=== PATIENT | female | born 1970 | race Caucasian/White ===

== ENCOUNTER → 2018-01-18 08:05 | Outpatient (CLI) | payer OTHER, SELFPAY ==
[2018-01-18 12:15] LABS: Absolute Lymphocyte Count 1.16 X10^3/ul (0.83-4.51); Absolute Neutrophil Count 3.4 X10^3/uL (2.0-7.7); Basophil# 0.01 X10^3/uL; Basophil% 0.2 % (0-1); Eosinophil# 0.14 X10^3/uL; Eosinophils% 2.8 % (0-5); Hematocrit 41.3 % (37-47); Hemoglobin 13.5 g/dl (12.0-15.0); Lymphocyte # 1.16 X10^3/ul (4.0); Lymphocyte % 23.1 % (19-41); Mean Corp Hgb Conc 32.7 g/gl (32-36); Mean Corpuscular Hgb 28.1 pg (27.0-32.0); Mean Corpuscular Volume 85.9 fL (81-99); Mean Platelet Vol. 10.6 fl (6.2-12.0); Monocyte# 0.34 X10^3/uL; Monocyte% 6.8 % (0-10); Neutrophil # 3.37 X10^3/uL (2.7-7.7); Neutrophil % 66.9 % (47-70); Platelet Count 242 K/mm3 (150-450); Red Blood Count 4.81 M/mm3 (4.2-5.4)
[2018-01-18 12:22] LABS: POSITIVE COUNT NO; POSITIVE DIFFERENTIAL NO; POSITIVE MORPHOLOGY NO
[2018-01-18 12:28] LABS: Vitamin D,25 Hydroxy 40.1 ng/mL (29.95-100.01)
[2018-01-18 12:31] LABS: AST(SGOT) 19 U/L (15-37); Alanine Aminotransfer ALT/SGPT 34 U/L (13-56); Albumin, Serum 3.8 g/dL (3.2-5.0); Alkaline Phosphatase 93 U/L (45-117); Anion Gap 6 (5-15); BUN 13 mg/dL (7-18); BUN/Creat Ratio 11.3 RATIO (10-20); Calcium,Total 8.9 mg/dL (8.5-10.1); Chloride 108 mmol/L (98-107); Creatinine, Serum 1.15 mg/dL (0.55-1.02); EST Glomerular Filtration Rate 54 mL/min (>60); Est Glom Filt Rate - Afr Amer 65 mL/min (>60); Glucose 98 mg/dL (74-106); Protein, Total 7.8 g/dL (6.4-8.2); Sodium Level 142 mmol/L (136-145); T4 Free Direct 0.85 ng/dL (0.76-1.46); Thyroid Stim Hormone (TSH) 2.45 uIU/mL (0.358-3.74)
== END ==
PROVIDERS: Family Provider Family Medicine; PCP Family Medicine; Visit Provider Family Medicine
DX: E55.9 Vitamin D deficiency, unspecified (principal); R25.1 Tremor, unspecified; R53.83 Other fatigue; R06.00 Dyspnea, unspecified
CPT/HCPCS: 36415; 80053; 82306; 84439; 84443; 85025

== ENCOUNTER 2018-02-01 09:06 | Observation (INO) | payer OTHER, SELFPAY ==
[2018-02-01] VITALS (16 sets, daily range): BP systolic 104–133; BP diastolic 54–78; PULSE 59–84; RESP 16–18; TEMP 36.3–36.8; O2SAT 94–99; BMI 34.5; BMI 34.6
--- NOTE | 2018-02-01 09:15 | EKG12_ITS ---
Test Reason : CP Blood Pressure : / mmHG Vent. Rate : 077 BPM Atrial Rate : 077 BPM P-R Int : 156 ms QRS Dur : 094 ms QT Int : 386 ms P-R-T Axes : 057 074 057 degrees QTc Int : 436 ms Normal sinus rhythm Nonspecific T wave abnormality Abnormal ECG Confirmed by KAILASH SAENZ, RY ([id number]), book editor STEVEN ANDREWS ([id number]) on 02/04/2018 3:05:23 PM Referred By: TRUNG/KOFFI Confirmed By:RY LINDER MD
[2018-02-01] MEDS: Aspirin 81 MG TAB.CHEW 324 MG PO (09:20)
[2018-02-01] MEDS: 0.9% Normal Saline 1,000 ML 150 ML IV (09:21)
[2018-02-01 09:30] LABS: Absolute Lymphocyte Count 1.48 X10^3/ul (0.83-4.51); Absolute Neutrophil Count 4.1 X10^3/uL (2.0-7.7); Basophil# 0.01 X10^3/uL; Basophil% 0.2 % (0-1); Eosinophil# 0.15 X10^3/uL; Eosinophils% 2.4 % (0-5); Hematocrit 38.6 % (37-47); Hemoglobin 12.7 g/dl (12.0-15.0); Lymphocyte # 1.48 X10^3/ul (4.0); Lymphocyte % 24.1 % (19-41); Mean Corp Hgb Conc 32.9 g/gl (32-36); Mean Corpuscular Hgb 27.6 pg (27.0-32.0); Mean Corpuscular Volume 83.9 fL (81-99); Mean Platelet Vol. 9.8 fl (6.2-12.0); Monocyte# 0.35 X10^3/uL; Monocyte% 5.7 % (0-10); Neutrophil # 4.14 X10^3/uL (2.7-7.7); Neutrophil % 67.4 % (47-70); Platelet Count 208 K/mm3 (150-450); RBC Distribution Width CV 13.8 % (11.6-14.6); White Blood Count 6.1 K/mm3 (4.4-11.0)
--- NOTE | 2018-02-01 09:30 | RAD_ITS ---
STUDY: X-RAY CHEST REASON FOR EXAM: Female, 47 years old. Chest pain radiating to jaw. TECHNIQUE: Single AP upright portable chest view. COMPARISON: None available. FINDINGS: EKG wires and oxygen tubing project over the thorax. The lungs appear clear of active focal pulmonary consolidation, air bronchograms, large pleural effusion or abnormally dilated pony vascularity. Mild right greater than left elevated diaphragms are seen. There is no demonstrated pleural abnormality. No large gross pneumothorax suggested with single AP upright portable projection. Normal size heart. Normal mediastinum and katie. Trachea near midline due to mild rotation. Normal visualized pulmonary arteries. Normal visualized aortic arch and descending thoracic aorta. Normal visualized thoracic spine. Normal visualized ribs, clavicles and shoulders. There is no demonstrated abnormality of the visualized soft tissue structures of the upper abdomen. No subdiaphragmatic free air seen grossly. RAD/Chest 1 View (Portable) IMPRESSION: Nonacute x-ray examination of the chest. Electronically Signed: Landon Renee, at 10:47 EDT Tel , Service support ,
[2018-02-01 09:31] LABS: POSITIVE COUNT NO; POSITIVE DIFFERENTIAL NO; POSITIVE MORPHOLOGY NO
[2018-02-01 09:42] LABS: D-Dimer Quantitative (DVT/PE) < 0.27 FEU/ug/m (0.27-0.49)
[2018-02-01 09:46] LABS: Anion Gap 6 (5-15); BUN 15 mg/dL (7-18); BUN/Creat Ratio 12.9 RATIO (10-20); Chloride 109 mmol/L (98-107); Creatinine, Serum 1.16 mg/dL (0.55-1.02); EST Glomerular Filtration Rate 53 mL/min (>60); Est Glom Filt Rate - Afr Amer 64 mL/min (>60); Estimated Creatinine Clearance 73.54 ml/min; Glucose 97 mg/dL (74-106); Potassium 3.9 mmol/L (3.5-5.1); Sodium Level 140 mmol/L (136-145)
[2018-02-01] MEDS: Nitroglycerin Oint 1 INCH PACKET TRANSDERM. (09:50)
[2018-02-01] MEDS: Acetaminophen 325 MG Tablet 650 MG PO ×2 (09:50→12:40)
--- NOTE | 2018-02-01 09:52 | ED.VISSUMM ---
- ER Visit Summary Date of Service: 02/01/18 Chief Complaint: [Chest pain] History of Present Illness: The patient is a 47 F [presents the emergency department with complaint of chest pain that started 45 minutes prior to arrival. Patient states that she had continuous pressure and tightness/heaviness in her central chest region that radiates into her jaw. Patient denies any nausea or vomiting or diaphoresis. She does feel somewhat short of breath with that. Patient is never had discomfort like this before. Patient states that earlier in the week she had some discomfort between her shoulder blades but she just thought maybe it was her fibromyalgia acting up. Patient denies recent travel or surgery. Patient just recently found her biological family she is not aware of any cardiac history in the family. She denies heartburn symptoms.] Physical Examination: [HEENT-PERRLA, EOMI. Cranial nerves II through XII grossly intact. TMs clear. Mucous membranes moist. No adenopathy. Cardiovascular-regular rate and rhythm without murmur or ectopy Lungs-clear to auscultation, chest wall stable without crepitus or subcu emphysema Abdomen-normoactive bowel sounds, soft, nontender, no rebound or rigidity, no peritoneal signs. Extremities-intact ?4, normal range of motion, normal pulses, atraumatic] Test Results: [EKG obtained on arrival showed a sinus rhythm with a ventricular rate of 77 bpm with some nonspecific ST changes. Patient did have flipped T waves noted anterior laterally when compared with prior EKG from 2006 similar type pattern noted. CBC with differential was normal. Chemistries were normal. Troponin was less than 0.015. D-dimer was normal less than 0.27. Chest x-ray was normal.] Emergency Department Course and Treatment: [Patient received aspirin in the emergency department and was given 1 sublingual nitro every 5 minutes x3 and her pain resolved. Patient currently pain-free.] Treatment Plan: [Admit for further workup and evaluation] Disposition: [Admit] Impression: [Chest pain-rule out acute coronary syndrome] This note was generated with Octopusappation software. It may contain incorrect words, spelling, and punctuation that were not noted in review of the chart prior to signing ED Disposition - Plan for ED Patient: Chief Complaint: Chest Pain Referrals: Hardeep Vázquez MD [Primary Care Provider] -
--- NOTE | 2018-02-01 10:40 | EKG12_ITS ---
Test Reason : CHEST PAIN Blood Pressure : / mmHG Vent. Rate : 062 BPM Atrial Rate : 062 BPM P-R Int : 172 ms QRS Dur : 098 ms QT Int : 440 ms P-R-T Axes : 038 062 072 degrees QTc Int : 446 ms Normal sinus rhythm Nonspecific T wave abnormality Abnormal ECG Confirmed by KAREN SAENZ, WARD ([id number]), fan mail editor STEVEN ANDREWS ([id number]) on 02/07/2018 11:43:04 AM Referred By: PIPPA Confirmed By:WARD JONES MD
--- NOTE | 2018-02-01 14:40 | PCM.HP.STD ---
Problem List (1) Anemia Status: Resolved (2) Menorrhagia Status: Resolved (3) Chest pain Status: Acute (4) Fibromyalgia Status: Chronic History of Present Illness Date of Admission: 02/01/18 Chief Complaint: Chest pain. The patient is a 47 year old F who presents emergency room due to episode of chest pain today which occurred while she was at work. Patient states she was in a meeting when she developed sudden onset of chest pressure along with sharp pain in the center of her chest. Patient notes radiation to the right neck/jaw. Denies dizziness, lightheadedness. Denies palpitations. Denies diaphoresis. Patient states she has chronic pain due to fibromyalgia but this pain was much worse than her daily aches and pains. Patient states pain lasted approximately 20-30 minutes until arriving in the ER where she received sublingual nitro. Her pain is currently resolved. Her past medical history includes fibromyalgia. She denies other past medical history. Denies cardiac history. Denies previous cardiac workup including stress test. Past Medical History Past Medical History (Chronic Problems): Chronic Problems Fibromyalgia (Chronic) Allergies guaifenesin Allergy (Verified 02/01/18 09:13) Unknown sulfamethoxazole [From Bactrim] Allergy (Verified 02/01/18 09:13) Unknown trimethoprim [From Bactrim] Allergy (Verified 02/01/18 09:13) Unknown Home Medications: Ambulatory Orders Medication Instructions Recorded Duloxetine HCl 30 mg PO BID 02/01/18 Pregabalin [Lyrica] 75 mg PO TID 02/01/18 traZODone [Desyrel] 200 mg PO QHS 02/01/18 Surgical History: - - Cholecystectomy, hysterectomy Psychiatric History: No pertinent psych hx Lives: Spouse/ Significant Other Smoking Status: Never smoker Alcohol: None Drugs: None - *Family History Maternal History Items: - - Patient is adopted, has been told her mother of brain aneurysm. Paternal History Items: - - Patient is adopted, unknown paternal medical history. Review of Systems Constitutional: Denies: Chills, Fever, Weight Change HEENT: Denies: Head Aches, Sinus Congestion, Sinus Drainage Cardiovascular: Reports: Chest Pain, Chest Pressure. Denies: Edema, Light Headedness, Palpitations, Syncope Respiratory: Denies: Cough, Shortness of breath at rest, Sputum production Gastrointestinal: Denies: Abdominal Pain, Nausea, Vomiting Genitourinary: Denies: Dysuria Musculoskeletal: Denies: Joint Pain, Joint Tenderness Skin: Denies: Rash, Wounds Neurological: Denies: Numbness, Tingling, Focal weakness Psychiatric: Denies: Anxiety, Depression, Homicidal Ideations, Suicidal Ideations Hematologic/ Lymphatic: Denies: Easy Bruising, Easy Bleeding VTE Information - Inpt Only VTE Present on Admission: No VTE Mechan Device Prophylaxis: None VTE Pharm Prophylaxis ordered?: No Reason prophylaxis not ordered:: Treatment Not Indicated Patient Problems: Active and Suspected Problems Chest pain (Acute) - Physical Exam General: Alert, Oriented x3, Cooperative, No apparent distress HEENT: Atraumatic, PERRLA, EOMI, Normocephalic Neck: Supple, No JVD, Negative Carotid Bruits Lungs: Clear to auscultation, Normal air movement Cardiovascular: Regular rate, Regular Rhythm, Normal S1, Normal S2, No murmurs Abdomen: Bowel Sounds Present, Soft, Non Tender, Non-Distended, Obese Extremities: No clubbing, No cyanosis, No edema, Capillary Refill Less than 3 Seconds Skin: No rashes, No breakdown Musculoskeletal: No Tenderness to Palpation of Joints or Extremities Neurological: Cranial nerves II-XII grossly intact, Neuro grossly intact Psych/Mental Status: Normal Affect, Appropriate Vital Signs Temp Pulse Resp BP Pulse Ox 97.7 F L 64 18 107/54 L 94 02/01/18 10:50 02/01/18 10:54 02/01/18 10:50 02/01/18 10:52 02/01/18 10:50 Oxygen Flow Rate (L/min) 2 Oxygen Delivery Method Room Air Weight: 269 lb 10.005 oz Body Mass Index (BMI) 34.6 Intake and Output for Last 24 Hours 01/30/18 01/31/18 02/01/18 23:59 23:59 23:59 Intake Total 240 / 240 Balance 240 / 240 Laboratory Tests Past 24 Hrs 02/01/18 02/01/18 02/01/18 09:19 09:19 09:19 WBC 6.1 RBC 4.60 Hgb 12.7 Hct 38.6 MCV 83.9 MCH 27.6 MCHC 32.9 RDW 13.8 RDW Differential 42.0 Plt Count 208 MPV 9.8 Immature Gran % (Auto) 0.200 Neut % (Auto) 67.4 Lymph % (Auto) 24.1 [place] % (Auto) 5.7 Eos % (Auto) 2.4 Baso % (Auto) 0.2 Absolute Neuts (auto) 4.1 Absolute Lymphs (auto) 1.48 Total Counted Not Reportable D-Dimer Quant (PE/DVT) < 0.27 L Sodium 140 Potassium 3.9 Chloride 109 H Carbon Dioxide 25.0 Anion Gap 6 BUN 15 Creatinine 1.16 H Estim Creat Clear Calc 73.54 Est GFR (MDRD) Af Amer 64 Est GFR (MDRD) Non-Af 53 L BUN/Creatinine Ratio 12.9 Glucose 97 Calcium 9.0 Troponin I < 0.015 02/01/18 12:06 WBC RBC Hgb Hct MCV MCH MCHC RDW RDW Differential Plt Count MPV Immature Gran % (Auto) Neut % (Auto) Lymph % (Auto) [place] % (Auto) Eos % (Auto) Baso % (Auto) Absolute Neuts (auto) Absolute Lymphs (auto) Total Counted D-Dimer Quant (PE/DVT) Sodium Potassium Chloride Carbon Dioxide Anion Gap BUN Creatinine Estim Creat Clear Calc Est GFR (MDRD) Af Amer Est GFR (MDRD) Non-Af BUN/Creatinine Ratio Glucose Calcium Troponin I < 0.015 Assessment/Plan All Active Problems Chest pain (Acute) Anemia (Resolved) Menorrhagia (Resolved) 1. Chest pain-EKG with ST-T changes. Trop negative X2. Cycle enzymes. Stress test in a.m. 2. Fibromyalgia- resume home meds. 3. Obesity- Encourage diet and lifestyle modifications. DVT Prophylaxis- not indicated. Low risk. This patient was seen by PRIETO Oliveira under the supervision of Dr. Hicks.
[2018-02-01] MEDS: 0.9% NaCl Peripheral Flush Adult/Peds IV (16:44)
[2018-02-01] MEDS: Ketorolac 15 MG/ML Vial IV (16:44)
[2018-02-01] MEDS: Pregabalin 75 MG Capsule 150 MG PO (21:04)
[2018-02-01] MEDS: Morphine 2 MG/ML Syringe IV (21:04)
[2018-02-01] MEDS: DULoxetine Hcl 30 MG Capsule PO (21:04)
--- NOTE | 2018-02-01 21:23 | EKG12_ITS ---
Test Reason : CP Blood Pressure : / mmHG Vent. Rate : 064 BPM Atrial Rate : 064 BPM P-R Int : 166 ms QRS Dur : 094 ms QT Int : 454 ms P-R-T Axes : 056 072 071 degrees QTc Int : 468 ms Normal sinus rhythm Nonspecific T wave abnormality Confirmed by KAREN SAENZ, WARD ([id number]), editorial writer STEVEN ANDREWS ([id number]) on 02/07/2018 11:45:08 AM Referred By: Confirmed By:WARD JONES MD
[2018-02-01] MEDS: traZODone 50 MG Tablet 150 MG PO (22:04)
[2018-02-02 03:00] VITALS: PULSE 56
[2018-02-02 04:00] VITALS: BP 105/66; PULSE 60; RESP 18; TEMP 36.6; O2SAT 98
--- NOTE | 2018-02-02 04:00 | EKG12_ITS ---
Test Reason : AM EKG Blood Pressure : / mmHG Vent. Rate : 066 BPM Atrial Rate : 066 BPM P-R Int : 166 ms QRS Dur : 090 ms QT Int : 438 ms P-R-T Axes : 056 065 057 degrees QTc Int : 459 ms Normal sinus rhythm Nonspecific T wave abnormality Abnormal ECG Confirmed by KAREN SAENZ, WARD ([id number]), videotape editor STEVEN ANDREWS ([id number]) on 02/07/2018 11:41:42 AM Referred By: PIPPA Confirmed By:WARD JONES MD
[2018-02-02 04:24] LABS: Absolute Lymphocyte Count 1.95 X10^3/ul (0.83-4.51); Absolute Neutrophil Count 3.1 X10^3/uL (2.0-7.7); Basophil# 0.02 X10^3/uL; Basophil% 0.4 % (0-1); Eosinophil# 0.21 X10^3/uL; Eosinophils% 3.7 % (0-5); Hematocrit 37.2 % (37-47); Hemoglobin 12.4 g/dl (12.0-15.0); Lymphocyte # 1.95 X10^3/ul (4.0); Lymphocyte % 34.6 % (19-41); Mean Corp Hgb Conc 33.3 g/gl (32-36); Mean Corpuscular Hgb 28.4 pg (27.0-32.0); Mean Corpuscular Volume 85.3 fL (81-99); Mean Platelet Vol. 10.2 fl (6.2-12.0); Monocyte# 0.37 X10^3/uL; Monocyte% 6.6 % (0-10); Neutrophil # 3.08 X10^3/uL (2.7-7.7); Neutrophil % 54.5 % (47-70); Platelet Count 211 K/mm3 (150-450); RBC Distribution Width CV 13.7 % (11.6-14.6); Red Blood Count 4.36 M/mm3 (4.2-5.4); White Blood Count 5.6 K/mm3 (4.4-11.0)
[2018-02-02 04:25] LABS: POSITIVE COUNT NO; POSITIVE DIFFERENTIAL NO; POSITIVE MORPHOLOGY NO
[2018-02-02 04:35] LABS: International Normalized Ratio 1.1; Partial Thromboplast Time 29.2 Seconds (24.1-36.2); Prothrombin Time (Protime)PT. 13.7 SECONDS (11.7-14.9)
[2018-02-02 04:44] LABS: Anion Gap 7 (5-15); BUN 19 mg/dL (7-18); BUN/Creat Ratio 17.1 RATIO (10-20); Calcium,Total 8.5 mg/dL (8.5-10.1); Chloride 110 mmol/L (98-107); Creatinine, Serum 1.11 mg/dL (0.55-1.02); EST Glomerular Filtration Rate 56 mL/min (>60); Est Glom Filt Rate - Afr Amer 68 mL/min (>60); Estimated Creatinine Clearance 76.85 ml/min; Glucose 99 mg/dL (74-106); Potassium 4.3 mmol/L (3.5-5.1); Sodium Level 144 mmol/L (136-145)
--- NOTE | 2018-02-02 05:55 | NM_ITS ---
CLINICAL: 47-year-old female with reported history of chest discomfort area REST-MAXIMAL STRESS 99mTc SESTAMIBI MYOCARDIAL PERFUSION SPECT COMPARISON: None available FINDINGS: Following the intravenous administration of 14.8 mCi of 99m Tc sestamibi, the resting attenuation corrected myocardial perfusion acquisitions demonstrate uniform radiopharmaceutical concentration throughout all left ventricular segments. Prominent subdiaphragmatic radiopharmaceutical concentration is defined. After exercising on the treadmill for 6 minutes and 58 seconds, to a maximum heart rate of 160 beats per minute and following the intravenous administration of 44.9 mCi of 99m Tc sestamibi, the post stress attenuation corrected myocardial perfusion images reveal likewise relatively normal perfusion throughout all left ventricular myocardial segments. The post stress resting left ventricular ejection fraction is calculated to be 57.0 % by gated SPECT technique. Wall motion and end systolic thickening are considered normal. NM/Nuclear Stress Test - Treadmil IMPRESSION: 1. NORMAL REST-MAXIMAL STRESS 99m Tc SESTAMIBI MYOCARDIAL PERFUSION SPECT. A. No evidence of significant maximal exercise induced left ventricular ischemia on review of attenuation corrected data sets. B. Preservation of resting left ventricular systolic function. (Willie et al, J Nucl Med 37: 105P, 1995). Electronically Signed: Adelfo Bergman DO at 12:43 EDT Tel , Service support ,
[2018-02-02 07:00] VITALS: PULSE 55
[2018-02-02 09:49] VITALS: BP 114/79; PULSE 73; RESP 16; TEMP 36.4; O2SAT 98
[2018-02-02] MEDS: Pregabalin 75 MG Capsule PO (10:02)
[2018-02-02] MEDS: DULoxetine Hcl 30 MG Capsule PO (10:02)
[2018-02-02 11:47] VITALS: PULSE 70
--- NOTE | 2018-02-02 13:25 | DCINST_ITS ---
- Discharge Diagnoses Current Active Problems: Current Active and Chronic Problems Chest pain (Acute) Fibromyalgia (Chronic) You will use the following diet at home:: No restrictions Discharge Activity: Return to Normal Activity Call your doctor if you observe: Shortness of breath, Dizziness, Fainting spells, Chest pain Allergies/Adverse Reactions: Allergies guaifenesin Allergy (Verified 02/01/18 09:13) Unknown sulfamethoxazole [From Bactrim] Allergy (Verified 02/01/18 09:13) Unknown trimethoprim [From Bactrim] Allergy (Verified 02/01/18 09:13) Unknown Medications to take at Discharge Duloxetine HCl 30 mg PO BID 02/01/18 Pregabalin [Lyrica] 75 mg PO TID 02/01/18 traZODone [Desyrel] 200 mg PO QHS 02/01/18 Primary Care Physician: Hardeep Vázquez MD [Primary Care Provider] - Please follow up with your Primary Care Physician in: 1 Week Test Results: Test results from this visit will be discussed in further detail at your follow- up appointment, if applicable. Proposed Discharge Date: 02/02/18
--- NOTE | 2018-02-02 13:26 | PCM.DC.SUM ---
<Ratna Yen - Last Filed: 02/02/18 13:34> Discharge Date and Diagnosis Date of Admission: 02/01/18 Date of Discharge: 02/02/18 - Primary Discharge Diagnosis Active and Suspected Problems 1. Noncardiac chest pain - Secondary Discharge Diagnosis Chronic Problems Fibromyalgia (Chronic) Hospital Course and Treatment Imaging Results: Diagnostic Data Chest X-Ray 02/01/18 09:30 IMPRESSION: Nonacute x-ray examination of the chest. Electronically Signed: Landon Renee, at 10:47 EDT Tel , Service support , Stress Test Nuclear Medicine 02/02/18 05:55 IMPRESSION: 1. NORMAL REST-MAXIMAL STRESS 99m Tc SESTAMIBI MYOCARDIAL PERFUSION SPECT. A. No evidence of significant maximal exercise induced left ventricular ischemia on review of attenuation corrected data sets. B. Preservation of resting left ventricular systolic function. (Willie et al, J Nucl Med 37: 105P, 1995). Electronically Signed: Adelfo Bergman DO at 12:43 EDT Tel , Service support , Operations: None Procedures: Stress test Summary of Care Provided: The patient is a 47 year old F admitted 02/01/2018 due to chest pain. ACS ruled out. 1. Chest pain-EKG with nonspecific ST-T changes. Trop negative X3. Stress test completed which was negative for ischemia. 2. Fibromyalgia- resume home meds. 3. Obesity- Encourage diet and lifestyle modifications. General: Alert, Oriented x3, Cooperative, No apparent distress HEENT: Atraumatic, PERRLA, EOMI, Normocephalic Neck: Supple, No JVD, Negative Carotid Bruits Lungs: Clear to auscultation, Normal air movement Cardiovascular: Regular rate, Regular Rhythm, Normal S1, Normal S2, No murmurs Abdomen: Bowel Sounds Present, Soft, Non Tender, Non-Distended, Obese Extremities: No clubbing, No cyanosis, No edema, Capillary Refill Less than 3 Seconds Skin: No rashes, No breakdown Musculoskeletal: No Tenderness to Palpation of Joints or Extremities Neurological: Cranial nerves II-XII grossly intact, Neuro grossly intact Psych/Mental Status: Normal Affect, Appropriate Patient seen and examined prior to discharge. Physical assessment as noted above. Patient stable for discharge home with follow-up with primary care physician in 1 week. This patient was seen by PRIETO Oliveira under the supervision of Dr. Reynolds. - Physical Exam Vital Signs Temp Pulse Resp BP Pulse Ox 97.6 F L 70 16 114/79 98 02/02/18 09:49 02/02/18 11:47 02/02/18 09:49 02/02/18 09:49 02/02/18 09:49 Oxygen Flow Rate (L/min) 2 Oxygen Delivery Method Room Air Weight: 269 lb 10.005 oz Body Mass Index (BMI) 34.6 Intake and Output for Last 24 Hours 01/31/18 02/01/18 02/02/18 23:59 23:59 23:59 Intake Total 920 / 920 Balance 920 / 920 Laboratory Tests Past 24 Hrs 02/01/18 02/02/18 02/02/18 15:15 04:15 04:15 WBC 5.6 RBC 4.36 Hgb 12.4 Hct 37.2 MCV 85.3 MCH 28.4 MCHC 33.3 RDW 13.7 RDW Differential 42.0 Plt Count 211 MPV 10.2 Immature Gran % (Auto) 0.200 Neut % (Auto) 54.5 Lymph % (Auto) 34.6 [place] % (Auto) 6.6 Eos % (Auto) 3.7 Baso % (Auto) 0.4 Absolute Neuts (auto) 3.1 Absolute Lymphs (auto) 1.95 Total Counted Not Reportable PT 13.7 INR 1.1 APTT 29.2 Sodium Potassium Chloride Carbon Dioxide Anion Gap BUN Creatinine Estim Creat Clear Calc Est GFR (MDRD) Af Amer Est GFR (MDRD) Non-Af BUN/Creatinine Ratio Glucose Calcium Troponin I < 0.015 02/02/18 04:15 WBC RBC Hgb Hct MCV MCH MCHC RDW RDW Differential Plt Count MPV Immature Gran % (Auto) Neut % (Auto) Lymph % (Auto) [place] % (Auto) Eos % (Auto) Baso % (Auto) Absolute Neuts (auto) Absolute Lymphs (auto) Total Counted PT INR APTT Sodium 144 Potassium 4.3 Chloride 110 H Carbon Dioxide 27.0 Anion Gap 7 BUN 19 H Creatinine 1.11 H Estim Creat Clear Calc 76.85 Est GFR (MDRD) Af Amer 68 Est GFR (MDRD) Non-Af 56 L BUN/Creatinine Ratio 17.1 Glucose 99 Calcium 8.5 Troponin I Discharge Diet: No Restrictions Discharge Activity: Return to Normal Activity Call your doctor if you observe: Shortness of breath, Dizziness, Fainting spells, Chest pain Home Medications: Medications to take at Discharge Duloxetine HCl 30 mg PO BID 02/01/18 Pregabalin [Lyrica] 75 mg PO TID 02/01/18 traZODone [Desyrel] 200 mg PO QHS 02/01/18 Primary Care Physician: Hardeep Vázquez MD [Primary Care Provider] - Please follow up with your Primary Care Physician in: 1 Week Disposition: Home Minutes spent on discharge:: 35 Patient Condition:: Stable Medical Necessity - Tobacco Use Smoking Status: Never smoker Meaningful Use Info Meaningful Use Diagnoses (Choose all that apply): None applicable <Nilton Reynolds - Last Filed: 02/02/18 14:49> Discharge Date and Diagnosis - Secondary Discharge Diagnosis Chronic Problems Fibromyalgia (Chronic) Hospital Course and Treatment Imaging Results: 02/02/18 05:55 Nuclear Stress Test - Treadmil [NM] AM (NON MEDS) Summary of Care Provided: This patient was seen in conjunction with Ratna ALLISON. I have independently interviewed and examined the patient and reviewed pertinent history, examination findings, laboratory and plan of management. I have reviewed the note and agree with the documented findings with the few additional points. In brief, patient is admitted for atypical chest pain. Patient does not know about his family history as she is adopted. Acute coronary syndrome ruled out. Nuclear stress test was negative for stress-induced ischemia. Patient is being discharged home. Discharge meds reconciliation done. I have discussed my assessment with Ratna ALLISON and orders have been reviewed. [] - Physical Exam General: Alert, Oriented x3, Cooperative HEENT: Atraumatic, PERRLA, EOMI, Normocephalic Neck: Supple, No JVD, Negative Carotid Bruits Lungs: Clear to auscultation, Normal air movement Cardiovascular: Regular rate, Regular Rhythm, Normal S1, Normal S2, No murmurs Abdomen: Bowel Sounds Present, Soft, Non Tender, Non-Distended Extremities: No edema, Capillary Refill Less than 3 Seconds Skin: No rashes, No breakdown Musculoskeletal: No Tenderness to Palpation of Joints or Extremities Neurological: Cranial nerves II-XII grossly intact Psych/Mental Status: Normal Affect, Appropriate Vital Signs Temp Pulse Resp BP Pulse Ox 97.6 F L 70 16 114/79 98 02/02/18 09:49 02/02/18 11:47 02/02/18 09:49 02/02/18 09:49 02/02/18 09:49 Oxygen Flow Rate (L/min) 2 Oxygen Delivery Method Room Air Weight: 269 lb 10.005 oz Body Mass Index (BMI) 34.6 Intake and Output for Last 24 Hours 01/31/18 02/01/18 02/02/18 23:59 23:59 23:59 Intake Total 920 / 920 Balance 920 / 920 Laboratory Tests Past 24 Hrs 02/01/18 02/02/18 02/02/18 15:15 04:15 04:15 WBC 5.6 RBC 4.36 Hgb 12.4 Hct 37.2 MCV 85.3 MCH 28.4 MCHC 33.3 RDW 13.7 RDW Differential 42.0 Plt Count 211 MPV 10.2 Immature Gran % (Auto) 0.200 Neut % (Auto) 54.5 Lymph % (Auto) 34.6 [place] % (Auto) 6.6 Eos % (Auto) 3.7 Baso % (Auto) 0.4 Absolute Neuts (auto) 3.1 Absolute Lymphs (auto) 1.95 Total Counted Not Reportable PT 13.7 INR 1.1 APTT 29.2 Sodium Potassium Chloride Carbon Dioxide Anion Gap BUN Creatinine Estim Creat Clear Calc Est GFR (MDRD) Af Amer Est GFR (MDRD) Non-Af BUN/Creatinine Ratio Glucose Calcium Troponin I < 0.015 02/02/18 04:15 WBC RBC Hgb Hct MCV MCH MCHC RDW RDW Differential Plt Count MPV Immature Gran % (Auto) Neut % (Auto) Lymph % (Auto) [place] % (Auto) Eos % (Auto) Baso % (Auto) Absolute Neuts (auto) Absolute Lymphs (auto) Total Counted PT INR APTT Sodium 144 Potassium 4.3 Chloride 110 H Carbon Dioxide 27.0 Anion Gap 7 BUN 19 H Creatinine 1.11 H Estim Creat Clear Calc 76.85 Est GFR (MDRD) Af Amer 68 Est GFR (MDRD) Non-Af 56 L BUN/Creatinine Ratio 17.1 Glucose 99 Calcium 8.5 Troponin I Code Visit OBSV E&M: 91895 Observation care discharge
--- NOTE | 2018-02-04 15:04 | STRESSREP_ITS ---
Stress Test Report Exercise myocardial perfusion stress test. 47-year-old lady with a history of chest pain. Stress protocol: Resting EKG demonstrates normal sinus rhythm with a rate of 55 bpm normal intervals and noted resting blood pressure 112/62 mmHg. The patient exercised according to regular Frederick protocol for a total duration of 6 minutes and 58 s econds. The patient completed 58 seconds to stage III of the Frederick protocol the maximum heart rate attained was 160 bpm is 92% of maximum predicted heart rate maximum workload was 8.4 metabolic equivalents. The patient maintained sinus rhythm throughout the recording. At rest there were no ST or T wave changes noted suggest ischemia peak exercise there was upsloping ST depression noted in leads II 0.5 mm in 0.[address] depression noted in lead III and less than 0.[address] depression noted in V5. The patient experienced mild throat pain. The above though suggestive are not diagnostic of ischemia. The resting blood pressure 112/62 with a peak blood pressure 164/80 mmHg. Myocardial perfusion protocol. Technetium 99m sestamibi was injected at rest and at peak exercise. Stress and rest images were reconstructed and compared in the short axis vertical long and horizontal long axis. The nuclear stress images will be dictated separately. Conclusion: Exercise myocardial perfusion stress test with EKG changes not definitive for ischemia at a moderate workload. Nuclear images dictated separately.
== END 2018-02-02 13:25 | disposition home or self-care (01) ==
LOC: ED 09:25 → PCU 10:29
PROVIDERS: Admitting Provider Internal Medicine; Emergency Provider Emergency Medicine; Family Provider Family Medicine; PCP Family Medicine; Visit Provider Internal Medicine
DX: R07.89 Other chest pain (principal); R06.02 Shortness of breath; M79.7 Fibromyalgia; Z23 Encounter for immunization; Z79.899 Other long term (current) drug therapy; G89.29 Other chronic pain; E66.9 Obesity, unspecified; Z68.34 Body mass index [BMI] 34.0-34.9, adult; Z71.3 Dietary counseling and surveillance
CPT/HCPCS: 36415; 71045; 78452; 80048; 84484; 85025; 85379; 85610; 85730; 93005; 93017; 96361; 96374; 96375; 97802; 99218; 99283; A9500; J7030; 90686; A4216; G0378

== ENCOUNTER → 2018-12-24 16:57 | Outpatient (CLI) | payer OTHER, SELFPAY ==
[2018-02-01 10:56] VITALS: BMI 34.6
[2018-12-28 14:18] LABS: HPV APTIMA, High Risk Negative (Negative)
== END ==
PROVIDERS: Visit Provider Obstetrics & Gynecology
DX: Z12.4 Encounter for screening for malignant neoplasm of cervix (principal)
CPT/HCPCS: 87624; 88175; G0145

== ENCOUNTER → 2019-01-24 09:20 | Outpatient (CLI) | payer OTHER, SELFPAY ==
[2019-01-24 12:46] LABS: Absolute Lymphocyte Count 1.23 X10^3/uL (0.83-4.51); Absolute Neutrophil Count 4.8 X10^3/uL (2.0-7.7); Basophil# 0.03 X10^3/uL; Basophil% 0.5 % (0-1); Eosinophil# 0.19 X10^3/uL; Eosinophils% 2.9 % (0-5); Hematocrit 41.6 % (37-47); Hemoglobin 13.5 g/dL (12.0-15.0); Lymphocyte # 1.23 X10^3/ul (4.0); Lymphocyte % 18.7 % (19-41); Mean Corp Hgb Conc 32.5 g/dL (32-36); Mean Corpuscular Hgb 28.7 pg (27.0-32.0); Mean Corpuscular Volume 88.5 fL (81-99); Mean Platelet Vol. 10.9 fl (6.2-12.0); Monocyte# 0.36 X10^3/uL; Monocyte% 5.5 % (0-10); NRBC Flagged by Analyzer 0 % (0-5); Neutrophil # 4.75 X10^3/uL (2.7-7.7); Neutrophil % 71.9 % (47-70); Platelet Count 213 K/mm3 (150-450); RBC Distribution Width CV 13.4 % (11.6-14.6); RBC Distribution Width SD 43.6 fl (35.1-43.9); White Blood Count 6.6 K/mm3 (4.4-11.0)
[2019-01-24 12:58] LABS: Hemoglobin A1c 5.6 % (4.2-6.3)
[2019-01-24 13:07] LABS: BNP,B-Type NATRIURETIC PEPTIDE 22.3 pg/mL (0-100)
[2019-01-24 13:11] LABS: AST(SGOT) 23 U/L (15-37); Alanine Aminotransfer ALT/SGPT 33 U/L (13-56); Albumin, Serum 3.9 g/dL (3.2-5.0); Alkaline Phosphatase 94 U/L (45-117); Anion Gap 4 (5-15); BUN 13 mg/dL (7-18); BUN/Creat Ratio 12.5 RATIO (10-20); Calcium,Total 9.1 mg/dL (8.5-10.1); Chloride 108 mmol/L (98-107); Cholesterol 164 mg/dL (200); Creatinine, Serum 1.04 mg/dL (0.55-1.02); EST Glomerular Filtration Rate 60 mL/min (>60); Est Glom Filt Rate - Afr Amer 73 mL/min (>60); Globulin 3.8 g/dL (2.2-4.2); Glucose 92 mg/dL (74-106); High Density Lipoprotein 38 mg/dL; Lipase 101 U/L (73-393); Potassium 4.2 mmol/L (3.5-5.1); Protein, Total 7.7 g/dL (6.4-8.2); Sodium Level 142 mmol/L (136-145); Thyroid Stim Hormone (TSH) 1.57 uIU/mL (0.358-3.74); Triglycerides 264 mg/dL; Very Low Density Lipoprotein 53 mg/dL (5-40)
== END ==
PROVIDERS: Family Provider Family Medicine; PCP Family Medicine; Visit Provider Family Medicine
DX: Z13.220 Encounter for screening for lipoid disorders (principal); R07.9 Chest pain, unspecified; R06.00 Dyspnea, unspecified; R11.0 Nausea; R73.01 Impaired fasting glucose; E55.9 Vitamin D deficiency, unspecified
CPT/HCPCS: 36415; 80053; 80061; 82306; 83036; 83690; 83880; 84443; 84484; 85025

== ENCOUNTER → 2019-01-24 09:22 | Outpatient (CLI) | payer OTHER, SELFPAY ==
[2018-02-01 10:56] VITALS: BMI 34.6
--- NOTE | 2019-01-24 09:24 | RAD_ITS ---
STUDY: X-RAY CHEST REASON FOR EXAM: Female, 48 years old. Chest heaviness with shortness of breath and fatigue TECHNIQUE: PA and lateral views of the chest. COMPARISON: 02/01/2018 FINDINGS: The lungs are clear and expanded. There is no demonstrated pleural abnormality. Normal size heart. Normal mediastinum and katie. Normal visualized pulmonary arteries. Normal visualized aortic arch and descending thoracic aorta. Normal visualized thoracic spine. Normal visualized ribs, clavicles, and shoulders. There is no demonstrated abnormality of the visualized soft tissue structures of the upper abdomen. RAD/Chest PA and Lateral IMPRESSION: No acute cardiopulmonary process. Stable exam. Electronically Signed: Papito Sebastian MD ([place]) at 15:28 EDT , Service support ,
== END ==
PROVIDERS: Family Provider Family Medicine; PCP Family Medicine; Referring Provider Family Medicine; Visit Provider Family Medicine
DX: R07.9 Chest pain, unspecified (principal); R06.00 Dyspnea, unspecified; R11.0 Nausea
CPT/HCPCS: 71046

== ENCOUNTER → 2019-01-27 06:47 | Outpatient (CLI) | payer OTHER, SELFPAY ==
--- NOTE | 2019-01-27 06:51 | BI_ITS ---
MAMMOGRAPHY - BILATERAL SCREENING 3-D TOMOSYNTHESIS REASON FOR EXAM: Female, 48 years old. Screening PERTINENT HISTORY: No significant family history. BILATERAL DIGITAL MAMMOGRAM WITH TOMOSYNTHESIS: Mediolateraloblique and craniocaudal views demonstrate no evidence of dominant parenchymal masses. No cluster of microcalcifications or architectural distortion is seen. No evidence of skin thickening is identified. There has been no significant change since 11/05/2009 Breast Density: The breast tissue is extremely dense which may lower the sensitivity of mammography. CAD was used to assist in final assessment. IMPRESSION: NORMAL MAMMOGRAM BILATERALLY. FINAL ASSESSMENT: BIRAD 1 (NEGATIVE) YEARLY MAMMOGRAM RECOMMENDED Approximately 10% of breast cancers are not detected by mammography. A normal mammogram should not delay biopsy of a clinically suspicious abnormality. Electronically Signed: Manuel Gonzales, at 8:07 EDT Tel , Service support , BI/SCREEN MAMM (CAD) W/CHEN NORRIS
== END ==
PROVIDERS: Family Provider Family Medicine; PCP Family Medicine; Referring Provider Obstetrics & Gynecology; Visit Provider Obstetrics & Gynecology
DX: Z12.31 Encounter for screening mammogram for malignant neoplasm of breast (principal)
CPT/HCPCS: 77063; 77067

== ENCOUNTER 2019-02-06 20:58 | Emergency (ER) | payer OTHER, SELFPAY ==
[2019-02-06 20:58] VITALS: BP 137/70; PULSE 82; RESP 16; TEMP 36.7; O2SAT 100; BMI 36.6
[2019-02-06] MEDS: Aspirin 81 MG TAB.CHEW 324 MG PO (21:49)
--- NOTE | 2019-02-06 21:50 | RAD_ITS ---
STUDY: X-RAY CHEST REASON FOR EXAM: Female, 48 years old. Chest pain. TECHNIQUE: AP portable upright CXR COMPARISON: 01/24/2019 CXR FINDINGS: No apparent pneumothorax, pneumonia, pleural effusion, or edema. Cardiac silhouette, katie and mediastinal contours are within normal limits. No acute osseous abnormality. No evidence of free air under the diaphragm. RAD/Chest 1 View (Portable) IMPRESSION: Negative chest radiograph. Electronically Signed: Clinton Arnold, at 22:13 EDT Tel , Service support ,
[2019-02-06 21:54] VITALS: BP 132/79; PULSE 76
[2019-02-06] MEDS: Nitroglycerin SL (ED/IMG/CATH) 0.4 MG TABLET SUBLINGUAL ×3 (21:54→22:08)
[2019-02-06 21:56] LABS: Absolute Lymphocyte Count 1.97 X10^3/uL (0.83-4.51); Absolute Neutrophil Count 6.1 X10^3/uL (2.0-7.7); Basophil# 0.03 X10^3/uL; Basophil% 0.3 % (0-1); Eosinophils% 2.3 % (0-5); Hemoglobin 13.3 g/dL (12.0-15.0); Lymphocyte # 1.97 X10^3/ul (4.0); Lymphocyte % 22.6 % (19-41); Mean Corp Hgb Conc 34.1 g/dL (32-36); Mean Platelet Vol. 10.6 fl (6.2-12.0); Monocyte# 0.37 X10^3/uL; Monocyte% 4.2 % (0-10); NRBC Flagged by Analyzer 0 % (0-5); Neutrophil % 70.1 % (47-70); Platelet Count 234 K/mm3 (150-450); RBC Distribution Width CV 13.8 % (11.6-14.6); RBC Distribution Width SD 42.3 fl (35.1-43.9); Red Blood Count 4.59 M/mm3 (4.2-5.4); White Blood Count 8.7 K/mm3 (4.4-11.0)
[2019-02-06 22:01] VITALS: BP 118/70; PULSE 89
[2019-02-06 22:07] LABS: Anion Gap 9 (5-15); BUN 16 mg/dL (7-18); BUN/Creat Ratio 13.8 RATIO (10-20); Calcium,Total 9.1 mg/dL (8.5-10.1); Chloride 108 mmol/L (98-107); Creatinine, Serum 1.16 mg/dL (0.55-1.02); EST Glomerular Filtration Rate 53 mL/min (>60); Est Glom Filt Rate - Afr Amer 64 mL/min (>60); Estimated Creatinine Clearance 72.75 ml/min; Glucose 158 mg/dL (74-106); Potassium 3.7 mmol/L (3.5-5.1); Sodium Level 142 mmol/L (136-145)
[2019-02-06 22:08] VITALS: BP 132/68; PULSE 81
--- NOTE | 2019-02-06 22:51 | ED.VISSUMM ---
- ER Visit Summary Date of Service: 02/06/19 Chief Complaint: Chest pain History of Present Illness: The patient is a 48 F who presents with chest pain that has been intermittent over the past 2 weeks. Patient states that tonight it began approximately 1 to 2 hours prior to arrival. Patient states it is a pressure and heaviness. Patient states the pain is over the substernal area. Patient states it is worse with exertion. Patient admits to some nausea and shortness of breath. Patient denies any diaphoresis or vomiting. Patient does admit to some palpitations. Patient denies any cardiac or PE risk factors. Physical Examination: Vital signs are stable. Patient is afebrile. Patient is in no acute distress. Oral mucosa is pink and moist. Neck is supple. Trachea is midline. There is no JVD noted. Heart was regular rate and rhythm. Lungs are clear and equal bilaterally. Abdomen is soft. Bowel sounds are normal. There is no tenderness. Cranial nerves II through XII are intact. There are no focal motor or sensory deficits noted. Test Results: EKG showed normal sinus rhythm with a rate of 73. There are nonspecific ST-T wave changes. This was unchanged compared to previous EKG dated 02/02/2018. CBC was within normal limits. Basic metabolic profile shows slightly elevated creatinine of 1.16 and a glucose of 158. Troponin was normal. Portable chest x-ray was obtained. There is no acute cardiopulmonary process. Emergency Department Course and Treatment: Patient was given aspirin here. Patient felt better on reevaluation. Patient states her chest pain is resolved. Patient has a HEART score of 3. Patient was advised that this is low risk for acute cardiac event. Patient was instructed to follow-up with her primary care physician in 3 to 5 days. Patient and her understood and were agreeable with the plan. All questions were answered. Disposition: Discharge home Impression: Chest pain of uncertain etiology This note was generated with [employer] dictation software. It may contain incorrect words, spelling, and punctuation that were not noted in review of the chart prior to signing ED Disposition - Plan for ED Patient: Disposition: Home or Assisted Living Diagnosis: Chest pain Instructions: CHEST PAIN, Uncertain Cause Referrals: Hardeep Vázquez MD [Primary Care Provider] - 3-5 Days
[2019-02-06 23:04] VITALS: BP 102/66; PULSE 78; RESP 18; O2SAT 97
== END 2019-02-06 23:06 | disposition home or self-care (01) ==
PROVIDERS: Emergency Provider Emergency Medicine; Family Provider Family Medicine; PCP Family Medicine
DX: R07.9 Chest pain, unspecified (principal); M79.7 Fibromyalgia; E66.9 Obesity, unspecified; Z68.36 Body mass index [BMI] 36.0-36.9, adult
CPT/HCPCS: 71045; 80048; 84484; 85025; 93005; 99285; A4216

== ENCOUNTER → 2019-02-19 08:49 | Outpatient (CLI) | payer OTHER, SELFPAY ==
[2019-02-06 20:58] VITALS: BMI 36.6
--- NOTE | 2019-02-19 08:54 | ECHOCS_ITS ---
Reason For Study: Chest Pressure/SOB Procedure This was a 2D Doppler, Color Flow transthoracic echocardiogram. Contrast injection was performed. Exam performed in department. Left Ventricle Normal size and thickness. The estimated ejection fraction is 65 %. Normal diastology for age. No regional wall motion abnormalities noted. Right Ventricle Normal size and thickness. Normal systolic function. Atria Normal left atrium. Normal right atrium. Normal atrial septum. Mitral Valve The mitral valve is structurally normal. No prolapse or stenosis seen. Trivial mitral valve insufficiency. Tricuspid Valve Normal tricuspid valve. Mild (1+) tricuspid valve insufficiency. Right ventricular systolic pressure estimated to be 32 mmHg. Aortic Valve Trisinus/trileaflet aortic valve. Pulmonic Valve Normal pulmonic valve. Great Vessels Normal aortic root. Normal arch. Normal inferior vena cava. Inferior vena cava collapse with sniff. Pericardium/Pleural No pericardial effusion. Medication Diluted definity 3.5ml given slow IV push to enhance endocardial definition. MMode/2D Measurements & Calculations LVIDd: 5.4 cm IVSd: 1.3 cm Ao root diam: 3.0 cm LVIDs: 3.3 cm LVPWd: 1.3 cm RVDd: 4.3 cm FS: 38.0 % LAV(MOD-bp): 44.7 ml LVAd ap4: 35.6 cm2 SV(MOD-sp4): 82.5 ml LAV(MOD-bp) Indexed: 17.8 ml/m2 EDV(MOD-sp4): 131.4 ml LAV(MOD-sp2): 42.3 ml EDV(sp4-el): 134.6 ml LAV(MOD-sp4): 40.1 ml LVAs ap4: 19.0 cm2 ESV(MOD-sp4): 48.9 ml ESV(sp4-el): 48.4 ml EF(MOD-sp4): 62.8 % EF(sp4-el): 64.0 % SV(sp4-el): 86.2 ml LA A4 area: 17.1 cm2 LA dimension(2D): 3.7 cm RA A4 area: 13.9 cm2 Doppler Measurements & Calculations MV E max michelet: 72.5 cm/sec Lat Peak E' Michelet: 7.8 cm/sec Med Peak E' Michelet: 6.0 cm/sec MV A max michelet: 49.4 cm/sec E/E' lat: 9.3 E/E' med: 12.1 MV E/A: 1.5 Ao V2 max: 127.5 cm/sec LV V1 max: 88.3 cm/sec PA V2 max: 73.2 cm/sec Ao max P.5 mmHg LV V1 max P.1 mmHg Ao V2 mean: 97.9 cm/sec Ao mean P.1 mmHg Ao V2 VTI: 29.2 cm PI end-d michelet: 76.1 cm/sec TR max michelet: 257.3 cm/sec TR max P.5 mmHg Interpretation Summary The estimated ejection fraction is 65 %. Normal diastology for age. Trivial mitral valve insufficiency. Mild (1+) tricuspid valve insufficiency. Right ventricular systolic pressure estimated to be 32 mmHg. Compared to echo report dated 20/10/2006, no appreciable changes noted. The study was technically difficult. Contrast injection was performed. Ordering Physician: Hardeep Vázquez Referring Physician: Hardeep Vázquez Performed By: Dayan Ulloa, PERI, RVT
== END ==
PROVIDERS: Family Provider Family Medicine; PCP Family Medicine; Referring Provider Family Medicine; Visit Provider Family Medicine
DX: R07.89 Other chest pain (principal); R06.02 Shortness of breath; R11.0 Nausea
CPT/HCPCS: 93306; Q9957; A4216; C8929

== ENCOUNTER → 2019-11-26 17:40 | Outpatient (CLI) | payer OTHER, SELFPAY | PROVIDERS: PCP Family Medicine; Referring Provider Nurse Practitioner Family; Visit Provider Nurse Practitioner Family | DX: Z11.59 Encounter for screening for other viral diseases (principal) | CPT/HCPCS: 87635; 94799; U0003 ==

== ENCOUNTER → 2019-12-09 17:30 | Outpatient (CLI) | payer OTHER, SELFPAY | PROVIDERS: PCP Family Medicine; Referring Provider Nurse Practitioner Family; Visit Provider Nurse Practitioner Family | DX: Z11.59 Encounter for screening for other viral diseases (principal) | CPT/HCPCS: 87635; 94799; U0003 ==

== ENCOUNTER → 2020-03-04 12:06 | Outpatient (CLI) | payer OTHER, SELFPAY ==
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
== END ==
PROVIDERS: PCP Family Medicine; Visit Provider Nurse Practitioner Family
DX: M54.9 Dorsalgia, unspecified (principal)
CPT/HCPCS: 72110

== ENCOUNTER → 2020-04-06 16:07 | Outpatient (CLI) | payer OTHER, SELFPAY ==
--- NOTE | 2020-04-06 16:10 | BI_ITS ---
MAMMOGRAPHY - BILATERAL SCREENING REASON FOR EXAM: Female, 49 years old. Routine annual screening examination. PERTINENT HISTORY: Non-contributory. TECHNIQUE: Digital bilateral breast chen (3D mammographic acquisition) in the CC and MLO projections. 2-D mediolateral oblique (MLO) and craniocaudad (CC) views of both breasts were obtained. CAD: Full Field Digital Mammography with Computer Added Detection was performed. COMPARISON: Comparison is made with prior study dated 01/27/2019 and 10/07/1999. FINDINGS: Breast Composition: The breasts are heterogeneously dense, which may obscure small masses. There are no dominant masses or suspicious calcifications. No other significant abnormalities are identified. There has been no significant change since the prior study. BI/SCREEN MAMM (CAD) W/CHEN BILAT IMPRESSION: Stable bilateral screening mammogram. Yearly follow-up mammogram recommended. (A) ASSESSMENT CATEGORY: BIRADS Category 2: Benign. A letter regarding these results will be sent to the patient by the facility within 30 days. Approximately 10% of breast cancers are not detected by mammography. A normal mammogram should not delay biopsy of a clinically suspicious abnormality. [id number] Electronically Signed: Jeff Higuera, at 8:04 EST , Service support ,
== END ==
PROVIDERS: PCP Family Medicine; Referring Provider Obstetrics & Gynecology; Visit Provider Obstetrics & Gynecology
DX: Z12.31 Encounter for screening mammogram for malignant neoplasm of breast (principal)
CPT/HCPCS: 77063; 77067

== ENCOUNTER → 2020-04-08 06:30 | Outpatient (CLI) | payer OTHER, SELFPAY ==
--- NOTE | 2020-04-08 06:45 | MRI_ITS ---
STUDY: MRI LUMBAR SPINE WITHOUT CONTRAST REASON FOR EXAM: Female, 49 years old. Left leg radiculopathy X SEVERAL MONTHS TECHNIQUE: Standardized fat and water weighted pulse sequences were obtained in the sagittal and axial planes. COMPARISON: Lumbar spine radiographs 03/04/2020. FINDINGS: T11-T12: (Sagittal only). Normal endplates. Normal disc height, hydration and morphology. Normal central canal and bilateral intervertebral neural foramina. T12-L1: (Sagittal only). Normal endplates. Normal disc height, hydration and morphology. Normal central canal and bilateral intervertebral neural foramina. Normal lumbar lordosis. There is no substantial scoliosis. Normal conus medullaris that terminates at the mid L1 vertebral body level. L1-2: Normal endplates. Normal disc height, hydration and morphology. Normal bilateral facet joints. Normal central canal and bilateral lateral recesses. Normal bilateral intervertebral neural foramina. L2-3: Normal endplates. Mild disc space height narrowing. Mild loss of disc hydration. Normal central canal and bilateral lateral recesses. Normal facet joints. Normal bilateral intervertebral neural foramina. L3-4: Normal endplates. Normal disc height and morphology. Mild loss of disc hydration. Normal central canal and bilateral lateral recesses. Normal facet joints. Normal bilateral intervertebral neural foramina. L4-5: MODIC type II degenerative vertebral marrow fatty changes underneath right side of the vertebral endplates. Tiny Schmorl''s node with reactive fatty change underneath the Schmorl''s node in the left side of the L5 superior endplate. Mild disc space height narrowing. Normal central canal and bilateral lateral recesses. Normal facet joints. Normal bilateral intervertebral neural foramina. L5-S1: MODIC type II degenerative vertebral marrow fatty changes underneath the peripheral aspects of both vertebral endplates. Mild disc space height narrowing. Small posterior bulging disc. Normal central canal and bilateral lateral recesses. Normal facet joints. Normal bilateral intervertebral neural foramina. Normal visualized sacral ala. Normal visualized paraspinous soft tissue structures. MRI/Spine Lumbar (Routine) IMPRESSION: 1. No MRI evidence of lumbar extruded disc fragment, spinal stenosis or nerve root displacement. 2. Mild MODIC type II degenerative vertebral marrow fatty changes underneath the right side of the vertebral endplates, mild reactive fatty change underneath the tiny Schmorl''s node in the left side of the L5 superior endplate and mild disc space height narrowing. 3. Mild L5-S1 disc space height narrowing with small posterior bulging disc and mild MODIC type II degenerative vertebral marrow fatty changes underneath the peripheral aspects of both vertebral endplates. Electronically Signed: Alexandro Louise MD at 8:38 EST , Service support ,
== END ==
PROVIDERS: PCP Family Medicine; Referring Provider Nurse Practitioner Family; Visit Provider Nurse Practitioner Family
DX: M54.16 Radiculopathy, lumbar region (principal)
CPT/HCPCS: 72148

== ENCOUNTER → 2020-07-01 06:28 | Outpatient (CLI) | payer OTHER, SELFPAY ==
--- NOTE | 2020-07-01 06:41 | MRI_ITS ---
EXAM: MR CERVICAL SPINE WITHOUT AND WITH INTRAVENOUS CONTRAST CLINICAL INDICATION: PARESTHESIA OF LEFT LOWER LIMB, PARESTHESIA OF SKIN TECHNIQUE: Multiplanar and multisequence MR images of the cervical spine without and with intravenous contrast were performed. This report was created using Cerelink report Avvo technology. CONTRAST: IV Dotarem 25ml COMPARISON: None. FINDINGS: VERTEBRAE: Straightening of the C-spine curve. T1-T2: Normal endplates. Normal disc height, signal and morphology. No central canal and intervertebral neural foramina. T2-T3: (Sagittal only). Minimal anterior posterior marginal spurs. Mild disc space height narrowing. Normal endplates. Normal central canal and intervertebral neural foramina. T3-T4: (Sagittal only). Normal endplates. Normal disc height, signal and morphology. Normal central canal and intervertebral neural foramina. T4-T5: (Sagittal only). Normal endplates. Normal disc height, signal and morphology. Normal central canal and intervertebral neural foramina. No spondylolisthesis. SPINAL CORD: Unremarkable in signal and morphology. SOFT TISSUES: Unremarkable. No prevertebral soft tissue swelling. LYMPH NODES: Unremarkable. There is no cervical adenopathy. DISCS/SPINAL CANAL/NEURAL FORAMINA: C2-C3: Normal endplates. Normal disc height and morphology. Normal spinal canal and neuroforamina. C3-C4: Normal endplates. Normal disc height and morphology. Normal spinal canal and neuroforamina. C4-C5: Normal endplates. Normal disc height and morphology. Normal spinal canal and neuroforamina. C5-C6: Minimal anterior marginal spurs. Mild disc space height narrowing. Small posterior marginal spurs. Normal central canal and intervertebral neural foramina. C6-C7: Normal endplates. Normal disc height and morphology. Normal spinal canal and neuroforamina. C7-T1: Normal endplates. Normal disc height and morphology. Normal spinal canal and neuroforamina. MRI/Spine Cervical W/WO Contrast IMPRESSION: 1. No MRI evidence of cervical extruded disc fragment, spinal stenosis or nerve root displacement. 2. Normal cervical spinal cord and the included upper thoracic spinal cord. 3. No abnormal enhancing lesions intradurally and extradurally. Electronically Signed: Alexandor Louise MD at 11:51 EST , Service support ,
--- NOTE | 2020-07-01 06:41 | MRI_ITS ---
STUDY: MRI THORACIC SPINE WITH AND WITHOUT CONTRAST REASON FOR EXAM: Female, 49 years old. PARESTHESIA OF LEFT LOWER LIMB, PARESTHESIA OF SKIN TECHNIQUE: 25ml IV Dotarem was administered for the contrast portion of the examination. COMPARISON: None. FINDINGS: Normal kyphosis of the thoracic spine. There is no substantial scoliosis. T1-2, T2-3, T3-4, T4-5, T5-6, T6-7, T7-8, T8-9, T9-10, T10-11, T11-12: Right-sided T2-T3 disc space height narrowing with right-sided anterior posterior marginal spurs. Normal central canal and bilateral intervertebral neural foramina. Mild central concavity of the T6 inferior endplate is from remote injury. Minimal central compression fracture of the T8 superior and inferior endplates are presumably from remote injury. No acute fractures and no malalignment. No thoracic extruded disc fragment. Normal central canal and bilateral intervertebral neural foramina. Normal visualized thoracic cord. Normal conus medullaris but the tip is not included. It presumably terminates in the lower L1 vertebral body level in the sagittal industrial ecologist. The soft tissue structures are unremarkable. There is no enhancing abnormality. There is normal contrast enhancement of the ventral and dorsal epidural vessels at T10 down to lower T11 vertebral body level. There is no abnormal serpiginous vessels to suspect dural AV fistula. MRI/Spine Thoracic W/WO Contrast IMPRESSION: 1. Right-sided T2-T3 disc space height narrowing with right-sided anterior posterior marginal spurs. 2. Mild central concavity of the T6 inferior endplate is from remote injury. 3. Minimal old central compression fracture of the T8 superior and inferior endplates. 4. No MRI evidence of thoracic extruded disc fragment, spinal stenosis or nerve root displacement. 5. Normal thoracic spinal cord but the tip of the conus medullaris is not included. Based on the sagittal industrial ecologist, the tip of the conus medullaris most likely terminates at the lower L1 vertebral body level. Electronically Signed: Alexandro Louise MD at 11:47 EST , Service support ,
--- NOTE | 2020-07-01 06:41 | MRI_ITS ---
STUDY: MRI BRAIN WITH AND WITHOUT CONTRAST REASON FOR EXAM: Female, 49 years old. BINOCULAR VISION DISORDER TECHNIQUE: Standardized multiplanar fat and water weighted pulse sequences were obtained. 25ml IV Dotarem was administered for the contrast portion of the examination. COMPARISON: None. FINDINGS: No diffusion restriction throughout the brain parenchyma. No focal signal abnormalities of the brain parenchyma in all of the pulse sequences. Normal size of the ventricles and extra-axial spaces for the patient''s age. Normal white matter tracts of the supratentorial brain. Normal bilateral basal ganglia. Normal thalami. There is no extra-axial fluid accumulation. Normal flow voids within the major intracranial circulation suggesting patency by spin echo criteria. Normal venous enhancement. There is no enhancing intra-axial or extra-axial abnormality. Normal sella turcica, pituitary gland, infundibular stalk, optic chiasm and hypothalamus. Normal tectal plate and pineal gland. Normal midbrain, ese and medulla. Normal cerebellum. Normal basal cisterns. Normal bilateral temporal bones. Normal bilateral internal auditory canals. No demonstrated orbital abnormality, within the constraints of a routine brain study. Normal visualized paranasal sinuses. Normal calvarium and skull base. Normal visualized soft tissue structures. Normal visualized upper cervical spine. MRI/Brain W/WO Contrast IMPRESSION: Normal unenhanced and enhanced MRI of the brain. Electronically Signed: Alexandro Louise MD at 11:52 EST , Service support ,
== END ==
PROVIDERS: PCP Family Medicine; Referring Provider Psychiatry & Neurology Neurology; Visit Provider Psychiatry & Neurology Neurology
DX: H53.30 Unspecified disorder of binocular vision (principal); R20.2 Paresthesia of skin
CPT/HCPCS: 70553; 72156; 72157; A9575

== ENCOUNTER 2020-08-24 15:05 | Emergency (ER) | payer OTHER, SELFPAY ==
[2020-08-24 15:06] VITALS: BP 137/68; PULSE 63; RESP 22; TEMP 36.1; O2SAT 100; BMI 35.9
--- NOTE | 2020-08-24 15:22 | CT_ITS ---
STUDY: CT ABDOMEN AND PELVIS WITHOUT CONTRAST REASON FOR EXAM: Female, 50 years old. Right flank pain. RADIATION DOSAGE (If Supplied By Facility): CTDIvol = ( 22.67 ) mGy, DLP = ( 1257.23 ) mGycm TECHNIQUE: Transaxial images were obtained from the dome of the diaphragm to the symphysis pubis without oral contrast, and without intravenous contrast. Sagittal and coronal images were reconstructed. Individualized dose optimization techniques were used for this CT. COMPARISON: None. FINDINGS: The visualized lung bases are unremarkable. Minimal pericardial thickening along the right heart border. There is decreased attenuation of the liver consistent with steatosis. There are surgical clips in the gallbladder fossa consistent with a prior cholecystectomy. Normal spleen. Normal pancreas. Normal bilateral adrenal glands. Mild right hydronephrosis and right hydroureter due to a 3 mm calculus at the right ureterovesical junction. Normal left kidney. There is a small hiatal hernia. Normal small intestine. Normal colon. The appendix is visualized and appears normal. Normal abdominal aorta. Normal inferior vena cava. Normal retroperitoneum. The urinary bladder is empty. There is absence of the uterus consistent with a prior hysterectomy. Normal abdominal wall. There are mild degenerative changes of the visualized lumbar spine. CT/Abdomen/Pelvis without Cont IMPRESSION: Mild degree of right hydronephrosis and hydroureter due to a 3 mm calculus at the right ureterovesical junction. Electronically Signed: Jeff Higuera MD at 15:58 EDT , Service support ,
--- NOTE | 2020-08-24 15:23 | ED.VIS.FEGU ---
HPI HPI - Female History of Present Illness Chief Complaint: Flank Pain Informant: patient Pain Pain: Negative for Pelvic Pain Onset: Today Context: Sudden Onset Timing: Continuous Current Severity: Moderate Maximum Severity: Moderate Bleeding Issue: Negative for Vaginal bleeding Associated Symptoms Associated Symptoms: Positive for Dysuria Narrative Narrative: 50-year-old female complains of right flank pain that started about 1 hour ago. No prior history of kidney stone. Prior hysterectomy and prior cholecystectomy. Patient said associated nausea. Mild diarrhea. No fever. No chills. No dysuria or hematuria. She does have a history of fibromyalgia. Prior similar symptoms: No Recent Illness/Hospitalization: No PFSH PFSH Home Medications duloxetine 30 mg PO BID 02/01/18 [History Last Taken 01/31/18] pregabalin 150 mg PO BID 02/01/18 [History Last Taken Unknown] trazodone 200 mg PO QHS 02/01/18 [History Last Taken 01/31/18] hydrocodone-acetaminophen 1 tab PO Q4H PRN 4 Days #14 tab 08/24/20 [Rx Last Taken Unknown] Allergy/AdvReac Type Severity Reaction Status Date / Time guaifenesin Allergy Unknown Verified 08/24/20 15:06 sulfamethoxazole Allergy Unknown Verified 08/24/20 15:06 [From Bactrim] trimethoprim [From Bactrim] Allergy Unknown Verified 08/24/20 15:06 Social History Smoking Status: Never smoker ROS ROS ED ROS Narrative Patient denies any recent illness. She denies any recent urinary tract symptoms. She has noticed dysuria after the pain started today. Review of Systems ROS Unobtainable: Denies due to encephalopathy Constitutional Constitutional ED: Denies fever(s) Eyes Eyes: Denies change in vision ENT ENT ED: Denies ear pain or sore throat Cardiovascular Cardiovascular: Denies chest pain Respiratory/Chest Respiratory/Chest: Denies dyspnea Gastrointestinal Gastrointestinal: Reports diarrhea and nausea; Denies abdominal pain, constipation, melena or vomiting Genitourinary Genitourinary ED: Reports dysuria; Denies hematuria Musculoskeletal Musculoskeletal: Denies myalgias Integumentary Denies rash Neurologic Neurologic: Denies headache(s) Psychiatric Psychiatric: Denies depression Endocrine Endocrinology: Denies polyuria Hematologic/Lymphatic Hematologic/Lymphatic: Denies easy bruising Allergic/Immunologic Allergic/Immunologic ED: Denies urticaria EXAM Physical Exam Narrative Exam Narrative: Middle-aged female complaining of right flank pain. Vital signs are stable afebrile. present at bedside. Lungs are clear. Heart regular rhythm no murmur. Abdomen soft without peritoneal signs. Const Vital Signs: 08/24/20 15:06 08/24/20 15:25 Temperature 96.9 F L Temperature Source Temporal Pulse Rate 63 Respiratory Rate 22 H Respiratory Effort Normal Non-Labored Respiratory Pattern Normal Blood Pressure 137/68 H Blood Pressure Mean 91 Pulse Ox 100 Oxygen Delivery Method Room Air Positive well nourished and well developed General Appearance ED: well developed HEENT Reports moist mucous membranes Negative for trauma or tenderness Eyes PERRL and EOMs intact bilaterally Neck no lymphadenopathy and supple Chest Wall inspection of chest normal Resp normal respiratory effort and clear to auscultation bilaterally Cardio regular rate, regular rhythm, no murmurs and no JVD GI normal to inspection, nondistended, normoactive bowel sounds, soft to palpation, non-tender, non-distended and no masses Auscultation: normoactive bowel sounds no CVA tenderness Back/Spine no CVA tenderness Extremity normal to inspection and full ROM General Extremety ED: Negative for edema or tenderness General Extremity: Negative for edema Neuro oriented x3 and CN's II-XII intact bilaterally Sensorium / Orientation: alert, oriented to person, oriented to place and oriented to time Psych mental status grossly normal Skin no rashes or lesions noted MDM MDM MDM Narrative Medical decision making narrative: Middle-aged female 1 hour ago had sudden onset of right flank pain. Differential includes kidney stone versus UTI versus other etiologies. But no history of trauma. She has had both a hysterectomy and cholecystectomy. Patient will be treated with IV fluids, IV morphine, Toradol and Zofran. Labs, UA and CT flank study are being obtained. Lab Data Attestation: I reviewed the patient's lab results. Labs: Laboratory Results - last 24 hr 08/24/20 08/24/20 08/24/20 15:20 15:20 15:20 WBC 9.8 RBC 4.86 Hgb 13.8 Hct 40.7 MCV 83.7 MCH 28.4 MCHC 33.9 RDW Std Deviation 41.3 RDW Coeff of Gautam 13.5 Plt Count 304 MPV 10.1 Immature Gran % (Auto) 0.500 Neut % (Auto) 70.8 H Lymph % (Auto) 20.5 [place] % (Auto) 6.2 Eos % (Auto) 1.6 Baso % (Auto) 0.4 Absolute Neuts (auto) 6.9 Absolute Lymphs (auto) 2.01 Nucleated RBC % 0 Sodium 138 Potassium 3.6 Chloride 109 H Carbon Dioxide 23.0 Anion Gap 6 BUN 12 Creatinine 1.13 H Estim Creat Clear Calc 73.06 Est GFR (MDRD) Af Amer 66 Est GFR (MDRD) Non-Af 54 L BUN/Creatinine Ratio 10.6 Glucose 95 Calcium 9.4 Urine Color Yellow Urine Clarity Cloudy Urine pH 5.0 Ur Specific [place] 1.025 Urine Protein 30 H Urine Glucose (UA) Normal Urine Ketones 5 H Urine Occult Blood 250 H Urine Nitrite Negative Urine Bilirubin 1 H Urine Urobilinogen 1 H Ur Leukocyte Esterase 25 H Urine RBC > 100 SEEN Urine WBC 0 SEEN Ur Squamous Epith Cells 5-10 SEEN Urine Bacteria 2+ Urine Mucus 0 SEEN Radiography Diagnostic Testing: Radiology Impression Abdomen/Pelvis CT 08/24/20 15:22 IMPRESSION: Mild degree of right hydronephrosis and hydroureter due to a 3 mm calculus at the right ureterovesical junction. Electronically Signed: Jeff Higuera MD at 15:58 EDT , Service support , CBC normal white count 9 hemoglobin 13. UA shows 250 occult blood. Negative nitrates. No white cells. BMP unremarkable. CT flank shows a 3 mm right UVJ stone with hydro-. Read by the radiologist and reviewed by me. On repeat exam at 3:55 PM patient feels much better after the morphine, Toradol and Zofran. We are awaiting the rest of her test results. Currently she is comfortable resting in bed. Discharge Plan Triage Chief Complaint: Flank Pain ED Provider: Milton Brower Dx/Rx/DC Orders Clinical Impression: Right kidney stone Prescriptions: New hydrocodone-acetaminophen 5-325 mg tablet 1 tab PO Q4H PRN (Reason: pain) 4 Days Qty: 14 RF: 0 No Action trazodone 100 MG tablet 200 mg PO QHS RF: 0 duloxetine 30 MG capsule,delayed release(DR/EC) 30 mg PO BID RF: 0 pregabalin 75 MG capsule 150 mg PO BID RF: 0 Primary Care Provider: Hardeep Vázquez Referrals: Christiano Pinzon MD [STAFF PHYSICIAN] - 3-5 Days if not improving Hardeep Vázquez MD [Primary Care Provider] - As Needed Activity Restrictions/Additional Instructions: Plenty of fluids and rest. Strain your urine for the past stone. [place] for more severe pain otherwise Motrin. Follow-up with the urologist if you not improving. Return to the emergency department if you are feeling a lot worse. If you develop intractable vomiting, fever or intractable pain. Disposition Disposition: Home, self care
[2020-08-24] MEDS: morphine 8 MG/ML Syringe IV (15:33)
[2020-08-24] MEDS: 0.9% Normal Saline 1,000 ML 1000 ML IV (15:34)
[2020-08-24] MEDS: Ketorolac 30 MG/ML Syringe IV (15:34)
[2020-08-24] MEDS: Ondansetron 4 MG/2 ML Vial IV (15:34)
[2020-08-24 15:42] LABS: Mucous, Urine 0 SEEN /hpf (<or=2+); White Blood Cells 0 SEEN /hpf (0-5)
[2020-08-24 15:45] LABS: Color, Urine Yellow (Yellow); Glucose, Dipstick Normal (Normal); Ketone-Dipstick 5 mg/dl (Negative); Leukocyte Esterase-Dipstick 25 /ul (Negative); Nitrite-Dipstick Negative (Negative); Occult Blood-Urine 250 /ul (Negative); Protein-Dipstick 30 mg/dl (Negative); Specific Gravity, Urine 1.025 (1.002-1.030); Urine Clarity Cloudy (Clear); Urine Urobilinogen 1 mg/dl (Normal)
[2020-08-24 15:46] LABS: Absolute Lymphocyte Count 2.01 X10^3/uL (0.83-4.51); Absolute Neutrophil Count 6.9 X10^3/uL (2.0-7.7); Basophil# 0.04 X10^3/uL; Basophil% 0.4 % (0-1); Eosinophil# 0.16 X10^3/uL; Eosinophils% 1.6 % (0-5); Hematocrit 40.7 % (37-47); Hemoglobin 13.8 g/dL (12.0-15.0); Lymphocyte # 2.01 X10^3/ul (0.83-4.51); Lymphocyte % 20.5 % (19-41); Mean Corp Hgb Conc 33.9 g/dL (32-36); Mean Corpuscular Hgb 28.4 pg (27.0-32.0); Mean Corpuscular Volume 83.7 fL (81-99); Mean Platelet Vol. 10.1 fl (6.2-12.0); Monocyte# 0.61 X10^3/uL; Monocyte% 6.2 % (0-10); NRBC Flagged by Analyzer 0 % (0-5); Neutrophil # 6.94 X10^3/uL (2.7-7.7); Neutrophil % 70.8 % (47-70); Platelet Count 304 K/mm3 (150-450); RBC Distribution Width CV 13.5 % (11.6-14.6); RBC Distribution Width SD 41.3 fl (35.1-43.9); Red Blood Count 4.86 M/mm3 (4.2-5.4); White Blood Count 9.8 K/mm3 (4.4-11.0)
[2020-08-24 15:58] LABS: Urine Bilirubin Dipstick 1 mg/dL (Negative)
[2020-08-24 15:59] LABS: Bacteria 2+ /hpf (None Seen); Red Blood Cells-Urine > 100 SEEN /hpf (0-5); Squamous Epithelial Cells - UA 5-10 SEEN /hpf (5-10)
[2020-08-24 16:05] LABS: Anion Gap 6 (5-15); BUN 12 mg/dL (7-18); BUN/Creat Ratio 10.6 RATIO (10-20); Calcium,Total 9.4 mg/dL (8.5-10.1); Chloride 109 mmol/L (98-107); Creatinine, Serum 1.13 mg/dL (0.55-1.02); EST Glomerular Filtration Rate 54 mL/min (>60); Est Glom Filt Rate - Afr Amer 66 mL/min (>60); Estimated Creatinine Clearance 73.06 ml/min; Glucose 95 mg/dL (74-106); Potassium 3.6 mmol/L (3.5-5.1); Sodium Level 138 mmol/L (136-145)
== END 2020-08-24 16:33 | disposition home or self-care (01) ==
PROVIDERS: Emergency Provider Emergency Medicine; PCP Family Medicine
DX: N20.0 Calculus of kidney (principal); R19.7 Diarrhea, unspecified; Z90.49 Acquired absence of other specified parts of digestive tract
CPT/HCPCS: 74176; 80048; 81001; 85025; 96374; 96375; 99283; J7030; A4216; J2405

== ENCOUNTER 2021-05-12 16:19 | Outpatient (CLI) | payer OTHER, SELFPAY ==
--- NOTE | 2021-05-12 16:23 | RAD_ITS ---
STUDY: XR Knee Complete 4 Views or More 05/12/2021 5:30 PM REASON FOR EXAM: Female, 50 years old. PAIN Technologist Notes inflammatory arthritis right knee, woke up today with pain TECHNIQUE: XR Knee Complete 4 Views or More COMPARISON: None. FINDINGS: Normal visualized distal femur. Normal visualized proximal tibia and fibula. Normal proximal tibiofibular articulation. Normal medial femorotibial compartment. Normal lateral femorotibial compartment. Normal patellofemoral articulation. The soft tissue structures are unremarkable. RAD/Knee 4 or More Views IMPRESSION: There are no acute findings. Electronically Signed: Ebenezer Duff MD at 17:30 EST , Service support ,
[2021-05-12 18:07] LABS: Erythrocyte Sedimentation Rate 17 mm/hr (0-30)
[2021-05-12 18:18] LABS: Vitamin D,25 Hydroxy 40.3 ng/mL
[2021-05-12 18:22] LABS: Rheumatoid Factor < 10.0 IU/mL (<15)
[2021-05-15 08:05] LABS: ANTINUCLEAR ANTIBODIES DIRECT Negative (Negative)
[2021-05-16 11:08] LABS: CCP IgG Antibodies 5 units (0-19)
== END 2021-05-12 23:59 | disposition short-term general hospital (02) ==
PROVIDERS: PCP Family Medicine; Referring Provider Family Medicine; Visit Provider Family Medicine
DX: M17.11 Unilateral primary osteoarthritis, right knee (principal); E55.9 Vitamin D deficiency, unspecified
CPT/HCPCS: 36415; 73564; 82306; 84550; 85652; 86038; 86140; 86200; 86225; 86235; 86431

== ENCOUNTER 2021-08-09 07:41 | Emergency (ER) | payer OTHER, SELFPAY ==
[2021-08-09 07:43] VITALS: BP 137/73; PULSE 69; RESP 18; TEMP 36.7; O2SAT 98; BMI 36.6
--- NOTE | 2021-08-09 07:55 | CT_ITS ---
HISTORY: Injury/Pain. TECHNIQUE: Multiple axial images were obtained of the brain without intravenous contrast. A radiation dose optimization technique was used for this scan. # of images including paperwork:252. COMPARISON: MR 07/01/2020. FINDINGS: BRAIN PARENCHYMA:Mild foci and zones of low attenuation in the cerebral white matter most compatible with chronic small vessel ischemic gliosis. INTRACRANIAL HEMORRHAGE: No acute intracranial hemorrhage. CSF SPACES/MASS EFFECT: Cerebral ventricles, cortical sulci, and other extra-axial CSF spaces within normal limits in size for patient's age. No midline shift or other significant mass effect. ORBITS: Unremarkable. CALVARIUM: Intact. PARANASAL SINUSES/MASTOID AIR CELLS: Clear. CT/Brain/Head without Contrast IMPRESSION: No acute intracranial process identified. Individualized dose optimization techniques were used for this CT. at 0854 Reported and signed by: Aylin Carlson MD Electronically Signed: Aylin Carlson MD at 8:53 EDT ,
[2021-08-09] MEDS: Acetaminophen 500 MG Tablet PO (07:59)
--- NOTE | 2021-08-09 08:03 | ED.VIS.FALL ---
HPI HPI - Fall History of Present Illness Chief Complaint: Fall Informant: patient Narrative Narrative: Patient is a 51-year-old female with history of kidney stones and fibromyalgia presenting with head injury. Patient slipped in the shower this morning and fell backwards. She hit the back of her head on the sink counter. She did not lose consciousness. She injured her right middle finger in the fall is not exactly sure how. She is complaining of headache and right sided neck pain as well as right middle finger pain now. Is not on any blood thinners. States that she is having a hard time concentrating. No other complaints at this time. Did not take anything for symptoms prior to arrival. [facility] Medical History Acute frontal sinusitis, unspecified Fibromyalgia Lab test negative for COVID-19 virus Home Medications duloxetine 30 mg PO BID 02/01/18 [History Last Taken 01/31/18] pregabalin 150 mg PO BID 02/01/18 [History Last Taken Unknown] trazodone 200 mg PO QHS 02/01/18 [History Last Taken 01/31/18] hydrocodone-acetaminophen 1 tab PO Q4H PRN 4 Days #14 tab 08/24/20 [Rx Last Taken Unknown] cyclobenzaprine 10 mg PO TID PRN #14 tab 08/09/21 [Rx Last Taken Unknown] ibuprofen 600 mg PO Q6H PRN PRN #20 tab 08/09/21 [Rx Last Taken Unknown] Allergy/AdvReac Type Severity Reaction Status Date / Time guaifenesin Allergy Unknown Verified 08/09/21 07:43 sulfamethoxazole Allergy Unknown Verified 08/09/21 07:43 [From Bactrim] trimethoprim [From Bactrim] Allergy Unknown Verified 08/09/21 07:43 Social History Smoking Status: Never smoker ROS ROS ED Constitutional Constitutional ED: Denies chills or fever(s) Eyes Eyes: Denies blurry vision or change in vision ENT ENT ED: Denies ear pain or sore throat Cardiovascular Cardiovascular: Denies chest pain or palpitations Respiratory/Chest Respiratory/Chest: Denies cough or dyspnea Gastrointestinal Gastrointestinal: Denies abdominal pain, nausea or vomiting Musculoskeletal Musculoskeletal: Reports neck pain and other Details: right middle finger pain ; Denies myalgias Integumentary Denies rash Neurologic Neurologic: Reports headache(s); Denies paresthesias or weakness Psychiatric Psychiatric: Denies depression Hematologic/Lymphatic Hematologic/Lymphatic: Denies easy bleeding or easy bruising EXAM Physical Exam Const Vital Signs: 08/09/21 07:43 08/09/21 07:55 Temperature 98.0 F Temperature Source Temporal Pulse Rate 69 Respiratory Rate 18 Respiratory Effort Normal Non-Labored Blood Pressure 137/73 H Blood Pressure Mean 94 Pulse Ox 98 Oxygen Delivery Method Room Air Positive well nourished and well developed General Appearance ED: well developed and NAD HEENT Reports normocephalic and TM's clear HEENT Narrative: No cephalhematoma appreciated. No septal hematoma. No rhinorrhea on exam. No malocclusion. atraumatic Tympanic Membrane ED: Yes TM's clear Eyes PERRL and EOMs intact bilaterally Neck full ROM and supple Neck Narrative: No midline tenderness. No step-off sign. Patient does have right lateral muscular tenderness to palpation and spasm Chest Wall inspection of chest normal Resp normal respiratory effort and clear to auscultation bilaterally Cardio regular rhythm and no murmurs Rate: tachycardic GI non-tender and non-distended Palpation: soft Extremity full ROM Extremity Narrative: No obvious deformity. Patient does show some slight diffuse swelling and tenderness to the right middle finger. Preserved flexion and extension. Neuro oriented x3, CN's II-XII intact bilaterally, moves all extremities, no focal motor deficits and no sensory deficits noted Sensorium / Orientation: alert Psych mental status grossly normal Mood & Affect: tearful Skin Lesions: no lesions Rashes: no rashes MDM MDM MDM Narrative Medical decision making narrative: Patient is evaluated after mechanical fall this morning. She has a normal neurologic exam. She complaining of right third finger pain as well as posterior head pain. No obvious cephalhematoma, skull fracture or associated laceration on physical exam. She does not have any midline neck tenderness and I believe her neck pain is all muscular. Patient is given dose of Flexeril as well as Tylenol in the ER. CT the brain does not show any acute process. X-ray of the third right finger shows a small nondisplaced fracture at the base which is interpreted by myself as well as radiology. Patient is placed this finger splint. She is given Ortho for outpatient follow-up. She is counseled on concussion care. She is given a work note for today and tomorrow. Patient will be started on Flexeril as well as alternating NSAIDs/Tylenol for pain. Counseled on return precautions. Patient verbalizes agreement to take this plan. Patient discharged home in stable condition. Radiography Diagnostic Testing: Clinical Impression(s) from Imaging Studies Brain CT 08/09/21 07:55 IMPRESSION: No acute intracranial process identified. Individualized dose optimization techniques were used for this CT. at 0854 Reported and signed by: Aylin Carlson MD Electronically Signed: Aylin Carlson MD at 8:53 EDT , Finger X-Ray 08/09/21 08:06 IMPRESSION: Small nondisplaced fracture of the base of the third distal phalanx. Electronically Signed: Saeed Wright MD at 8:45 EDT , Discharge Plan Triage Chief Complaint: Fall ED Provider: Leandra Antonio Dx/Rx/DC Orders Clinical Impression: Closed head injury, Concussion, Muscle spasms of neck, Fracture of distal phalanx of right middle finger Instructions: ED Concussion, ED Fracture, Finger, Closed, ED Head Injury (Adult), ED Muscle Spasm Prescriptions: New cyclobenzaprine 10 mg tablet 10 mg PO TID PRN (Reason: muscle spasm) Qty: 14 RF: 0 ibuprofen 600 mg tablet 600 mg PO Q6H PRN PRN (Reason: Pain Score 1-10/10) Qty: 20 RF: 0 No Action trazodone 100 MG tablet 200 mg PO QHS RF: 0 duloxetine 30 MG capsule,delayed release(DR/EC) 30 mg PO BID RF: 0 pregabalin 75 MG capsule 150 mg PO BID RF: 0 hydrocodone-acetaminophen 5-325 mg tablet 1 tab PO Q4H PRN (Reason: pain) 4 Days Qty: 14 RF: 0 Primary Care Provider: Hardeep Vázquez Referrals: Hardeep Vázquez MD [Primary Care Provider] - Uche Vital MD [STAFF PHYSICIAN] - (1 week ) Activity Restrictions/Additional Instructions: Wear splint is much as possible until you can follow-up with orthopedics. Disposition Disposition: Home, Self Care
--- NOTE | 2021-08-09 08:06 | RAD_ITS ---
STUDY: X-RAY - RIGHT HAND, ATTENTION MIDDLE FINGER REASON FOR EXAM: Right middle finger pain, middle finger injury. TECHNIQUE: 3 view(s) of the finger were obtained. COMPARISON: None. FINDINGS: Normal metacarpal head. Normal metacarpophalangeal joint. Normal proximal phalanx. Normal middle phalanx. There is a small nondisplaced fracture of the base of the third distal phalanx with intra-articular extension. Normal proximal interphalangeal joint. Normal distal interphalangeal joint. RAD/Finger(s) Min 2 Views IMPRESSION: Small nondisplaced fracture of the base of the third distal phalanx. Electronically Signed: Saeed Wright MD at 8:45 EDT ,
[2021-08-09] MEDS: cycloBENZAPRine HCl 10 MG Tablet PO (08:48)
== END 2021-08-09 09:21 | disposition home or self-care (01) ==
PROVIDERS: Emergency Provider Emergency Medicine; PCP Family Medicine; Visit Provider Emergency Medicine
DX: S06.0X0A Concussion without loss of consciousness, initial encounter (principal); M62.838 Other muscle spasm; S62.632A Displaced fracture of distal phalanx of right middle finger, initial encounter for closed fracture; W19.XXXA Unspecified fall, initial encounter
CPT/HCPCS: 70450; 73140; 99284

== ENCOUNTER → 2021-10-03 | Outpatient (CLI) | payer OTHER, SELFPAY ==
--- NOTE | 2021-10-03 15:15 | RAD_ITS ---
STUDY: X-RAY - LUMBAR SPINE REASON FOR EXAM: Female, 51 years old. LBP TECHNIQUE: 5 view(s) of the lumbar spine were obtained. COMPARISON: Lumbar spine x-rays 03/04/2020. FINDINGS: Vertebral bodies are normal in height. No definite fracture demonstrated. No subluxation. Mild disc space narrowing at L5-S1, increased compared to prior x-rays. No paravertebral soft tissue mass identified. Surgical clips right upper abdomen previous cholecystectomy. RAD/L/S Spine Min 4 Views IMPRESSION: No evidence of fracture or subluxation. Degenerative changes mostly at L5-S1 increased compared to prior lumbar spine x-rays. Electronically Signed: Maricarmen Hill MD at 7:45 EDT ,
== END | disposition home or self-care (01) ==
LOC: MTRAD 15:14
PROVIDERS: PCP Family Medicine; Referring Provider Family Medicine; Visit Provider Family Medicine
DX: M54.50 Low back pain, unspecified (principal)
CPT/HCPCS: 72110

== ENCOUNTER 2022-02-21 16:18 | Emergency (ER) | payer OTHER, SELFPAY ==
[2022-02-21 16:19] VITALS: BP 144/89; PULSE 81; RESP 18; TEMP 36.2; O2SAT 99; BMI 38.4
--- NOTE | 2022-02-21 16:31 | ED.VIS.CHEST ---
HPI History of Present Illness Chief Complaint: Chest Pain Narrative Narrative: 31-year-old female with chest pain which started about 5 minutes prior to arrival. She states it radiates in the left side of her jaw. Patient has a history of chest pain but no CAD. She had a stress test done in 2018 and an echocardiogram that was done in 2019. These were both essentially normal. No history of DVT/PE and no risk factors. No fever, chills, cough. No trauma. Patient states he had COVID at the beginning of the month and since then has had some irregular heart rhythms. She states that her heart was racing the other day and she has a [employer] mobile rizwana on her phone. She states she had a fast rhythm that was evaluated by Dr. Guzman and she was told it was likely SVT. She does have a history of SVT. He did not feel she had a Holter monitor. He did not place her on any medications. Patient states that the episode she was experiencing was similar today. This is all resolved. She does report a history of anxiety but has not felt anxious. [facility] Medical History Acute frontal sinusitis, unspecified Fibromyalgia Lab test negative for COVID-19 virus Home Medications duloxetine 30 mg capsule,delayed release 30 mg PO BID depression/anxiety 02/01/18 [History Last Taken 01/31/18] pregabalin 75 mg capsule 150 mg PO BID fibromyalgia 02/01/18 [History Last Taken Unknown] trazodone 100 mg tablet 200 mg PO QHS sleep 02/01/18 [History Last Taken 01/31/18] hydrocodone-acetaminophen 5-325mg 5mg-325mg 1 tab PO Q4H PRN pain 4 days #14 tabs 08/24/20 [Rx Last Taken Unknown] cyclobenzaprine 10 mg tablet 10 mg PO TID PRN muscle spasm #14 tabs 08/09/21 [Rx Last Taken Unknown] ibuprofen 600 mg tablet 600 mg PO Q6H PRN PRN Pain Score 1-10/10 #20 tabs 08/09/21 [Rx Last Taken Unknown] ondansetron HCl 8 mg tablet 8 mg PO Q12H PRN nausea and vomiting #14 tabs 12/16/21 [Rx Last Taken Unknown] Allergy/AdvReac Type Severity Reaction Status Date / Time guaifenesin Allergy Unknown Verified 12/16/21 08:22 sulfamethoxazole Allergy Unknown Verified 12/16/21 08:22 [From Bactrim] trimethoprim [From Bactrim] Allergy Unknown Verified 12/16/21 08:22 Social History Smoking Status: Never smoker ROS ROS ED Constitutional Constitutional ED: Denies chills or fever(s) Eyes Eyes: Denies blurry vision or change in vision ENT ENT ED: Denies rhinorrhea or sore throat Cardiovascular Cardiovascular: Reports as per HPI Respiratory/Chest Respiratory/Chest: Denies cough or dyspnea Gastrointestinal Gastrointestinal: Denies abdominal pain or constipation Genitourinary Genitourinary ED: Denies dysuria or hematuria Musculoskeletal Musculoskeletal: Denies arthralgias or back pain Integumentary Denies abscess Neurologic Neurologic: Denies headache(s) or paresthesias Psychiatric Psychiatric: Denies anxiety or depression EXAM Physical Exam Const Vital Signs: 02/21/22 16:19 02/21/22 16:23 02/21/22 17:03 Temperature 97.1 F L Temperature Source Temporal Pulse Rate 81 Respiratory Rate 18 Respiratory Effort Short of Breath Blood Pressure 144/89 H Blood Pressure Mean 107 Pulse Ox 99 Oxygen Delivery Method Room Air Room Air 02/21/22 17:03 02/21/22 18:14 02/21/22 19:11 Temperature Temperature Source Pulse Rate 70 73 76 Respiratory Rate 16 16 16 Respiratory Effort Blood Pressure 123/62 H 122/85 H 133/78 H Blood Pressure Mean 82 97 96 Pulse Ox 97 96 94 Oxygen Delivery Method Room Air Room Air Room Air Positive well nourished General Appearance ED: NAD; Negative for pallor HEENT Reports moist mucous membranes Eyes PERRL and EOMs intact bilaterally Chest Wall inspection of chest normal Resp normal respiratory effort and clear to auscultation bilaterally Auscultation: Negative for rales, rhonchi or wheezes Cardio regular rate and regular rhythm GI normal to inspection, nondistended, normoactive bowel sounds Back/Spine no CVA tenderness Neuro oriented x3 and CN's II-XII intact bilaterally Sensorium / Orientation: awake Motor Exam: strength 5/5 throughout Psych mental status grossly normal Skin no rashes or lesions noted General Skin Exam: Negative for jaundice or pallor Heart Score History: Slightly/Non-Suspicious ECG: Normal Age: >45 - <65 years Risk Factors: 1 or 2 Risk Factors Troponin: </= Normal Limit Score: 2 MDM MDM MDM Narrative Medical decision making narrative: Patient presenting with palpitations and chest pressure which radiates to the left jaw but she describes it as left jaw as tingling not as much pain. She does describe chest pressure. I obtained an EKG which on my interpretation showed a sinus rhythm at a ventricular rate of [address]-T changes. Patient with no known cardiac history. No history of SVT but there is concern about SVT based on her [employer] mobile rizwana. Patient states her heart rate was up to 245 the other day but it would not read on her [employer] rizwana. Her PCP concern for SVT but did not start her on any medications or give her Holter monitor. She was told that she might have some irregular rhythm status post COVID 19. CBC shows white blood cell count within normal is at 9.9. Hemoglobin 15.0, hematocrit 40.1, platelets 302. Creatinine at baseline at 1.09. Electrolytes normal. High-sensitivity troponin is 3. Chest x-ray on my interpretation shows no acute cardiopulmonary process and the radiologist does agree. Delta troponin 3. Counseled patient that it is possible she could have episodes of SVT however we did not catch this on a rhythm strip or EKG. Her heart enzymes and changes at the 2-hour kenneth so likely she did not have any heart strain. I have low suspicion for PE given patient's normal vital signs. I feel she is safe for outpatient follow-up. Patient amenable to this. She is discharged stable condition. Impression: 1. Palpitations 2. Chest pain Lab Data Attestation: I reviewed the patient's lab results. Labs: Laboratory Results - last 24 hr 02/21/22 02/21/22 02/21/22 16:25 16:25 18:45 WBC 9.9 RBC 5.20 Hgb 15.0 Hct 44.1 MCV 84.8 MCH 28.8 MCHC 34.0 RDW Std Deviation 43.0 RDW Coeff of Gautam 14.2 Plt Count 302 MPV 9.7 Immature Gran % (Auto) 0.300 Neut % (Auto) 68.3 Lymph % (Auto) 23.6 [place] % (Auto) 5.1 Eos % (Auto) 2.4 Baso % (Auto) 0.3 Absolute Neuts (auto) 6.7 Absolute Lymphs (auto) 2.33 Nucleated RBC % 0 Sodium 137 Potassium 3.7 Chloride 104 Carbon Dioxide 24.0 Anion Gap 9 BUN 12 Creatinine 1.09 H Estim Creat Clear Calc 74.90 Est GFR (MDRD) Af Amer 68 Est GFR (MDRD) Non-Af 56 L BUN/Creatinine Ratio 11.0 Glucose 93 Calcium 9.6 Troponin I High Sens 3 3 Radiography Diagnostic Testing: Clinical Impression(s) from Imaging Studies Chest X-Ray 02/21/22 16:38 IMPRESSION: No radiographic evidence of acute cardiopulmonary disease. Electronically Signed: Tank Maddox DO at 16:56 EDT Reading Location ID and State: [address] [place] [address] Tel [phone], Service support , Discharge Plan Triage Chief Complaint: Chest Pain ED Provider: Jaden Magana Dx/Rx/DC Orders Instructions: ED Chest Pain, Noncardiac, ED Palpitations Prescriptions: No Action ondansetron HCl 8 mg tablet 8 mg PO Q12H PRN (Reason: nausea and vomiting) Qty: 14 0RF trazodone 100 MG tablet 200 mg PO QHS Label Comments: TAKE 1-2 TABS BY MOUTH AT BEDTIME NEEDED duloxetine 30 MG capsule,delayed release(DR/EC) 30 mg PO BID pregabalin 75 MG capsule 150 mg PO BID Label Comments: TAKE ONE CAPSULE BY MOUTH 3 TIMES A DAY hydrocodone-acetaminophen 5-325 mg tablet 1 tab PO Q4H PRN (Reason: pain) 4 Days Qty: 14 0RF cyclobenzaprine 10 mg tablet 10 mg PO TID PRN (Reason: muscle spasm) Qty: 14 0RF ibuprofen 600 mg tablet 600 mg PO Q6H PRN PRN (Reason: Pain Score 1-10/10) Qty: 20 0RF Primary Care Provider: Hardeep Vázquez Referrals: Hardeep Vázquez MD [Primary Care Provider] - Disposition Disposition: Home, Self Care
[2022-02-21 16:36] LABS: Absolute Lymphocyte Count 2.33 X10^3/uL (0.83-4.51); Absolute Neutrophil Count 6.7 X10^3/uL (2.0-7.7); Basophil# 0.03 X10^3/uL; Basophil% 0.3 % (0-1); Eosinophil# 0.24 X10^3/uL; Eosinophils% 2.4 % (0-5); Hematocrit 44.1 % (37-47); Lymphocyte # 2.33 X10^3/ul (0.83-4.51); Lymphocyte % 23.6 % (19-41); Mean Corpuscular Hgb 28.8 pg (27.0-32.0); Mean Corpuscular Volume 84.8 fL (81-99); Mean Platelet Vol. 9.7 fl (6.2-12.0); Monocyte% 5.1 % (0-10); NRBC Flagged by Analyzer 0 % (0-5); Neutrophil # 6.73 X10^3/uL (2.7-7.7); Neutrophil % 68.3 % (47-70); Platelet Count 302 K/mm3 (150-450); RBC Distribution Width CV 14.2 % (11.6-14.6); White Blood Count 9.9 K/mm3 (4.4-11.0)
--- NOTE | 2022-02-21 16:38 | RAD_ITS ---
INDICATION: Chest pain radiating to the jaw beginning 5 minutes prior to arrival. EXAMINATION/TECHNIQUE: X-RAY - XR Chest 1 View COMPARISON: February 06, 2019. FINDINGS: LINES/DEVICES: None. LUNGS: No consolidation, edema or effusion. No pneumothorax. MEDIASTINUM AND CARDIOVASCULAR STRUCTURES: Cardiac silhouette not enlarged. Central airways and mediastinal contour are unremarkable. BONES AND SOFT TISSUES: Unremarkable. RAD/Chest 1 View (Portable) IMPRESSION: No radiographic evidence of acute cardiopulmonary disease. Electronically Signed: Tank Maddox DO at 16:56 EDT ,
[2022-02-21 17:00] LABS: Anion Gap 9 (5-15); BUN 12 mg/dL (7-18); Calcium,Total 9.6 mg/dL (8.5-10.1); Chloride 104 mmol/L (98-107); Creatinine, Serum 1.09 mg/dL (0.55-1.02); EST Glomerular Filtration Rate 56 mL/min (>60); Est Glom Filt Rate - Afr Amer 68 mL/min (>60); Glucose 93 mg/dL (74-106); Potassium 3.7 mmol/L (3.5-5.1); Sodium Level 137 mmol/L (136-145); Troponin-I HS (w/2H Reflex) 3 pg/mL (3.0-54.0)
[2022-02-21 17:03] VITALS: BP 123/62; PULSE 70; RESP 16; O2SAT 97
[2022-02-21 18:14] VITALS: BP 122/85; PULSE 73; RESP 16; O2SAT 96
[2022-02-21 18:34] LABS: Reflex Troponin-HS? (from REC) Y
[2022-02-21 19:10] LABS: Troponin-I HS 3 pg/mL (3.0-54.0)
[2022-02-21 19:11] VITALS: BP 133/78; PULSE 76; RESP 16; O2SAT 94
== END 2022-02-21 20:05 | disposition home or self-care (01) ==
PROVIDERS: Emergency Provider Student in an Organized Health Care Education/Training Program; PCP Family Medicine; Visit Provider Student in an Organized Health Care Education/Training Program
DX: R00.2 Palpitations (principal); R07.9 Chest pain, unspecified; Z86.16 Personal history of COVID-19
CPT/HCPCS: 71045; 80048; 84484; 85025; 93005; 99283; A4216

== ENCOUNTER → 2022-04-28 | Outpatient (CLI) | payer OTHER, SELFPAY ==
--- NOTE | 2022-04-30 13:55 | STRESSREP ---
Stress Test Report Date: 04/30/2022 Procedure: Exercise tolerance test Indications: Abnormal EKG Consent: Per the patient Procedure: The patient exercised on a Frederick protocol for 3 minutes and 30 seconds achieving a peak heart rate of 142 bpm (84% predicted maximal heart rate) with a peak blood pressure 212/72 mmHg and a peak MET capacity of approximately 5.7 MET's. The baseline ECG demonstrated normal sinus rhythm, nonspecific ST-T changes. The peak exercise ECG demonstrated about [address] depressions in inferior and lateral leads. [There were no cardiac dysrhythmias pretest, during exercise, or recovery]. The functional capacity was considered decreased for age. The patient had no complaint of chest discomfort during exercise or recovery. The examination was discontinued secondary to back pain and shortness of breath. Impression: 1. Stress test is negative for exercise-induced chest pain. 2. Stress test test is positive for exercise-induced EKG changes of ischemia. 3. Functional capacity is decreased for age This note was generated with [email or web address] software. It may contain incorrect words, spelling, and punctuation that were not noted in checking the note before signing.
== END | disposition home or self-care (01) ==
PROVIDERS: PCP Internal Medicine; Visit Provider Internal Medicine
DX: R94.31 Abnormal electrocardiogram [ECG] [EKG] (principal)
CPT/HCPCS: 93017

== ENCOUNTER → 2022-05-25 | Outpatient (CLI) | payer OTHER, SELFPAY ==
--- NOTE | 2022-05-25 07:51 | ECHOD_ITS ---
Reason For Study: DYSPNEA Procedure This was a 2D Doppler, Color Flow transthoracic echocardiogram. The study was technically difficult. Contrast injection was performed. Exam performed in department. Left Ventricle Normal LV size. Mild concentric left ventricular hypertrophy. The left ventricular ejection fraction is 60 %. Unable to assess diastolic dysfunction. Right Ventricle Normal right ventricle. Atria The left and right atria are normal. Mitral Valve The mitral valve is structurally normal. No prolapse or stenosis seen. Tricuspid Valve Trivial tricuspid valve insufficiency. Normal pulmonary artery pressure. Aortic Valve Normal aortic valve. Pulmonic Valve The pulmonic valve is not well visualized. Great Vessels Normal sized aortic root. Pericardium/Pleural No pericardial effusion. Medication 22 gauge I.V. with prn adaptor inserted into left arm. Diluted definity 2ml given slow IV push to enhance endocardial definition. MMode/2D Measurements & Calculations LVIDd: 5.4 cm IVSd: 1.4 cm Ao root diam: 3.1 cm LVIDs: 3.6 cm LVPWd: 1.3 cm FS: 33.0 % LA dimension(2D): 3.7 cm Time Measurements MV dec time: 0.23 sec Doppler Measurements & Calculations MV E max michelet: 47.9 cm/sec Lat Peak E' Michelet: 6.2 cm/sec Med Peak E' Michelet: 9.6 cm/sec MV A max michelet: 47.9 cm/sec E/E' lat: 7.7 E/E' med: 5.0 MV E/A: 1.00 MV V2 max: 63.2 cm/sec Ao V2 max: 95.0 cm/sec MV max P.6 mmHg MV dec slope: 215.4 cm/sec2 Ao max P.6 mmHg MV V2 mean: 36.8 cm/sec MV mean P.69 mmHg MV V2 VTI: 15.0 cm LV V1 max: 67.4 cm/sec PA V2 max: 83.0 cm/sec TR max michelet: 224.4 cm/sec LV V1 max P.8 mmHg PA V2 mean: 72.6 cm/sec TR max P.1 mmHg ECHO/Echo Complete Interpretation Summary Mild concentric left ventricular hypertrophy. The left ventricular ejection fraction is 60 %. The study was technically difficult. Ordering Physician: Guadalupe Suazo Referring Physician: Guadalupe Suazo Performed By: Bozena Freeman RCS
[2022-05-25 08:22] LABS: Hemoglobin 14.3 g/dL (12.0-15.0); Mean Corp Hgb Conc 32.5 g/dL (32-36); Mean Corpuscular Hgb 28.3 pg (27.0-32.0); Mean Corpuscular Volume 87.1 fL (81-99); Platelet Count 301 K/mm3 (150-450); RBC Distribution Width CV 13.5 % (11.6-14.6); RBC Distribution Width SD 42.8 fl (35.1-43.9); Red Blood Count 5.05 M/mm3 (4.2-5.4); White Blood Count 8.3 K/mm3 (4.4-11.0)
[2022-05-25 08:34] LABS: Partial Thromboplast Time 28.1 Seconds (24.1-36.2); Prothrombin Time (Protime)PT. 12.4 SECONDS (11.7-14.9)
[2022-05-25 08:52] LABS: Anion Gap 7 (5-15); BUN 20 mg/dL (7-18); BUN/Creat Ratio 17.9 RATIO (10-20); Calcium,Total 8.8 mg/dL (8.5-10.1); Chloride 110 mmol/L (98-107); Cholesterol 146 mg/dL (200); Creatinine, Serum 1.12 mg/dL (0.55-1.02); EST Glomerular Filtration Rate 54 mL/min (>60); Est Glom Filt Rate - Afr Amer 66 mL/min (>60); Glucose 124 mg/dL (74-106); High Density Lipoprotein 36 mg/dL; Potassium 4.2 mmol/L (3.5-5.1); Sodium Level 142 mmol/L (136-145); Triglycerides 173 mg/dL; Very Low Density Lipoprotein 35 mg/dL (5-40)
== END | disposition home or self-care (01) ==
PROVIDERS: PCP Internal Medicine; Referring Provider Internal Medicine Cardiovascular Disease; Visit Provider Internal Medicine Cardiovascular Disease
DX: R06.02 Shortness of breath (principal); R07.9 Chest pain, unspecified; R06.00 Dyspnea, unspecified; I10 Essential (primary) hypertension; R94.39 Abnormal result of other cardiovascular function study
CPT/HCPCS: 36415; 80048; 80061; 85027; 85610; 85730; 93306; Q9957; A4216

== ENCOUNTER → 2022-05-26 | Outpatient (CLI) | payer OTHER, SELFPAY | END | disposition home or self-care (01) | LOC: SL 19:54 | PROVIDERS: PCP Internal Medicine; Referring Provider Internal Medicine; Visit Provider Internal Medicine | DX: G47.10 Hypersomnia, unspecified (principal) | CPT/HCPCS: 95810 ==

== ENCOUNTER → 2022-06-05 | Outpatient (CLI) | payer OTHER, SELFPAY ==
--- NOTE | 2022-06-05 17:55 | MRI_ITS ---
EXAM: MR HEAD WITHOUT AND WITH INTRAVENOUS CONTRAST CLINICAL INDICATION: family history of cerebral aneurysm TECHNIQUE: Multiplanar and multisequence MR images of the brain were obtained without and with intravenous contrast. This report was created using [employer] report Clip technology. CONTRAST: IV 26mL CLARISCAN COMPARISON: None. FINDINGS: BRAIN AND EXTRA-AXIAL SPACES: Unremarkable. No intra- or extra-axial hemorrhage. No evidence of acute infarct. No intracranial mass or mass effect. There is preservation of the taylor/white matter interface. Posterior fossa structures are unremarkable. Ventricles are appropriate for age. No hydrocephalus. Basal cisterns are patent. SELLA: Unremarkable. Normal sella turcica, pituitary gland, infundibular stalk, optic chiasm and hypothalamus. AUDITORY SYSTEM: Unremarkable. The internal auditory canals are patent. BONES/JOINTS: Unremarkable. No discrete lytic or blastic abnormalities. SINUSES: Unremarkable as visualized. Clear. MASTOID AIR CELLS: Unremarkable as visualized. Clear. ORBITS: Unremarkable as visualized. Both globes, extraocular muscles, optic nerves and retrobulbar fat appear unremarkable. VASCULATURE: Unremarkable as visualized. Normal flow voids in the major intracranial circulation. MRI/Brain W/WO Contrast IMPRESSION: Negative MRI brain without and with intravenous contrast. Electronically Signed: Eh Hsu MD at 20:39 EST ,
== END | disposition home or self-care (01) ==
LOC: MRI 16:57
PROVIDERS: PCP Internal Medicine; Visit Provider Internal Medicine
DX: Z00.00 Encounter for general adult medical examination without abnormal findings (principal); Z82.49 Family history of ischemic heart disease and other diseases of the circulatory system
CPT/HCPCS: 70553; A9575

== ENCOUNTER 2022-06-15 07:32 | Day surgery (SDC) | payer OTHER, SELFPAY ==
--- NOTE | 2022-06-12 08:43 | PCM.HP.BLA ---
History and Physical The patient has been having chest pain with moderate exertion since January of last year. According to her, she feels anterior chest tightness with climbing 2 flights of stairs. This is relieved with rest and 10 to 15 minutes. No radiation to the arm neck or jaw. Together with the chest tightness, she also feels short of breath. No diaphoresis. No nausea or vomiting. Patient recently had an exercise stress test. According to her, she had her symptoms of chest tightness while on the treadmill. He was noted to have positive stress test by EKG. No orthopnea. No PND. She completed echocardiogram on 05/25/2022 that showed mild concentric LVH and an ejection fraction of 60%. Intake Vital Signs: See EMR Intake Visit Reasons: [facility] Credit Correspondence Clerk Required: No Accompanied by: Self Is patient in pain?: Yes (heaviness) Allergies guaifenesin Adverse Reaction (Intermediate, Verified 05/17/22 14:26) RASH sulfamethoxazole [From Bactrim] Adverse Reaction (Intermediate, Verified 05/17/22 14:26) RASH trimethoprim [From Bactrim] Adverse Reaction (Intermediate, Verified 05/17/22 14:26) RASH Medications See EMR Ejection fraction %: 60 [facility] Medical History (Updated 05/17/22 @ 15:[address] Guadalupe Suazo MD) Abnormal EKG Abnormal stress test Acute frontal sinusitis, unspecified Acute pharyngitis Chest pain Congestion of nasal sinus Contact with or suspected exposure to other viral communicable disease Family history of cerebral aneurysm Fatigue Fibromyalgia Fibromyalgia Gastroenteritis Headache History of back pain Hx of chronic arthritis Hx of degenerative disc disease Hx of emotional problems Hypersomnolence Kidney stone on right side Lab test negative for COVID-19 virus Loss of smell Loss of taste Migraine Wears glasses Surgical History H/O: hysterectomy Hx of section Hx of cholecystectomy Hx of wisdom tooth extraction Family History Unknown Adopted Social History household members: spouse housing: house current occupational status: employed 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 [employer] sexually active: No Smoking Status: Never smoker alcohol intake: current alcohol intake frequency: holidays/special occasions only substance use type: does not use caffeine: Yes Type: coffee Number of servings: 1 what type of physical activity do you participate in: none seatbelt use: always do you feel safe at home: Yes ROS Const Const: Positive for fatigue (when BP and HR increase then feels fatigued); Negative for weakness, headache(s), frequent falls, difficulty sleeping or excessive sweating Eyes Eyes: Negative for loss of peripheral vision, transient loss of vision, blurry vision, double vision or tunnel vision ENT ENT: Negative for headache(s), dizziness, Nosebleed/epistaxis or balance problems Cardio Chest Pain: Yes Frequency: daily Character: other (heaviness) Onset: other (activity-stairs) Location: mid sternal Duration: minutes (15 minutes- until BP comes back down) Exacerbation: exercise and activity Relieving: rest Palpitations: Yes (ER in Feb 2022) feels like its: fast Edema: Bilateral (slightly) Muscle aches with walking: None Additional Details: Had COVID in January 2022- Hasn't been same since Resp Respiratory: Positive for SOB with activity; Negative for SOB at rest, SOB orthopnea\SOB lying down, Cough or paroxysmal nocturnal dyspnea GI GI: Positive for nausea; Negative vomiting, heartburn or black,tarry stools : Negative for hematuria Musc Musc: Positive for joint pain; Negative for muscle aches/ myalgia, muscle weakness or balance problems Skin Skin: Negative non-healing lesions, rash or unusual bruising Neuro Neuro: Positive for lightheadedness; Negative for dizziness, near syncope, syncope, frequent falls, headache(s), weakness, blurry vision, double vision or lack of coordination Reynaldo Hematologic/Lymphatic: Negative for easy bleeding or easy bruising Endo Endo: Positive for fatigue (when BP and HR increase then feels fatigued); Negative for excessive sweating or increased thirst/drinking Psych Psych: Negative for anxiety or depression Allergy Allergy/Immunology: Negative for hives and Negative for rash Cardiology Exam Const Appearance: comfortable and no acute distress Nutritional Appearance: well nourished and obese Neck Neck: no JVD Carotids: Negative bruit Chest Auscultation: Bilateral: Clear to Auscultation Cardio Rate: regular rate Rhythm: regular rhythm Heart sounds: S1 normal and S2 normal GI GI: obese Neuro General: patient alert, patient awake and patient oriented x3 Extremities Lower Extremity Edema: None: Bilateral Supplemental Info Supplemental Information Labs: No Data to Display Diagnostics: Electrocardiogram Stress Test Chest X-Ray Pulmonary: No Data to Display Assessment and Plan Assessment and Plan (1) Chest pain: Status: Chronic Plan: Likely angina pectoris. Positive exercise stress test. For definitive diagnosis, coronary angiography with possible revascularization was also offered. Risks benefits and alternatives discussed. She understands these and wishes to proceed. (2) Abnormal stress test: Status: Acute Plan: See #1 above. (3) Hypertension: Status: Chronic Plan: Amlodipine and carvedilol. (4) Obesity: Status: Chronic Plan: Lose weight.
[2022-06-14 09:41] VITALS: BMI 37.6
--- NOTE | 2022-06-15 09:25 | CL.D_ITS ---
Patient Name: EZRA PEDRO Study Date: 06/15/2022 Performing: Guadalupe Suazo MD Ht: 74 inches 187.96 cm : 1970 Wt: 292.99 lbs 132.9 kg Age: 51 Gender: female BSA: 2.56 PROCEDURE(S) PERFORMED [id number])[facility] CLINICAL PROFILE AND INDICATIONS Indications: Suspected CAD Heart Failure: None Stress/Imaging Standard Exercise Stress Test: Yes Result: Positive Intermediate Risk Angina Classification Anginal Classification w/in 2 Weeks: CCS II CONCLUSIONS Normal coronary arteries RECOMMENDATIONS Risk factor modification DESCRIPTION OF PROCEDURE The patient arrived to the procedure lab. The risks and benefits of the procedure as well as a full description of our services here and current unavailability of surgical backup were fully explained to the patient and/or their significant other prior to the catheterization. The Timeout was completed, verifying the correct patient and procedure. The patient's procedural site was prepped and draped in the usual fashion. Local anesthetic was given subcutaneously to right radial region with Lidocaine 2%. Using a modified Seldinger technique, arterial access was obtained via the right radial artery, a 6Fr sheath was inserted. Left Coronary Artery selective angiography was performed in multiple views using a 5 Fr. 4.0 Canal [place] catheter. Right Coronary Artery selective angiography was then performed in multiple views using a 5 Fr. 4.0 Canal [place] catheter.The arterial sheath was pulled and a TR Band was applied for hemostasis CORONARY ANGIOGRAPHY DOMINANCE: Right Dominant LEFT MAIN: Angiographically normal LEFT ANTERIOR DESCENDING ARTERY: Angiographically normal CIRCUMFLEX ARTERY: Angiographically normal RIGHT CORONARY ARTERY: Angiographically normal COMPLICATIONS No Complications PROCEDURE MEDICATIONS Fentanyl 50 mcg IV Versed 1 mg IV Versed 1 mg IV Oxygen: 2 L/min via nasal cannula Heparin given IA 06/15/2022 09:03:06 Verapamil 2.5mg, Ntg 100mcgs, 3000 units of Heparin given IA 06/15/2022 09:03:06 SUMMARY OF HEMODYNAMIC DATA Time AIR REST ECG 07:52:47 AO 103/86 (95) SA 09:07:02 AIR REST 09:21:56 Signed By Guadalupe Suazo MD On 06/15/2022 09:24:46 Guadalupe Suazo MD
== END 2022-06-15 10:40 | disposition home or self-care (01) ==
LOC: CLSP 07:35
PROVIDERS: PCP Internal Medicine; Referring Provider Internal Medicine Cardiovascular Disease; Visit Provider Internal Medicine Cardiovascular Disease
DX: I25.10 Atherosclerotic heart disease of native coronary artery without angina pectoris (principal); M79.7 Fibromyalgia; I10 Essential (primary) hypertension; E66.9 Obesity, unspecified; R94.39 Abnormal result of other cardiovascular function study; Z79.82 Long term (current) use of aspirin; Z79.899 Other long term (current) drug therapy; Z68.37 Body mass index [BMI] 37.0-37.9, adult
CPT/HCPCS: 93454; 99152; J7040; Q9967; C1894

== ENCOUNTER → 2022-08-31 | Outpatient (CLI) | payer OTHER, SELFPAY ==
--- NOTE | 2022-08-31 08:06 | BI_ITS ---
MAMMOGRAPHY - BILATERAL SCREENING REASON FOR EXAM: Female, 52 years old. Routine annual screening examination. PERTINENT HISTORY: Non-contributory. TECHNIQUE: Digital bilateral breast chen (3D mammographic acquisition) in the CC and MLO projections. 2-D mediolateral oblique (MLO) and craniocaudad (CC) views of both breasts were obtained. CAD: Full Field Digital Mammography with Computer Added Detection was performed. COMPARISON: Comparison is made with prior examination dated April 06, 2020 and January 27, 2019. FINDINGS: Breast Composition: The breasts are heterogeneously dense, which may obscure small masses. There are no dominant masses or suspicious calcifications. No other significant abnormalities are identified. There has been no significant change since the prior study. BI/SCRN MAMM (CAD)W/CHEN BILAT IMPRESSION: Stable bilateral screening mammogram. Yearly follow-up mammogram recommended. (A) ASSESSMENT CATEGORY: BIRADS Category 1: Negative. A letter regarding these results will be sent to the patient by the facility within 30 days. Approximately 10% of breast cancers are not detected by mammography. A normal mammogram should not delay biopsy of a clinically suspicious abnormality. [id number] Electronically Signed: Jeff Higuera MD at 9:51 EDT ,
== END | disposition home or self-care (01) ==
LOC: OPBI 08:04
PROVIDERS: PCP Internal Medicine; Referring Provider Internal Medicine; Visit Provider Internal Medicine
DX: Z12.31 Encounter for screening mammogram for malignant neoplasm of breast (principal)
CPT/HCPCS: 77063; 77067

== ENCOUNTER → 2022-09-23 | Outpatient (CLI) | payer OTHER, SELFPAY ==
--- NOTE | 2022-09-23 08:20 | MRI_ITS ---
INDICATION: low back pain EXAMINATION: MRI - MR Spine Lumbar W/O Contrast TECHNIQUE: Multiplanar and multisequence MR images of the lumbar spine. IV Contrast Dosage and Agent: None. COMPARISON: April 08, 2020. FINDINGS: VERTEBRAE: Vertebral body heights are preserved. Normal vertebral bodies and posterior elements. VERTEBRAL ALIGNMENT: No spondylolisthesis. There is preservation of the normal lumbar lordosis. CORD: Normal position and signal intensity of the conus medullaris. L1/L2: Mild disc desiccation. L2/L3: Moderate disc desiccation, mild disc bulging, mild bilateral facet arthropathy, mild bilateral neural foraminal encroachment. L3/L4: Moderate disc desiccation, mild disc bulging, mild bilateral facet arthropathy, mild bilateral neural foraminal encroachment. L4/L5: Moderate disc desiccation, mild disc bulging, moderate bilateral facet arthropathy, small right intraforaminal disc herniation stable. Moderate right and mild left neural foraminal encroachment. L5/S1: Moderate disc desiccation and loss of disc space height, mild disc bulging, mild bilateral facet arthropathy, moderate bilateral neural foraminal encroachment. Stable exam. SOFT TISSUES: Unremarkable. MRI/Spine Lumbar (Routine) IMPRESSION: Right intraforaminal disc herniation L4-5. Mild disc bulging L2-S1. Multilevel degenerative disc disease, facet arthropathy and neural foraminal encroachment as above. Electronically Signed: Emmanuel Jenkins MD, MATEO at 17:50 EDT ,
--- NOTE | 2022-09-23 09:17 | RAD_ITS ---
INDICATION: pain -- for f/u appt. with Dr richey after MRI EXAMINATION/TECHNIQUE: X-RAY - XR Spine Lumbar 2 or 3 Views COMPARISON: October 03, 2021 FINDINGS: VERTEBRAE: Preserved vertebral body height. No fracture. There is multilevel endplate spondylosis. No spondylolisthesis. Preservation of the normal lumbar lordosis. No significant facet arthropathy. DISCS: There is multilevel degenerative disc disease, most pronounced at L5-S1. INCLUDED ABDOMEN: Included bowel gas pattern is non-obstructive. There are surgical clips within the right upper quadrant consistent with prior cholecystectomy. RAD/Lumbar Spine 2 or 3 Views IMPRESSION: Multilevel degenerative changes, most pronounced at L5-S1. Electronically Signed: Jesica Prasad MD at 16:47 EDT ,
== END | disposition home or self-care (01) ==
PROVIDERS: PCP Internal Medicine; Referring Provider Orthopaedic Surgery; Visit Provider Orthopaedic Surgery
DX: M51.37 Other intervertebral disc degeneration, lumbosacral region (principal)
CPT/HCPCS: 72100; 72148

== ENCOUNTER 2022-10-06 15:29 | Emergency (ER) | payer OTHER, SELFPAY ==
[2022-10-06 15:30] VITALS: BP 151/83; PULSE 78; RESP 19; TEMP 36.1; O2SAT 99; BMI 39.8
--- NOTE | 2022-10-06 16:26 | VDLE_ITS ---
Reason For Study: Bilateral Leg Swelling RIGHT LEFT GSV is normal. GSV is normal. CFV is compressible, spontaneous, phasic, CFV is compressible, spontaneous, phasic, competent and demonstrates normal competent, and demonstrates normal augmentation. augmentation. FV is compressible, spontaneous, phasic, FV is compressible, spontaneous, phasic, competent and demonstrates normal competent and demonstrates normal augmentation. augmentation. POP V is compressible, spontaneous, phasic, POP V is compressible, spontaneous, phasic, competent and demonstrates normal competent and demonstrates normal augmentation. augmentation. T/P Trunk is compressible. T/P Trunk is compressible. PTV is compressible. PTV is compressible. RT PerV is compressible. LT PerV is compressible. Procedure This is a venous duplex using B-mode, color flow and spectral Doppler. Exam performed portable in ED. The exam was diagnostic. A preliminary report was called and/or faxed to Cecilia WICK. VL/Venous Duplex US - Gerardo Extrem Interpretation Summary No evidence for acute deep venous thrombosis bilateral lower extremities with p atent and compressible bilateral great saphenous veins. Ordering Physician: Cecilia Ca Referring Physician: Nica Henry Performed By: Brandon Arreola RVT
--- NOTE | 2022-10-06 17:17 | EDS_ITS ---
HPI <SHAMIKA Engel - Last Filed: 10/06/22 19:40> History of Present Illness Chief Complaint: Edema Narrative Narrative: Patient presenting today with concerns for DVTs in her bilateral lower extremities. She reports that she flew to [place] 1 week ago and came home yesterday. While she was there, she began to notice edema in her ankles bilaterally that did seem to be better in the morning and then worse throughout the day. However, as time has gone on her legs have become edematous, and it is worse on the right side. She began to notice pain behind her right calf and right knee this morning and became concerned for DVT. She denies any previous history of blood clots, she is not on any blood thinners. She denies any chest pain or shortness of breath. [facility] <SHAMIKA Engel - Last Filed: 10/06/22 19:40> [facility] Medical History Abnormal EKG Abnormal stress test Acute frontal sinusitis, unspecified Acute pharyngitis Chest pain Colon cancer screening Congestion of nasal sinus Contact with or suspected exposure to other viral communicable disease Family history of cerebral aneurysm Fatigue Fibromyalgia Fibromyalgia Gastroenteritis Headache History of back pain Hx of chronic arthritis Hx of degenerative disc disease Hx of emotional problems Hypersomnolence Kidney stone on right side Lab test negative for COVID-19 virus Loss of smell Loss of taste Migraine Preventative health care Wears glasses Home Medications aspirin 81 mg tablet,delayed release (Adult Aspirin Regimen) 81 mg PO DAILY #90 tabs 05/17/22 [Rx Last Taken 06/15/22] amlodipine 2.5 mg tablet 2.5 mg PO DAILY #30 tabs 06/08/22 [Rx Last Taken 06/15/22] carvedilol 3.125 mg tablet 3.125 mg PO BID #60 tabs 06/08/22 [Rx Last Taken 06/15/22] trazodone 100 mg tablet 200 mg PO QHS sleep 07/25/22 [History Last Taken Unknown] baclofen 5 mg tablet 5 mg PO TID 08/21/22 [History Last Taken Unknown] duloxetine 60 mg capsule,delayed release 60 mg PO QHS #90 caps 08/21/22 [Rx Last Taken Unknown] diclofenac sodium 50 mg tablet,delayed release 50 ea PO BID 09/29/22 [History Last Taken Unknown] tramadol 50 mg tablet 50 tablet PO TID 09/29/22 [History Last Taken Unknown] Allergy/AdvReac Type Severity Reaction Status Date / Time guaifenesin AdvReac Intermediate RASH Verified 10/06/22 15:30 sulfamethoxazole AdvReac Intermediate RASH Verified 10/06/22 15:30 [From Bactrim] trimethoprim [From Bactrim] AdvReac Intermediate RASH Verified 10/06/22 15:30 Family History Unknown Adopted Surgical History H/O: hysterectomy History of left heart catheterization (~06/15/22) Hx of section Hx of cholecystectomy Hx of wisdom tooth extraction Social History household members: spouse housing: house current occupational status: employed current occupation: [employer] sexually active: No Smoking Status: Never smoker alcohol intake: current alcohol intake frequency: holidays/special occasions only substance use type: does not use caffeine: Yes Type: coffee Number of servings: 1 what type of physical activity do you participate in: none seatbelt use: always do you feel safe at home: Yes ROS <SHAMIKA Engel - Last Filed: 10/06/22 19:40> ROS ED Constitutional Constitutional ED: Denies chills or fever(s) Cardiovascular Cardiovascular: Denies chest pain Respiratory/Chest Respiratory/Chest: Denies cough or dyspnea Gastrointestinal Gastrointestinal: Denies abdominal pain, nausea or vomiting Musculoskeletal Musculoskeletal: Reports myalgias; Denies arthralgias Integumentary Denies abscess, Abrasions or rash Neurologic Neurologic: Denies paresthesias or weakness EXAM <SHAMIKA Engel - Last Filed: 10/06/22 19:40> Physical Exam Const Vital Signs: 10/06/22 15:30 Temperature 97 F L Temperature Source Temporal Pulse Rate 78 Respiratory Rate 19 H Blood Pressure 151/83 H Blood Pressure Mean 105 Pulse Ox 99 Oxygen Delivery Method Room Air Positive well nourished, well developed and no apparent distress General Appearance ED: well developed HEENT Reports normocephalic and head/scalp atraumatic Mouth ED: Yes moist mucous membranes normal Eyes PERRL and EOMs intact bilaterally Neck full ROM and supple Chest Wall inspection of chest normal Resp normal respiratory effort and clear to auscultation bilaterally Cardio regular rate and regular rhythm GI soft to palpation, non-tender, non-distended and no masses Back/Spine normal ROM and normal to inspection Extremity normal to inspection and full ROM Extremity Narrative: Edema to the ankles and feet bilaterally. Pain to palpation to the right calf. Neuro oriented x3, CN's II-XII intact bilaterally, moves all extremities, no focal motor deficits and no sensory deficits noted Sensorium / Orientation: awake and alert Psych mental status grossly normal and thought process normal Skin no rashes or lesions noted and no wounds <Dr. Bautista Arce MD - Last Filed: 10/06/22 18:08> Physical Exam Const Vital Signs: 10/06/22 15:30 Temperature 97 F L Temperature Source Temporal Pulse Rate 78 Respiratory Rate 19 H Blood Pressure 151/83 H Blood Pressure Mean 105 Pulse Ox 99 Oxygen Delivery Method Room Air MDM <SHAMIKA Engel - Last Filed: 10/06/22 19:40> [facility] Narrative Medical decision making narrative: Patient presenting today due to bilateral lower extremity edema that she has had now for about a week and it is worsening. She reports that she checked her weight and she is 15 pounds heavier than she was recently. she is edematous to the feet and ankles. there is no pitting edema. She reports that it is better in the morning and worse throughout the day but seems to be getting worse. She is concerned that she could have a blood clot. No prior history of any blood clots. Venous duplex ultrasound to be obtained bilaterally to rule out DVT and is negative. BMP will be obtained to assess kidney function, electrolytes and overall is unremarkable. I think this is more dependent edema. I encourage patient to use compression socks, keep her feet elevated, limit salt intake, follow-up with PCP. She will be discharged home in stable condition and is comfortable with plan. Lab Data Attestation: I reviewed the patient's lab results. Labs: Laboratory Results - last 24 hr 10/06/22 18:13 Sodium 140 Potassium 3.8 Chloride 107 Carbon Dioxide 28.0 Anion Gap 5 BUN 15 Creatinine 1.03 H Estim Creat Clear Calc 78.37 Est GFR (MDRD) Af Amer 72 Est GFR (MDRD) Non-Af 60 BUN/Creatinine Ratio 14.6 Glucose 115 H Calcium 9.0 <Dr. Bautista Arce MD - Last Filed: 10/06/22 18:08> [facility] Lab Data Labs: Laboratory Results - last 24 hr 10/06/22 18:13 Sodium 140 Potassium 3.8 Chloride 107 Carbon Dioxide 28.0 Anion Gap 5 BUN 15 Creatinine 1.03 H Estim Creat Clear Calc 78.37 Est GFR (MDRD) Af Amer 72 Est GFR (MDRD) Non-Af 60 BUN/Creatinine Ratio 14.6 Glucose 115 H Calcium 9.0 Treatment and Re-Evaluation :: I have personally performed a face to face assessment of the patient and have reviewed the ROBERTO Note. I performed a substantive portion of the visit including all aspects of the following. My booker findings include: History: Patient presents with bilateral ankle and foot swelling. She did just have a trip to [place]. But she now thinks it actually started prior to that. She was started on tramadol diclofenac and baclofen recently. She is on amlodipine but has been on that for most 6 months. No history of CHF. No shortness of breath or chest pain. She does now state toward the end of her visit that she was weighed here and was 15 pounds heavier than she was at her pain management doctor's office recently. But they are 2 different scales. Exam: Patient awake alert nontoxic. Lungs are clear. Heart is regular. Saturations are normal at 99% on room air showing no hypoxia. She does have some slight edema really just to the ankles and feet. I do not get any pitting up the shins. I am not noticing any asymmetry. No distended veins. Medical Decision Making: Ultrasound was negative for DVT. We are checking electrolytes to make sure we do not see signs of diabetes or acute kidney injury or electrolyte abnormalities. Discharge Plan Triage Chief Complaint: Edema ED Midlevel Provider: Cecilia Ca ED Provider: Bautista Arce Dx/Rx/DC Orders Clinical Impression: Edema of both lower legs Instructions: ED Peripheral Edema, Bilateral Prescriptions: No Action trazodone 100 mg tablet 200 mg PO QHS Label Comments: TAKE 1-2 TABS BY MOUTH AT BEDTIME NEEDED aspirin [Adult Aspirin Regimen] 81 mg tablet,delayed release (DR/EC) 81 mg PO DAILY Qty: 90 0RF duloxetine 60 mg capsule,delayed release(DR/EC) 60 mg PO QHS Qty: 90 3RF baclofen 5 mg tablet 5 mg PO TID tramadol 50 mg tablet 50 tablet PO TID diclofenac sodium 50 mg tablet,delayed release (DR/EC) 50 ea PO BID Label Comments: TAKE 1 TABLET BY MOUTH TWICE A DAY FOR 28 DAYS carvedilol 3.125 mg tablet 3.125 mg PO BID Qty: 60 6RF Rx Instructions: must administer with a meal/food amlodipine 2.5 mg tablet 2.5 mg PO DAILY Qty: 30 6RF Primary Care Provider: Nica Henry Referrals: Nica Henry MD [Primary Care Provider] - 3-5 Days Activity Restrictions/Additional Instructions: Please follow-up with PCP and return for any worsening of symptoms. Disposition Disposition: Home, Self Care Discharge Date/Time: 10/06/22 19:03
[2022-10-06 18:38] LABS: Anion Gap 5 (5-15); BUN 15 mg/dL (7-18); BUN/Creat Ratio 14.6 RATIO (10-20); Chloride 107 mmol/L (98-107); Creatinine, Serum 1.03 mg/dL (0.55-1.02); EST Glomerular Filtration Rate 60 mL/min (>60); Est Glom Filt Rate - Afr Amer 72 mL/min (>60); Estimated Creatinine Clearance 78.37 ml/min; Glucose 115 mg/dL (74-106); Potassium 3.8 mmol/L (3.5-5.1); Sodium Level 140 mmol/L (136-145)
== END 2022-10-06 19:03 | disposition home or self-care (01) ==
PROVIDERS: Emergency Provider Emergency Medicine; PCP Internal Medicine; Visit Provider Emergency Medicine
DX: M79.89 Other specified soft tissue disorders (principal); Z79.82 Long term (current) use of aspirin; Z79.899 Other long term (current) drug therapy
CPT/HCPCS: 80048; 93970; 99283; A4216

== ENCOUNTER → 2022-11-16 | Outpatient (CLI) | payer OTHER, SELFPAY ==
[2022-11-16 18:40] LABS: Amphetamine Urine VISTA NEGATIVE (<1000 ng/mL); Barbiturate Urine VISTA NEGATIVE (< 200 ng/mL); Benzodiazepine Urine VISTA NEGATIVE (< 200 ng/mL); Cocaine Urine VISTA NEGATIVE (< 300 ng/mL); Ecstacy Urine VISTA POSITIVE (< 500 ng/mL); Methadone Urine VISTA NEGATIVE (< 300 ng/mL); PCP Urine VISTA NEGATIVE (< 25 ng/mL); THC Urine VISTA POSITIVE (< 50 ng/mL); Vista UDS pH Range 4
== END | disposition home or self-care (01) ==
PROVIDERS: PCP Internal Medicine; Referring Provider Anesthesiology Pain Medicine; Visit Provider Anesthesiology Pain Medicine
DX: F11.20 Opioid dependence, uncomplicated (principal)
CPT/HCPCS: 80307

== ENCOUNTER 2022-11-20 06:09 | Day surgery (SDC) | payer OTHER, SELFPAY ==
[2022-11-20 06:32] VITALS: BP 126/42; PULSE 80; RESP 16; TEMP 36.6; O2SAT 98; BMI 38.2
--- NOTE | 2022-11-20 06:35 | HP.PCM_ITS ---
[facility] - General General Date of Service: 11/20/22 HPI Narrative EZRA PEDRO, is a 52 F who presents for screening colonoscopy. Patient never had previous colonoscopy. Patient denies any family history of colon cancer--but she is adopted. Patient denies any chronic abdominal pain/nausea /vomiting/reflux. Patient has bowel movements daily denies any blood. [facility] Medical History (Updated 11/14/22 @ 14:50 by Violeta Gómez) Abnormal EKG Abnormal stress test Acute frontal sinusitis, unspecified Acute pharyngitis Cardiology follow-up encounter Chest pain Colon cancer screening Congestion of nasal sinus Contact with or suspected exposure to other viral communicable disease Family history of cerebral aneurysm Fatigue Fibromyalgia Fibromyalgia Gastroenteritis Headache History of back pain History of echocardiogram History of stress test Hx of chronic arthritis Hx of degenerative disc disease Hx of emotional problems Hypersomnolence Kidney stone on right side Lab test negative for COVID-19 virus Loss of smell Loss of taste Migraine Non-smoker Preventative health care Wears contact lenses Wears glasses Wears glasses Home Medications aspirin 81 mg tablet,delayed release (Adult Aspirin Regimen) 81 mg PO DAILY #90 tabs 05/17/22 [Rx Last Taken 11/13/22] baclofen 5 mg tablet 5 mg PO TID 08/21/22 [History Last Taken Unknown] duloxetine 60 mg capsule,delayed release 60 mg PO QHS #90 caps 08/21/22 [Rx Last Taken Unknown] diclofenac sodium 50 mg tablet,delayed release 50 ea PO BID 09/29/22 [History Last Taken Unknown] tramadol 50 mg tablet 50 tablet PO TID 09/29/22 [History Last Taken Unknown] amlodipine 2.5 mg tablet 2.5 mg PO DAILY #90 tabs 10/09/22 [Rx Last Taken 11/20/22] carvedilol 3.125 mg tablet 3.125 mg PO BID #180 tabs 10/09/22 [Rx Last Taken 11/20/22] trazodone 100 mg tablet 200 mg (2 x 100 mg) PO QHS sleep 3 months #180 tabs 10/23/22 [Rx Last Taken Unknown] Allergy/AdvReac Type Severity Reaction Status Date / Time guaifenesin AdvReac Intermediate RASH Verified 11/14/22 14:40 sulfamethoxazole AdvReac Intermediate RASH Verified 11/14/22 14:40 [From Bactrim] trimethoprim [From Bactrim] AdvReac Intermediate RASH Verified 11/14/22 14:40 Family History Unknown Adopted Surgical History (Updated 11/14/22 @ 14:50 by Violeta Gómez) H/O: hysterectomy History of cardiac catheterization History of left heart catheterization (~06/15/22) Hx of section Hx of cholecystectomy Hx of wisdom tooth extraction Social History household members: spouse housing: house current occupational status: employed 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 [employer] sexually active: No Smoking Status: Never smoker alcohol intake: current alcohol intake frequency: holidays/special occasions only substance use type: does not use caffeine: Yes Type: coffee Number of servings: 1 what type of physical activity do you participate in: none seatbelt use: always do you feel safe at home: Yes Past Medical/Surgical History Planned Operation Planned Operative Procedure/s: CSCOPE S.O.S: No Previous Hospitalizations/Surgeries HX Hospitalizations: No HX of Surgeries: C-SEC GB Any Problems With Anesthesia: No You/Your Family Experience Fever (Hyperthermia) With Anes: No Cholinesterase deficiency: No Cardiovascular Hx Chest Pain within Last 2 months: No Hx of Irregular Heartbeat and/or Afib: No Hx Heart Attack: No Hx Congestive Heart Failure: No Hx Rheumatic Fever: No Hx Hypertension: No Hx Internal Defibrillator: No Hx Pacemaker: No Hx Cardiac Catheterization: No Hx Cardiac Surgery/Stents/Etc.: No Hx Stress Test: No Hx Pain in Legs when Walking/Leg Cramps: No Respiratory Chronic Cough: No HX of Shortness of Breath: No Hoarseness: No Hx Chronic Obstructive Pulmonary Disease (COPD): No Hx Asthma: No Hx Emphysema: No Hx Sleep Apnea: No CPAP: No BIPAP: No Hx Respiratory Tract Infection/Cold (presently): No Do You Snore Loudly (louder than talking or can be heard): No Do You Often Feel Tired/ Fatigued/ Sleepy Dring Daytime?: No Has Anyone Observed You Stop Breathing During Sleep?: No Result (for STOP score): Negative Hx Smoking: No Smoking Status: Never smoker Gastrointestinal Hx Gastroesophageal Reflux: Yes Controlled With Meds: Yes Hx Gastrointestinal Disorders: No Hx Gastrointestinal Bleed: No Hx Ulcer: No Hx Hiatal Hernia: No Difficulty Chewing/Swallowing: No Special diet followed at home: No Hx Unplanned Weight Loss of 20#: No HX Unplanned Weight Gain of 20#: No Neurological Hx Seizures: No HX Syncope/Blackout Spells/Unconsciousness: No Hx Transient Ischemic Attacks (TIA): No Hx Multiple Sclerosis: No Hx Parkinson's Disease: No Hx Head/Neck Injury: No Hx Headaches: No Hx Back Injury/Pain: No Recent Onset of Speech Difficulty: No Restless Legs: No Does patient have nerve stimulator: No Blood Disorder Hx Leukemia: No Bleeding Tendencies: No Hx Deep Vein Thrombosis: No Hx High Cholesterol: No Blood Transmitted Disease: No Hx Hepatitis: No Hx Cirrhosis: No Hx Anemia: Yes (prior to hysterectomy( 2013)) Hx Blood Disorders: No Reproduction Is Patient Lactating: No Hx Hysterectomy: No Hx Tubal Ligation: No Are You Post Menopause: No Genitourinary Hx Renal Disease: No Hx Dialysis: No Musculoskeletal Hx Arthritis: No Hx Rheumatoid Arthritis: No Hx Gout: No Recent Onset of an Orthopedic Problem: No Endocrine Hx Diabetes: No Thyroid Disease: No Hx Steroid Therapy: No Psycho/Social Hx Substance Use: No Hx Alcohol Use: No Hx Anxiety: Yes Hx Depression: No Mental Illness: No Hx Dementia: No Miscellaneous Hx Cancer: No Recent Exposure to Contagious Disease: No Hx of C-Diff: No Any Loose Teeth: No Allergies guaifenesin Adverse Reaction (Intermediate, Verified 11/14/22 14:40) RASH sulfamethoxazole [From Bactrim] Adverse Reaction (Intermediate, Verified 11/14/22 14:40) RASH trimethoprim [From Bactrim] Adverse Reaction (Intermediate, Verified 11/14/22 14:40) RASH Maternal: Family History Unknown Adopted - (Patient is adopted, has been told her mother of brain aneurysm.) Paternal: Family History Unknown Adopted - (Patient is adopted, unknown paternal medical history.) Discharge Is Pt Admitted From a Detention, or a Long Term: No After D/C, Where Do you Plan to Go: Return Home Physical Exam Const alert, oriented x3 and no apparent distress HEENT normocephalic and head/scalp atraumatic Resp normal respiratory effort Cardio regular rate GI soft to palpation and non-tender; Negative for non-distended Palpation: Negative for guarding Extremity no clubbing, cyanosis or edema Neuro CN's II-XII intact bilaterally Psych mental status grossly normal Assessment & Plan Assessment/Plan (1) Colon cancer screening: Surgery Risks - Colonoscopy I discussed with the patient the risks of the procedure: Yes Risks Include but are not Limited To: Risks include but are not limited to: Bleeding, perforation requiring further surgery, inability to complete colonoscopy requiring barium enema.
[2022-11-20] MEDS: Lactated Ringers 1,000 ML 15 ML IV (06:36)
[2022-11-20 08:06] VITALS: BP 125/70; BP 126/42; PULSE 72; RESP 16; TEMP 36.2; O2SAT 94
--- NOTE | 2022-11-20 08:09 | OP.COLON_ITS ---
Patient Name: Radha Arreguin Procedure Date: 11/20/2022 7:10 AM Date of : 1970 Age: 52 Procedure: Colonoscopy Indications: Screening for colorectal malignant neoplasm Providers: Nathaly Doss MD Referring MD: Nathaly Doss MD Medicines: Monitored Anesthesia Care Patient Profile: This is a 52 year old female. Last Colonoscopy: none. The patient's first colonoscopy is today. Complications: No immediate complications. Procedure: Pre-Anesthesia Assessment: - Prior to the procedure, a History and Physical was performed, and patient medications and allergies were reviewed. The patient's tolerance of previous anesthesia was also reviewed. The risks and benefits of the procedure and the sedation options and risks were discussed with the patient. All questions were answered, and informed consent was obtained. Prior Anticoagulants: The patient has taken no previous anticoagulant or antiplatelet agents. ASA Grade Assessment: Per anesthesia. After reviewing the risks and benefits, the patient was deemed in satisfactory condition to undergo the procedure. After I obtained informed consent, the scope was passed under direct vision. Throughout the procedure, the patient's blood pressure, pulse, and oxygen saturations were monitored continuously. The Colonoscope was introduced through the anus and advanced to the cecum, identified by the appendiceal orifice, ileocecal valve and palpation. The colonoscopy was performed without difficulty. The patient tolerated the procedure well. The quality of the bowel preparation was good. Scope In: 7:35:36 AM Scope Withdrawal Time 0 hours 10 minutes 42 seconds Scope Out: 8:01:48 AM Total Procedure Duration Time 0 hours 26 minutes 12 seconds Findings: Hemorrhoids were found on perianal exam. Non-bleeding internal hemorrhoids were found. The hemorrhoids were Grade I (internal hemorrhoids that do not prolapse). The entire examined colon appeared normal. Impression: - Hemorrhoids found on perianal exam. - Non-bleeding internal hemorrhoids. - The entire examined colon is normal. - No specimens collected. Recommendation: - Discharge patient to home. - Resume previous diet. - Continue present medications. - Repeat colonoscopy in 5 years for screening purposes. Procedure Code(s): --- Professional --- G0121, PT, Colorectal cancer screening; colonoscopy on individual not meeting criteria for high risk Diagnosis Code(s): --- Professional --- Z12.11, Encounter for screening for malignant neoplasm of colon K64.0, First degree hemorrhoids CPT copyright 2017 [employer]. All rights reserved. The codes documented in this report are preliminary and upon automation and controls supervisor review may be revised to meet current compliance requirements. MD Nathaly Odell MD 11/20/2022 8:09:13 AM This report has been signed electronically. Number of Addenda: 0 Note Initiated On: 11/20/2022 7:10 AM
[2022-11-20 08:10] VITALS: BP 126/42; BP 130/60; PULSE 68; RESP 16; O2SAT 94
--- NOTE | 2022-11-20 08:10 | OP.CCLET_ITS ---
11/20/2022 Nica Henry MD [address] [place] [address] [place] [address] Re : Colonoscopy procedure for Radha Arreguin Dear Dr. Henry This procedure was performed on Sunday, November 20, 2022. My impressions and recommendations are as follows: Impressions : - Hemorrhoids found on perianal exam. - Non-bleeding internal hemorrhoids. - The entire examined colon is normal. - No specimens collected. Recommendations : - Discharge patient to home. - Resume previous diet. - Continue present medications. - Repeat colonoscopy in 5 years for screening purposes. My findings are described in the full procedure note, which is enclosed. If I can be of further assistance, please feel free to contact me at Doctor phone number(s): , Work: . Sincerely, MD Nathaly Odell MD 11/20/2022 8:09:13 AM This report has been signed electronically.
[2022-11-20 08:15] VITALS: BP 109/62; BP 126/42; PULSE 72; RESP 18; O2SAT 93
[2022-11-20 08:20] VITALS: BP 112/69; BP 126/42; PULSE 68; RESP 18; TEMP 36.5; O2SAT 93
[2022-11-20 08:35] VITALS: BP 126/42
== END 2022-11-20 08:46 | disposition home or self-care (01) ==
LOC: EN 06:10 → AC 06:11
PROVIDERS: PCP Internal Medicine; Referring Provider Internal Medicine; Visit Provider Surgery
PROC: 0DJD8ZZ Inspection of Lower Intestinal Tract, Via Natural or Artificial Opening Endoscopic (ICD-10-PCS; CPT 45378; principal; 2022-11-20 07:25)
DX: Z12.11 Encounter for screening for malignant neoplasm of colon (principal); K64.0 First degree hemorrhoids; M51.37 Other intervertebral disc degeneration, lumbosacral region; E66.9 Obesity, unspecified; I10 Essential (primary) hypertension; Z68.38 Body mass index [BMI] 38.0-38.9, adult; Z79.899 Other long term (current) drug therapy; Z79.82 Long term (current) use of aspirin
CPT/HCPCS: G0121; J7120; J2405

== ENCOUNTER → 2023-05-16 | Outpatient (CLI) | payer OTHER, SELFPAY ==
--- NOTE | 2023-05-16 09:52 | RAD_ITS ---
STUDY: X-RAY - PELVIS REASON FOR EXAM: Female, 52 years old. 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 COMPARISON: None. FINDINGS: There is a non-specific bowel gas pattern. Normal visualized soft tissue structures. Normal bilateral iliac wings, sacroiliac joints and visualized sacrum. Normal visualized bilateral superior and inferior pubic rami. Normal pubic symphysis. Normal ischial tuberosities. Normal visualized right femoral head. Normal right acetabulum. Normal right hip joint. Normal visualized left femoral head. Normal left acetabulum. Normal left hip joint. RAD/Pelvis 1 or 2 Views IMPRESSION: Normal x-ray examination of the pelvis. Electronically Signed: Luis Fernando Spangler MD at 19:11 EST ,
--- OUTSIDE RECORDS SUMMARY | 2023-05-16 10:11 | XMS RPT_ITS | CCD ---
Author Name Unknown Address [address] [place] [address] Organization [facility] Care Team Providers Care Ortho Tech Name Role Phone GLENIS, PHYSICIAN Primary Care Unavailable NAMAN CAMPBELL Attending NAMAN Sloan Attending NAMAN Sloan Referring Bryan ROSAS, PHYSICIAN Primary Care Unavailable Glenis, Physician Primary Care Provider Bryan nam Allergies Allergy Classification Reported Allergen(s) Allergy Type Date of Onset Reaction(s) Facility (2 sources) Sulfamethoxazole / Trimethoprim; Translations: [Unknown] Drug Allergy 7 [facility] Three Repository Medications Current Medications Medication Drug Class(es) Dates Sig (Normalized) Sig (Original) DULoxetine 30 mg delayed release oral capsule (1 source) Serotonin and Norepinephrine Reuptake Inhibitor Start: 11-25-2018 take 1 capsule by mouth twice daily DULoxetine (CYMBALTA) 30 MG capsule Take 30 mg by mouth 2 (two) times a day . 3 11/25/2018 Active pregabalin 150 mg oral capsule (1 source) Start: 10-23-2018 take 1 capsule by mouth twice daily LYRICA 150 mg capsule Take 150 mg by mouth 2 (two) times a day . 0 10/23/2018 Active traZODone hydrochloride 100 mg oral tablet (1 source) Serotonin Reuptake Inhibitor Start: 10-22-2018 traZODone (DESYREL) 100 MG tablet Take 100-200 mg by mouth nightly as needed . 11 10/22/2018 Active Results Test Name Value Interpretation Reference Range Facil ity Encounters Encounter Date Encounter Type Care Provider Facility Start: 01-06-2019 End: 01-06-2019 Patient encounter procedure PHYSICIAN GLENIS [facility] Start: 01-06-2019 End: 01-06-2019 Subsequent hospital visit by physician Naman Campbell Work Phone: Urgent Care [facility] [address] Imaging Services Diagnostics Procedures Date Procedure Procedure Detail Performing Clinician Start: 01-06-2019 Radiologic examinati on tibia & fibula 2 views Naman Campbell Work Phone: Plan of Treatment Date Care Activity Detail Author Start: 12-22-2018 Influenza vaccination given SE QUENTIAL INFLUENZA VACCINE (#1) [facility] Start: 1973 History and physical examination, annual for health maintenance Wellness Visit [facility] Start: 1970 Screening for malign ant neoplasm of cervix PAP SMEAR [facility] Start: 1970 Screening mammography Mammogram [facility] Start: 1970 Tetanus vaccination TETANUS EVERY 10 YR [facility] Payers Date Payer Category Payer Private Health Insurance [id number] 2017 Private Health Insurance AETNA A ETNA CHOICE POS/POSII/PREMIER CARE/PREMIER CARE PLUS xxxxxxxxxx 2017-Present xxxxxxxxxx [id number] 1970 Unknown [id number] 1970 Unknown [id number] Social History Date Type Detail Facility Start: 01-06-2019 Tobacco smoking status NHIS Never sm oker [facility] Start: 01-06-2019 Alcohol intake Current drinke r of alcohol (finding) [facility] Start: 01-06-2019 History SDOH Alcohol Frequency 4 [facility] Sex Assigned At Not on file [place] [facility] Progress note 11-16-2020 Note Date & Type Note Facility 11-16-2020 Note HNO ID: [id number] Author: Maynor Mitchell APRN.DOOR TO DOOR SALESPERSON Service: ? Author Type: Nurse Practitioner Type: Progress Notes Filed: 11/16/2020 8:36 AM Note Text: Subjective HPI Nontoxic-appearing female presents urgent care chief complaint lower back pain. Duration of symptoms ongoing lower back pain. Has had multiple MRIs for lower back pain no abnormal findings. Patient states there was possible a subtle compression fracture of unknown origin or age. States last night she was stretching in bed and felt a pop in her lower back. Patient states pain started after this pop . States did take Aleve approximately 12 hours ago for pain. Rates pain 8 out of 10. States pain does increase with certain movements. Denies any specific injury. Denies any saddle anesthesia or incontinence. Denies IV drug use, fevers, rashes, nausea, vomiting, abdominal pain, trauma, history of osteoporosis, history of IV drug use history of cancer change in bowel or bladder habits. Denies chance of past medical history prescription medication use allergies reviewed. .Patient presents with: Low Back Pain: right side x last night, felt a pop PAST MEDICAL HISTORY Diagnosis Date - Anxiety state, unspecified Anxiety state - Premenstrual tension syndromes PMS PAST SURGICAL HISTORY Procedure Laterality Date - DELIVERY ONLY 11/1999 , low cervical - LAPAROSCOPIC CHOLEYCYSTECTOMY Cholecystectomy, lap ALLERGIES Bactrim [Sulfamethoxazole-Trimethoprim] and Guiafen Ii Dm [[id number]-[id number]] MEDICATIONS pregabalin (LYRICA ORAL) Take by mouth. duloxetine HCl (CYMBALTA ORAL) Take by mouth. trazodone HCl (TRAZODONE ORAL) Take by mouth. azithromycin (ZITHROMAX) 250 mg tablet Take 2 tablets today, then one tablet daily for the next 4 days. albuterol HFA (VENTOLIN HFA) 90 mcg/actuation inhaler Inhale 2 Puffs as instructed every 4 hours as needed for Wheezing/Shortness of Breath. methylPREDNISolone (MEDROL, THERESA,) 4 mg Dose-Pack Take as directed cyclobenzaprine (FLEXERIL) 10 mg tablet Take 1 tablet by mouth three times daily as needed for Muscle Spasm. Chlorpheniramine-HYDROcodone (TUSSIONEX) 10-8 mg/5 mL suspension Take 5 mL by mouth every 12 hours as needed for Cough. FAMILY HISTORY Adopted: Yes Social History Tobacco Use - Smoking status: Never Smoker - Smokeless tobacco: Never Used Substance Use Topics - Alcohol use: Yes Comment: Occasionally - Drug use: No BP 130/84 Pulse 74 Temp 36.3 ?C (97.4 ?F) Resp 16 Wt 125.6 kg (277 lb) LMP 11/22/2012 SpO2 96% Review of Systems Constitutional: Negative for chills, fever and malaise/fatigue. HENT: Negative for congestion, ear discharge, ear pain, sinus pain and sore throat. Eyes: Negative for blurred vision, pain, discharge and redness. Respiratory: Negative for cough, sputum production, shortness of breath and wheezing. Cardiovascular: Negative for chest pain. Gastrointestinal: Negative for abdominal pain, diarrhea, nausea and vomiting. Musculoskeletal: Positive for back pain. Negative for falls and myalgias. Skin: Negative for itching and rash. Neurological: Negative for dizziness and headaches. Objective Physical Exam Constitutional: General: She is not in acute distress. Appearance: She is not diaphoretic. HENT: Head: Normocephalic. Eyes: Conjunctiva/sclera: Conjunctivae normal. Pupils: Pupils are equal, round, and reactive to light. Cardiovascular: Rate and Rhythm: Normal rate and regular rhythm. Heart sounds: Normal heart sounds. Pulmonary: Effort: Pulmonary effort is normal. No tachypnea, accessory muscle usage or respiratory distress. Breath sounds: Normal breath sounds. Abdominal: Palpations: Abdomen is soft. Tenderness: There is no abdominal tenderness. Musculoskeletal: Cervical back: Normal range of motion and neck supple. No rigidity or tenderness. Thoracic back: Normal. Lumbar back: Tenderness present. No swelling, edema, deformity, signs of trauma, lacerations, spasms or bony tenderness. Decreased range of motion. Negative right straight leg raise test and negative left straight leg raise test. Comments: No erythema rashes noted. Lymphadenopathy: Cervical: No cervical adenopathy. Skin: General: Skin is warm and dry. Neurological: Mental Status: She is alert and oriented to person, place, and time. ASSESSMENT/PLAN: 1. Acute midline low back pain without sciatica - ICD9: 724.2, ICD10: M54.5 - KETOROLAC 60 MG/2 ML INTRAMUSCULAR SOLUTION Vital signs within normal limits. No specific trauma. No spinal tenderness upon palpation. Patient is able to sit and stand. No difficulty with walking. No red flags noted on physical examination. With patient's previous MRI findings of subtle compression fracture I recommended patient contacting family physician today to discuss back pain with them. With previous imaging results unassessable (more content not included)... [facility] Summary Purpose Family History No Family History Records FoundNo Family History Records Found Advance Directives No Advanced Directives Records FoundDocuments on File Type Date Recorded Patient Cardiac Rn Expl anation Advance Directives and Living Will Additional Source Comments INFORMATION SOURCE (unrecogn ized section and content) DATE CREATED AUTHOR AUTHOR'S BRET ARNOLD 04/10/2021 [facility] FOR RECORDS PERTAINING TO PATIENTS WHO ARE OR HAVE BEEN ENROLLED IN A CHEMICAL DEPENDENCY/SUBSTANCEABUSE PROGRAM, SOME INFORMATION MAY BE OMITTED. This clinical summary was aggregated from multiple sources. Caution should be exercised in using it in the provision of clinical care. This summary normalizes information from multiple sources, and as a consequence, information in this document may materially change the coding, format and clinical context of patient data. In addition, data may be omitted in some cases. CLINICAL DECISIONS SHOULD BE BASED ON THE PRIMARY CLINICAL RECORDS. [employer] provides no warranty or guarantee of the accuracy or completeness of information in this document.
[2023-05-16 10:57] LABS: Erythrocyte Sedimentation Rate 8 mm/hr (0-30)
[2023-05-16 11:01] LABS: Absolute Lymphocyte Count 1.61 X10^3/uL (0.83-4.51); Absolute Neutrophil Count 4.3 X10^3/uL (2.0-7.7); Basophil# 0.05 X10^3/uL; Basophil% 0.7 % (0-1); Eosinophil# 0.34 X10^3/uL; Eosinophils% 5.1 % (0-5); Hematocrit 41.8 % (37-47); Hemoglobin 13.6 g/dL (12.0-15.0); Lymphocyte # 1.61 X10^3/ul (0.83-4.51); Mean Corp Hgb Conc 32.5 g/dL (32-36); Mean Corpuscular Hgb 27.9 pg (27.0-32.0); Mean Corpuscular Volume 85.8 fL (81-99); Mean Platelet Vol. 10.4 fl (6.2-12.0); Monocyte# 0.41 X10^3/uL; Monocyte% 6.1 % (0-10); NRBC Flagged by Analyzer 0 % (0-5); Neutrophil # 4.29 X10^3/uL (2.7-7.7); Neutrophil % 63.8 % (47-70); Platelet Count 268 K/mm3 (150-450); RBC Distribution Width CV 13.8 % (11.6-14.6); RBC Distribution Width SD 42.5 fl (35.1-43.9); Red Blood Count 4.87 M/mm3 (4.2-5.4); White Blood Count 6.7 K/mm3 (4.4-11.0)
[2023-05-16 11:49] LABS: AST(SGOT) 41 U/L (15-37); Alanine Aminotransfer ALT/SGPT 67 U/L (13-56); Albumin, Serum 3.7 g/dL (3.2-5.0); Alkaline Phosphatase 114 U/L (45-117); Anion Gap 4 (5-15); BUN 20 mg/dL (7-18); Calcium,Total 9.3 mg/dL (8.5-10.1); Chloride 112 mmol/L (98-107); EST Glomerular Filtration Rate 62 mL/min (>60); Est Glom Filt Rate - Afr Amer 75 mL/min (>60); Globulin 3.8 g/dL (2.2-4.2); Glucose 104 mg/dL (74-106); Potassium 4.2 mmol/L (3.5-5.1); Protein, Total 7.5 g/dL (6.4-8.2); Rheumatoid Factor < 10.0 IU/mL (<15); Sodium Level 140 mmol/L (136-145)
[2023-05-16 12:02] LABS: Hepatitis B Surface Antibody Non-Reactive; Hepatitis B Surface Antigen Non-Reactive (Nonreactive); Hepatitis C Antibody Non-Reactive (Nonreactive)
[2023-05-17 11:09] LABS: ANTINUCLEAR ANTIBODIES DIRECT Negative (Negative); SJOGREN'S Anti-SS-A test 0.2 AI (0.0-0.9); SJOGREN'S Anti-SS-B test < 0.2 AI (0.0-0.9)
[2023-05-17 12:09] LABS: CCP IgG Antibodies 14 units (0-19)
== END | disposition home or self-care (01) ==
PROVIDERS: PCP Internal Medicine; Referring Provider Internal Medicine Rheumatology; Visit Provider Internal Medicine Rheumatology
DX: M06.4 Inflammatory polyarthropathy (principal); M79.7 Fibromyalgia
CPT/HCPCS: 36415; 72170; 80053; 85025; 85652; 86038; 86140; 86200; 86235; 86431; 86706; 86803; 87340

== ENCOUNTER → 2023-05-18 | Outpatient (CLI) | payer OTHER, SELFPAY ==
--- NOTE | 2023-05-18 07:09 | US_ITS ---
STUDY: ABDOMINAL ULTRASOUND - RIGHT UPPER QUADRANT REASON FOR VISIT: Female, 52 years old elevated liver enzymes. Inflammatory polyarthropathy. Status post cholecystectomy 1999. TECHNIQUE: Ultrasound evaluation of the right upper quadrant was performed with real-time and static taylor-scale imaging. TECHNICAL QUALITY: Adequate. COMPARISON: CT abdomen and pelvis without contrast 08/24/2020. FINDINGS: Liver: The liver measures 20.6 cm. There is mild increase echogenicity of the liver. The bile ducts are within normal limits. There is hepatic color flow. The direction of portal flow is hepatopetal. There is no demonstrated mass lesion. No ascites. No right pleural effusion. Gallbladder: Postsurgical absence. Common Bile Duct (C.B.D.): The common bile duct measures 4.1 mm. Pancreas: Limited visualization due to obesity. Normal visualized portions of pancreas. Mild increased echogenicity of the pancreas. No pancreatic mass or cyst in the visualized portions of pancreas. The pancreatic duct is not dilated. Right Kidney: Normal size of the right kidney. The right kidney measures 12.9 x 5.4 x 5.1 cm. Normal renal cortex. The right cortex measures 1.8 cm. There is no demonstrated renal mass or cyst. There is no right hydronephrosis. US/Liver IMPRESSION: 1. Mild hepatomegaly and diffuse hepatic steatosis. 2. Postsurgical absence of the gallbladder. 3. No acute abnormality. Electronically Signed: Alexandro Louise MD at 9:04 EST ,
== END | disposition home or self-care (01) ==
LOC: US 07:08
PROVIDERS: PCP Internal Medicine; Referring Provider Internal Medicine Rheumatology; Visit Provider Internal Medicine Rheumatology
DX: M06.4 Inflammatory polyarthropathy (principal); M79.7 Fibromyalgia
CPT/HCPCS: 76705

== ENCOUNTER → 2023-05-31 | Outpatient (CLI) | payer OTHER, SELFPAY ==
--- OUTSIDE RECORDS SUMMARY | 2023-05-31 08:40 | XMS RPT_ITS | CCD ---
Author Name Unknown Address [address] [place] [address] Organization [facility] Care Team Providers Care Massotherapist Name Role Phone GLENIS, PHYSICIAN Primary Care Unavailable NAMAN CAMPBELL Attending NAMAN Sloan Attending NAMAN Sloan Referring Bryan ROSAS, PHYSICIAN Primary Care Unavailable Glenis, Physician Primary Care Provider Bryan nam Allergies Allergy Classification Reported Allergen(s) Allergy Type Date of Onset Reaction(s) Facility (2 sources) Sulfamethoxazole / Trimethoprim; Translations: [Unknown] Drug Allergy 7 [facility] Three Repository Medications Current Medications [...] End: 01-06-2019 Patient encounter procedure PHYSICIAN GLENIS [facility] Start: 01-06-2019 End: 01-06-2019 Subsequent hospital visit by physician Naman Campbell Work Phone: Urgent Care [facility] Imaging Services Diagnostics Procedures Date Procedure Procedure Detail Performing Clinician Start: 01-06-2019 Radiologic examinati on tibia & fibula 2 views Naman Campbell Work Phone: Plan of Treatment Date Care Activity Detail Author Start: 12-22-2018 Influenza vaccination given SE QUENTIAL INFLUENZA VACCINE (#1) [facility] Start: 1973 History and physical examination, annual for health maintenance Wellness Visit [facility] Start: 1970 Screening for malign ant neoplasm of cervix PAP SMEAR [facility] Start: 1970 Screening mammography Mammogram [facility] Start: 1970 Tetanus vaccination TETANUS EVERY 10 YR [facility] Payers Date Payer Category Payer Private Health Insurance [id number] 2017 Private Health Insurance AETNA A ETNA CHOICE POS/POSII/PREMIER CARE/PREMIER CARE PLUS xxxxxxxxxx 2017-Present xxxxxxxxxx [id number] 1970 Unknown [id number] 1970 Unknown [id number] Social History Date Type Detail Facility Start: 01-06-2019 Tobacco smoking status NHIS Never sm oker [facility] Start: 01-06-2019 Alcohol intake Current drinke r of alcohol (finding) [facility] Start: 01-06-2019 History SDOH Alcohol Frequency 4 [facility] Sex Assigned At Not on file [place] [facility] Progress note 11-16-2020 Note Date & Type Note Facility 11-16-2020 Note HNO ID: [id number] Author: Maynor Mitchell APRN.AUTOMATIC CAR WASH ATTENDANT Service: ? Author Type: Nurse Practitioner Type: [...] ALLERGIES Bactrim [Sulfamethoxazole-Trimethoprim] and Guiafen Ii Dm [[id number]] MEDICATIONS pregabalin (LYRICA ORAL) Take by mouth. [...] imaging results unassessable (more content not included)... 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 [employer] provides no warranty or guarantee of the accuracy or completeness of information in this document.
== END | disposition home or self-care (01) ==
LOC: PSN 08:28
PROVIDERS: PCP Internal Medicine; Referring Provider Obstetrics & Gynecology; Visit Provider Obstetrics & Gynecology
DX: E66.9 Obesity, unspecified (principal)
CPT/HCPCS: 93005

== ENCOUNTER → 2023-06-14 | Outpatient (CLI) | payer OTHER, SELFPAY ==
--- OUTSIDE RECORDS SUMMARY | 2023-06-14 07:15 | XMS RPT_ITS | CCD ---
Author Name Unknown Address [address] [place] [address] Organization [facility] Care Team Providers Care Infection Control Rn Name Role Phone GLENIS, PHYSICIAN Primary Care Unavailable NAMAN CAMPBELL Attending NAMAN Sloan Attending NAMAN Sloan Referring Bryan ROSAS, PHYSICIAN Primary Care Unavailable Glenis, Physician Primary Care Provider Bryan nam Allergies Allergy Classification Reported Allergen(s) Allergy Type Date of Onset Reaction(s) Facility (2 sources) Sulfamethoxazole / Trimethoprim; Translations: [Unknown] Drug Allergy 7 [facility] Three Repository Medications Current Medications Medication Drug [...] End: 01-06-2019 Patient encounter procedure PHYSICIAN GLENIS [facility] Start: 01-06-2019 End: 01-06-2019 Subsequent hospital visit by physician Naman Campbell Work Phone: Urgent Care [facility] Imaging Services Diagnostics Procedures Date Procedure Procedure Detail Performing Clinician Start: 01-06-2019 Radiologic examinati on tibia & fibula 2 views Naman Campbell Work Phone: Plan of Treatment Date Care Activity Detail Author Start: 12-22-2018 Influenza vaccination given SE QUENTIAL INFLUENZA VACCINE (#1) [facility] Start: 1973 History and physical examination, annual for health maintenance Wellness Visit [facility] Start: 1970 Screening for malign ant neoplasm of cervix PAP SMEAR [facility] Start: 1970 Screening mammography Mammogram [facility] Start: 1970 Tetanus vaccination TETANUS EVERY 10 YR [facility] Payers Date Payer Category Payer Private Health Insurance [id number] 2017 Private Health Insurance AETNA A ETNA CHOICE POS/POSII/PREMIER CARE/PREMIER CARE PLUS xxxxxxxxxx 2017-Present xxxxxxxxxx [id number] 1970 Unknown [id number] 1970 Unknown [id number] Social History Date Type Detail Facility Start: 01-06-2019 Tobacco smoking status NHIS Never sm oker [facility] Start: 01-06-2019 Alcohol intake Current drinke r of alcohol (finding) [facility] Start: 01-06-2019 History SDOH Alcohol Frequency 4 [facility] Sex Assigned At Not on file [place] [facility] Progress note 11-16-2020 Note Date & Type Note Facility 11-16-2020 Note HNO ID: [id number] Author: Maynor Mitchell APRN.TEXT TRANSCRIBER Service: ? Author Type: Nurse Practitioner Type: [...] ALLERGIES Bactrim [Sulfamethoxazole-Trimethoprim] and Guiafen Ii Dm [[id number]] MEDICATIONS pregabalin (LYRICA ORAL) Take by mouth. [...] imaging results unassessable (more content not included)... 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 [employer] provides no warranty or guarantee of the accuracy or completeness of information in this document.
--- NOTE | 2023-06-14 07:17 | MRI_ITS ---
STUDY: MRI RIGHT KNEE REASON FOR EXAM: Female, 52 years old. Sprain, pain. TECHNIQUE: Standardized fat and water weighted pulse sequences were obtained in all 3 orthogonal planes. COMPARISON: Right knee radiographs dated 05/12/2021. FINDINGS: There is a partial radial tear of the posterior horn of the medial meniscus (coronal T2 series 8 image 15; sagittal T2 series 7 image 15). There is moderate grade chondromalacia in the the medial femorotibial compartment. There is mild osteoarthritic spur formation of the medial knee compartment. There is mild subchondral marrow edema along the posterior nonweightbearing surface of the medial femoral condyle. Intact medial collateral ligamentous complex (MCL). Normal distal semimembranosus, gracilis and semitendinosus tendons. Normal lateral meniscus. Normal hyaline cartilage of the lateral femorotibial compartment. Normal lateral femoral condyle and tibial plateau. Normal proximal tibiofibular articulation. Normal lateral collateral ( fibular ) ligament. Normal popliteus tendon. Normal biceps femoris tendon. Normal anterior cruciate ligament (ACL). Normal posterior cruciate ligament (PCL). There is mild to moderate grade chondromalacia along the lateral patellar facet with underlying subchondral edema/cyst formation. Congruent patellofemoral articulation. Normal medial and lateral patellar retinaculum. Normal quadriceps tendon. Normal patellar tendon. Normal Hoffa''s fat pad. There is a tiny joint effusion. There is a small popliteal cyst. There is mild subcutaneous soft tissue edema along the anteromedial aspect of the knee. There is no acute fracture. MRI/Lower Ext Joint Only (Routine) IMPRESSION: Partial radial tear of the posterior horn of the medial meniscus. 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 Tiny joint effusion with a small popliteal cyst. Mild subcutaneous soft tissue edema along the anteromedial aspect of the knee. Electronically Signed: Kian Salas MD at 9:53 EST ,
== END | disposition home or self-care (01) ==
PROVIDERS: PCP Internal Medicine; Referring Provider Student in an Organized Health Care Education/Training Program; Visit Provider Student in an Organized Health Care Education/Training Program
DX: S83.8X1A Sprain of other specified parts of right knee, initial encounter (principal); M25.561 Pain in right knee
CPT/HCPCS: 73721

== ENCOUNTER → 2023-06-19 | Outpatient (CLI) | payer OTHER, SELFPAY ==
--- OUTSIDE RECORDS SUMMARY | 2023-06-19 07:39 | XMS RPT_ITS | CCD ---
Author Name Unknown Address [address] [place] [address] Organization [facility] Care Team Providers Care Security Operations Center Analyst Name Role Phone GLENIS, PHYSICIAN Primary Care Unavailable NAMAN CAMPBELL Attending NAMAN Sloan Attending NAMAN Sloan Referring Bryan ROSAS, PHYSICIAN Primary Care Unavailable Glenis, Physician Primary Care Provider Bryan nam Allergies Allergy Classification Reported Allergen(s) Allergy Type Date of Onset Reaction(s) Facility (2 sources) Sulfamethoxazole / Trimethoprim; Translations: [Unknown] Drug Allergy 7 [facility] Three Repository Medications Current Medications Medication [...] End: 01-06-2019 Patient encounter procedure PHYSICIAN GLENIS [facility] Start: 01-06-2019 End: 01-06-2019 Subsequent hospital visit by physician Naman Campbell Work Phone: Urgent Care [facility] Imaging Services Diagnostics Procedures Date Procedure Procedure Detail Performing Clinician Start: 01-06-2019 Radiologic examinati on tibia & fibula 2 views Naman Campbell Work Phone: Plan of Treatment Date Care Activity Detail Author Start: 12-22-2018 Influenza vaccination given SE QUENTIAL INFLUENZA VACCINE (#1) [facility] Start: 1973 History and physical examination, annual for health maintenance Wellness Visit [facility] Start: 1970 Screening for malign ant neoplasm of cervix PAP SMEAR [facility] Start: 1970 Screening mammography Mammogram [facility] Start: 1970 Tetanus vaccination TETANUS EVERY 10 YR [facility] Payers Date Payer Category Payer Private Health Insurance [id number] 2017 Private Health Insurance AETNA A ETNA CHOICE POS/POSII/PREMIER CARE/PREMIER CARE PLUS xxxxxxxxxx 2017-Present xxxxxxxxxx [id number] 1970 Unknown [id number] 1970 Unknown [id number] Social History Date Type Detail Facility Start: 01-06-2019 Tobacco smoking status NHIS Never sm oker [facility] Start: 01-06-2019 Alcohol intake Current drinke r of alcohol (finding) [facility] Start: 01-06-2019 History SDOH Alcohol Frequency 4 [facility] Sex Assigned At Not on file [place] [facility] Progress note 11-16-2020 Note Date & Type Note Facility 11-16-2020 Note HNO ID: [id number] Author: Maynor Mitchell APRN.GOLF CART MAKER Service: ? Author Type: Nurse Practitioner Type: [...] ALLERGIES Bactrim [Sulfamethoxazole-Trimethoprim] and Guiafen Ii Dm [[id number]] MEDICATIONS pregabalin (LYRICA ORAL) Take by mouth. [...] imaging results unassessable (more content not included)... 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 [employer]. provides no warranty or guarantee of the accuracy or completeness of information in this document.
[2023-06-19 11:01] LABS: Cholesterol 175 mg/dL (200); High Density Lipoprotein 30 mg/dL; Thyroid Stim Hormone (TSH) 2.61 uIU/mL (0.358-3.74); Triglycerides 329 mg/dL; Very Low Density Lipoprotein 66 mg/dL (5-40)
[2023-06-19 13:39] LABS: Hemoglobin A1c 6.3 % (3.8-5.6)
[2023-06-21 12:09] LABS: Vitamin D 1,25-Dihydroxy 45.5 pg/mL (24.8-81.5)
== END | disposition home or self-care (01) ==
LOC: LAB 07:37
PROVIDERS: PCP Internal Medicine; Referring Provider Obstetrics & Gynecology; Visit Provider Obstetrics & Gynecology
DX: E66.9 Obesity, unspecified (principal)
CPT/HCPCS: 36415; 80061; 82652; 83036; 84443

== ENCOUNTER → 2023-09-03 | Outpatient (CLI) | payer OTHER, SELFPAY ==
--- NOTE | 2023-09-03 14:55 | BI_ITS ---
MAMMOGRAPHY - BILATERAL SCREENING REASON FOR EXAM: Female, 53 years old. Routine annual screening examination. PERTINENT HISTORY: Non-contributory. TECHNIQUE: Digital bilateral breast chen (3D mammographic acquisition) in the CC and MLO projections. 2-D mediolateral oblique (MLO) and craniocaudad (CC) views of both breasts were obtained. CAD: Full Field Digital Mammography with Computer Added Detection was performed. COMPARISON: Comparison is made with prior study dated August 31, 2022 and April 06, 2020. FINDINGS: Breast Composition: The breasts are heterogeneously dense, which may obscure small masses. There are no dominant masses or suspicious calcifications. No other significant abnormalities are identified. There has been no significant change since the prior study. BI/SCRN MAMM (CAD)W/CHEN BILAT IMPRESSION: Stable bilateral screening mammogram. Yearly follow-up mammogram recommended. (A) ASSESSMENT CATEGORY: BIRADS Category 1: Negative. A letter regarding these results will be sent to the patient by the facility within 30 days. Approximately 10% of breast cancers are not detected by mammography. A normal mammogram should not delay biopsy of a clinically suspicious abnormality. [id number] Electronically Signed: Jeff Higuera MD at 11:07 EDT ,
[2023-09-03 17:51] LABS: Absolute Lymphocyte Count 2.55 X10^3/uL (0.83-4.51); Absolute Neutrophil Count 5.3 X10^3/uL (2.0-7.7); Basophil# 0.06 X10^3/uL; Basophil% 0.7 % (0-1); Eosinophils% 5.6 % (0-5); Hematocrit 43.2 % (37-47); Hemoglobin 14.2 g/dL (12.0-15.0); Lymphocyte # 2.55 X10^3/ul (0.83-4.51); Lymphocyte % 28.3 % (19-41); Mean Corp Hgb Conc 32.9 g/dL (32-36); Mean Corpuscular Hgb 28.4 pg (27.0-32.0); Mean Corpuscular Volume 86.4 fL (81-99); Mean Platelet Vol. 10.6 fl (6.2-12.0); Monocyte# 0.55 X10^3/uL; Monocyte% 6.1 % (0-10); NRBC Flagged by Analyzer 0 % (0-5); Neutrophil # 5.31 X10^3/uL (2.7-7.7); Platelet Count 279 K/mm3 (150-450); RBC Distribution Width CV 13.4 % (11.6-14.6); RBC Distribution Width SD 42.1 fl (35.1-43.9)
[2023-09-03 18:30] LABS: AST(SGOT) 44 U/L (15-37); Alanine Aminotransfer ALT/SGPT 77 U/L (13-56); Albumin, Serum 3.9 g/dL (3.2-5.0); Alkaline Phosphatase 111 U/L (45-117); Anion Gap 5 (5-15); BUN 18 mg/dL (7-18); BUN/Creat Ratio 15.1 RATIO (10-20); Calcium,Total 9.8 mg/dL (8.5-10.1); Chloride 103 mmol/L (98-107); Creatinine, Serum 1.19 mg/dL (0.55-1.02); EST Glomerular Filtration Rate 50 mL/min (>60); Est Glom Filt Rate - Afr Amer 61 mL/min (>60); Glucose 101 mg/dL (74-106); Potassium 3.8 mmol/L (3.5-5.1); Protein, Total 7.9 g/dL (6.4-8.2); Sodium Level 137 mmol/L (136-145)
== END | disposition home or self-care (01) ==
PROVIDERS: PCP Internal Medicine; Referring Provider Internal Medicine; Visit Provider Internal Medicine
DX: Z01.818 Encounter for other preprocedural examination (principal); Z12.31 Encounter for screening mammogram for malignant neoplasm of breast
CPT/HCPCS: 36415; 77063; 77067; 80053; 85025

== ENCOUNTER 2023-11-29 08:56 | Observation (INO) | payer OTHER, SELFPAY ==
[2023-11-29] VITALS (8 sets, daily range): BP systolic 122–141; BP diastolic 56–95; PULSE 64–82; RESP 11–18; TEMP 36.5–36.8; O2SAT 97–100; BMI 36.7; BMI 36.8
--- NOTE | 2023-11-29 09:11 | EKG12_ITS ---
Test Reason : Blood Pressure : / mmHG Vent. Rate : 071 BPM Atrial Rate : 071 BPM P-R Int : 168 ms QRS Dur : 088 ms QT Int : 404 ms P-R-T Axes : 050 065 102 degrees QTc Int : 439 ms Normal sinus rhythm Nonspecific ST and T wave abnormality Abnormal ECG Confirmed by HILDA SAENZ, SONIYA ([id number]), technical writer and editor RUSS MATTHEW ([id number]) on 12/03/2023 8:42:53 AM Referred By: Confirmed By:JOHN STEVENS MD
--- NOTE | 2023-11-29 09:11 | CT_ITS ---
EXAM: CT HEAD WITHOUT INTRAVENOUS CONTRAST CLINICAL INDICATION: Dizziness. TECHNIQUE: Multiple axial images were obtained of the head without intravenous contrast. This CT exam was performed using one or more of the following dose reduction techniques: automated exposure control, adjustment of the mA and/or kV according to patient size, and/or use of iterative reconstruction technique. RADIATION DOSE: CTDIvol = 44.99 mGy, DLP = 812.98 mGy-cm COMPARISON: CT head without contrast 08/09/2021. FINDINGS: BRAIN AND EXTRA-AXIAL SPACES: Unremarkable. No intra- or extra-axial hemorrhage. No evidence of acute infarct. No intracranial mass or mass effect. There is preservation of the taylor/white matter interface. Posterior fossa structures are unremarkable. Ventricles are appropriate for age. No hydrocephalus. Basal cisterns are patent. BONES/JOINTS: Unremarkable. No discrete lytic or blastic abnormalities. SINUSES: Unremarkable as visualized. Clear. MASTOID AIR CELLS: Unremarkable. Clear. ORBITS: Visualized globes, extraocular muscles, optic nerves and retrobulbar fat appear unremarkable. CT/Brain/Head without Contrast IMPRESSION: Negative head/brain CT without intravenous contrast and unchanged when compared to 08/09/2021. Electronically Signed: Alexandro Louise MD at 9:39 EDT ,
--- NOTE | 2023-11-29 09:12 | EX.ED.DYSGE1 ---
HPI History of Present Illness Chief Complaint: Dizziness Detail of Chief Complaint: Dizziness Informant: patient Narrative Narrative: Patient presents to the emergency department with complaint of dizziness that started 5 days ago. Patient recalls the first time noticing it 1 in the shower and feels like it was sudden onset. Dizziness worse with head position and she does describe some swishing in her head and vertiginous-like symptoms. She has had nausea but no vomiting. She went to urgent care today and had a COVID test and was referred to the emergency department after her test was negative. No falls or head injuries. Denies headache. She describes some generalized weakness. Patient denies history of vertigo. No new medications. [facility] Medical History Elevated liver enzymes Borderline type 2 diabetes mellitus Preoperative evaluation to rule out surgical contraindication Prediabetes Fatty liver disease, nonalcoholic Other obesity BMI 37.0-37.9, adult Flu vaccine need Lumbar radiculopathy Arthritis Climacteric Insomnia Gastritis History of echocardiogram History of stress test Wears glasses Wears contact lenses Non-smoker Cardiology follow-up encounter DDD (degenerative disc disease), lumbosacral Preventative health care Colon cancer screening Palpitations SOB (shortness of breath) on exertion Obesity Hypertension Abnormal stress test Family history of cerebral aneurysm Abnormal EKG Hypersomnolence Hx of degenerative disc disease Wears glasses Hx of emotional problems History of back pain Hx of chronic arthritis Gastroenteritis Migraine Contact with or suspected exposure to other viral communicable disease Acute pharyngitis Fibromyalgia Lab test negative for COVID-19 virus Acute frontal sinusitis, unspecified Fatigue Headache Congestion of nasal sinus Loss of smell Loss of taste Kidney stone on right side Fibromyalgia Chest pain Home Medications ?Medication ?Instructions ?Recorded ?Last Taken ?Type baclofen 5 mg tablet 5 mg PO TID 08/21/22 11/28/23 History tramadol 50 mg tablet 50 tablet PO TID 09/29/22 11/28/23 History carvedilol 6.25 mg tablet 6.25 mg PO BID #180 tabs 01/09/23 11/28/23 Rx trazodone 100 mg tablet 200 mg (2 x 100 mg) PO QHS sleep 3 04/10/23 11/28/23 Rx months #180 tabs multivitamin (Daily Multi-Vitamin 1 tab PO DAILY 07/10/23 Unknown History tablet) duloxetine 60 mg capsule,delayed 60 mg PO QHS #90 caps 08/13/23 11/28/23 Rx release Allergy/AdvReac Type Severity Reaction Status Date / Time guaifenesin AdvReac Intermediate RASH Verified 11/29/23 08:57 sulfamethoxazole (From AdvReac Intermediate RASH Verified 11/29/23 08:57 Bactrim) trimethoprim (From Bactrim) AdvReac Intermediate RASH Verified 11/29/23 08:57 Family History Unknown Adopted Surgical History History of left heart catheterization (~06/15/22) Hx of wisdom tooth extraction H/O: hysterectomy Hx of cholecystectomy Hx of section Social History adopted: Yes household members: spouse housing: house number of children: 1 current occupational status: employed 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 [employer] sexually active: No Smoking Status: Never smoker alcohol intake: current alcohol intake frequency: holidays/special occasions only substance use type: does not use caffeine: Yes Type: coffee Number of servings: 1 what type of physical activity do you participate in: none seatbelt use: always do you feel safe at home: Yes additional social history: Spouse - Romeo (cost reduction engineer for the critical access hospital) ROS ROS ED Review of Systems ROS Unobtainable: other Constitutional Constitutional ED: Reports lethargy; Denies chills, fever(s), sweats or weight loss Eyes Eyes: Denies blurry vision, change in vision or diplopia ENT ENT ED: Denies rhinorrhea or sore throat Cardiovascular Cardiovascular: Denies chest pain, orthopnea or racing heartbeat Respiratory/Chest Respiratory/Chest: Denies cough, dyspnea, dyspnea on exertion, orthopnea or sputum Gastrointestinal Gastrointestinal: Denies abdominal pain, diarrhea, nausea or vomiting Genitourinary Genitourinary ED: Denies dysuria, hematuria or urinary frequency Musculoskeletal Musculoskeletal: Denies arthralgias, back pain, myalgias or neck pain Integumentary Denies abscess, Abrasions or rash Neurologic Neurologic: Reports weakness and other Details: Dizziness ; Denies headache(s) Psychiatric Psychiatric: Denies anxiety, depression or suicidal thoughts Endocrine Endocrinology: Denies polydipsia, polyphagia or polyuria Hematologic/Lymphatic Hematologic/Lymphatic: Denies easy bleeding, easy bruising or lymphadenopathy Allergic/Immunologic Allergic/Immunologic ED: Denies mouth swelling, tongue swelling or urticaria EXAM Physical Exam Const Vital Signs: 11/29/23 08:56 11/29/23 10:14 11/29/23 10:55 Temperature 98 F 97.7 F L Temperature Source Temporal Pulse Rate 76 79 Pulse Rate [Lying] 73 Pulse Rate [Sitting (for 1 minute prior to obtaining)] 78 Pulse Rate [Standing (for 1 minute prior to obtaining)] 82 Respiratory Rate 18 12 Blood Pressure 141/68 H 133/75 H Blood Pressure [Lying] 137/65 H Blood Pressure [Sitting (for 1 minute prior to obtaining)] 130/80 H Blood Pressure [Standing (for 1 minute prior to obtaining)] 133/75 H Blood Pressure Mean 92 94 Blood Pressure Mean [Lying] 89 Blood Pressure Mean [Sitting (for 1 minute prior to obtaining)] 96 Blood Pressure Mean [Standing (for 1 minute prior to obtaining)] 94 Pulse Ox 100 99 Oxygen Delivery Method Room Air Positive well nourished and well developed General Appearance ED: well developed and NAD HEENT Reports TM's clear and moist mucous membranes normocephalic and atraumatic; Negative for trauma or tenderness Tympanic Membrane ED: Yes TM's clear Eyes PERRL and EOMs intact bilaterally General Eye ED: Negative for pale conjunctiva or scleral icterus Neck no lymphadenopathy, supple and no JVD General: Negative for tenderness Chest Wall inspection of chest normal and palpation of chest normal Chest: Negative for tenderness Resp normal respiratory effort and clear to auscultation bilaterally Effort and Inspection: Negative for respiratory distress or pain with movement Auscultation: Negative for rhonchi, wheezes or diminished lung sounds Cardio regular rate, regular rhythm, S1 normal heart sound, S2 normal heart sound and no murmurs Peripheral Pulses: pulses 2+ throughout GI normal to inspection, nondistended, normoactive bowel sounds, soft to palpation, non-tender, non-distended and no masses Back/Spine no CVA tenderness and no thoracic nor lumbar tenderness Extremity normal to inspection General Extremety ED: Negative for edema General Extremity: Negative for edema Neuro oriented x3, CN's II-XII intact bilaterally, no sensory deficits noted and gait normal Neuro Narrative: Finger-nose and heel reyes testing within normal limits, negative Romberg, negative for drift, fundi benign. Hallpike maneuver performed was negative for nystagmus. She does feel symptomatic especially with head turn to the right when she laid flat but I did not appreciate any type of nystagmus. Sensorium / Orientation: awake, alert, oriented to person, oriented to place and oriented to time Motor Exam: strength 5/5 throughout and strength abnormal Psych mental status grossly normal Skin no rashes or lesions noted and no wounds MDM MDM MDM Narrative Medical decision making narrative: Patient presents with dizziness that she describes as vertigo is been going on for about 5 days. She complains of nausea with this. She complains of generalized weakness. On exam negative nystagmus with Hallpike maneuver. No focal deficits noted. NIH stroke scale was 0. EKG obtained arrival showed a sinus rhythm with ventricular rate of [address] changes however when compared with prior EKG no changes noted. Patient CBC with differential for a week and a 7.6 with hemoglobin 14.8 platelet count of 269. Chemistries unremarkable. Troponin less than 3. Urinalysis normal. CT scan of the brain without contrast no acute disease process noted. While in department I did give her Zofran and Antivert and she had no improvement in her symptoms. She still complains of feeling off balance when walking to the bathroom. This point discussed case with hospitalist to evaluate patient for admission to rule out central cause of her dizziness such as stroke. Patient also tells me that she is adopted but thinks that her biological mother of a brain aneurysm. She denies any headaches. She herself is never been diagnosed with brain aneurysm Lab Data Attestation: I reviewed the patient's lab results. Labs: Laboratory Results - last 24 hr 11/29/23 11/29/23 09:17 09:55 WBC 7.6 RBC 5.31 Hgb 14.8 Hct 44.5 MCV 83.8 MCH 27.9 MCHC 33.3 RDW Std Deviation 38.7 RDW Coeff of Gautam 12.9 Plt Count 269 MPV 10.0 Immature Gran % (Auto) 0.300 Neut % (Auto) 72.0 H Lymph % (Auto) 19.6 [place] % (Auto) 4.6 Eos % (Auto) 3.0 Baso % (Auto) 0.5 Absolute Neuts (auto) 5.4 Absolute Lymphs (auto) 1.48 Nucleated RBC % 0 Sodium 140 Potassium 3.9 Chloride 110 H Carbon Dioxide 26.0 Anion Gap 4 L BUN 14 Creatinine 1.16 H Estim Creat Clear Calc 87.28 Est GFR (MDRD) Af Amer 63 Est GFR (MDRD) Non-Af 52 L BUN/Creatinine Ratio 12.1 Glucose 135 H Calcium 9.6 Troponin I High Sens < 3 L Urine Color Yellow Urine Clarity Clear Urine pH 8.0 Ur Specific [place] 1.015 Urine Protein 15 H Urine Glucose (UA) Normal Urine Ketones Negative Urine Occult Blood Negative Urine Nitrite Negative Urine Bilirubin Negative Urine Urobilinogen 1 H Ur Leukocyte Esterase 25 H Urine RBC 0 SEEN Urine WBC 0 SEEN Ur Squamous Epith Cells 0-5 SEEN Urine Bacteria 2+ Urine Mucus 0 SEEN Radiography Diagnostic Testing: Clinical Impression(s) from Imaging Studies Brain CT 11/29/23 09:11 IMPRESSION: Negative head/brain CT without intravenous contrast and unchanged when compared to 08/09/2021. Electronically Signed: Alexandro Louise MD at 9:39 EDT , Discharge Plan Triage Chief Complaint: Dizziness ED Provider: Nancy Torres Dx/Rx/DC Orders Clinical Impression: Dizziness, History of hypertension Prescriptions: No Action baclofen 5 mg tablet 5 mg PO TID tramadol 50 mg tablet 50 tablet PO TID carvedilol 6.25 mg tablet 6.25 mg PO BID Qty: 180 3RF Rx Instructions: must administer with a meal/food multivitamin [Daily Multi-Vitamin] Tablet 1 tab PO DAILY trazodone 100 mg tablet 200 mg PO QHS 90 Days Qty: 180 3RF duloxetine 60 mg capsule,delayed release(DR/EC) 60 mg PO QHS Qty: 90 3RF Primary Care Provider: Nica Henry Referrals: Nica Henry MD [Primary Care Provider] - Print Language: Ecuadorean Disposition Disposition: Acute Care [facility]
[2023-11-29] MEDS: Meclizine HCl 25 MG Tablet PO (09:17)
[2023-11-29] MEDS: Ondansetron 4 MG/2 ML Vial IV (09:18)
[2023-11-29] MEDS: 0.9% Normal Saline (1000mL) 1,000 ML 150 ML IV (09:19)
[2023-11-29 09:25] LABS: Absolute Lymphocyte Count 1.48 X10^3/uL (0.83-4.51); Absolute Neutrophil Count 5.4 X10^3/uL (2.0-7.7); Basophil# 0.04 X10^3/uL; Basophil% 0.5 % (0-1); Eosinophil# 0.23 X10^3/uL; Hematocrit 44.5 % (37-47); Hemoglobin 14.8 g/dL (12.0-15.0); Lymphocyte # 1.48 X10^3/ul (0.83-4.51); Lymphocyte % 19.6 % (19-41); Mean Corp Hgb Conc 33.3 g/dL (32-36); Mean Corpuscular Hgb 27.9 pg (27.0-32.0); Mean Corpuscular Volume 83.8 fL (81-99); Monocyte# 0.35 X10^3/uL; Monocyte% 4.6 % (0-10); NRBC Flagged by Analyzer 0 % (0-5); Neutrophil # 5.43 X10^3/uL (2.7-7.7); Platelet Count 269 K/mm3 (150-450); RBC Distribution Width CV 12.9 % (11.6-14.6); RBC Distribution Width SD 38.7 fl (35.1-43.9); Red Blood Count 5.31 M/mm3 (4.2-5.4); White Blood Count 7.6 K/mm3 (4.4-11.0)
[2023-11-29 09:42] LABS: Anion Gap 4 (5-15); BUN 14 mg/dL (7-18); BUN/Creat Ratio 12.1 RATIO (10-20); Calcium,Total 9.6 mg/dL (8.5-10.1); Chloride 110 mmol/L (98-107); Creatinine, Serum 1.16 mg/dL (0.55-1.02); EST Glomerular Filtration Rate 52 mL/min (>60); Est Glom Filt Rate - Afr Amer 63 mL/min (>60); Estimated Creatinine Clearance 87.28 ml/min; Glucose 135 mg/dL (74-106); Potassium 3.9 mmol/L (3.5-5.1); Sodium Level 140 mmol/L (136-145); Troponin-I HS < 3 pg/mL (3.0-54.0)
[2023-11-29 10:02] LABS: Mucous, Urine 0 SEEN /hpf (<or=2+); Red Blood Cells-Urine 0 SEEN /hpf (0-5); White Blood Cells 0 SEEN /hpf (0-5)
[2023-11-29 10:12] LABS: Color, Urine Yellow (Yellow); Glucose, Dipstick Normal (Normal); Ketone-Dipstick Negative (Negative); Leukocyte Esterase-Dipstick 25 /ul (Negative); Nitrite-Dipstick Negative (Negative); Occult Blood-Urine Negative /ul (Negative); Protein-Dipstick 15 mg/dl (Negative); Specific Gravity, Urine 1.015 (1.002-1.030); Urine Bilirubin Dipstick Negative (Negative); Urine Clarity Clear (Clear); Urine Urobilinogen 1 mg/dl (Normal)
[2023-11-29 10:28] LABS: Bacteria 2+ /hpf (None Seen); Squamous Epithelial Cells - UA 0-5 SEEN /hpf (5-10)
[2023-11-29] MEDS: LORazepam 2 MG/ML Syringe 1 MG IV (10:33)
--- NOTE | 2023-11-29 10:42 | NURSING ---
DR MERRITT IN ER
--- NOTE | 2023-11-29 10:56 | PCM.HP.STD ---
HPI - General General Date of Admission: 11/29/23 Date of Service: 11/29/23 Chief Complaint: Dizziness that is started 4 days ago on Sunday. HPI Narrative EZRA PEDRO, is a 53 F dizziness that started on Sunday 4 days ago. Patient felt it first time while she was in the shower and had near fall situation but did not fall. It is sudden onset prolonged worse with changing the position of head or bending, feels like her whole head and eyes are swishing and swirling inside. When she laid down her symptoms gets better but not completely resolved. She has nausea but no vomiting or abdominal pain or diarrhea. Denies fever or URI symptoms. No cough or pneumonia like symptoms. No chest pain or shortness of breath. Denies vertigo. In ED, CT head was done which did not show any Renal. EKG also normal sinus rhythm. [facility] Medical History Elevated liver enzymes Borderline type 2 diabetes mellitus Preoperative evaluation to rule out surgical contraindication Prediabetes Fatty liver disease, nonalcoholic Other obesity BMI 37.0-37.9, adult Flu vaccine need Lumbar radiculopathy Arthritis Climacteric Insomnia Gastritis History of echocardiogram History of stress test Wears glasses Wears contact lenses Non-smoker Cardiology follow-up encounter DDD (degenerative disc disease), lumbosacral Preventative health care Colon cancer screening Palpitations SOB (shortness of breath) on exertion Obesity Hypertension Abnormal stress test Family history of cerebral aneurysm Abnormal EKG Hypersomnolence Hx of degenerative disc disease Wears glasses Hx of emotional problems History of back pain Hx of chronic arthritis Gastroenteritis Migraine Contact with or suspected exposure to other viral communicable disease Acute pharyngitis Fibromyalgia Lab test negative for COVID-19 virus Acute frontal sinusitis, unspecified Fatigue Headache Congestion of nasal sinus Loss of smell Loss of taste Kidney stone on right side Fibromyalgia Chest pain Home Medications ?Medication ?Instructions ?Recorded ?Last Taken ?Type baclofen 5 mg tablet 5 mg PO TID 08/21/22 11/28/23 History tramadol 50 mg tablet 50 tablet PO TID 09/29/22 11/28/23 History carvedilol 6.25 mg tablet 6.25 mg PO BID #180 tabs 01/09/23 11/28/23 Rx trazodone 100 mg tablet 200 mg (2 x 100 mg) PO QHS sleep 3 04/10/23 11/28/23 Rx months #180 tabs multivitamin (Daily Multi-Vitamin 1 tab PO DAILY 07/10/23 Unknown History tablet) duloxetine 60 mg capsule,delayed 60 mg PO QHS #90 caps 08/13/23 11/28/23 Rx release Allergy/AdvReac Type Severity Reaction Status Date / Time guaifenesin AdvReac Intermediate RASH Verified 11/29/23 08:57 sulfamethoxazole (From AdvReac Intermediate RASH Verified 11/29/23 08:57 Bactrim) trimethoprim (From Bactrim) AdvReac Intermediate RASH Verified 11/29/23 08:57 Family History Unknown Adopted Surgical History History of left heart catheterization (~06/15/22) Hx of wisdom tooth extraction H/O: hysterectomy Hx of cholecystectomy Hx of section Social History adopted: Yes household members: spouse housing: house number of children: 1 current occupational status: employed 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 No fever. HEENT: Dizziness as described in HPI. Reports systems reviewed and no addt'l complaints, except as documented Respiratory/Chest: No acute shortness of breath or respiratory distress or wheezing. CVS: No history of coronary artery disease. Coronary angiogram was normal. Gastrointestinal: Denies coffee ground emesis, hematemesis or vomiting Genitourinary: Denies burning urination or new urinary tract symptoms Musculoskeletal: She feels unsteady gait and loss of equilibrium. Denies acute joint pain or limited range of motion. No acute injury Neurologic: Denies seizure-like symptoms. She felt her legs were weak. skin: No ulcer. No rash Endocrinology: Reports systems reviewed and no addt'l complaints, except as documented Hematologic/Lymphatic: Reports systems reviewed and no addt'l complaints, except as documented Rest 14 ROS are negative except as mentioned in HPI Vital Signs Vital Signs Vital Signs: 11/29/23 08:56 11/29/23 10:14 11/29/23 10:55 Temperature 98 F 97.7 F L Temperature Source Temporal Pulse Rate 76 79 Pulse Rate [Lying] 73 Pulse Rate [Sitting (for 1 minute prior to obtaining)] 78 Pulse Rate [Standing (for 1 minute prior to obtaining)] 82 Respiratory Rate 18 12 Blood Pressure 141/68 H 133/75 H Blood Pressure [Lying] 137/65 H Blood Pressure [Sitting (for 1 minute prior to obtaining)] 130/80 H Blood Pressure [Standing (for 1 minute prior to obtaining)] 133/75 H Blood Pressure Mean 92 94 Blood Pressure Mean [Lying] 89 Blood Pressure Mean [Sitting (for 1 minute prior to obtaining)] 96 Blood Pressure Mean [Standing (for 1 minute prior to obtaining)] 94 Pulse Ox 100 99 Oxygen Delivery Method Room Air Weight Weight: 286 lb 6.087 oz Body Mass Index (BMI) 36.7 Physical Exam Narrative General: Alert, Oriented x3, Cooperative HEENT: Atraumatic, PERRLA, EOMI, Normocephalic Oral: Oral mucosa dry. No Gingival or Mucosal Lesions/ Ulcerations Neck: Supple, No JVD, Negative Carotid Bruits Chest wall/Lungs: Air entry diminished in bilateral lung bases. No crepitation/rhonchi Cardiovascular: Regular rate, Regular Rhythm, Normal S1, Normal S2, No M/G/R Abdomen: Bowel Sounds Present, Soft, Non Tender, Non-Distended : No dysuria. No renal angle tenderness. No suprapubic tenderness. Extremities: No edema, Capillary Refill Less than 3 Seconds Skin: No rashes, No breakdown Musculoskeletal: No Tenderness to Palpation of Joints or Extremities. Muscle strength 4+/5 at knees and hip joints. On 5-second, legs Drift did not hit the bed. Neurological: Cranial nerves II-XII grossly intact, DTR 2+/4. No acute focal neurological deficit. Psych/Mental Status: Flat affect, anxiety. Results Lab / Micro Data 11/29/23 09:17 11/29/23 09:17 Labs: Laboratory Results - last 24 hr 11/29/23 09:17: WBC 7.6, RBC 5.31, Hgb 14.8, Hct 44.5, MCV 83.8, MCH 27.9, MCHC 33.3, RDW Std Deviation 38.7, RDW Coeff of Gautam 12.9, Plt Count 269, MPV 10.0, Immature Gran % (Auto) 0.300, Neut % (Auto) 72.0 H, Lymph % (Auto) 19.6, [place] % (Auto) 4.6, Eos % (Auto) 3.0, Baso % (Auto) 0.5, Absolute Neuts (auto) 5.4, Absolute Lymphs (auto) 1.48, Nucleated RBC % 0, Sodium 140, Potassium 3.9, Chloride 110 H, Carbon Dioxide 26.0, Anion Gap 4 L, BUN 14, Creatinine 1.16 H, Estim Creat Clear Calc 87.28, Est GFR (MDRD) Af Amer 63, Est GFR (MDRD) Non-Af 52 L, BUN/Creatinine Ratio 12.1, Glucose 135 H, Calcium 9.6, Troponin I High Sens < 3 L 11/29/23 09:55: Urine Color Yellow, Urine Clarity Clear, Urine pH 8.0, Ur Specific [place] 1.015, Urine Protein 15 H, Urine Glucose (UA) Normal, Urine Ketones Negative, Urine Occult Blood Negative, Urine Nitrite Negative, Urine Bilirubin Negative, Urine Urobilinogen 1 H, Ur Leukocyte Esterase 25 H, Urine RBC 0 SEEN, Urine WBC 0 SEEN, Ur Squamous Epith Cells 0-5 SEEN, Urine Bacteria 2+, Urine Mucus 0 SEEN Imaging Radiology Impression Brain CT 11/29/23 09:11 IMPRESSION: Negative head/brain CT without intravenous contrast and unchanged when compared to 08/09/2021. Electronically Signed: Alexandro Louise MD at 9:39 EDT , Assessment & Plan Assessment/Plan (1) Dizziness: PLAN: Plan This 53-year-old female came to ED ED for 4 to 5 days of persistent dizziness without much relief. 1. Dizziness without tinnitus or vertigo or hearing loss: Patient is admitted in PCU as an observation. MRI brain is ordered to rule out posterior stroke. Clinically does not seem stroke but more like peripheral cause of dizziness either BPPV/vestibular neuronitis. Vertigo was not reproducible with [place]-Hallpike maneuver in ED done by ER physician. PT and OT ordered. If MRI brain comes positive for stroke will need further workup for stroke. Supportive treatment for nausea and vertigo. 2. Hypertension: Patient on carvedilol continued. 3. Lumbar radiculopathy and mild arthritis: Patient on duloxetine and tramadol and baclofen at home. Hold baclofen as it might make dizziness worse. Continue tramadol and duloxetine. 3. Anxiety/insomnia: Patient on trazodone at home. 4. Obesity grade 2: BMI 36.8 kg/m?. Weight loss counseling done. DVT prophylaxis: Moderate risk: Lovenox 40 m subcu daily. Discontinue if platelet count drops less than 50,000 or hemoglobin less than 8 g% Living will/advanced directive/end of life care: Patient does not have living will or advanced directive. Her , present in the ED is next of kin. After discussion of benefits/risks procedures involved with full code, DNR CC arrest and DNR CC, the patient opted for full code. Patient does want artificial life support including intubation, tube feed, ventilator and/chest compression, central venous catheter, vasopressor and DC shock if needed Total time spent in [id number] encounter in discussion of advanced directive 17 minutes. Charges/Coding Visit Charges Inpatient E&M: 48782 Init Hosp L3 Procedures Hospitalists Procedures: 78014 Advncd Care Plan 30 Min
--- NOTE | 2023-11-29 11:02 | NURSING ---
JIM MERRITT DIZZINESS, DISEQUILIBRIUM, HX OF HYPERTENSION
[2023-11-29 11:16] LABS: Magnesium 2.3 mg/dL (1.6-2.6)
[2023-11-29] MEDS: Lactated Ringers 1,000 ML 100 ML IV ×2 (11:18→21:36)
--- NOTE | 2023-11-29 11:52 | MRI_ITS ---
STUDY: MRI BRAIN WITHOUT CONTRAST REASON FOR EXAM: Female, 53 years old. Stroke TECHNIQUE: Standardized multiplanar fat and water weighted pulse sequences were obtained. COMPARISON: CT November 29, 2023. MRI June 05, 2022 FINDINGS: Normal size of the ventricles and extra-axial spaces for the patient''s age. Normal white matter tracts of the supratentorial brain. There is no evidence for recent intracranial ischemia or other cause of cytotoxic edema on diffusion weighted imaging (DWI). Normal T2* images of the brain without demonstrated susceptibility artifact. There is no demonstrated hemosiderin stain. Normal bilateral basal ganglia. Normal thalami. There is no extra-axial fluid accumulation. Normal flow voids within the major intracranial circulation suggesting patency by spin echo criteria. Normal sella turcica, pituitary gland, infundibular stalk, optic chiasm and hypothalamus. Normal tectal plate and pineal gland. Normal midbrain, ese and medulla. Normal cerebellum. Normal basal cisterns. Normal bilateral temporal bones. Normal bilateral internal auditory canals. No demonstrated orbital abnormality, within the constraints of a routine brain study. Normal visualized paranasal sinuses. Normal calvarium and skull base. Normal visualized soft tissue structures. Normal visualized upper cervical spine. MRI/Brain without Contrast IMPRESSION: Normal unenhanced MRI of the brain. Electronically Signed: Víctor Forbes MD at 23:36 EDT ,
[2023-11-29] MEDS: Enoxaparin 40 MG/0.4 ML Syringe SC (12:40)
[2023-11-29] MEDS: traMADol 50 MG Tablet PO ×2 (14:13→21:01)
[2023-11-29] MEDS: Acetaminophen 325 MG Tablet 650 MG PO (18:23)
[2023-11-29] MEDS: traZODone 100 MG Tablet PO ×2 (21:00→23:01)
[2023-11-29] MEDS: DULoxetine Hcl 60 MG Capsule PO (21:00)
[2023-11-29] MEDS: Carvedilol 6.25 MG Tablet PO (21:00)
[2023-11-30 03:10] VITALS: BMI 37.0
[2023-11-30 03:13] VITALS: BP 109/54; PULSE 70; RESP 16; TEMP 36.3; O2SAT 97
[2023-11-30 06:06] VITALS: BP 108/62
[2023-11-30] MEDS: traMADol 50 MG Tablet PO (06:07)
[2023-11-30] MEDS: Acetaminophen 325 MG Tablet 650 MG PO (06:08)
[2023-11-30 06:59] LABS: Thyroid Stim Hormone (TSH) 3.38 uIU/mL (0.358-3.74)
[2023-11-30 08:02] VITALS: O2SAT 96
--- NOTE | 2023-11-30 08:25 | DCINST_ITS ---
Discharge Instructions Follow Up Care Test Results: Test results from this visit will be discussed in further detail at your follow- up appointment, if applicable. Discharge Plan Admission Admit Date/Time: 11/29/23 10:48 Primary Reason for Your Visit: Dizziness. Posterior stroke ruled out. Attending Provider: Nilton Reynolds Primary Care Provider: Nica Henry Instructions Additional Instructions / Restrictions: Outpatient PT and OT for dizziness possible vestibular neuronitis/BPPV Discharge Orders/Prescriptions Prescriptions: New meclizine 25 mg Tablet 25 mg PO 4X/DAY PRN PRN (Reason: dizziness/vertigo) 30 Days Qty: 30 0RF Continued baclofen 5 mg tablet 5 mg PO TID tramadol 50 mg tablet 50 tablet PO TID carvedilol 6.25 mg tablet 6.25 mg PO BID Qty: 180 3RF Rx Instructions: must administer with a meal/food multivitamin [Daily Multi-Vitamin] Tablet 1 tab PO DAILY trazodone 100 mg tablet 200 mg PO QHS 90 Days Qty: 180 3RF duloxetine 60 mg capsule,delayed release(DR/EC) 60 mg PO QHS Qty: 90 3RF Referrals / Follow Up: Nica Henry MD [Primary Care Provider] - Within 2 Weeks Vahid Pettit MD [Med Staff - Active Staff] - Within 1 Month (If dizziness does not resolve.) Disposition Disposition (needs filled in before D/C Order can be placed): Home, Self Care
[2023-11-30] MEDS: Carvedilol 6.25 MG Tablet PO (09:09)
[2023-11-30 09:10] VITALS: BP 121/77; PULSE 71; RESP 16; TEMP 35.9; O2SAT 98
[2023-11-30] MEDS: Enoxaparin 40 MG/0.4 ML Syringe SC (09:10)
[2023-11-30] MEDS: Baclofen 10 MG Tablet 5 MG PO (09:10)
[2023-11-30] MEDS: 0.9% Saline Lock 10 ML Syringe IV (09:11)
--- NOTE | 2023-11-30 12:01 | DS.PCM_ITS ---
Providers Date of Admission: 11/29/23 Date of Discharge: 11/30/23 Primary Care Physician: Dr. Nica Henry MD Reason For Visit: DIZZINESS Diagnosis Discharge Diagnosis (1) Dizziness: Status: Acute Code(s): R42 - Dizziness and giddiness Plan This 53-year-old female came to ED ED for 4 to 5 days of persistent dizziness without much relief. 1. Dizziness without tinnitus or vertigo or hearing loss: Patient is admitted in PCU as an observation. MRI brain is ordered to rule out posterior stroke. Clinically does not seem stroke but more like peripheral cause of dizziness either BPPV/vestibular neuronitis. Vertigo was not reproducible with [place]- Hallpike maneuver in ED done by ER physician. PT and OT ordered. If MRI brain comes positive for stroke will need further workup for stroke. Supportive treatment for nausea and vertigo. 11/29: Patient had MRI which reported normal. No acute peripheral strokelike symptoms. Stroke ruled out. Patient is still has dizziness probably mildly vestibular neuronitis or BPPV. Prescription for symptomatic management for dizziness, meclizine sent to patient's pharmacy. If dizziness persist will need follow-up with ENT in 1 month time. Outpatient PT and OT. 2. Hypertension: Patient on carvedilol continued. 11/29: Pain is controlled 3. Lumbar radiculopathy and mild arthritis: Patient on duloxetine and tramadol and baclofen at home. Hold baclofen as it might make dizziness worse. Continue tramadol and duloxetine. 11/29: Patient stated she has severe L4-5 L5-S1 disc degeneration which is not recommended surgery yet. She follows pain management Dr. Morris. Pain medications including baclofen resumed. 3. Anxiety/insomnia: Patient on trazodone at home. 4. Obesity grade 2: BMI 36.8 kg/m?. Weight loss counseling done. DVT prophylaxis: Moderate risk: Lovenox 40 m subcu daily. Discontinue if platelet count drops less than 50,000 or hemoglobin less than 8 g% Living will/advanced directive/end of life care: Patient does not have living will or advanced directive. Her , present in the ED is next of kin. After discussion of benefits/risks procedures involved with full code, DNR CC arrest and DNR CC, the patient opted for full code. Patient does want artificial life support including intubation, tube feed, ventilator and/chest compression, central venous catheter, vasopressor and DC shock if needed Discharge medication reconciliation done. Discharge follow-up instructions completed. Discharge process discussed with the patient and all questions were answered to patient's satisfaction. Follow with PCP in 1 to 2 weeks Total time spent, exact 35 minutes on discharge meds reconciliation, examination, coordination of care with nurses and ancillary staff, review of imaging and blood test and discussion with the patient on follow-up instructions. Medications at Discharge Home Medications baclofen 5 mg tablet 5 mg PO TID 08/21/22 tramadol 50 mg tablet 50 tablet PO TID 09/29/22 carvedilol 6.25 mg tablet 6.25 mg PO BID #180 tabs 01/09/23 trazodone 100 mg tablet 200 mg (2 x 100 mg) PO QHS sleep 3 months #180 tabs 04/10/23 multivitamin (Daily Multi-Vitamin tablet) 1 tab PO DAILY 07/10/23 duloxetine 60 mg capsule,delayed release 60 mg PO QHS #90 caps 08/13/23 meclizine 25 mg tablet 25 mg PO 4X/DAY PRN PRN dizziness/vertigo 30 days #30 tabs 11/30/23 Physical Exam Narrative Seen and examined. Dizziness improved but not totally resolved. No other acute symptoms. Physical exam General: Alert, Oriented x3, Cooperative HEENT: Atraumatic, PERRLA, EOMI, Normocephalic. No nystagmus or diplopia. Oral: Oral mucosa moist.. No Gingival or Mucosal Lesions/ Ulcerations Neck: Supple, No JVD, Negative Carotid Bruits Chest wall/Lungs: Air entry diminished in bilateral lung bases. No crepitation/rhonchi Cardiovascular: Regular rate, Regular Rhythm, Normal S1, Normal S2, No M/G/R Abdomen: Bowel Sounds Present, Soft, Non Tender, Non-Distended : No dysuria. No renal angle tenderness. No suprapubic tenderness. Extremities: No edema, Capillary Refill Less than 3 Seconds Skin: No rashes, No breakdown Musculoskeletal: No Tenderness to Palpation of Joints or Extremities. Muscle strength 4+/5 at knees and hip joints. On 5-second, legs Drift did not hit the bed. Neurological: Cranial nerves II-XII grossly intact, DTR 2+/4. No acute focal neurological deficit. Psych/Mental Status: Flat affect, anxiety. Weight / BMI Weight Weight: 288 lb 12.889 oz Body Mass Index (BMI) 37.0 ABG / Lab / Microbiology Data 11/29/23 09:17 11/29/23 09:17 Laboratory: Laboratory Results - last 24 hr 11/30/23 05:29: TSH 3.38 Radiography Diagnostic Testing: Radiology Impression Brain CT 11/29/23 09:11 IMPRESSION: Negative head/brain CT without intravenous contrast and unchanged when compared to 08/09/2021. Electronically Signed: Alexandro Louise MD at 9:39 EDT , Brain MRI 11/29/23 11:52 IMPRESSION: Normal unenhanced MRI of the brain. Electronically Signed: Víctor Forbes MD at 23:36 EDT , Meaningful Use Info Meaningful Use Meaningful Use Diagnoses (Choose all that apply): None applicable Ischemic Stroke Statin Dosing Therapy Reference: STATIN DOSE THERAPY REFERENCE: * Patients > 75 years receive moderate or high dose statin therapy. * Patients 75 years or YOUNGER should receive HIGH intensity statin dose unless contraindicated. You will be required to document reason for non-treatment if statin daily dose does not meet guidelines. HIGH DOSE STATIN THERAPY DAILY Atorvastatin > than or = to 40 mg Rosuvastatin > than or = to 20 mg Amlodipine + Atorvastatin > than or = to 2.5/40 mg Ezetimibe + Simvastatin 10/80 mg Simvastatin 80mg Discharge Plan Admission Admit Date/Time: 11/29/23 10:48 Primary Reason for Your Visit: Dizziness. Posterior stroke ruled out. Attending Provider: Nilton Reynolds Primary Care Provider: Nica Henry Instructions Additional Instructions / Restrictions: Outpatient PT and OT for dizziness possible vestibular neuronitis/BPPV Discharge Orders/Prescriptions Prescriptions: New meclizine 25 mg Tablet 25 mg PO 4X/DAY PRN PRN (Reason: dizziness/vertigo) 30 Days Qty: 30 0RF Continued baclofen 5 mg tablet 5 mg PO TID tramadol 50 mg tablet 50 tablet PO TID carvedilol 6.25 mg tablet 6.25 mg PO BID Qty: 180 3RF Rx Instructions: must administer with a meal/food multivitamin [Daily Multi-Vitamin] Tablet 1 tab PO DAILY trazodone 100 mg tablet 200 mg PO QHS 90 Days Qty: 180 3RF duloxetine 60 mg capsule,delayed release(DR/EC) 60 mg PO QHS Qty: 90 3RF Referrals / Follow Up: Vahid Pettit MD [Med Staff - Active Staff] - Within 1 Month (If dizziness does not resolve.) Nica Henry MD [Primary Care Provider] - Within 2 Weeks Disposition Disposition (needs filled in before D/C Order can be placed): Home, Self Care Charges/Coding Visit Charges Inpatient E&M: 31202 Disch Hosp >30min
--- NOTE | 2023-11-30 12:19 | CASEMGMT ---
Patient has order for discharge. RN CM in to discuss needs at discharge. Patient denies needs or help at discharge. Patient had no further questions or concerns.
[2023-11-30 14:17] VITALS: BP 133/79; PULSE 71; RESP 18; TEMP 37.1; O2SAT 98
== END 2023-11-30 12:00 | disposition home or self-care (01) ==
LOC: ED 11:02 → PCU 11:08
PROVIDERS: Admitting Provider Internal Medicine; Emergency Provider Emergency Medicine; PCP Internal Medicine; Visit Provider Internal Medicine
DX: R42 Dizziness and giddiness (principal); M79.7 Fibromyalgia; Z68.36 Body mass index [BMI] 36.0-36.9, adult; I10 Essential (primary) hypertension; R11.0 Nausea; E66.9 Obesity, unspecified; R73.03 Prediabetes; F41.9 Anxiety disorder, unspecified; G47.00 Insomnia, unspecified; Z79.899 Other long term (current) drug therapy; M47.26 Other spondylosis with radiculopathy, lumbar region
CPT/HCPCS: 36415; 70450; 70551; 80048; 81001; 83735; 84443; 84484; 85025; 93005; 94668; 96361; 96372; 96374; 96375; 99221; 99285; J7030; J7120; A4216; G0378; J2405

== ENCOUNTER 2024-01-11 07:30 | Outpatient (RCR) | payer OTHER, SELFPAY ==
--- NOTE | 2023-12-10 15:00 | HP.PTEVAL_ITS ---
Patient's Visit Information Visit Information Visit Information: EZRA PEDRO is a 53 year old F referred to Physical Therapy by Dr. Nilton Reynolds MD with a diagnosis of dizzyness. Date of Evaluation: 12/10/23 Physical Therapist: Saurabh Hernandez, DPT, OCS, CSCS Visit Plan Frequency: 1x/Week Duration: 4-6 Weeks Plan: weekly x 4-6 positional checks adn adaptation progression IE did R juan r and instruct in VOR 60 sec 6x/day Subjective Subjective: 2 weeks ago wass having some wobbly wooshy feeling for 4-5 days, worse with turning head. Went to urgent care (Dr. Carl ladd) and some testing not changing and sent to ER. Admitted for MRI and r/o brain problems. EKG was OK. Said BPPV or vestibulitis. [place] the same when she left. That was all two weeks ago adn now feels significatly better. Gets traces if moves head quick. Not running into yoon anymore. Never did get any spinning. No falls. Life back to normal now. Did not drive for a week. Home life normal, might be careful with head movement. Sleep is good and never had problem lying down. 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 Looking at computer not a big problem. Objective Objective: Walks into PT I without gait deviations. Trasnfers I, steps with rail due to knees I. cervical aROM full and painfree. UE AROM full and painfree. Sensation EU WNL to gross light touch. strength UE 4/5 Positional: - L HD, - roll test, wooshy for 10 sec with R HD, treated with R juan r adn then no more wooshiness. Oculomotor: no nystagmus noted with gaze or head shake. - head thrust,-- ocular tilt - skew eye deviaiton. pursuit is normal. symptomatic saccades symptomatic 5/10 30 sec H VOR for 10 seconds. Balance/Special Test Scores Functional Gait Assessment Score: 26 % Disability: 13.3400 Dizziness Score: 32 Goals Goal 1:: FGA 30 Goal Time Frame: 4-6 Weeks Goal 2:: - positional tests for symptoms Goal Time Frame: 4-6 Weeks Goal 3:: Pt feel 100% back to normal Goal Time Frame: 4-6 Weeks Goal 4:: DHI score 10 or less. Goal Time Frame: 4-6 Weeks Rehabilitation Potential Physical Therapy Diagnosis: likely vestibulopathy possible positional. effecting function and balance Rehabilitation Potential: Good Anticipated Interventions Patient/Client Instruction: Educate patient on: Condition and Plan of Care For the Purpose of:: To increase tolerance to activity/condition/position Therapeutic Exercise to Include: Balance training Comment: posotional and adpatation, balance as needed For the Purpose of:: To increase tolerance to activity/condition/position and To improve gait and locomotor functions Text: Thank you for the opportunity to evaluate your patient. For Medicare and Medicare HMO plans, please review the plan of care and approve it. It will need to be FAXED BACK to us at [phone] for Medicare purposes. For Medicare only, by signing this I certify the plan of care. Please let me know if there are questions or concerns regarding this plan of care. Physician Signature: _Date:
--- NOTE | 2024-01-11 07:49 | HP.PTDCSUM ---
Discharge Summary D/C summary: It has been my pleasure to treat EZRA PEDRO referred by Dr. Nilton Reynolds MD, with the diagnosis of dizzyness for a total of 4 visit(s). Discharge Date: 01/11/24 Please see the following information for a summary of their discharge status. Subjective Subjective: Had a few spurts over last weekend and did juan r herself and that seemed to help. did that Sunday and has not had dizzyness since. Gets it moving head to side just for a half second but transient. Maybe 1-2x/day. Rolling to side not a problem this week. Balance is good. Overall Improvement % Improvement: 95 Objective Objective/Function: - B hallpike lida - roll test walking normal with good balance Some quick transient goofy head feeling with head turns but only for a second. Goals Goal 1:: FGA Goal Progress: Goal Met Goal 2:: - positional tests for symptoms Goal Progress: Goal Met Goal 3:: Pt feel 100% back to normal Goal Progress: 95 Goal 4:: DHI score 10 or less. Goal Progress: Goal Met Plan Plan: d/c to HEP of head turns 10x 4x/day and pt to doctor toi in 2 weeks, will call prior if situation does not continue to improve. D/C Information Discharge Comments: Will f/u with doctor in 2 weeks. d/c sentence: If there are questions or concerns regarding this patient's physical therapy, please feel free to call me at [phone]. Thank you for the referral of this patient. Sincerely, Saurabh Hernandez, DPT, OCS, CSCS Balance/Gait/Functional tests Balance/Special Test Scores Functional Gait Assessment Score: 29 % Disability: 3.3400 Dizziness Score: 4 Improvement % Improvement: 95
== END 2024-01-11 12:30 | disposition home or self-care (01) ==
LOC: PT 07:30
PROVIDERS: PCP Internal Medicine; Referring Provider Internal Medicine; Visit Provider Internal Medicine
DX: R42 Dizziness and giddiness (principal)
CPT/HCPCS: 97110; 97161; 97530

== ENCOUNTER → 2024-03-24 | Outpatient (CLI) | payer OTHER, SELFPAY ==
--- NOTE | 2024-03-24 06:51 | MRI_ITS ---
STUDY: MRI BRAIN WITH AND WITHOUT CONTRAST (ATTENTION INTERNAL AUDITORY CANALS - I.A.C.''s) REASON FOR EXAM: Female, 53 years old. ASYMMETRICAL HEARING LOSS -- IAC, VERTIGO [id number] TECHNIQUE: Standardized multiplanar fat and water weighted pulse sequences were obtained. ml of 25 cc clariscan contrast material was administered intravenously for the contrast portion of the examination. COMPARISON: MRI of the brain dated November 29, 2023. FINDINGS: Internal auditory canal findings: Normal bilateral temporal bones. Normal bilateral internal auditory canals. There is no demonstrated intracanalicular or cisternal vestibular schwannoma (acoustic neuroma). There is no enhancement of the bilateral VIIth or VIIIth cranial nerves. Normal bilateral cochlea, vestibules and semicircular canals. No mastoid air cell opacification is present. No cerebellar pontine angle mass or cyst is seen. There is no demonstrated lesions of the cavernous sinus. No nodularity or abnormal enhancement is seen in the 7th or 8th cranial nerves within IACs. No demonstrated Mondini''s malformation. BRAIN FINDINGS: Normal size of the ventricles and extra-axial spaces for the patient''s age. Normal white matter tracts of the supratentorial brain. There are no demyelinating plagues of the supratentorial brain, brainstem or cerebellum. There are no findings suspicious for multiple sclerosis (MS). There is no evidence for recent intracranial ischemia or other cause of cytotoxic edema on diffusion weighted imaging (DWI). Normal bilateral frontal poles, and orbital frontal and gyrus recti of the frontal lobes. Normal bilateral temporal tips of the temporal lobes. There are no white matter shear injuries (diffuse axonal injuries). There are no parenchymal hemorrhages or hematomas. There are no findings to suggest prior closed head parenchymal injury of the brain. No hydrocephalus or midline shift is present. There are no visualized ring-enhancing lesions of the brain parenchyma or abnormal thickening or enhancement of the meninges or dura. Normal bilateral basal ganglia. Normal thalami. Normal flow voids within the major intracranial circulation suggesting patency by spin echo criteria. Normal venous enhancement. There is no enhancing intra-axial or extra-axial abnormality. There is no extra-axial fluid accumulation. Normal sella turcica, pituitary gland, infundibular stalk, optic chiasm and hypothalamus. Normal tectal plate and pineal gland. Normal midbrain, ese and medulla. Normal cerebellum. Normal basal cisterns. No demonstrated orbital abnormality, within the constraints of a routine brain study. Normal visualized paranasal sinuses. Normal calvarium and skull base. Normal visualized soft tissue structures. Normal visualized upper cervical spine. MRI/Brain W/WO Contrast IMPRESSION: 1. Normal unenhanced and enhanced MRI of the bilateral internal auditory canals (I.A.C''s). 2. Normal enhanced MRI of the brain. Electronically Signed: Kiran Gallegos MD at 11:29 EST Reading Location ID and State: [facility] / [place] , Service support ,
== END | disposition home or self-care (01) ==
LOC: MRI 06:37
PROVIDERS: PCP Internal Medicine; Referring Provider Otolaryngology; Visit Provider Otolaryngology
DX: H90.42 Sensorineural hearing loss, unilateral, left ear, with unrestricted hearing on the contralateral side (principal)
CPT/HCPCS: 70553; A9575

== ENCOUNTER → 2024-09-03 | Outpatient (CLI) | payer OTHER, SELFPAY ==
[2024-09-03 10:02] LABS: Absolute Lymphocyte Count 1.43 X10^3/uL (0.83-4.51); Absolute Neutrophil Count 5.2 X10^3/uL (2.0-7.7); Basophil# 0.04 X10^3/uL; Basophil% 0.5 % (0-1); Eosinophils% 2.7 % (0-5); Hematocrit 43.8 % (37-47); Hemoglobin 14.5 g/dL (12.0-15.0); Lymphocyte # 1.43 X10^3/ul (0.83-4.51); Lymphocyte % 19.5 % (19-41); Mean Corp Hgb Conc 33.1 g/dL (32-36); Mean Corpuscular Hgb 28.3 pg (27.0-32.0); Mean Corpuscular Volume 85.5 fL (81-99); Mean Platelet Vol. 10.4 fl (6.2-12.0); Monocyte# 0.41 X10^3/uL; Monocyte% 5.6 % (0-10); NRBC Flagged by Analyzer 0 % (0-5); Neutrophil # 5.24 X10^3/uL (2.7-7.7); Neutrophil % 71.4 % (47-70); Platelet Count 274 K/mm3 (150-450); RBC Distribution Width CV 13.3 % (11.6-14.6); RBC Distribution Width SD 41.7 fl (35.1-43.9); Red Blood Count 5.12 M/mm3 (4.2-5.4); White Blood Count 7.3 K/mm3 (4.4-11.0)
[2024-09-03 10:26] LABS: Amphetamine Urine NEGATIVE (<1000 ng/mL); Barbiturate Urine NEGATIVE (< 200 ng/mL); Benzodiazepine Urine NEGATIVE (< 200 ng/mL); Buprenorphine Urine NEGATIVE (< 200 ng/mL); Cocaine Urine NEGATIVE (< 300 ng/mL); Fentanyl, Urine NEGATIVE; Methadone Urine NEGATIVE (< 300 ng/mL); Opiates Urine NEGATIVE (< 300 ng/mL); Oxycodone, Urine NEGATIVE (< 100 ng/mL); PCP Urine NEGATIVE (< 25 ng/mL); THC Urine NEGATIVE (< 50 ng/mL)
[2024-09-03 10:38] LABS: ALB/GLOB Ratio 1.3 RATIO (0.9-2.4); AST(SGOT) 28 U/L (<=31); Alanine Aminotransfer ALT/SGPT 35 U/L (<=34); Albumin, Serum 4.2 g/dL (3.5-5.0); Alkaline Phosphatase 95 U/L (35-104); Anion Gap 9 (5-15); BUN 12 mg/dL (4-19); BUN/Creat Ratio 9.9 RATIO (10-20); Calcium,Total 9.7 mg/dL (7.6-11.0); Carbon Dioxide 26.7 mmol/L (21.0-32.0); Chloride 106 mmol/L (98-108); Cholesterol 158 mg/dL (<=200); Creatinine, Serum 1.21 mg/dL (0.70-1.20); EST Glomerular Filtration Rate 53 (>60); Globulin 3.4 g/dL (2.2-4.2); Glucose 107 mg/dL (70-99); High Density Lipoprotein 36 mg/dL; Low Density Lipoprotein Calc. 91 mg/dL; Potassium 4.4 mmol/L (3.3-5.1); Protein, Total 7.6 g/dL (5.9-8.4); Sodium Level 141 mmol/L (133-145); Total Bilirubin 0.54 mg/dL (0.00-1.30); Triglycerides 156 mg/dL; Very Low Density Lipoprotein 31 mg/dL (5-40); cholesterol:hdl ratio screen 4.38
== END | disposition home or self-care (01) ==
PROVIDERS: Anesthesiology Pain Medicine; PCP Internal Medicine; Referring Provider Internal Medicine; Visit Provider Internal Medicine
DX: F11.20 Opioid dependence, uncomplicated (principal); R73.03 Prediabetes; E78.5 Hyperlipidemia, unspecified
CPT/HCPCS: 36415; 80053; 80061; 80307; 85025

== ENCOUNTER → 2025-04-13 | Outpatient (CLI) | payer OTHER, SELFPAY ==
--- OUTSIDE RECORDS SUMMARY | 2025-04-13 07:28 | XMS RPT_ITS | CCD ---
Author Organization [facility] [place] [facility] Care Team Providers Care Risk Assessment Consultant Name Role Phone NO, PHYSICIAN Primary Care Unavailable GILBERT DIAZ Attending GILBERT Sloan Attending GILBERT Sloan Referring Bryan ROSAS, PHYSICIAN Primary Care Unavailable Glenis, Physician Primary Care Provider Dr. Hardeep Kaplan Primary Care Provider Dr. Hardeep Vázquez Referring Provider SHAMIKA Crump Attending Provider Dr. Hardeep Vázquez Primary Care Provider Dr. Hardeep Vázquez Referring Provider SHAMIKA Crump Attending Provider Dr. Hardeep Vázquez Primary Care Provider Dr. Hardeep Vázquez Referring Provider Dr. Nica Henry Attending Provider Dr. Nica Henry Primary Care Provider Dr. Nica Henry Other Provider Dr. García Sotelo Attending Provider Dr. Nica Henry Referring Provider Dr. Guadalupe Suazo Attending Provider Dr. Guadalupe Suazo Other Provider Laila REHABILITATION NURSE, REHABILITATION NURSE-C Manuel Felix Attending Provider Dr. Nica Henry Primary Care Provider Dr. Guadalupe Suazo Other Provider Laila REHABILITATION NURSE, REHABILITATION NURSENatasha Felix Attending Provider Dr. Nica Henry Referring Provider [phone] Dr. Guadalupe Suazo Attending Provider [phone] Dr. Nica Henry Attending Provider [phone] Dr. Daniele Lindquist Attending Provider Kasey Pfeiffer Attending Provider Unavailable Dr. Nica Henry Primary Care Provider [phone] Dr. Landon Phoenix Attending Provider Dr. Bautista Arce Referring Provider Dr. Radha Zapata Attending Provider [phone] Dr. Nathaly Doss Attending Provider Dr. Nathaly Doss Other Provider Dr. Guadalupe Suazo Referring Provider [phone] Dr. Nica Henry Primary Care Provider [phone] Dr. Nica Henry Attending Provider [phone] Dr. Nica Henry Referring Provider [phone] Dr. Farhad Barraza Attending Provider [phone] Dr. Marisa Stuart Referring Provider [phone] Dr. Marisa Stuart Attending Provider [phone] Carl SAENZ, Dr. Yousif Primary Care Provider Carl SAENZ, Dr. Yousif Attending Provider [phone] Carl SAENZ, Dr. Yousif Referring Provider [phone] Dr. Marisa Stuart MD Attending Provider Dr. Cruz Singh MD Other Provider [phone] Carl SAENZ, Dr. Yousif Primary Care Provider Carl SAENZ, Dr. Yousif Attending Provider [phone] Carl SAENZ, Dr. Yousif Referring Provider Oleghe, Efewongbe Primary Care Unavailable Oleghe, Efewongbe Attending Unavailable Oleghe, Efewongbe Referring Unavailable Marisa Stuart Attending Unavailable Oleghe, Efewongbe Primary Care Unavailable Oleghe, Efewongbe Referring Unavailable Oleghe, Efewongbe Primary Care Unavailable Oleghe, Efewongbe Attending Unavailable Oleghe, Efewongbe Referring Unavailable Oleghe, Efewongbe Primary Care Unavailable Oleghe, Efewongbe Attending Unavailable Oleghe, Efewongbe Referring Unavailable Oleghe, Efewongbe Attending Unavailable Oleghe, Efewongbe Primary Care Unavailable Oleghe, Efewongbe Referring Unavailable Oleghe, Efewongbe Referring Unavailable Oleghe, Efewongbe Primary Care Unavailable Guadalupe Suazo Attending Unavailable Oleghe, Efewongbe Primary Care Unavailable Oleghe, Efewongbe Referring Unavailable Oleghe, Efewongbe Attending Unavailable Nilton Reynolds Attending Unavailable Rodolfo Nilton Referring Unavailable Oleghe, Efewongbe Primary Care Unavailable Oleghe, Efewongbe Primary Care Unavailable Oleghe, Efewongbe Attending Unavailable Cruz Singh Consulting Unavailable Oleghe, Efewongbe Referring Unavailable Oleghe, Efewongbe Primary Care Unavailable Vahid Pettit Attending Unavailabl e Vahid Pettit Referring Unavailabl e Allergies Allergy Classification Reported Allergen(s) Allergy Type Date of Onset Reaction(s) Facility (2 sources) Sulfamethoxazole / Trimethoprim; Translations: [Unknown] Drug Allergy [address] [facility] Repository (19 sources) guaiFENesin Drug Allergy 2 Unknown, [facility] (19 sources) Sulfamethoxazole Drug Allergy 2 Unknown, [facility] (19 sources) Trimethoprim Drug Allergy 2 Unknown, [facility] (1 source) guaiFENesin Drug Allergy 5 [facility] Repository (1 source) Sulfamethoxazole Drug Allergy 5 [facility] Repository (1 source) Trimethoprim Drug Allergy 5 [facility] Repository Medications Current Medications Medication Drug Class(es) Dates Sig (Normalized) Sig (Original) baclofen 10 mg oral tablet (20 sources) gamma-Aminobutyri c Acid-ergic Agonist Start: 01-02-2025 take 1 tablet by mouth twice daily Baclofen 10 mg tablet Active 10 mg PO TWICE A DAY January 02, 2025 3:05pm muscle spasm Start: 06-23-2024 End: 01-02-2025 take 1 tablet by mouth three times daily as needed for muscle spasms Baclofen 10 mg tablet Discontinued 10 mg PO THREE TIMES A DAY as needed for muscle spasm 90 October 29, 2024 8:10am January 02, 2025 3:07pm Start: 08-21-2022 End: 06-23-2024 take 1 tablet by mouth three times daily Baclofen 5 mg tablet Discontinued 5 mg PO THREE TIMES A DAY August 21, 2022 2:56pm June 23, 2024 11:24am pain Start: 07-25-2022 End: 08-21-2022 take 1 tablet by mouth twice daily Baclofen 5 mg tablet Discontinued 5 mg PO TWICE A DAY July 25, 2022 12:00am August 21, 2022 2:56pm carvedilol 3.125 mg oral tablet (20 sources) alpha-Adrenergic Thien, beta-Adrenergic Thien Start: 01-02-2025 take 1 tablet by mouth twice daily Carvedilol 3.125 mg tablet Active 3.125 mg PO TWICE A DAY 180 90 January 02, 2025 3:17pm Start: 01-09-2023 End: 01-02-2025 take 1 tablet by mouth twice daily Carvedilol 6.25 mg tablet Discontinued 6.25 mg PO TWICE A DAY 180 January 23, 2024 8:12am January 02, 2025 3:19pm Start: 05-17-2022 End: 01-09-2023 take 1 tablet by mouth twice daily at mealtime Carvedilol 3.125 mg tablet Discontinued 3.125 mg PO TWICE A DAY 180 October 09, 2022 4:14pm January 09, 2023 12:02pm must administer with a meal/food CBD oil (1 source) Start: 09-14-2022 CBD oil Active PO September 14, 2022 12:00am Multivitamin (Daily Multi-Vitamin) tablet (3 sources) Start: 07-10-2023 Multivitamin ( Daily Multi-Vitamin) tablet Active 1 {tbl} PO DAILY July 10, 2023 12:00am vitamin Start: 07-10-2023 Multivitamin ( Daily Multi-Vitamin) tablet Active 1 {tbl} PO DAILY July 10, 2023 12:00am temazepam 7.5 mg oral capsule (19 sources) Benzodiazepine Start: 05-29-2022 take 7.5 mg by mouth at bedtime Temazepam Active 7.5 MG PO AT BEDTIME 30 30 May 29, 2022 3:52pm Start: 04-26-2022 End: 05-29-2022 take 1 capsule by mouth at bedtime Temazepam 15 mg capsule Discontinued 15 mg PO AT BEDTIME April 26, 2022 1:00am May 29, 2022 4:53pm Tirzepatide (Weight Loss) (1 source) Start: 01-02-2025 Tirzepatide (Weight Loss) 7.5 mg/0.5 mL solution Active 7.5 mg SC EVERY WEEK 2 28 2 January 02, 2025 3:19pm traMADol hydrochloride 50 mg oral tablet (14 sources) Opioid Agonist Start: 01-02-2025 take 1 tablet by mouth twice daily Tramadol 50 mg tablet Active 50 mg PO TWICE A DAY January 02, 2025 3:07pm pain Start: 10-03-2024 End: 01-02-2025 Tramadol 50 mg tablet Discon tinued 2500 mg PO TWICE A DAY October 03, 2024 3:05pm January 02, 2025 3:07pm pain Start: 09-29-2022 End: 10-03-2024 Tramadol 50 mg tablet Discon tinued 50 NMA PO THREE TIMES A DAY September 29, 2022 12:00am October 03, 2024 3:05pm pain Completed/Discontinued Medications Medication Drug Class(es) Dates Sig (Normalized) Sig (Original) acetaminophen 325 mg / HYDROcodone bitartrate 5 mg oral tablet (19 sources) Opioid Agonist Start: 08-24-2020 End: 04-26-2022 Hydrocodone-Acetami nophen 5-325 mg tablet Discontinued 1 {tbl} PO Q4H as needed for pain 14 4 0 August 24, 2020 April 26, 2022 5:01pm Calculus of right kidney Calculus of kidney Start: 08-24-2020 End: 04-26-2022 take 1 tablet by mouth every four hours Hydrocodone-Acetaminophen Discontinued 1 TABLET PO Q4H 14 August 24, 2020 April 26, 2022 4:01pm amLODIPine 2.5 mg oral tablet (20 sources) Dihydropyridine Calcium Channel Thien Start: 05-17-2022 End: 01-09-2023 take 1 tablet by mouth once daily Amlodipine 2.5 mg tablet Discontinued 2.5 mg PO DAILY 90 October 09, 2022 4:14pm January 09, 2023 12:05pm amoxicillin 875 mg / clavulanate 125 mg oral tablet (18 sources) Penicillin-class Antibacterial Start: 09-13-2021 End: 09-23-2021 Amoxicillin-Pot Clavulanate 875-125 mg tablet Discontinued 1 {tbl} PO Q12H 20 10 September 13, 2021 12:00am September 22, 2021 12:00am September 23, 2021 12:03am Acute sinusitis, unspecified Start: 09-13-2021 End: 09-23-2021 take 1 tablet by mouth every twelve hours Amoxicillin-Pot Clavulanate Discontinued 1 TABLET PO Q12H 20 September 12, 2021 11:00pm September 22, 2021 11:03pm aspirin 81 mg delayed release oral tablet (16 sources) Platelet Aggregation Inhibitor, Nonsteroidal Anti-inflammatory Drug Start: 05-17-2022 End: 07-10-2023 take 1 tablet by mouth once daily Aspirin (Adult Aspirin Regimen) 81 mg tablet,delayed release (DR/EC) Discontinued 81 mg PO DAILY May 17, 2022 1:00am July 10, 2023 12:53pm cbd (8 sources) Start: 11-22-2022 End: 01-01-2023 cbd Discontinued PO November 22, 2022 12:00am January 01, 2023 9:56am Start: 11-22-2022 End: 01-01-2023 cbd Discontinued PO November [id number] 11:00pm January 01, 2023 8:56am cloNIDine hydrochloride 0.1 mg oral tablet (20 sources) Central alpha-2 Adrenergic Agonist Start: 04-26-2022 End: 05-29-2022 take 1 tablet by mouth at bedtime Clonidine Hcl 0.1 mg tablet Discontinued 0.1 mg PO AT BEDTIME 30 1 May 15, 2022 10:54am May 29, 2022 4:52pm cyclobenzaprine hydrochloride 10 mg oral tablet (19 sources) Muscle Relaxant Start: 08-09-2021 End: 04-26-2022 take 1 tablet by mouth three times daily as needed for muscle spasms Cyclobenzaprine 10 mg tablet Discontinued 10 mg PO THREE TIMES A DAY as needed for muscle spasm 14 0 August 09, 2021 12:00am April 26, 2022 4:59pm diazePAM 5 mg oral tablet (6 sources) Benzodiazepine Start: 02-07-2024 End: 08-27-2024 take 1 tablet by mouth twice daily as needed Diazepam (Valium) 5 mg tablet Discontinued 5 mg PO TWICE A DAY as needed for vertigo 20 February 27, 2024 8:14pm August 27, 2024 1:26pm Vertigo Dizziness and giddiness diclofenac sodium 50 mg delayed release oral tablet (19 sources) Nonsteroidal Anti-inflammatory Drug Start: 09-29-2022 End: 01-04-2023 Diclofenac Sodium 50 mg tablet,delayed release (DR/EC) Discontinued 50 NMA PO TWICE A DAY September 29, 2022 12:00am January 04, 2023 9:07am Start: 09-29-2022 End: 11-29-2023 take 1 tablet by mouth twice daily Diclofenac Sodium 50 mg tablet,delayed release (DR/EC) Discontinued 50 mg PO TWICE A DAY January 04, 2023 9:06am November 29, 2023 10:37am DULoxetine 60 mg delayed release oral capsule (20 sources) Serotonin and Norepinephrine Reuptake Inhibitor Start: 04-26-2022 End: 08-08-2024 take 1 capsule by mouth at bedtime Duloxetine 60 mg capsule,delayed release(DR/EC) Discontinued 60 mg PO AT BEDTIME 90 3 August 13, 2023 8:24am August 08, 2024 1:16pm mental health Start: 02-01-2018 End: 04-26-2022 take 1 capsule by mouth twice daily Duloxetine 30 MG capsule,delayed release(DR/EC) Discontinued 30 mg PO TWICE A DAY February 01, 2018 12:00am April 26, 2022 5:00pm depression/anxiety ibuprofen 600 mg oral tablet (19 sources) Nonsteroidal Anti-inflammatory Drug Start: 08-09-2021 End: 04-26-2022 take 1 tablet by mouth every six hours as needed for pain Ibuprofen 600 mg tablet Discontinued 600 mg PO EVERY 6 HOURS NEEDED as needed for Pain Score 1-10/10 20 0 August 09, 2021 12:00am April 26, 2022 5:03pm meclizine hydrochloride 25 mg oral tablet (3 sources) Antiemetic Start: 11-30-2023 End: 02-07-2024 take 1 tablet by mouth four times daily as needed for dizziness Meclizine 25 mg Tablet Discontinued 25 mg PO 4 TIMES DAILY NEEDED as needed for dizziness/vertigo 30 30 0 November 30, 2023 12:00am February 07, 2024 1:11pm metaxalone 800 mg oral tablet (16 sources) Start: 04-26-2022 End: 07-25-2022 take 1 tablet by mouth twice daily as needed for pain Metaxalone 800 mg tablet Discontinued 800 mg PO TWICE A DAY as needed for Pain April 26, 2022 1:00am July 25, 2022 11:04am metFORMIN hydrochloride 500 mg oral tablet (3 sources) Biguanide Start: 08-30-2023 End: 11-29-2023 take 2 tablets by mouth twice daily at mealtime Metformin 500 mg tablet Discontinued 1000 mg PO 2 times per day with meals 360 90 1 August 30, 2023 12:00am November 29, 2023 7:10am methylPREDNISolone 4 mg oral tablet (3 sources) Corticosteroid Start: 06-23-2024 End: 07-03-2024 take 1 tablet by mouth once Methylprednisolone (Medrol (Theresa)) 4 mg tablets,dose pack Discontinued 0 PO per package directions 21 0 June 23, 2024 1:00am July 03, 2024 6:09pm PO PER PKG DIR naproxen 500 mg oral tablet (16 sources) Nonsteroidal Anti-inflammatory Drug Start: 04-26-2022 End: 07-25-2022 take 1 tablet by mouth twice daily as needed for pain Naproxen 500 mg tablet Discontinued 500 mg PO TWICE A DAY as needed for Pain April 26, 2022 1:00am July 25, 2022 11:03am ondansetron 8 mg oral tablet (17 sources) Serotonin-3 Receptor Antagonist Start: 12-16-2021 End: 04-26-2022 take 1 tablet by mouth every twelve hours as needed for nausea and vomiting Ondansetron Hcl 8 mg tablet Discontinued 8 mg PO Q12H as needed for nausea and vomiting 14 0 December 16, 2021 12:00am April 26, 2022 5:02pm pregabalin 50 mg oral capsule (20 sources) Start: 04-26-2022 End: 05-29-2022 take 1 capsule by mouth at bedtime Pregabalin 50 mg capsule Discontinued 50 mg PO AT BEDTIME 30 April 26, 2022 11:33pm May 29, 2022 4:53pm Fibromyalgia Fibromyalgia Start: 04-26-2022 End: 04-26-2022 take 1 capsule by mouth at bedtime Pregabalin 100 mg capsule Discontinued 100 mg PO AT BEDTIME April 26, 2022 1:00am April 26, 2022 11:34pm Start: 10-23-2018 take 1 capsule by mo uth twice daily LYRICA 150 mg capsule Take 150 mg by mouth 2 (two) times a day . 0 10/23/2018 Active Start: 02-01-2018 End: 04-26-2022 take 2 capsules by mouth twice daily Pregabalin 75 MG capsule Discontinued 150 mg PO TWICE A DAY February 01, 2018 12:00am April 26, 2022 5:02pm fibromyalgia Start: 02-01-2018 End: 04-26-2022 take 150 mg by mouth twice daily Pregabalin Discontinu ed 150 MG PO TWICE A DAY January 31, 2018 11:00pm April 26, 2022 4:02pm Semaglutide (3 sources) Start: 07-27-2023 End: 08-30-2023 Semaglutide (Ozempic) 0.25 m g or 0.5 mg (2 mg/3 mL) pen injector Discontinued 0.25 mg SC EVERY WEEK 4.784 90 0 July 27, 2023 12:00am October 24, 2023 12:00am August 30, 2023 5:11pm Prediabetes Prediabetes for 12 weeks Start: 07-27-2023 End: 08-30-2023 Semaglutide (Ozempic) 0.25 m g or 0.5 mg (2 mg/3 mL) pen injector Discontinued 0.25 mg SC EVERY WEEK 4.784 90 July 27, 2023 12:00am October 24, 2023 12:00am August 30, 2023 5:11pm for 12 weeks Tirzepatide (Mounjaro) 2.5 mg/0.5 mL pen injector (3 sources) Start: 07-26-2023 End: 08-30-2023 Tirzepatide (Mounjaro) 2.5 mg/0.5 mL pen injector Discontinued 2.5 mg SC EVERY WEEK 6 84 0 July 26, 2023 12:00am October 17, 2023 12:00am August 30, 2023 5:11pm Prediabetes Prediabetes Start: 07-26-2023 End: 08-30-2023 Tirzepatide (Mounjaro) 2.5 m g/0.5 mL pen injector Discontinued 2.5 mg SC EVERY WEEK 6 84 July 26, 2023 12:00am October 17, 2023 12:00am August 30, 2023 5:11pm Tirzepatide (Weight Loss) (6 sources) Start: 07-24-2024 End: 10-03-2024 Tirzepatide (Weight Loss) (Z epbound) 2.5 mg/0.5 mL solution Discontinued 2.5 mg SC EVERY WEEK 2 28 July 24, 2024 5:04pm October 03, 2024 3:18pm Start: 07-24-2024 End: 10-03-2024 Tirzepatide (Weight Loss) (Z epbound) 2.5 mg/0.5 mL solution Discontinued 2.5 mg SC EVERY WEEK 2 July 24, 2024 5:04pm October 03, 2024 3:18pm Start: 07-24-2024 Tirzepatide (W eight Loss) (Zepbound) 2.5 mg/0.5 mL solution Active 2.5 mg SC EVERY WEEK 2 July 24, 2024 5:04pm Start: 07-03-2024 End: 07-24-2024 Tirzepatide (Weight Loss) (Z epbound) 2.5 mg/0.5 mL solution Discontinued 2.5 mg SC EVERY WEEK July 03, 2024 12:00am July 30, 2024 12:00am July 24, 2024 5:05pm Start: 07-03-2024 End: 07-24-2024 Tirzepatide (Weight Loss) (Z epbound) 2.5 mg/0.5 mL solution Discontinued 2.5 mg SC EVERY WEEK 2 July 03, 2024 12:00am July 30, 2024 12:00am July 24, 2024 5:05pm Tirzepatide (Weight Loss) (3 sources) Start: 12-10-2024 End: 01-02-2025 Tirzepatide (Weight Loss) 5 mg/0.5 mL solution Discontinued 5 mg SC EVERY WEEK 2 20 06December 10, 2024 4:36pm January 02, 2025 3:19pm Start: 10-03-2024 End: 12-10-2024 Tirzepatide (Weight Loss) 5 mg/0.5 mL solution Discontinued 5 mg SC EVERY WEEK 2 20 06October 03, 2024 3:17pm December 10, 2024 4:36pm Start: 10-03-2024 Tirzepatide (W eight Loss) 5 mg/0.5 mL solution Active 5 mg SC EVERY WEEK 2 October 03, 2024 3:17pm traZODone hydrochloride 100 mg oral tablet (20 sources) Serotonin Reuptake Inhibitor Start: 07-25-2022 End: 02-07-2024 take 2 tablets by mouth at bedtime Trazodone 100 mg tablet Discontinued 200 mg PO AT BEDTIME 180 90 April 10, 2023 2:55pm February 07, 2024 5:10pm sleep Start: 07-25-2022 End: 04-10-2023 take 200 mg by mouth at bedtime Trazodone Discontinued 200 MG PO AT BEDTIME 180 90 October 23, 2022 11:04am April 10, 2023 1:55pm Start: 04-26-2022 End: 07-25-2022 take 1 tablet by mouth at bedtime Trazodone 100 mg Tablet Discontinued 100 mg PO AT BEDTIME June 14, 2022 1:00am July 25, 2022 11:04am Start: 10-22-2018 traZODone (GERMAN YREL) 100 MG tablet Take 100-200 mg by mouth nightly as needed . 11 10/22/2018 Active Start: 02-01-2018 End: 04-26-2022 take 2 tablets by mouth at bedtime Trazodone 100 MG tablet Discontinued 200 mg PO AT BEDTIME February 01, 2018 12:00am April 26, 2022 5:52pm sleep Start: 02-01-2018 End: 04-26-2022 take 200 mg by mouth at bedtime Trazodone Discontinued 200 MG PO AT BEDTIME January 31, 2018 11:00pm April 26, 2022 4:52pm Problems Active Problems Problem Classification Problem Date Documented Date Episodic/Chronic Blindness and vision defects (16 sources) Wears glasses; Translations: [Presence of spectacles and contact lenses] 05-16-2022 Episodic Calculus of urinary tract (20 sources) Kidney stone; Translations: [Calculus of kidney] 05-16-2022 Episodic Conditions associated with dizziness or vertigo (9 sources) Dizziness; Translations: [Dizziness and giddiness] 11-29-2023 Episodic Deficiency and other anemia (19 sources) Anemia; Translations: [Anemia, unspecified] 02-01-2018 Episodic Diabetes mellitus without complication (12 sources) Prediabetes; Translations: [Prediabetes] Onset: 01-02-2025 06-22-2023 Episodic Comment on above: elevated HgA1C, plan IF and low GI diet, restricted calorie. Mounjaro for medication. Disorders of lipid metabolism (7 sources) Hyperlipidemia; Translations: [Hyperlipidemia, unspecified] Onset: 01-02-2025 02-07-2024 Chronic Disorders of teeth and jaw (16 sources) Loss of teeth due to extraction; Translations: [Partial loss of teeth, unspecified cause, unspecified class] 05-16-2022 Episodic Comment on above: 1990 Essential hypertension (20 sources) Hypertensive disorder; Translations: [Essential (primary) hypertension] Onset: 01-17-2024 05-17-2022 Chronic Fracture of upper limb (19 sources) Fracture of phalanx of middle finger; Translations: [Displaced fracture of distal phalanx of right middle finger, initial encounter for closed fracture] 08-17-2021 Episodic Gastritis and duodenitis (8 sources) Gastritis; Translations: [Gastritis, unspecified, without bleeding] 11-22-2022 Episodic Headache; including migraine (18 sources) Migraine; Translations: [Migraine, unspecified, not intractable, without status migrainosus] Chronic Headache; including migraine (20 sources) Headache; Translations: [Headache] 05-16-2022 Episodic Immunizations and screening for infectious disease (20 sources) Contact with or exposure to other viral diseases; Translations: [Lab test negative for COVID-19 virus] Episodic Intracranial injury (19 sources) Concussion injury of body structure; Translations: [Concussion with loss of consciousness of unspecified duration, initial encounter] 08-17-2021 Episodic Malaise and fatigue (19 sources) Fatigue; Translations: [Other fatigue] 05-16-2022 Episodic Menopausal disorders (11 sources) Menopausal syndrome; Translations: [Menopausal and female climacteric states] Onset: 08-27-2024 01-04-2023 Chronic Comment on above: support given Menstrual disorders (19 sources) Menorrhagia; Translations: [Excessive and frequent menstruation with regular cycle] 02-01-2018 Chronic Noninfectious gastroenteritis (18 sources) Gastroenteritis; Translations: [Noninfective gastroenteritis and colitis, unspecified] Episodic Nonspecific chest pain (20 sources) Chest pain; Translations: [Chest pain, unspecified] 05-17-2022 Episodic Osteoarthritis (15 sources) Arthritis; Translations: [Unspecified osteoarthritis, unspecified site] 03-01-2023 Chronic Other circulatory disease (3 sources) H/O: hypertension; Translations: [Personal history of other diseases of the circulatory system] 11-29-2023 Episodic Other connective tissue disease (19 sources) Muscle spasm of cervical muscle of neck; Translations: [Other muscle spasm] 08-17-2021 Episodic Other connective tissue disease (20 sources) Fibromyalgia; Translations: [Fibromyalgia] 05-29-2022 Episodic Other connective tissue disease (16 sources) H/O: arthritis; Translations: [Personal history of other diseases of the musculoskeletal system and connective tissue] 05-16-2022 Episodic Other connective tissue disease (16 sources) H/O: osteoarthritis; Translations: [Personal history of other diseases of the musculoskeletal system and connective tissue] 05-16-2022 Episodic Other connective tissue disease (16 sources) H/O: back problem; Translations: [Personal history of other diseases of the musculoskeletal system and connective tissue] 05-16-2022 Episodic Other ear and sense organ disorders (1 source) Sensorineural hearing loss, unilateral, left ear, with unrestricted hearing on the contralateral side; Translations: [Sensorineural hearing loss, unilateral, left ear, with unrestricted hearing on the contralateral side] Onset: 04-24-2024 Chronic Other injuries and conditions due to external causes (19 sources) Closed injury of head; Translations: [Unspecified injury of head, initial encounter] 08-17-2021 Episodic Other liver diseases (5 sources) Fatty (change of) liver, not elsewhere classified; Translations: [Nonalcoholic fatty liver disease] 06-22-2023 Chronic Comment on above: suspected based on h istory, imaging, and labs. recommend weight reduction. Other liver diseases (3 sources) Elevated liver enzymes level; Translations: [Abnormal levels of other serum enzymes] 09-04-2023 Episodic Other lower respiratory disease (16 sources) Dyspnea on exertion; Translations: [Shortness of breath] 05-17-2022 Episodic Other nervous system disorders (19 sources) Loss of taste; Translations: [Parageusia] 05-16-2022 Episodic Other nervous system disorders (19 sources) Loss of sense of smell; Translations: [Anosmia] 05-16-2022 Episodic Other nutritional; endocrine; and metabolic disorders (20 sources) Obesity; Translations: [Obesity, unspecified] 05-17-2022 Chronic Comment on above: - 295, 06/18/23Init ial goal- 5% weight reduction with nutritional and medication intervention recommendations.initial obesity assessment lab panel reviewed s/p cardio clearance. fu EKG ordered to have 1 week after starting medication Other nutritional; endocrine; and metabolic disorders (10 sources) Obesity, unspecified; Translations: [Obesity, unspecified] Onset: 01-17-2024 05-17-2022 Chronic Other nutritional; endocrine; and metabolic disorders (11 sources) Body mass index 30+ - obesity; Translations: [Body mass index (BMI) 37.0-37.9, adult] 06-18-2023 Chronic Other nutritional; endocrine; and metabolic disorders (2 sources) Body mass index (BMI) 37.0-37.9, adult; Translations: [Body Mass Index 37.0-37.9, adult] 06-18-2023 Chronic Other nutritional; endocrine; and metabolic disorders (2 sources) Other obesity; Translations: [Obesity, unspecified] 06-18-2023 Chronic Other upper respiratory disease (19 sources) Congestion of nasal sinus; Translations: [Nasal congestion] 05-16-2022 Episodic Other upper respiratory infections (20 sources) Acute frontal sinusitis; Translations: [Acute frontal sinusitis, unspecified] Episodic Residual codes; unclassified (16 sources) Hypersomnia; Translations: [Hypersomnia, unspecified] 04-26-2022 Chronic Residual codes; unclassified (8 sources) Hypersomnia, unspecified; Translations: [Hypersomnia, unspecified] 04-26-2022 Chronic Residual codes; unclassified (16 sources) Family history of aneurysm of artery; Translations: [Family history of ischemic heart disease and other diseases of the circulatory system] 04-26-2022 Episodic Residual codes; unclassified (4 sources) Family history of ischemic heart disease and other diseases of the circulatory system; Translations: [Family history of stroke (cerebrovascular)] 04-26-2022 Episodic Residual codes; unclassified (11 sources) Bilateral lower leg edema; Translations: [Localized edema] 10-06-2022 Episodic Residual codes; unclassified (8 sources) Insomnia; Translations: [Insomnia, unspecified] 11-22-2022 Episodic Residual codes; unclassified (5 sources) Insomnia, unspecified; Translations: [Insomnia, unspecified] 03-01-2023 Episodic Screening and history of mental health and substance abuse codes (16 sources) History of clinical finding in subject; Translations: [Personal history of other mental and behavioral disorders] 05-16-2022 Episodic Spondylosis; intervertebral disc disorders; other back problems (19 sources) Degeneration of lumbosacral intervertebral disc; Translations: [Other intervertebral disc degeneration, lumbosacral region] 09-14-2022 Chronic Spondylosis; intervertebral disc disorders; other back problems (13 sources) Lumbar radiculopathy; Translations: [Radiculopathy, lumbar region] 03-01-2023 Episodic Substance-related disorders (1 source) Opioid dependence, uncomplicated; Translations: [Opioid dependence, uncomplicated] Onset: 09-08-2024 Chronic Past or Other Problems Problem Classification Problem Date Documented Date Episodic/Chronic Cardiac dysrhythmias (17 sources) Palpitations; Translations: [Palpitations] Onset: 01-17-2024 07-25-2022 Episodic Other connective tissue disease (15 sources) Fibromyalgia; Translations: [Myalgia and myositis, unspecified] Onset: 01-17-2024 04-26-2022 Episodic Other screening for suspected conditions (not mental disorders or infectious disease) (20 sources) Cardiovascular stress test abnormal; Translations: [Abnormal result of other cardiovascular function study] Onset: 01-17-2024 05-01-2022 Episodic Comment on above: referral to cardiolo gy for fu, repeat EKG 1 week after starting medication Results Test Name Value Interpretation Reference Range Facility Internal Medicine Office Vis rigoberto 01-02-2025 Internal Medicine Office Visit [facility] [address] [place] [address] OFFICE VISIT Date of Service: 01/02/25 MR#: [id number] Acct: [id number] Name: EZRA PEDRO Rep #: [id number] : 1970 Provider: Dr. 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 Required: No Accompanied by: Self Is patient in pain?: Yes (low back improved s/p steroid inj w/ Basali) Pain scale (1-10): 3 Allergies guaifenesin Adverse Reaction (Intermediate, Verified 01/02/25 15:05) RASH sulfamethoxazole (From Bactrim) Adverse Reaction (Intermediate, Verified 01/02/25 15:05) RASH trimethoprim (From Bactrim) Adverse Reaction (Intermediate, Verified 01/02/25 15:05) RASH Medications ???Medication ???Instructions ???Recorded ???Confirmed ???Type multivitamin (Daily Multi-Vitamin 1 tab PO DAILY vitamin 07/10/23 0 01/02/25 History tablet) trazodone 100 mg tablet 200 mg (2 x 100 mg) PO QHS sleep 3 02/07/24 01/02/25 Rx months #180 tabs pen needle, diabetic 32 gauge x #100 ea 07/03/24 10/03/24 Rx 3/16 (Comfort EZ Pen Harrell) duloxetine 60 mg capsule,delayed 60 mg PO QHS mental health #90 cap s 08/08/24 01/02/25 Rx release baclofen 10 mg tablet 10 mg PO BID muscle spasm 01/02/25 History carvedilol 3.125 mg tablet 3.125 mg PO BID 3 months #180 12/2201/02/25 Rx TABLETS tirzepatide (weight loss) 7.5 7.5 mg (0.5 mL) subcut QWEEK 4 04/1601/02/25 Rx mg/0.5 mL subcutaneous solution weeks #2 mL tramadol 50 mg tablet 50 mg PO BID pain 01/02/25 5 History PFS Medical History (Updated 01/02/25 @ 15:[address] Nica Henry MD) Chronic back pain Headache Vertigo Hyperlipidemia Dizziness Elevated liver enzymes Borderline type 2 diabetes mellitus Preoperative evaluation to rule out surgical contraindication Prediabetes Fatty liver disease, nonalcoholic Other obesity BMI 37.0-37.9, adult Flu vaccine need Lumbar radiculopathy Arthritis Climacteric Insomnia Gastritis History of echocardiogram History of stress test Wears glasses Wears contact lenses Non-smoker Cardiology follow-up encounter DDD (degenerative disc disease), lumbosacral Preventative health care Colon cancer screening Palpitations SOB (shortness of breath) on exertion Obesity Hypertension Abnormal stress test Family history of cerebral aneurysm Abnormal EKG Hypersomnolence Hx of degenerative disc disease Wears glasses Hx of emotional problems History of back pain Hx of chronic arthritis Gastroenteritis Migraine Contact with or suspected exposure to other viral communicable disease Acute pharyngitis Fibromyalgia Lab test negative for COVID-19 virus Acute frontal sinusitis, unspecified Fatigue Congestion of nasal sinus Loss of smell Loss of taste Kidney stone on right side Fibromyalgia Chest pain Surgical History S/P lateral meniscus repair of right knee History of left heart catheterization ( 06/15/22) Hx of wisdom tooth extraction H/O: hysterectomy Hx of cholecystectomy Hx of section Family History Unknown Adopted Social History (Updated 01/02/25 @ 15:08 by Ratna Miles) adopted: Yes household members: spouse housing: house number of children: 1 current occupational status: employed 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 Also has some concerns. Currently on carvedilol 6.25 mg twice daily however lately, with recent weight loss her blood pressure readings have been lower. Feels occasionally lightheaded typically 8/especially with changing position. Blood pressure in office today at 106/68 mmHg. Currently on Zepbound for weight loss. In total has lost about 50 pounds since she started. Continues to tolerate medi (more content not included)... Normal [facility] Internal Medicine Office Vis rigoberto 10-03-2024 Internal Medicine Office Visit [facility] [address] [place] [address] [place] [address] OFFICE VISIT Date of Service: 10/03/24 MR#: [id number] Acct: [id number] Name: EZRA PEDRO Rep #: [id number] : 1970 Provider: Dr. Nica ellis MD Age/Sex: 54/F Location: [facility] Status: Signed Intake Vital Signs 07/03/24 18:09 08/27/24 13:23 10/03/24 15:05 Height 6 ft 2 in 6 ft 2 in 6 ft 2 in Weight: 264 lb BMI 33.9 BP 128/62 H Blood Pressure Location Lt brachial Position Sitting Respiration 18 Pulse 74 Pulse Source Monitor Temp 97.3 F L Temp Source Temporal Pulse Oximetry (%) 98 Oxygen Delivery Method room air Intake Visit Reasons: FU Chief Complaint: Follow-up chronic conditions Is patient in pain?: Yes (4 lower back ) Allergies guaifenesin Adverse Reaction (Intermediate, Verified 10/03/24 15:02) RASH sulfamethoxazole (From Bactrim) Adverse Reaction (Intermediate, Verified 10/03/24 15:02) RASH trimethoprim (From Bactrim) Adverse Reaction (Intermediate, Verified 10/03/24 15:02) RASH Medications ???Medication ???Instructions ???Recorded ???Confirmed ???Type multivitamin (Daily Multi-Vitamin 1 tab PO DAILY vitamin 07/10/23 0 10/03/24 History tablet) carvedilol 6.25 mg tablet 6.25 mg PO BID #180 TABLETS 10/03/24 Rx trazodone 100 mg tablet 200 mg (2 x 100 mg) PO QHS sleep 3 02/07/24 10/03/24 Rx months #180 tabs pen needle, diabetic 32 gauge x #100 ea 07/03/24 10/03/24 Rx 07/06 (Comfort EZ Pen Harrell) duloxetine 60 mg capsule,delayed 60 mg PO QHS mental health #90 cap s 08/08/24 10/03/24 Rx release baclofen 10 mg tablet 10 mg PO TID muscle spasm 10/03/24 History tirzepatide (weight loss) 5 mg/0.5 5 mg (0.5 mL) subcut QWEEK 4 wee ks 10/03/24 10/03/24 Rx mL subcutaneous solution #2 mL tramadol 50 mg tablet 2,500 mg PO BID pain 10/03/2409/21 History PFSH Medical History Headache Vertigo Hyperlipidemia Dizziness Elevated liver enzymes Borderline type 2 diabetes mellitus Preoperative evaluation to rule out surgical contraindication Prediabetes Fatty liver disease, nonalcoholic Other obesity BMI 37.0-37.9, adult Flu vaccine need Lumbar radiculopathy Arthritis Climacteric Insomnia Gastritis History of echocardiogram History of stress test Wears glasses Wears contact lenses Non-smoker Cardiology follow-up encounter DDD (degenerative disc disease), lumbosacral Preventative health care Colon cancer screening Palpitations SOB (shortness of breath) on exertion Obesity Hypertension Abnormal stress test Family history of cerebral aneurysm Abnormal EKG Hypersomnolence Hx of degenerative disc disease Wears glasses Hx of emotional problems History of back pain Hx of chronic arthritis Gastroenteritis Migraine Contact with or suspected exposure to other viral communicable disease Acute pharyngitis Fibromyalgia Lab test negative for COVID-19 virus Acute frontal sinusitis, unspecified Fatigue Congestion of nasal sinus Loss of smell Loss of taste Kidney stone on right side Fibromyalgia Chest pain Surgical History S/P lateral meniscus repair of right knee History of left heart catheterization ( 06/15/22) Hx of wisdom tooth extraction H/O: hysterectomy Hx of cholecystectomy Hx of section Family History Unknown Adopted Social History adopted: Yes household members: spouse housing: house number of children: 1 current occupational status: employed 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 sexually active: No Smoking Status: Never smoker alcohol intake: current alcohol intake frequency: holidays/special occasions only substance use type: does not use caffeine: Yes Type: coffee Number of servings: 1 what type of physical activity do you participate in: none seatbelt use: always do you feel safe at home: Yes additional social history: Spouse - Romeo (senior quality assurance engineer for the [employer]) HPI HPI Chief Complaint: Follow-up chronic conditions Details: EZRA PEDRO, is a 54 F who presents to the office today for follow-up of her chronic medical conditions. No acute concerns at this time. Currently on Zepbound. Doing really well. Down from a BMI of 37-33. Only taking 2.5 mg weekly. Lately however she states that her weight loss appears to have stalled. No concerning side effects. Drinks over a 100 ounces of water daily and has been taking Metamucil. No concerns with her bowel movement. History of borderline diabetes, A1c today is at 5.9 down from 6.2. No concerns for hypoglycemia. A (more content not included)... Normal [facility] - Hematology and Cell countsOrdered By: Nica Henry on 10-03-2024 HbA1c (Bld) [Mass fraction] 5.6 % 4.2-6.3 [facility] L3410.9992on 09-09-2024 [facility] Misc. COMMENT Normal . [facility] Comment on above: Order Comment: [id number] [employer] [facility] MANAGEMENT Result Comment: Test Ordered: [id number] Amphetamines Screen, Urine Note: ng/mL UI See Final Results Reference Range: Oqhqln=554 Amphetamine test includes Amphetamine and Methamphetamine. Amphetamines Negative UI Reference Range: Mldsig=006 Amphetamine test includes Amphetamine and Methamphetamine. Barbiturates Negative ng/mL UI Reference Range: Zkcjui=353 Benzodiazepines Negative ng/mL UI Reference Range: Piniwg=836 Cocaine (Metab.), Urine Negative ng/mL UI Reference Range: Jrwqpb=558 Opiates Negative ng/mL UI Reference Range: Dmtqvx=606 Opiate test includes Codeine, Morphine, Hydromorphone, Hydrocodone. 6-Acetylmorphine, Urine Negative ng/mL UI Reference Range: Cutoff=10 Oxycodone/Oxymorphone, Urine Negative ng/mL UI Reference Range: Ksbswd=793 Test includes Oxycodone and Oxymorphone PCP, Urine Negative ng/mL UI Reference Range: Cutoff=25 Methadone Screen, Urine Negative ng/mL UI Reference Range: Zattlu=673 Propoxyphene, Urine Negative ng/mL UI Reference Range: Pmkvrs=215 Fentanyl, Urine Note: ng/mL UI See Final Results Reference Range: Cutoff=2.0 Test includes Fentanyl and Norfentanyl This test was developed and its performance characteristics determined by [facility]. It has not been cleared or approved by the Food and Drug Administration. Fentanyl/Norfentanyl Negative UI Reference Range: Cutoff=2.0 Test includes Fentanyl and Norfentanyl Tramadol Note: ng/mL UI See Final Results Reference Range: Gzmwvu=436 Tramadol Positive [A ] UI Reference Range: Dcbtwz=084 Tramadol Conf, [place], [place] 7439 ng/mL UI Reference Range: Iicjhr=680 Buprenorphine, Urine Negative ng/mL UI Reference Range: Cutoff=10 Creatinine, Urine 216.6 mg/dL UI Reference Range: 20.0-300.0 pH, Urine 6.0 UI Reference Range: 4.5-8.9 Performed at: [facility] [address] [place], [place] [id number] Grounds/Maintenance Specialist: Patrick Ferrari PhD, Phone: [phone] Performed at: [address] [id number] Grounds/Maintenance Specialist: Dmitry Gill PhD, Phone: [phone] Performed By: #### L 3410.9992, L505.5000 #### [facility] [address] [place], [address] Absolute lymphocyte countOrd ered By: Nica Henry on 09-03-2024 Lymphocytes Auto (Unsp spec) [#/Vol] 1.43 10*3/uL 0.83-4.51 [facility] Absolute neutrophil countOrd ered By: Dinanicanor Akersmariemacy on 09-03-2024 Neutrophils (Bld) [#/Vol] 5.2 10*3/uL 2.0-7.7 [facility] Amphetamine detection with 1 000 ng/mL as cutoffOrdered By: Cruz Singh on 09-03-2024 Amphetamines Screen method >1000 ng/mL Ql (U) Negative < 200 ng/mL [facility] Anion gap in Serum or Plasma Ordered By: nicanor Henry on 09-03-2024 Anion gap [Moles/Vol] 9 mmol/L 5-15 [facility] Automated lymphocyte count a s percentage of total leukocytesOrdered By: Nica Henry on 09-03-2024 Lymphocytes/100 WBC Auto (Unsp spec) 19.5 % 19-41 [facility] BUN/creatinine ratioOrdered By: tomasfishertownboy Henry on 09-03-2024 Urea nitrogen/Creatinine [Mass ratio] 9.9 mg/mg Low 10-20 [facility] Basophil percentageOrdered B y: Nica Henry on 09-03-2024 Basophils/100 WBC (Bld) 0.5 % 0-1 [facility] Bilirubin, totalOrdered By: nicanor Henry on 09-03-2024 Bilirubin [Mass/Vol] 0.54 mg/dL 0.00-1.30 [facility] CBC W/Diff, Automatedon 08-21 Absolute Lymph 1.43 X10 3/uL Normal 0.83-4.51 [facility] Comment on above: Performed By: #### L 100.0100, L500.4100, L500.4050 #### [facility] [address] [place], [address] Absolute Neut 5.2 X10 3/uL Normal 2.0-7.7 [facility] Comment on above: Performed By: #### L 100.0100, L500.4100, L500.4050 #### [facility] [address] [place], [address] Basophils/100 WBC (Bld) 0.5 % Normal 0-1 [facility] Comment on above: Performed By: #### L 100.0100, L500.4100, L500.4050 #### [facility] [address] [place], [address] Eosinophils/100 WBC (Bld) 2.7 % Normal 0-5 [facility] Comment on above: Performed By: #### L 100.0100, L500.4100, L500.4050 #### [facility] [address] [place], [address] Erythrocyte distribution width (RBC) [Ratio] 13.3 % Normal 11.6-14.6 [facility] Comment on above: Performed By: #### L 100.0100, L500.4100, L500.4050 #### [facility] [address] [place], [address] Hematocrit (Bld) [Volume fraction] 43.8 % Normal 37-47 [facility] Comment on above: Performed By: #### L 100.0100, L500.4100, L500.4050 #### [facility] [address] [place], [address] Hemoglobin (Bld) [Mass/Vol] 14.5 g/dL Normal 12.0-15.0 [facility] Comment on above: Performed By: #### L 100.0100, L500.4100, L500.4050 #### [facility] [address] [place], [address] IG% 0.300 Normal 0.0-0.9 [facility] Comment on above: Result Comment: IG% - Immature Granulocytes (promyelocytes, myelocytes and metamyelocytes) > 1% indicates that a LEFT SHIFT is Present. Performed By: #### L 100.0100, L500.4100, L500.4050 #### [facility] [address] [place], [address] Lymphocytes/100 WBC (Bld) 19.5 % Normal 19-41 [facility] Comment on above: Performed By: #### L 100.0100, L500.4100, L500.4050 #### [facility] [address] [place], [address] MCH (RBC) [Entitic mass] 28.3 pg Normal 27.0-32.0 [facility] Comment on above: Performed By: #### L 100.0100, L500.4100, L500.4050 #### [facility] [address] [place], [address] MCHC (RBC) [Mass/Vol] 33.1 g/dL Normal 32-36 [facility] Comment on above: Performed By: #### L 100.0100, L500.4100, L500.4050 #### [facility] [address] [place], [address] MCV (RBC) [Entitic vol] 85.5 fL Normal 81-99 [facility] Comment on above: Performed By: #### L 100.0100, L500.4100, L500.4050 #### [facility] [address] [place], [address] Monocytes/100 WBC (Bld) 5.6 % Normal 0-10 [facility] Comment on above: Performed By: #### L 100.0100, L500.4100, L500.4050 #### [facility] [address] [place], [address] Neutrophils/100 WBC (Bld) 71.4 % High 47-70 [facility] Comment on above: Performed By: #### L 100.0100, L500.4100, L500.4050 #### [facility] [address] [place], [address] Nucleated RBC (Bld) [#/Vol] 0 10*3/uL Normal 0-5 [facility] Comment on above: Performed By: #### L 100.0100, L500.4100, L500.4050 #### [facility] [address] [place], [address] Platelet mean volume (Bld) [Entitic vol] 10.4 fL Normal 6.2-12.0 [facility] Comment on above: Performed By: #### L 100.0100, L500.4100, L500.4050 #### [facility] [address] [place], [address] Platelets (Bld) [#/Vol] 274 10*3/uL Normal 150-450 [facility] Comment on above: Performed By: #### L 100.0100, L500.4100, L500.4050 #### [facility] [address] [place], [address] RBC (Bld) [#/Vol] 5.12 10*6/uL Normal 4.2-5.4 [facility] Comment on above: Performed By: #### L 100.0100, L500.4100, L500.4050 #### [facility] [address] [place], [address] RDW SD 41.7 fl Normal 35.1-43.9 [facility] Comment on above: Performed By: #### L 100.0100, L500.4100, L500.4050 #### [facility] [address] [place], [address] WBC (Bld) [#/Vol] 7.3 10*3/uL Normal 4.4-11.0 [facility] Comment on above: Performed By: #### L 100.0100, L500.4100, L500.4050 #### [facility] [address] [place], [address] Calculated very low density lipoprotein (VLDL) cholesterol measurementOrdered By: Nica Henry on 09-03-2024 Calculated very low density lipoprotein (VLDL) cholesterol measurement 31 mg/dL 5-40 [facility] Carbon dioxide, total [Moles /volume] in Central venous bloodOrdered By: Nica Henry on 09-03-2024 CO2 [Moles/Vol] 26.7 mmol/L 21.0-32.0 [facility] Chloride assayOrdered By: Dina Henry on 09-03-2024 Chloride [Moles/Vol] 106 mmol/L 98-108 [facility] Comprehensive Metabolic Prof ilon 09-03-2024 Albumin [Mass/Vol] 4.2 g/dL Normal 3.5-5.0 [facility] Comment on above: Performed By: #### L 100.0100, L500.4100, L500.4050 #### [facility] [address] [place], [address] Albumin/Globulin [Mass ratio] 1.3 {ratio} Normal 0.9-2.4 [facility] Comment on above: Performed By: #### L 100.0100, L500.4100, L500.4050 #### [facility] [address] [place], [address] ALK PHOS 95 U/L Normal 35-104 [facility] Comment on above: Performed By: #### L 100.0100, L500.4100, L500.4050 #### [facility] [address] [place], [address] ALT [Catalytic activity/Vol] 35 U/L Normal <=34 [facility] Comment on above: Performed By: #### L 100.0100, L500.4100, L500.4050 #### [facility] [address] [place], [address] AST [Catalytic activity/Vol] 28 U/L Normal <=31 [facility] Comment on above: Performed By: #### L 100.0100, L500.4100, L500.4050 #### [facility] [address] [place], [address] Bilirubin [Mass/Vol] 0.54 mg/dL Normal 0.00-1.30 [facility] Comment on above: Performed By: #### L 100.0100, L500.4100, L500.4050 #### [facility] [address] [place], [address] BUN/CRE 9.9 RATIO Low 10-20 [facility] Comment on above: Performed By: #### L 100.0100, L500.4100, L500.4050 #### [facility] [address] [place], [address] Calcium [Mass/Vol] 9.7 mg/dL Normal 7.6-11.0 [facility] Comment on above: Performed By: #### L 100.0100, L500.4100, L500.4050 #### [facility] [address] [place], [address] Chloride [Moles/Vol] 106 mmol/L Normal 98-108 [facility] Comment on above: Performed By: #### L 100.0100, L500.4100, L500.4050 #### [facility] [address] [place], [address] CO2 [Moles/Vol] 26.7 mmol/L Normal 21.0-32.0 [facility] Comment on above: Performed By: #### L 100.0100, L500.4100, L500.4050 #### [facility] [address] [place], [address] Creatinine [Mass/Vol] 1.21 mg/dL High 0.70-1.20 [facility] Comment on above: Performed By: #### L 100.0100, L500.4100, L500.4050 #### [facility] [address] [place], [address] GAP 9 Normal 5-15 [facility] Comment on above: Performed By: #### L 100.0100, L500.4100, L500.4050 #### [facility] [address] [place], [address] GFR/1.73 sq M.predicted among non-blacks MDRD (S/P/Bld) [Vol rate/Area] 53 mL/min/{1.73_m2} Low >60 [facility] Comment on above: Result Comment: mL/m in/1.73m2 CKD-EPI Creatinine Equation (2020) Performed By: #### L 100.0100, L500.4100, L500.4050 #### [facility] [address] [place], [address] Globulin (S) [Mass/Vol] 3.4 g/dL Normal 2.2-4.2 [facility] Comment on above: Performed By: #### L 100.0100, L500.4100, L500.4050 #### [facility] [address] [place], [address] Glucose [Mass/Vol] 107 mg/dL High 70-99 [facility] Comment on above: Performed By: #### L 100.0100, L500.4100, L500.4050 #### [facility] [address] [place], [address] Potassium [Moles/Vol] 4.4 mmol/L Normal 3.3-5.1 [facility] Comment on above: Performed By: #### L 100.0100, L500.4100, L500.4050 #### [facility] [address] [place], [address] Sodium [Moles/Vol] 141 mmol/L Normal 133-145 [facility] Comment on above: Performed By: #### L 100.0100, L500.4100, L500.4050 #### [facility] [address] [place], [address] T PROT 7.6 g/dL Normal 5.9-8.4 [facility] Comment on above: Performed By: #### L 100.0100, L500.4100, L500.4050 #### [facility] [address] [place], [address] Urea nitrogen [Mass/Vol] 12 mg/dL Normal 4-19 [facility] Comment on above: Performed By: #### L 100.0100, L500.4100, L500.4050 #### [facility] [address] [place], [address] Eosinophil percentageOrdered By: Nica Henry on 09-03-2024 Eosinophils/100 WBC (Bld) 2.7 % 0-5 [facility] Erythrocyte distribution wid th ratioOrdered By: Nica Henry on 09-03-2024 Erythrocyte distribution width (RBC) [Ratio] 13.3 % 11.6-14.6 [facility] Erythrocyte distribution wid th standard deviationOrdered By: Nica Henry on 09-03-2024 Erythrocyte distribution width (RBC) [Ratio] 41.7 fl 35.1-43.9 [facility] Glomerular filtration rate ( GFR) estimation/1.73 sq m using serum, plasma, or whole bOrdered By: Nica Henry on 09-03-2024 GFR/1.73 sq M.predicted among non-blacks MDRD (S/P/Bld) [Vol rate/Area] 53 mL/min/{1.73_m2} Low >60 [facility] Comment on above: mL/min/1.73m2 CKD-EP I Creatinine Equation (2020) Hematocrit Auto (Bld) [Volum e fraction]Ordered By: Nica Henry on 09-03-2024 Hematocrit (Bld) [Volume fraction] 43.8 % 37-47 [facility] Hemoglobin measurementOrdere d By: Nica Henry on 09-03-2024 Hemoglobin (Bld) [Mass/Vol] 14.5 g/dL 12.0-15.0 [facility] Immature granulocytes/100 WB C Auto (Bld)Ordered By: Nica Henry on 09-03-2024 Immature granulocytes/100 WBC (Bld) 0.300 % 0.0-0.9 [facility] Comment on above: IG% - Immature Granu locytes (promyelocytes, myelocytes and metamyelocytes) > 1% indicates that a LEFT SHIFT is Present. LDL calc ser/plasOrdered By: Nica Henry on 09-03-2024 Cholesterol in LDL [Mass/Vol] 91 mg/dL [facility] Comment on above: Hhkwbmpghs=368-208 m g/dL & Higher Xgze=384 mg/dL or greater Laboratory - Chemistry and C hemistry - challengeOrdered By: Nica Henry on 09-03-2024 AST [Catalytic activity/Vol] 28 U/L <32 [facility] Lipid Profileon 09-03-2024 CHOL:HDL 4.38 Normal [facility] Comment on above: Performed By: #### L 100.0100, L500.4100, L500.4050 #### [facility] [address] [place], [address] Cholesterol [Mass/Vol] 158 mg/dL Normal <=200 [facility] Comment on above: Result Comment: Chol esterol level, Desirable <200 mg/dL Borderline high cholesterol 200-239 mg/dL High cholesterol >=240 mg/dL Recommendations of the NCEP Adult Treatment Panel for the following risk-cutoff thresholds for the [place] population. Performed By: #### L 100.0100, L500.4100, L500.4050 #### [facility] [address] [place], [address] Cholesterol in HDL [Mass/Vol] 36 mg/dL Low [facility] Comment on above: Result Comment: Caitlin onal Cholesterol Education Program (NCEP) guidelines: <40 mg/dL: Low HDL-cholesterol (major risk factor for CHD) >= 60 mg/dL: High HDL-cholesterol (negative risk factor for CHD) HDL-cholesterol is affected by a number of factors, e.g. smoking, exercise, hormones, sex and age. Performed By: #### L 100.0100, L500.4100, L500.4050 #### [facility] [address] [place], [address] Cholesterol in LDL [Mass/Vol] 91 mg/dL Normal [facility] Comment on above: Result Comment: Bord dpthvw=886-248 mg/dL Higher Wvrz=245 mg/dL or greater Performed By: #### L 100.0100, L500.4100, L500.4050 #### [facility] [address] [place], [address] Cholesterol in VLDL [Mass/Vol] 31 mg/dL Normal 5-40 [facility] Comment on above: Performed By: #### L 100.0100, L500.4100, L500.4050 #### [facility] [address] [place], [address] Triglyceride [Mass/Vol] 156 mg/dL Normal [facility] Comment on above: Result Comment: The drugs N-Acetylcysteine and Metamizole may falsely depress this assay. Normal range: <150 mg/dL Borderline High: 150-199 mg/dL High: 200-499 mg/dL Very High: >500 mg/dL Performed By: #### L 100.0100, L500.4100, L500.4050 #### [facility] [address] [place], [address] MCV (mean corpuscular volume ) determinationOrdered By: Nica Henry on 09-03-2024 MCV (RBC) [Entitic vol] 85.5 fL 81-99 [facility] Mean corpuscular hemoglobin (MCH) determinationOrdered By: Nica Henry on 09-03-2024 MCH (RBC) [Entitic mass] 28.3 pg 27.0-32.0 [facility] Mean corpuscular hemoglobin concentration (MCHC) determinationOrdered By: Nica Henry on 09-03-2024 MCHC (RBC) [Mass/Vol] 33.1 g/dL 32-36 [facility] Mean platelet volume determi nationOrdered By: Nica Henry on 09-03-2024 Platelet mean volume (Bld) [Entitic vol] 10.4 fL 6.2-12.0 [facility] Monocyte percentageOrdered B y: Nica Henry on 09-03-2024 Monocytes/100 WBC (Bld) 5.6 % 0-10 [facility] Neutrophil percentageOrdered By: Nica Henry on 09-03-2024 Neutrophils/100 WBC (Bld) 71.4 % High 47-70 [facility] No Panel InformationOrdered By: Cruz Singh on 09-03-2024 Urine Buprenorphine Qualitative Negative < 200 ng/mL [facility] Urine Oxycodone Screen Negative < 100 ng/mL [facility] Nucleated red blood cell per centageOrdered By: Nica Henry on 09-03-2024 Nucleated RBC/100 WBC (Bld) [Ratio] 0 % 0-5 [facility] Platelet countOrdered By: Dina Henry on 09-03-2024 Platelets (Bld) [#/Vol] 274 10*3/uL 150-450 [facility] Potassium measurement (mass/ volume)Ordered By: Nica Henry on 09-03-2024 Potassium (Unsp spec) [Mass/Vol] 4.4 mmol/L 3.3-5.1 [facility] Quantitative urine opiates m easurementOrdered By: Cruz Singh on 09-03-2024 Opiates Ql (U) Negative < 300 ng/mL [facility] RBC Auto (Bld) [#/Vol]Ordere d By: Nica Henry on 09-03-2024 RBC (Bld) [#/Vol] 5.12 10*6/uL 4.2-5.4 [facility] Screening total cholesterol/ high density lipoprotein (HDL) cholesterol ratioOrdered By: Nica Henry on 09-03-2024 Cholesterol.total/Chol esterol in HDL [Mass ratio] 4.38 {ratio} [facility] Screening urine fentanyl rachel surementOrdered By: Cruz Singh on 09-03-2024 fentaNYL Screen Ql (U) Negative [facility] Serum creatinine measurement (mass/volume)Ordered By: Nica Henry on 09-03-2024 Creatinine [Mass/Vol] 1.21 mg/dL High 0.70-1.20 [facility] Serum globulin measurementOr dered By: Nica Henry on 09-03-2024 Globulin (S) [Mass/Vol] 3.4 g/dL 2.2-4.2 [facility] Serum glucose measurement (m ass/volume)Ordered By: Nica Henry on 09-03-2024 Glucose [Mass/Vol] 107 mg/dL High 70-99 [facility] Serum or plasma alanine holbrook otransferase (ALT) measurementOrdered By: Nica Henry on 09-03-2024 ALT [Catalytic activity/Vol] 35 U/L <35 [facility] Serum or plasma albumin mesfin urement (mass/volume)Ordered By: Nica Henry on 09-03-2024 Albumin [Mass/Vol] 4.2 g/dL 3.5-5.0 [facility] Serum or plasma albumin/glob ulin mass ratioOrdered By: Nica Henry on 09-03-2024 Albumin/Globulin [Mass ratio] 1.3 {ratio} 0.9-2.4 [facility] Serum or plasma alkaline sary sphatase measurementOrdered By: Nica Henry on 09-03-2024 ALP [Catalytic activity/Vol] 95 U/L 35-104 [facility] Serum or plasma calcium mesfin urement (mass/volume)Ordered By: Nica Henry on 09-03-2024 Calcium [Mass/Vol] 9.7 mg/dL 7.6-11.0 [facility] Serum or plasma cholesterol in HDL measurement (mass/volume)Ordered By: Nica Akersmariemacy on 09-03-2024 Cholesterol in HDL [Mass/Vol] 36 mg/dL Low >40 [facility] Comment on above: National Cholesterol Education Program (NCEP) guidelines:<40 mg/dL: Low HDL-cholesterol (major risk factor for CHD)>= 60 mg/dL: High HDL-cholesterol (negative risk factor for CHD)HDL-cholesterol is affected by a number of factors, e.g. smoking, exercise, hormones, sex and age. Serum or plasma cholesterol measurement (mass/volume)Ordered By: Nica Henry on 09-03-2024 Cholesterol [Mass/Vol] 158 mg/dL <201 [facility] Comment on above: Cholesterol level, D esirable <200 mg/dLBorderline high cholesterol 200-239 mg/dLHigh cholesterol >=240 mg/dLRecommendations of the NCEP Adult Treatment Panel for the following risk-cutoff thresholds for the [place] population. Serum or plasma urea nitroge n measurement (mass/volume)Ordered By: Nica Henry on 09-03-2024 Urea nitrogen [Mass/Vol] 12 mg/dL 4-19 [facility] Sodium levelOrdered By: Mague lillyjim Carl on 09-03-2024 Sodium [Moles/Vol] 141 mmol/L 133-145 [facility] Total proteinOrdered By: Lee ayanaboy Akersmariemacy on 09-03-2024 Protein [Mass/Vol] 7.6 g/dL 5.9-8.4 [facility] Triglycerides measurementOrd ered By: Nica Akersmariemacy on 09-03-2024 Triglyceride [Mass/Vol] 156 mg/dL <199 [facility] Comment on above: The drugs N-Acetylcy steine and Metamizole may falsely depress this assay. Normal range: <150 mg/dLBorderline High: 150-199 mg/dLHigh: 200-499 mg/dLVery High: >500 mg/dL Urine Drug Screen (VISTA)on 09-03-2024 AMPHETAMINES Negative Normal <1000 ng/mL [facility] Comment on above: Order Comment: PAIN MANAGMENT MEDTOX Performed By: #### L 3410.9992, L505.5000 #### [facility] [address] [facility] [address] BARBITIURATES Negative Normal < 200 ng/mL [facility] Comment on above: Order Comment: PAIN MANAGMENT MEDTOX Performed By: #### L 3410.9992, L505.5000 #### [facility] [address] [facility] [place] [address] BENZODIAZIPINE Negative Normal < 200 ng/mL [facility] Comment on above: Order Comment: PAIN MANAGMENT MEDTOX Performed By: #### L 3410.9992, L505.5000 #### [facility] [address] [place], [address] BUP Ur Drug Scr Negative Normal < 200 ng/mL [facility] Comment on above: Order Comment: PAIN MANAGMENT MEDTOX Performed By: #### L 3410.9992, L505.5000 #### [facility] [address] [place], [address] COCAINE Negative Normal < 300 ng/mL [facility] Comment on above: Order Comment: PAIN MANAGMENT MEDTOX Performed By: #### L 3410.9992, L505.5000 #### [facility] [address] [place], [address] Fentanyl Negative Normal [facility] Comment on above: Order Comment: PAIN MANAGMENT MEDTOX Performed By: #### L 3410.9992, L505.5000 #### [facility] [address] [place], [address] METHADONE Negative Normal < 300 ng/mL [facility] Comment on above: Order Comment: PAIN MANAGMENT MEDTOX Performed By: #### L 3410.9992, L505.5000 #### [facility] [address] [place], [address] OPIATES Negative Normal < 300 ng/mL [facility] Comment on above: Order Comment: PAIN MANAGMENT MEDTOX Performed By: #### L 3410.9992, L505.5000 #### [facility] [address] [place], [address] OXYCODONE Negative Normal < 100 ng/mL [facility] Comment on above: Order Comment: PAIN MANAGMENT MEDTOX Performed By: #### L 3410.9992, L505.5000 #### [facility] [address] [place], [address] PCP Negative Normal < 25 ng/mL [facility] Comment on above: Order Comment: PAIN MANAGMENT MEDTOX Performed By: #### L 3410.9992, L505.5000 #### [facility] [address] [place], [address] THC Negative Normal < 50 ng/mL [facility] Comment on above: Order Comment: PAIN MANAGMENT MEDTOX Performed By: #### L 3410.9992, L505.5000 #### [facility] [address] [place], [address] Urine benzodiazepine levelOr dered By: Cruz Singh on 09-03-2024 Benzodiazepines Ql (U) Negative < 200 ng/mL [facility] Urine cocaine levelOrdered B y: Curz Basali on 09-03-2024 Cocaine Ql (U) Negative < 300 ng/mL [facility] Urine cbunp-1-nadlfxwmllhivr abinol (THC) measurementOrdered By: Cruz Singh on 09-03-2024 Cannabinoids Screen Ql (U) Negative < 50 ng/mL [facility] Urine phencyclidine (PCP) de tectionOrdered By: Cruz Álvarezi on 09-03-2024 Phencyclidine Ql (U) Negative < 25 ng/mL [facility] White blood cell (WBC) count Ordered By: Nica Henry on 09-03-2024 WBC (Bld) [#/Vol] 7.3 10*3/uL 4.4-11.0 [facility] Daycare Manager Office Visit Reporton 08-27-2024 Daycare Manager Office Visit Report [facility] [address], [address] [place] [address] OFFICE VISIT Date of Service: 08/27/24 MR#: [id number] Acct: [id number] Name: EZRA PEDRO Rep #: [id number] : 1970 Provider: Dr. 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 Required: No Is patient in pain?: Yes (has chronic back pain) Allergies guaifenesin Adverse Reaction (Intermediate, Verified 08/27/24 13:25) RASH sulfamethoxazole (From Bactrim) Adverse Reaction (Intermediate, Verified 08/27/24 13:25) RASH trimethoprim (From Bactrim) Adverse Reaction (Intermediate, Verified 08/27/24 13:25) RASH Medications ???Medication ???Instructions ???Recorded ???Confirmed ???Type tramadol 50 mg tablet 50 tablet PO TID pain 09/29/2211/14 History multivitamin (Daily Multi-Vitamin 1 tab PO DAILY vitamin 07/10/23 0 08/27/24 History tablet) carvedilol 6.25 mg tablet 6.25 mg PO BID #180 TABLETS 08/27/24 Rx trazodone 100 mg tablet 200 mg (2 x 100 mg) PO QHS sleep 3 02/07/24 08/27/24 Rx months #180 tabs pen needle, diabetic 32 gauge x #100 ea 07/03/24 07/03/24 Rx 3/16 (Comfort EZ Pen Harrell) tirzepatide (weight loss) 2.5 2.5 mg (0.5 mL) subcut QWEEK 4 07/1508/27/24 Rx mg/0.5 mL subcutaneous solution weeks #2 mL (Zepbound) duloxetine 60 mg capsule,delayed 60 mg PO QHS mental health #90 cap s 08/08/24 08/27/24 Rx release baclofen 10 mg tablet 10 mg PO TID PRN muscle spasm #90 08/25/24 08/27/24 Rx tabs Is last menstrual period known: No Post menopausal: No Patient : No : No PFSH Medical History Headache Vertigo Hyperlipidemia Dizziness Elevated liver enzymes Borderline type 2 diabetes mellitus Preoperative evaluation to rule out surgical contraindication Prediabetes Fatty liver disease, nonalcoholic Other obesity BMI 37.0-37.9, adult Flu vaccine need Lumbar radiculopathy Arthritis Climacteric Insomnia Gastritis History of echocardiogram History of stress test Wears glasses Wears contact lenses Non-smoker Cardiology follow-up encounter DDD (degenerative disc disease), lumbosacral Preventative health care Colon cancer screening Palpitations SOB (shortness of breath) on exertion Obesity Hypertension Abnormal stress test Family history of cerebral aneurysm Abnormal EKG Hypersomnolence Hx of degenerative disc disease Wears glasses Hx of emotional problems History of back pain Hx of chronic arthritis Gastroenteritis Migraine Contact with or suspected exposure to other viral communicable disease Acute pharyngitis Fibromyalgia Lab test negative for COVID-19 virus Acute frontal sinusitis, unspecified Fatigue Congestion of nasal sinus Loss of smell Loss of taste Kidney stone on right side Fibromyalgia Chest pain Surgical History S/P lateral meniscus repair of right knee History of left heart catheterization ( 06/15/22) Hx of wisdom tooth extraction H/O: hysterectomy Hx of cholecystectomy Hx of section Family History Unknown Adopted Social History adopted: Yes household members: spouse housing: house number of children: 1 current occupational status: employed 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 Date Name GA/Weeks Outcome Route Bth Weight Gen Labor Lgth Anesthesia Del [facility] Provider FOB Unknown [id number] HPI Encounter for routine gynecological examination Details: EZRA PEDRO is a 54 year old who presents for annual exam. Last PAP: hyst History of abnormal PAP: Last mammogram: 09/03/2023 - normal History of abnormal mammogram: no Colon cancer screening: up to date Other preventative health care screenings: PCP Carl Huffman Constitutional: Reports as per HPI; Denies fatigue, increased appetite, poor appetite or weight loss Cardio Card: Denies chest pain Resp Resp: Denies cough (more content not included)... Normal [facility] Internal Medicine Office Vis iton 07-03-2024 Internal Medicine Office Visit [facility] [address] [place] [address] OFFICE VISIT Date of Service: 07/03/24 MR#: [id number] Acct: [id number] Name: EZRA PEDRO Rep #: [id number] : 1970 Provider: Dr. Nica ellis MD Age/Sex: 53/F Location: [facility] [place] Status: Signed Intake Vital Signs 02/07/24 13:12 06/23/24 09:54 07/03/24 18:09 Height 6 ft 2 in 6 ft 2 in 6 ft 2 in Weight: 291 lb BMI 37.3 BP 136/82 H Blood Pressure Location Lt brachial Position Sitting Respiration 16 Pulse 89 Pulse Source Monitor Temp 97.6 F L Temp Source Temporal Pulse Oximetry (%) 99 Oxygen Delivery Method room air Intake Visit Reasons: FU Chief Complaint: Follow-up chronic conditions Income Tax Auditor Required: No Is patient in pain?: No Allergies guaifenesin Adverse Reaction (Intermediate, Verified 07/03/24 18:03) RASH sulfamethoxazole (From Bactrim) Adverse Reaction (Intermediate, Verified 07/03/24 18:03) RASH trimethoprim (From Bactrim) Adverse Reaction (Intermediate, Verified 07/03/24 18:03) RASH Medications ???Medication ???Instructions ???Recorded ???Confirmed ???Type tramadol 50 mg tablet 50 tablet PO TID pain 09/29/22 History multivitamin (Daily Multi-Vitamin 1 tab PO DAILY vitamin 07/10/23 0 07/03/24 History tablet) duloxetine 60 mg capsule,delayed 60 mg PO QHS mental health #90 cap s 08/13/23 07/03/24 Rx release carvedilol 6.25 mg tablet 6.25 mg PO BID #180 TABLETS 07/03/24 Rx trazodone 100 mg tablet 200 mg (2 x 100 mg) PO QHS sleep 3 02/07/24 07/03/24 Rx months #180 tabs diazepam 5 mg tablet (Valium) 5 mg PO BID PRN vertigo #20 tabs 1 04/28/23 07/03/24 Rx baclofen 10 mg tablet 10 mg PO TID pain #90 tabs 5 07/03/24 Rx pen needle, diabetic 32 gauge x #100 ea 07/03/24 07/03/24 Rx 3/16 (Comfort EZ Pen Harrell) tirzepatide (weight loss) 2.5 2.5 mg (0.5 mL) subcut QWEEK 4 07/03/24 Rx mg/0.5 mL subcutaneous solution weeks #2 mL (Zepbound) [facility] Medical History (Updated 07/03/24 @ 18:[address] Nica Henry MD) Headache Vertigo Hyperlipidemia Dizziness Elevated liver enzymes Borderline type 2 diabetes mellitus Preoperative evaluation to rule out surgical contraindication Prediabetes Fatty liver disease, nonalcoholic Other obesity BMI 37.0-37.9, adult Flu vaccine need Lumbar radiculopathy Arthritis Climacteric Insomnia Gastritis History of echocardiogram History of stress test Wears glasses Wears contact lenses Non-smoker Cardiology follow-up encounter DDD (degenerative disc disease), lumbosacral Preventative health care Colon cancer screening Palpitations SOB (shortness of breath) on exertion Obesity Hypertension Abnormal stress test Family history of cerebral aneurysm Abnormal EKG Hypersomnolence Hx of degenerative disc disease Wears glasses Hx of emotional problems History of back pain Hx of chronic arthritis Gastroenteritis Migraine Contact with or suspected exposure to other viral communicable disease Acute pharyngitis Fibromyalgia Lab test negative for COVID-19 virus Acute frontal sinusitis, unspecified Fatigue Congestion of nasal sinus Loss of smell Loss of taste Kidney stone on right side Fibromyalgia Chest pain Surgical History History of left heart catheterization ( 06/15/22) Hx of wisdom tooth extraction H/O: hysterectomy Hx of cholecystectomy Hx of section Family History Unknown Adopted Social History adopted: Yes household members: spouse housing: house number of children: 1 current occupational status: employed 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 [employer] sexually active: No Smoking Status: Never smoker alcohol intake: current alcohol intake frequency: holidays/special occasions only substance use type: does not use caffeine: Yes Type: coffee Number of servings: 1 what type of physical activity do you participate in: none seatbelt use: always do you feel safe at home: Yes additional social history: Spouse - Romeo (senior quality assurance engineer for the [employer]) HPI HPI Chief Complaint: Follow-up chronic conditions Details: EZRA PEDRO, is a 53 F who presents to the office today for follow-up of her chronic conditions. No acute concerns at this time. Was seen 2 weeks ago for an acute visit. Had reported significant headache. Baclofen was increased and she was started on a Medrol Dosepak as well. She states her symptoms have improved/essentially resolved. No acute concerns in that regard. History of borderline diabetes, A1c today is at 6.4 up from 6.2. Was tried on metformin but did not (more content not included)... Normal [facility] - Hematology and Cell countsOrdered By: Nica Henry on 07-03-2024 HbA1c (Bld) [Mass fraction] 6.4 % High 4.2-6.3 [facility] Internal Medicine Office Vis rgioberto 06-23-2024 Internal Medicine Office Visit [facility] [address] [place] [address] [place] [address] OFFICE VISIT Date of Service: 06/23/24 MR#: [id number] Acct: [id number] Name: EZRA PEDRO Rep #: [id number] : 1970 Provider: Dr. Nica ellis MD Age/Sex: 53/F Location: [facility] [place] Status: Signed Intake Vital Signs 02/07/24 13:12 06/23/24 09:54 Height 6 ft 2 in 6 ft 2 in Weight: 291 lb 288 lb 6 oz BMI 37.3 37.0 BP 110/70 126/82 H Blood Pressure Location Lt brachial Lt brachial Position Sitting Sitting Respiration 16 16 Pulse 78 64 Pulse Source Monitor Monitor Temp 97.3 F L 96.5 F L Temp Source Temporal Temporal Pulse Oximetry (%) 98 100 Oxygen Delivery Method room air room air Intake Visit Reasons: severe headache x1 week Chief Complaint: headache Income Tax Auditor Required: No Accompanied by: Self Is patient in pain?: No Allergies guaifenesin Adverse Reaction (Intermediate, Verified 06/23/24 09:52) RASH sulfamethoxazole (From Bactrim) Adverse Reaction (Intermediate, Verified 06/23/24 09:52) RASH trimethoprim (From Bactrim) Adverse Reaction (Intermediate, Verified 06/23/24 09:52) RASH Medications ???Medication ???Instructions ???Recorded ???Confirmed ???Type tramadol 50 mg tablet 50 tablet PO TID pain 09/29/2207/15 History multivitamin (Daily Multi-Vitamin 1 tab PO DAILY vitamin 07/10/23 0 06/23/24 History tablet) duloxetine 60 mg capsule,delayed 60 mg PO QHS mental health #90 cap s 08/13/23 06/23/24 Rx release carvedilol 6.25 mg tablet 6.25 mg PO BID #180 TABLETS 06/23/24 Rx trazodone 100 mg tablet 200 mg (2 x 100 mg) PO QHS sleep 3 02/07/24 06/23/24 Rx months #180 tabs diazepam 5 mg tablet (Valium) 5 mg PO BID PRN vertigo #20 tabs 1 04/28/23 06/23/24 Rx baclofen 10 mg tablet 10 mg PO TID pain #90 tabs 5 06/23/24 Rx methylprednisolone 4 mg tablets in See Rx Instructions PO PER PKG D IR 06/23/24 06/23/24 Rx a dose pack (Medrol (Theresa)) #21 tabs Have you fallen in the past year?: No Nurse's Note: has had headache for almost 2 weeks PFSH Medical History (Updated 06/23/24 @ 12:[address] Nica Henry MD) Headache Vertigo Hyperlipidemia Dizziness Elevated liver enzymes Borderline type 2 diabetes mellitus Preoperative evaluation to rule out surgical contraindication Prediabetes Fatty liver disease, nonalcoholic Other obesity BMI 37.0-37.9, adult Flu vaccine need Lumbar radiculopathy Arthritis Climacteric Insomnia Gastritis History of echocardiogram History of stress test Wears glasses Wears contact lenses Non-smoker Cardiology follow-up encounter DDD (degenerative disc disease), lumbosacral Preventative health care Colon cancer screening Palpitations SOB (shortness of breath) on exertion Obesity Hypertension Abnormal stress test Family history of cerebral aneurysm Abnormal EKG Hypersomnolence Hx of degenerative disc disease Wears glasses Hx of emotional problems History of back pain Hx of chronic arthritis Gastroenteritis Migraine Contact with or suspected exposure to other viral communicable disease Acute pharyngitis Fibromyalgia Lab test negative for COVID-19 virus Acute frontal sinusitis, unspecified Fatigue Congestion of nasal sinus Loss of smell Loss of taste Kidney stone on right side Fibromyalgia Chest pain Surgical History History of left heart catheterization ( 06/15/22) Hx of wisdom tooth extraction H/O: hysterectomy Hx of cholecystectomy Hx of section Family History Unknown Adopted Social History adopted: Yes household members: spouse housing: house number of children: 1 current occupational status: employed 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 She reports headache that has been ongoing for 2 weeks. Feels like it is in the center of her head with some radiation to the sides. Present all the time. Wakes up with it. Slight nausea but no blurring of her vision, lightheadedness, vomiting or otherwise feeling of unwell. Had a massage therapy yesterday which helped some but not completely. Other c (more content not included)... Normal [facility] Brain W/WO Contraston 2023 Brain W/WO Contrast [facility] Imaging Services [address] [place], [place] [id number] Brain W/WO Contrast MR#: [id number] Acct: [id number] Name: EZRA PEDRO Rep #: [id number] : 1970 F 53 From: Kiran bach MD PCP: Dr. Nica Henry MD Status: REG CLI Study: Brain W/WO Contrast Date of Exam: 03/24/24 Exam# [id number] Ordering [place]: [place] [id number] STUDY: MRI BRAIN WITH AND WITHOUT CONTRAST (ATTENTION INTERNAL AUDITORY CANALS - I.A.C.''s) REASON FOR EXAM: Female, 53 years old. ASYMMETRICAL HEARING LOSS -- IAC, VERTIGO [id number] TECHNIQUE: Standardized multiplanar fat and water weighted pulse sequences were obtained. ml of 25 cc clariscan contrast material was administered intravenously for the contrast portion of the examination. COMPARISON: MRI of the brain dated November 29, 2023. FINDINGS: Internal auditory canal findings: Normal bilateral temporal bones. Normal bilateral internal auditory canals. There is no demonstrated intracanalicular or cisternal vestibular schwannoma (acoustic neuroma). There is no enhancement of the bilateral VIIth or VIIIth cranial nerves. Normal bilateral cochlea, vestibules and semicircular canals. No mastoid air cell opacification is present. No cerebellar pontine angle mass or cyst is seen. There is no demonstrated lesions of the cavernous sinus. No nodularity or abnormal enhancement is seen in the 7th or 8th cranial nerves within IACs. No demonstrated Mondini''s malformation. BRAIN FINDINGS: Normal size of the ventricles and extra-axial spaces for the patient''s age. Normal white matter tracts of the supratentorial brain. There are no demyelinating plagues of the supratentorial brain, brainstem or cerebellum. There are no findings suspicious for multiple sclerosis (MS). There is no evidence for recent intracranial ischemia or other cause of cytotoxic edema on diffusion weighted imaging (DWI). Normal bilateral frontal poles, and orbital frontal and gyrus recti of the frontal lobes. Normal bilateral temporal tips of the temporal lobes. There are no white matter shear injuries (diffuse axonal injuries). There are no parenchymal hemorrhages or hematomas. There are no findings to suggest prior closed head parenchymal injury of the brain. No hydrocephalus or midline shift is present. There are no visualized ring-enhancing lesions of the brain parenchyma or abnormal thickening or enhancement of the meninges or dura. Normal bilateral basal ganglia. Normal thalami. Normal flow voids within the major intracranial circulation suggesting patency by spin echo criteria. Normal venous enhancement. There is no enhancing intra-axial or extra-axial abnormality. There is no extra-axial fluid accumulation. Normal sella turcica, pituitary gland, infundibular stalk, optic chiasm and hypothalamus. Normal tectal plate and pineal gland. Normal midbrain, ese and medulla. Normal cerebellum. Normal basal cisterns. No demonstrated orbital abnormality, within the constraints of a routine brain study. Normal visualized paranasal sinuses. Normal calvarium and skull base. Normal visualized soft tissue structures. Normal visualized upper cervical spine. MRI/Brain W/WO Contrast IMPRESSION: 1. Normal unenhanced and enhanced MRI of the bilateral internal auditory canals (I.A.C''s). 2. Normal enhanced MRI of the brain. Electronically Signed: Kiran Gallegos MD at 11:29 EST Reading Location ID and State: [facility] / [place] , Service support , CC: Dr. Vahid Pettit MD; Dr. Nica Henry MD Architectural Renderer: Signed Normal [facility] Internal Medicine Office Vis anthonyalesha 02-07-2024 Internal Medicine Office Visit [facility] [address] [place] [address] [place] [address] OFFICE VISIT Date of Service: 02/07/24 MR#: [id number] Acct: [id number] Name: EZRA PEDRO Rep #: [id number] : 1970 Provider: Dr. Nica ellis MD Age/Sex: 53/F Location: [facility] [place] Status: Signed Intake Vital Signs 11/29/23 12:23 01/17/24 08:33 02/07/24 13:12 Height 6 ft 2 in 6 ft 2 in 6 ft 2 in Weight: 291 lb BMI 37.3 BP 110/70 Blood Pressure Location Lt brachial Position Sitting Respiration 16 Pulse 78 Pulse Source Monitor Temp 97.3 F L Temp Source Temporal Pulse Oximetry (%) 98 Oxygen Delivery Method room air Intake Visit Reasons: FU Chief Complaint: Follow-up chronic conditions Income Tax Auditor Required: No Is patient in pain?: Yes (L ear) Pain scale (1-10): 4 Allergies guaifenesin Adverse Reaction (Intermediate, Verified 02/07/24 12:59) RASH sulfamethoxazole (From Bactrim) Adverse Reaction (Intermediate, Verified 02/07/24 12:59) RASH trimethoprim (From Bactrim) Adverse Reaction (Intermediate, Verified 02/07/24 12:59) RASH Medications ???Medication ???Instructions ???Recorded ???Confirmed ???Type baclofen 5 mg tablet 5 mg PO TID pain 08/21/22 02/07/24 History tramadol 50 mg tablet 50 tablet PO TID pain 09/29/22 02/07/24 History trazodone 100 mg tablet 200 mg (2 x 100 mg) PO QHS sleep 3 04/10/23 02/07/24 Rx months #180 tabs multivitamin (Daily Multi-Vitamin 1 tab PO DAILY vitamin 07/10/23 02/07/24 History tablet) duloxetine 60 mg capsule,delayed 60 mg PO QHS mental health #90 caps 08/13/23 02/07/24 Rx release carvedilol 6.25 mg tablet 6.25 mg PO BID #180 TABLETS 01/23/24 02/07/24 Rx diazepam 5 mg tablet (Valium) 5 mg PO BID PRN vertigo #20 tabs 02/07/24 02/07/24 Rx [facility] Medical History (Updated 02/07/24 @ 16:[address] Nica Henry MD) Vertigo Hyperlipidemia Dizziness Elevated liver enzymes Borderline type 2 diabetes mellitus Preoperative evaluation to rule out surgical contraindication Prediabetes Fatty liver disease, nonalcoholic Other obesity BMI 37.0-37.9, adult Flu vaccine need Lumbar radiculopathy Arthritis Climacteric Insomnia Gastritis History of echocardiogram History of stress test Wears glasses Wears contact lenses Non-smoker Cardiology follow-up encounter DDD (degenerative disc disease), lumbosacral Preventative health care Colon cancer screening Palpitations SOB (shortness of breath) on exertion Obesity Hypertension Abnormal stress test Family history of cerebral aneurysm Abnormal EKG Hypersomnolence Hx of degenerative disc disease Wears glasses Hx of emotional problems History of back pain Hx of chronic arthritis Gastroenteritis Migraine Contact with or suspected exposure to other viral communicable disease Acute pharyngitis Fibromyalgia Lab test negative for COVID-19 virus Acute frontal sinusitis, unspecified Fatigue Headache Congestion of nasal sinus Loss of smell Loss of taste Kidney stone on right side Fibromyalgia Chest pain Surgical History History of left heart catheterization ( 06/15/22) Hx of wisdom tooth extraction H/O: hysterectomy Hx of cholecystectomy Hx of section Family History Unknown Adopted Social History adopted: Yes household members: spouse housing: house number of children: 1 current occupational status: employed 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 [employer] sexually active: No Smoking Status: Never smoker alcohol intake: current alcohol intake frequency: holidays/special occasions only substance use type: does not use caffeine: Yes Type: coffee Number of servings: 1 what type of physical activity do you participate in: none seatbelt use: always do you feel safe at home: Yes additional social history: Spouse - Romeo (senior quality assurance engineer for the [employer]) HPI HPI Chief Complaint: Follow-up chronic conditions Details: EZRA PEDRO, is a 53 F who presents to the office today for follow-up of her chronic medical conditions. Also has some concerns. Status post hospital admission in November due to worsening dizziness. Had workup done to rule out a stroke which came back negative. Since then, has had intermittent episodes. Had some sessions at the vestibular clinic/physical therapy with some improvement but not complete resolution. Was prescribed meclizine but has not tried it because did not find it effective during her hospital stay. Over the last week, she has noted a fullness/pressure in left ear. No drainage, chills or fever. History of borderline diabetes, A1c is at 6.2 similar to last check. She states that she has real (more content not included)... Normal [facility] Cardiology Visit Reporton Cardiology Visit Report [facility] [facility] [place] [address] OFFICE VISIT Date of Service: 01/17/24 MR#: [id number] Acct: [id number] Name: EZRA PEDRO Rep #: [id number] : 1970 Provider: Dr. Guadalupe Suzao MD Age/Sex: 53/F Location: [facility] [place] Status: Signed HPI HPI History of Present Illness Details: This lady is here for follow-up visit. Denies any complaints. No chest pains or shortness of breath. No orthopnea. No PND. No ankle edema. Intake Vital Signs 11/29/23 12:23 01/17/24 08:33 Height 6 ft 2 in 6 ft 2 in Weight: 290 lb BMI 37.2 BP 119/61 Blood Pressure Location Lt brachial Position Sitting Respiration 16 Pulse 68 Pulse Source NIBP Intake Visit Reasons: 1 Y FU Income Tax Auditor Required: No Accompanied by: Self Is patient in pain?: Yes (fibromyalgia) Allergies guaifenesin Adverse Reaction (Intermediate, Verified 01/17/24 13:18) RASH sulfamethoxazole (From Bactrim) Adverse Reaction (Intermediate, Verified 01/17/24 13:18) RASH trimethoprim (From Bactrim) Adverse Reaction (Intermediate, Verified 01/17/24 13:18) RASH Ejection fraction %: 60 Have you fallen in the past year?: No PFSH Medical History Abnormal EKG Abnormal stress test Acute frontal sinusitis, unspecified Acute pharyngitis Arthritis BMI 37.0-37.9, adult Borderline type 2 diabetes mellitus Cardiology follow-up encounter Chest pain Climacteric Colon cancer screening Congestion of nasal sinus Contact with or suspected exposure to other viral communicable disease DDD (degenerative disc disease), lumbosacral Dizziness Elevated liver enzymes Family history of cerebral aneurysm Fatigue Fatty liver disease, nonalcoholic Fibromyalgia Fibromyalgia Flu vaccine need Gastritis Gastroenteritis Headache History of back pain History of echocardiogram History of stress test Hx of chronic arthritis Hx of degenerative disc disease Hx of emotional problems Hypersomnolence Hypertension Insomnia Kidney stone on right side Lab test negative for COVID-19 virus Loss of smell Loss of taste Lumbar radiculopathy Migraine Non-smoker Obesity Other obesity Palpitations Prediabetes Preoperative evaluation to rule out surgical contraindication Preventative health care SOB (shortness of breath) on exertion Wears contact lenses Wears glasses Wears glasses Surgical History H/O: hysterectomy History of left heart catheterization ( 06/15/22) Hx of section Hx of cholecystectomy Hx of wisdom tooth extraction Family History Unknown Adopted Social History adopted: Yes household members: spouse housing: house number of children: 1 current occupational status: employed 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 [employer] sexually active: No Smoking Status: Never smoker alcohol intake: current alcohol intake frequency: holidays/special occasions only substance use type: does not use caffeine: Yes Type: coffee Number of servings: 1 what type of physical activity do you participate in: none seatbelt use: always do you feel safe at home: Yes additional social history: Spouse - Romeo (senior quality assurance engineer for the [employer]) ROS Const Const: Positive for headache(s) (abnormal migraine 2 days ago); Negative for fatigue, weakness or weight gain ENT ENT: Positive for headache(s) (abnormal migraine 2 days ago); Negative for dizziness, Nosebleed/epistaxis or balance problems Cardio Chest Pain: Yes (tightness with extreme exertion; no pain) Character: tightness Palpitations: No Edema: None Muscle aches with walking: None Resp Respiratory: Negative for SOB with activity, SOB at rest or SOB orthopnea SOB lying down GI GI: Negative nausea, vomiting or heartburn Musc Musc: Positive for muscle aches/ myalgia (chronic; fibromyalgio) and joint pain (chronic back pain; seeing pain mgmt); Negative for muscle weakness or balance problems Neuro Neuro: Positive for headache(s) (abnormal migraine 2 days ago); Negative for dizziness, lightheadedness, near syncope, syncope or weakness Endo Endo: Negative for fatigue Cardiology Exam Const Appearance: comfortable and no acute distress Nutritional Appearance: obese Neck Neck: no JVD Carotids: Negative bruit Chest Auscultation: Bilateral: Clear to Auscultation Cardio Rate: regular rate Rhythm: regular rhythm Heart sounds: S1 normal and S2 normal GI GI: obese Neuro General: patient alert, patient awake and patient oriented x3 Extremities Lower Extremity Edema: None: Bilateral Supplemental Info Supplemental (more content not included)... Normal [facility] PT D/C Summary (1)on 024 PT D/C Summary (1) [facility] Physical Therapy [facility] [address] [place] [address] [address] [place] [address] / REHABILITATION SERVICES DISCHARGE SUMMARY MR#: [id number] Acct: [id number] Name: EZRA PEDRO Rep #: [id number] : 1970 53 From: Saurabh Hernandez DPT, OCS, CSCS Referring Dr.: Dr. Nilton Reynolds MD Status: RE G RCR Insurance: [employer] SELF PAY INSURANCE Discharge Summary D/C summary: It has been my pleasure to treat EZRA SMYTH MAYELA referred by Dr. Nilton Reynolds MD, with the diagnosis of dizzyness for a total of 4 visit(s). Discharge Date: 01/11/24 Please see the following information for a summary of their discharge status. Subjective Subjective: Had a few spurts over last weekend and did juan r herself and that seemed to help. did that Sunday and has not had dizzyness since. Gets it moving head to side just for a half second but transient. Maybe 1-2x/day. Rolling to side not a problem this week. Balance is good. Overall Improvement % Improvement: 95 Objective Objective/Function: - B hallpike lida - roll test walking normal with good balance Some quick transient goofy head feeling with head turns but only for a second. Goals Goal 1:: FGA Goal Progress: Goal Met Goal 2:: - positional tests for symptoms Goal Progress: Goal Met Goal 3:: Pt feel 100% back to normal Goal Progress: 95 Goal 4:: DHI score 10 or less. Goal Progress: Goal Met Plan Plan: d/c to HEP of head turns 10x 4x/day and pt to doctor henry in 2 weeks, will call prior if situation does not continue to improve. D/C Information Discharge Comments: Will f/u with doctor in 2 weeks. d/c sentence: If there are questions or concerns regarding this patient's physical therapy, please feel free to call me at [phone]. Thank you for the referral of this patient. Sincerely, Saurabh Hernandez, DPT, OCS, CSCS Balance/Gait/Functional tests Balance/Special Test Scores Functional Gait Assessment Score: 29 % Disability: 3.3400 Dizziness Score: 4 Improvement % Improvement: 95 01/11/24 0749 CC: Dr. Nica Henry MD; Dr. Nilton Reynolds MD EBG Signed Normal [facility] Basophil percentageOrdered B y: Marisa Stuart on 06-19-2023 Cholesterol [Mass/Vol] 175 mg/dL <200 [facility] Comment on above: <200 mg/dL Desirable 200-240 mg/dL Borderline >240 mg/dL High Risk Triglyceride [Mass/Vol] 329 mg/dL <199 [facility] Comment on above: The drugs N-Acetylcy steine and Metamizole may falsely depress this assay.Serum Triglycerides Reference Interval Normal <150 mg/dL Borderline high 150 - 199 mg/dL High 200 - 499 mg/dL Very High > or = 500 mg/dL Laboratory - Chemistry and C hemistry - challengeOrdered By: Marisa Stuart on 06-19-2023 Cholesterol in HDL [Mass/Vol] 30 mg/dL >40 [facility] Comment on above: The drugs N-Acetylcy steine and Metamizole may falsely depress this assay. Reference Range HDL <40 mg/dL Low HDL Cholesterol HDL >or= 60 mg/dL High HDL Cholesterol Cholesterol in LDL [Mass/Vol] 79 mg/dL 0-130 [facility] No Panel InformationOrdered By: Marisa Stuart on 06-19-2023 VLDL Cholesterol 66 mg/dL 5-40 [facility] Serum or plasma calcitriol m easurement (mass/volume)Ordered By: Marisa Stuart on 06-19-2023 1,25-dihydroxyvitamin D3 [Mass/Vol] 45.5 pg/mL 24.8-81.5 [facility] Comment on above: Performed at: [address] [id number] Director: Eula Geronimo MD, Phone: [phone] Serum or plasma thyroid stim ulating hormone (TSH) measurement (units/volume)Ordered By: Marisa Stuart on 06-19-2023 TSH Qn 2.61 uIU/mL 0.358-3.74 [facility] Whole blood hemoglobin A1c/t otal hemoglobin ratio (mass fraction)Ordered By: Marisa Stuart on 06-19-2023 HbA1c (Bld) [Mass fraction] 6.3 % 3.8-5.6 [facility] Comment on above: Normal < 5.7 % Predi abetic 5.7 - 6.4 % Diabetic >or= 6.5 % Please note range changes. Absolute lymphocyte countOrd ered By: Tricia Gonsalves on 05-16-2023 Lymphocytes Auto (Unsp spec) [#/Vol] 1.61 10*3/uL 0.83-4.51 [facility] Automated lymphocyte count a s percentage of total leukocytesOrdered By: Tricia Gonsalves on 05-16-2023 Lymphocytes/100 WBC Auto (Unsp spec) 24.0 % 19-41 [facility] Basophil percentageOrdered B y: Tricia Gonsalves on 05-16-2023 Basophil percentage < 10.0 IU/mL <15 [facility] Basophils/100 WBC (Bld) 0.7 % 0-1 [facility] Bilirubin [Mass/Vol] 0.60 mg/dL 0.20-1.00 [facility] Comment on above: For patients on eltr ombopag therapy, use of Dimension [place] TBIL is not recommended. Chloride [Moles/Vol] 112 mmol/L 98-107 [facility] Eosinophils/100 WBC (Bld) 5.1 % 0-5 [facility] Glucose [Mass/Vol] 104 mg/dL 74-106 [facility] Comment on above: Fasting Glucose resu lt from 100 to 125 mg/dL suggests IMPAIRED HOMEOSTASIS per A.D.A. criteria. Hemoglobin (Bld) [Mass/Vol] 13.6 g/dL 12.0-15.0 [facility] Monocytes/100 WBC (Bld) 6.1 % 0-10 [facility] Neutrophils (Bld) [#/Vol] 4.3 10*3/uL 2.0-7.7 [facility] Neutrophils/100 WBC (Bld) 63.8 % 47-70 [facility] Potassium [Moles/Vol] 4.2 mmol/L 3.5-5.1 [facility] Protein [Mass/Vol] 7.5 g/dL 6.4-8.2 [facility] Sodium [Moles/Vol] 140 mmol/L 136-145 [facility] WBC (Bld) [#/Vol] 6.7 10*3/uL 4.4-11.0 [facility] Determination of erythrocyte mean corpuscular volume (MCV)Ordered By: Tricia Gonsalves on 05-16-2023 MCV (RBC) [Entitic vol] 85.8 fL 81-99 [facility] Erythrocyte distribution wid th ratioOrdered By: Tricia Gonsalves on 05-16-2023 Erythrocyte distribution width (RBC) [Ratio] 13.8 % 11.6-14.6 [facility] Erythrocyte distribution wid th standard deviationOrdered By: Tricia Gonsalves on 05-16-2023 Erythrocyte distribution width (RBC) [Entitic vol] 42.5 fL 35.1-43.9 [facility] Erythrocyte sedimentation ra teOrdered By: Tricia Gonsalves on 05-16-2023 ESR (Bld) [Velocity] 8 mm/h 0-30 [facility] Hematocrit Auto (Bld) [Volum e fraction]Ordered By: Tricia Gonsalves on 05-16-2023 Hematocrit (Bld) [Volume fraction] 41.8 % 37-47 [facility] Immature granulocytes/100 WB C Auto (Bld)Ordered By: Tricia Gonsalves on 05-16-2023 Immature granulocytes/100 WBC (Bld) 0.300 % 0.0-0.9 [facility] Comment on above: IG% - Immature Granu locytes (promyelocytes, myelocytes and metamyelocytes) > 1% indicates that a LEFT SHIFT is Present. Laboratory - Chemistry and C hemistry - challengeOrdered By: Tricia Gonsalves on 05-16-2023 Albumin/Globulin [Mass ratio] 1.0 {ratio} 0.9-2.4 [facility] ALP [Catalytic activity/Vol] 114 U/L 45-117 [facility] ALT [Catalytic activity/Vol] 67 U/L 13-56 [facility] CO2 [Moles/Vol] 24.0 mmol/L 21.0-32.0 [facility] Globulin (S) [Mass/Vol] 3.8 g/dL 2.2-4.2 [facility] Urea nitrogen/Creatinine [Mass ratio] 20.0 mg/mg 10-20 [facility] Laboratory - Hematology and Cell countsOrdered By: Tricia Gonsalves on 05-16-2023 MCH (RBC) [Entitic mass] 27.9 pg 27.0-32.0 [facility] MCHC (RBC) [Mass/Vol] 32.5 g/dL 32-36 [facility] Nucleated RBC/100 WBC (Bld) [Ratio] 0 % 0-5 [facility] Platelets (Bld) [#/Vol] 268 10*3/uL 150-450 [facility] No Panel InformationOrdered By: Tricia oGnsalves on 05-16-2023 Anti-Nuclear Antibody Screen Negative Negative [facility] Comment on above: Performed at: [address] [id number] Director: Dmitry Gill PhD, Phone: [phone] C-Reactive Protein Extended Range 18.40 mg/L 0.0-3.0 [facility] Comment on above: C-Reactive Protein ( CRP) provides useful information for thediagnosis, therapy and monitoring of inflammatory processesand associated diseases. For the evaluation of Relative Riskfor Cardiovascular Disease, a High Sensitivity CRP (HSCRP)should be ordered. Estimated GFR (MDRD) Amer 75 mL/min >60 [facility] Comment on above: GFR Calc Estimated GFR (MDRD) Non-Af Amer 62 mL/min >60 [facility] Comment on above: Non- GFR Calc Hepatitis B Surface Antigen Non-Reactive Nonreactive [facility] Hepatitis C Antibody Non-Reactive Nonreactive [facility] Comment on above: Non Reactive: < 0.8 Equivocal: >/= 0.8 to < 1.0 Reactive: >/= 1.0The CDC recommends that a reactive/equivocal HCV antibody result be followed up by the HCV Nucleic Acid Amplificationtest ([id number]) Platelet mean volume Stu-Ec ker (Bld) [Entitic vol]Ordered By: Tricia Gonsalves on 05-16-2023 Platelet mean volume (Bld) [Entitic vol] 10.4 fL 6.2-12.0 [facility] RBC Auto (Bld) [#/Vol]Ordere d By: Tricia Gonsalves on 05-16-2023 RBC (Bld) [#/Vol] 4.87 10*6/uL 4.2-5.4 [facility] SS-B IgG antibody assayOrder ed By: Tricia Gonsalves on 05-16-2023 Sjogrens syndrome-B extractable nuclear IgG Qn (S) 0.2 AI 0.0-0.9 [facility] Sjogrens syndrome-B extractable nuclear IgG Qn (S) < 0.2 AI 0.0-0.9 [facility] Serum cyclic citrullinated p eptide IgG antibody assay (units/volume)Ordered By: Tricia Gonsalves on 05-16-2023 Cyclic citrullinated peptide IgG Qn 14 units 0-19 [facility] Comment on above: Negative <20 Weak po sitive 20 - 39 Moderate positive 40 - 59 Strong positive >59Performed at: [facility] [id number] Director: Dmitry Gill PhD, Phone: [phone] Serum hepatitis B virus surf tatum antibody IgG detectionOrdered By: Tricia Gonsalves on 05-16-2023 HBV surface IgG Ql (S) Non-Reactive [facility] Comment on above: Non Reactive: Incons istent with immunity less than <10 mIU/mL Reactive: Consistent with immunity greater than or equal to 10 mIU/mL Serum or plasma calcium mesfin urement (mass/volume)Ordered By: Tricia Gonsalves on 05-16-2023 Calcium [Mass/Vol] 9.3 mg/dL 8.5-10.1 [facility] Serum or plasma creatinine m easurement (mass/volume)Ordered By: Tricia Gonsalves on 05-16-2023 Creatinine [Mass/Vol] 1.00 mg/dL 0.55-1.02 [facility] Comment on above: The validity of the calculated GFR & GFRAA in patients over 70 years has not been determined. Clinical correlation is essential. Serum or plasma urea nitroge n measurement (mass/volume)Ordered By: Tricia Gonsalves on 05-16-2023 Urea nitrogen [Mass/Vol] 20 mg/dL 7-18 [facility] Thin prep Papanicolaou smear with manual screeningOrdered By: Tricia Gonsalves on 05-16-2023 Thin prep Papanicolaou smear with manual screening 3.7 g/dL 3.2-5.0 [facility] Thin prep Papanicolaou smear with manual screening 41 U/L 15-37 [facility] Thin prep Papanicolaou smear with manual screening 4 5-15 [facility] Laboratory - Drug toxicology Ordered By: Cruz Singh on 11-16-2022 Amphetamines Ql (U) Negative <1000 ng/mL [facility] Benzodiazepines Ql (U) Negative < 200 ng/mL [facility] Cannabinoids Screen Ql (U) Positive < 50 ng/mL [facility] Cocaine Ql (U) Negative < 300 ng/mL [facility] Opiates Ql (U) Negative < 300 ng/mL [facility] No Panel InformationOrdered By: Cruz Singh on 11-16-2022 MDMA (Ecstasy) Screen Positive < 500 ng/mL [facility] Urine Barbiturates Screen Negative < 200 ng/mL [facility] Urine Drug Screen Comment [facility] Comment on above: CONFIRMATORY TESTING FOR ALL POSITIVE URINE DRUG SCREENRESULTS WILL ONLY BE SENT OUT UPON PHYSICIAN ORDER. VISTA Urine Drug Screen methods provide only preliminaryanalytical test results. A more specific alternate chemicalmethod must be used in order to obtain a confirmedanalytical result. Gas chromatography/mass spectrometery(GC/MS) is the preferred confirmatory method. Clinicalconsideration and professional judgement should be appliedto any drug of abuse test result, particularly whenpreliminary positive results are used. URINE TCA TESTING MUST BE ORDERED SEPARATELY. USE TESTMNEMONIC: [facility] Urine Methadone Screen Negative < 300 ng/mL [facility] Urine phencyclidine (PCP) de tectionOrdered By: Cruz Singh on 11-16-2022 Phencyclidine Ql (U) Negative < 25 ng/mL [facility] Basophil percentageOrdered B y: Dr. Arce on 10-06-2022 Chloride [Moles/Vol] 107 mmol/L 98-107 [facility] Glucose [Mass/Vol] 115 mg/dL 74-106 [facility] Comment on above: Fasting Glucose resu lt from 100 to 125 mg/dL suggests IMPAIRED HOMEOSTASIS per A.D.A. criteria. Potassium [Moles/Vol] 3.8 mmol/L 3.5-5.1 [facility] Sodium [Moles/Vol] 140 mmol/L 136-145 [facility] Laboratory - Chemistry and C hemistry - challengeOrdered By: Dr. Arce on 10-06-2022 CO2 [Moles/Vol] 28.0 mmol/L 21.0-32.0 [facility] Urea nitrogen/Creatinine [Mass ratio] 14.6 mg/mg 10-20 [facility] No Panel InformationOrdered By: Dr. Arce on 10-06-2022 Estimated Creatinine Clearance Calc 78.37 ml/min [facility] Estimated GFR (MDRD) Amer 72 mL/min >60 [facility] Comment on above: GFR Calc Estimated GFR (MDRD) Non-Af Amer 60 mL/min >60 [facility] Comment on above: Non- GFR Calc Serum or plasma calcium mesfin urement (mass/volume)Ordered By: Dr. Arce on 10-06-2022 Calcium [Mass/Vol] 9.0 mg/dL 8.5-10.1 [facility] Serum or plasma creatinine m easurement (mass/volume)Ordered By: Dr. Arce on 10-06-2022 Creatinine [Mass/Vol] 1.03 mg/dL 0.55-1.02 [facility] Comment on above: The validity of the calculated GFR & GFRAA in patients over 70 years has not been determined. Clinical correlation is essential. Serum or plasma urea nitroge n measurement (mass/volume)Ordered By: Dr. Arce on 10-06-2022 Urea nitrogen [Mass/Vol] 15 mg/dL 7-18 [facility] Thin prep Papanicolaou smear with manual screeningOrdered By: Dr. Arce on 10-06-2022 Thin prep Papanicolaou smear with manual screening 5 5-15 [facility] Basophil percentageOrdered B y: Dr. Suazo on 05-25-2022 Chloride [Moles/Vol] 110 mmol/L 98-107 [facility] Cholesterol [Mass/Vol] 146 mg/dL <200 [facility] Comment on above: <200 mg/dL Desirable 200-240 mg/dL Borderline >240 mg/dL High Risk Glucose [Mass/Vol] 124 mg/dL 74-106 [facility] Comment on above: Fasting Glucose resu lt from 100 to 125 mg/dL suggests IMPAIRED HOMEOSTASIS per A.D.A. criteria. Potassium [Moles/Vol] 4.2 mmol/L 3.5-5.1 [facility] Sodium [Moles/Vol] 142 mmol/L 136-145 [facility] Triglyceride [Mass/Vol] 173 mg/dL <199 [facility] Comment on above: The drugs N-Acetylcy steine and Metamizole may falsely depress this assay.Serum Triglycerides Reference Interval Normal <150 mg/dL Borderline high 150 - 199 mg/dL High 200 - 499 mg/dL Very High > or = 500 mg/dL WBC (Bld) [#/Vol] 8.3 10*3/uL 4.4-11.0 [facility] Blood erythrocytes count (nu mber/volume)Ordered By: Dr. Suazo on 05-25-2022 RBC (Bld) [#/Vol] 5.05 10*6/uL 4.2-5.4 [facility] Blood hemoglobin measurement (mass/volume)Ordered By: Dr. Suazo on 05-25-2022 Hemoglobin (Bld) [Mass/Vol] 14.3 g/dL 12.0-15.0 [facility] Blood platelet mean volumeOr dered By: Dr. Suazo on 05-25-2022 Platelet mean volume (Bld) [Entitic vol] 10.0 fL 6.2-12.0 [facility] Determination of erythrocyte mean corpuscular volume (MCV)Ordered By: Dr. Suazo on 05-25-2022 MCV (RBC) [Entitic vol] 87.1 fL 81-99 [facility] Hematocrit Auto (Bld) [Volum e fraction]Ordered By: Dr. Suazo on 05-25-2022 Hematocrit (Bld) [Volume fraction] 44.0 % 37-47 [facility] INR in Blood by Coagulation assayOrdered By: Dr. Suazo on 05-25-2022 INR Coag (Bld) [Relative time] 1.0 {INR} [facility] Laboratory - Chemistry and C hemistry - challengeOrdered By: Dr. Suazo on 05-25-2022 CO2 [Moles/Vol] 25.0 mmol/L 21.0-32.0 [facility] Urea nitrogen/Creatinine [Mass ratio] 17.9 mg/mg 10-20 [facility] Laboratory - CoagulationOrde red By: Dr. Suazo on 05-25-2022 aPTT Coag (Bld) [Time] 28.1 s 24.1-36.2 [facility] PT Coag (PPP) [Time] 12.4 s 11.7-14.9 [facility] Laboratory - Hematology and Cell countsOrdered By: Dr. Suazo on 05-25-2022 Erythrocyte distribution width (RBC) [Entitic vol] 42.8 fL 35.1-43.9 [facility] Erythrocyte distribution width (RBC) [Ratio] 13.5 % 11.6-14.6 [facility] MCH (RBC) [Entitic mass] 28.3 pg 27.0-32.0 [facility] MCHC Auto (RBC) [Mass/Vol]Or dered By: Dr. Suazo on 05-25-2022 MCHC (RBC) [Mass/Vol] 32.5 g/dL 32-36 [facility] No Panel InformationOrdered By: Dr. Suazo on 05-25-2022 Estimated GFR (MDRD) Amer 66 mL/min >60 [facility] Comment on above: GFR Calc Estimated GFR (MDRD) Non-Af Amer 54 mL/min >60 [facility] Comment on above: Non- GFR Calc Platelets bldOrdered By: Dr. Suazo on 05-25-2022 Platelets (Bld) [#/Vol] 301 10*3/uL 150-450 [facility] Serum or plasma calcium mesfin urement (mass/volume)Ordered By: Dr. Suazo on 05-25-2022 Calcium [Mass/Vol] 8.8 mg/dL 8.5-10.1 [facility] Serum or plasma cholesterol in HDL measurement (mass/volume)Ordered By: Dr. Suazo on 05-25-2022 Cholesterol in HDL [Mass/Vol] 36 mg/dL >40 [facility] Comment on above: The drugs N-Acetylcy steine and Metamizole may falsely depress this assay. Reference Range HDL <40 mg/dL Low HDL Cholesterol HDL >or= 60 mg/dL High HDL Cholesterol Serum or plasma cholesterol in VLDL measurement (mass/volume)Ordered By: Dr. Suazo on 05-25-2022 Cholesterol in VLDL [Mass/Vol] 35 mg/dL 5-40 [facility] Serum or plasma creatinine m easurement (mass/volume)Ordered By: Dr. Suazo on 05-25-2022 Creatinine [Mass/Vol] 1.12 mg/dL 0.55-1.02 [facility] Comment on above: The validity of the calculated GFR & GFRAA in patients over 70 years has not been determined. Clinical correlation is essential. Serum or plasma low density lipoprotein (LDL) cholesterol measurement (mass/volume)Ordered By: Dr. Suazo on 05-25-2022 Cholesterol in LDL [Mass/Vol] 75 mg/dL 0-130 [facility] Serum or plasma urea nitroge n measurement (mass/volume)Ordered By: Dr. Suazo on 05-25-2022 Urea nitrogen [Mass/Vol] 20 mg/dL 7-18 [facility] Thin prep Papanicolaou smear with manual screeningOrdered By: Dr. Suazo on 05-25-2022 Thin prep Papanicolaou smear with manual screening 7 5-15 [facility] Absolute lymphocyte countOrd ered By: Dr. Magana on 02-21-2022 Lymphocytes Auto (Unsp spec) [#/Vol] 2.33 10*3/uL 0.83-4.51 [facility] Basophil percentageOrdered B y: Dr. Magana on 02-21-2022 Basophils/100 WBC (Bld) 0.3 % 0-1 [facility] Chloride [Moles/Vol] 104 mmol/L 98-107 [facility] Eosinophils/100 WBC (Bld) 2.4 % 0-5 [facility] Glucose [Mass/Vol] 93 mg/dL 74-106 [facility] Neutrophils (Bld) [#/Vol] 6.7 10*3/uL 2.0-7.7 [facility] Neutrophils/100 WBC (Bld) 68.3 % 47-70 [facility] Potassium [Moles/Vol] 3.7 mmol/L 3.5-5.1 [facility] Sodium [Moles/Vol] 137 mmol/L 136-145 [facility] WBC (Bld) [#/Vol] 9.9 10*3/uL 4.4-11.0 [facility] Blood erythrocytes count (nu mber/volume)Ordered By: Dr. Magana on 02-21-2022 RBC (Bld) [#/Vol] 5.20 10*6/uL 4.2-5.4 [facility] Blood hemoglobin measurement (mass/volume)Ordered By: Dr. Magana on 02-21-2022 Hemoglobin (Bld) [Mass/Vol] 15.0 g/dL 12.0-15.0 [facility] Blood lymphocytes/100 leukoc ytesOrdered By: Dr. Magana on 02-21-2022 Lymphocytes/100 WBC (Bld) 23.6 % 19-41 [facility] Blood monocytes/100 leukocyt esOrdered By: Dr. Magana on 02-21-2022 Monocytes/100 WBC (Bld) 5.1 % 0-10 [facility] Blood platelet mean volumeOr dered By: Dr. Magana on 02-21-2022 Platelet mean volume (Bld) [Entitic vol] 9.7 fL 6.2-12.0 [facility] Determination of erythrocyte mean corpuscular volume (MCV)Ordered By: Dr. Magana on 02-21-2022 MCV (RBC) [Entitic vol] 84.8 fL 81-99 [facility] Hematocrit Auto (Bld) [Volum e fraction]Ordered By: Dr. Magana on 02-21-2022 Hematocrit (Bld) [Volume fraction] 44.1 % 37-47 [facility] Laboratory - Chemistry and C hemistry - challengeOrdered By: Dr. Magana on 02-21-2022 CO2 [Moles/Vol] 24.0 mmol/L 21.0-32.0 [facility] Urea nitrogen/Creatinine [Mass ratio] 11.0 mg/mg 10-20 [facility] Laboratory - Hematology and Cell countsOrdered By: Dr. Magana on 02-21-2022 Erythrocyte distribution width (RBC) [Entitic vol] 43.0 fL 35.1-43.9 [facility] Erythrocyte distribution width (RBC) [Ratio] 14.2 % 11.6-14.6 [facility] Immature granulocytes/100 WBC (Bld) 0.300 % 0.0-0.9 [facility] Comment on above: IG% - Immature Granu locytes (promyelocytes, myelocytes and metamyelocytes) > 1% indicates that a LEFT SHIFT is Present. MCH (RBC) [Entitic mass] 28.8 pg 27.0-32.0 [facility] Nucleated RBC/100 WBC (Bld) [Ratio] 0 % 0-5 [facility] MCHC Auto (RBC) [Mass/Vol]Or dered By: Dr. Magana on 02-21-2022 MCHC (RBC) [Mass/Vol] 34.0 g/dL 32-36 [facility] No Panel InformationOrdered By: Dr. Magana on 02-21-2022 Troponin I High Sensitivity 3 pg/mL 3.0-54.0 [facility] Comment on above: Please Note: New Jocelynn t Units and Gender Specific Reference Ranges. For more information see Policy Stat Procedure [place] High Sensitivity Troponin (TNIH) and attachments. Estimated Creatinine Clearance Calc 74.90 ml/min [facility] Estimated GFR (MDRD) Amer 68 mL/min >60 [facility] Comment on above: GFR Calc Estimated GFR (MDRD) Non-Af Amer 56 mL/min >60 [facility] Comment on above: Non- GFR Calc Platelets bldOrdered By: Dr. Magana on 02-21-2022 Platelets (Bld) [#/Vol] 302 10*3/uL 150-450 [facility] Serum or plasma calcium mesfin urement (mass/volume)Ordered By: Dr. Magana on 02-21-2022 Calcium [Mass/Vol] 9.6 mg/dL 8.5-10.1 [facility] Serum or plasma creatinine m easurement (mass/volume)Ordered By: Dr. Magana on 02-21-2022 Creatinine [Mass/Vol] 1.09 mg/dL 0.55-1.02 [facility] Comment on above: The validity of the calculated GFR & GFRAA in patients over 70 years has not been determined. Clinical correlation is essential. Serum or plasma urea nitroge n measurement (mass/volume)Ordered By: Dr. Magana on 02-21-2022 Urea nitrogen [Mass/Vol] 12 mg/dL 7-18 [facility] Thin prep Papanicolaou smear with manual screeningOrdered By: Dr. Magana on 02-21-2022 Thin prep Papanicolaou smear with manual screening 9 5-15 [facility] Laboratory - Microbiology an d Antimicrobial susceptibilityon 12-16-2021 SARS-CoV-2 (COVID-19) RNA ANSHU+probe Ql (Unsp spec) Not detected [facility] Work Phone: No Panel Informationon 12-16 Influenza Types A,B Rapid (Clinic) Not detected [facility] Work Phone: Laboratory - Microbiology an d Antimicrobial susceptibilityon 09-13-2021 SARS-CoV-2 (COVID-19) RNA ANSHU+probe Ql (Unsp spec) Not detected [facility] Work Phone: S. pyogenes Ag IA Ql (Unsp spec) Negative [facility] Work Phone: No Panel Informationon 09-13 Influenza Types A,B Rapid (Clinic) Not detected [facility] Work Phone: Basophil percentageon 2021 Basophil percentage Not Reportable [facility] Work Phone: Erythrocyte sedimentation ra wesley 05-12-2021 ESR (Bld) [Velocity] 17 mm/h 0-30 [facility] Work Phone: No Panel Informationon 05-12 Anti-Nuclear Antibody Screen Negative Negative [facility] Work Phone: Comment on above: Performed at: [employer] [facility] [place] [id number] Director: Dmitry Gill PhD, Phone: [phone] Centrome[employer] B Antibody Not Reportable [facility] Work Phone: [employer] Antibody Not Reportable [facility] Work Phone: Vitamin D 25-Hydroxy 40.3 ng/mL [facility] Work Phone: Comment on above: Vitamin D 25(OH) Sta tus Range Deficiency <20 ng/mL (50nmol/L) Insufficiency 20 - 30 ng/mL (50 - 75 nmol/L) Sufficiency 30 - 100 ng/mL (75 - 250 nmol/L) Toxicity >100 ng/mL (>250 nmol/L) Serum DNA double strand anti body assay (units/volume)on 05-12-2021 DNA double strand Ab Qn (S) Not Reportable [facility] Work Phone: Serum Isa-1 antibody assay (u nits/volume)on 05-12-2021 Isa-1 extractable nuclear Ab Qn (S) Not Reportable [facility] Work Phone: Serum Scl-70 extractable nuc lear antibody assay (units/volume)on 05-12-2021 SCL-70 extractable nuclear Ab Qn (S) Not Reportable [facility] Work Phone: Serum [place] extractable nucl ear antibody detectionon 05-12-2021 [place] extractable nuclear Ab Ql (S) Not Reportable [facility] Work Phone: Serum cyclic citrullinated p eptide IgG antibody assay (units/volume)on 05-12-2021 Cyclic citrullinated peptide IgG Qn 5 units [facility] Work Phone: Comment on above: Negative <20 Weak po sitive 20 - 39 Moderate positive 40 - 59 Strong positive >59Performed at: [facility] [address] [id number] Director: Eula Geronimo MD, Phone: [phone] Serum or plasma C reactive p rotein measurement (mass/volume)on 05-12-2021 CRP [Mass/Vol] 15.30 mg/L 0.0-3.0 [facility] Work Phone: Comment on above: C-Reactive Protein ( CRP) provides useful information for thediagnosis, therapy and monitoring of inflammatory processesand associated diseases. For the evaluation of Relative Riskfor Cardiovascular Disease, a High Sensitivity CRP (HSCRP)should be ordered. Serum or plasma uric acid me asurement (mass/volume)on 05-12-2021 Urate [Mass/Vol] 4.0 mg/dL 2.6-6.0 [facility] Work Phone: Comment on above: The drugs N-Acetylcy steine and Metamizole may falsely depress this assay. Serum rheumatoid factor dete ctionon 05-12-2021 Rheumatoid factor Ql (S) < 10.0 IU/mL <15 [facility] Work Phone: CNOVon 11-16-2020 CNOV Office Visit (UCWSTR ) EZRA PEDRO ([id number]) 1970 F Date Time Provider Department 11/16/20 7:30 AM MAYNOR MITCHELL [facility] During your visit today, we recorded the following information about you: Temperature Pulse Respiration Blood pressure 97.4 degrees 74/minute 16/minute 130/84 Weight 125.6 kg Maynor Mitchell, CRYSTALLOGRAPHY TEACHER.AUTOMATED WEAVER 11/16/2020 8:36 AM Signed Subjective HPI Nontoxic-appearing female presents urgent care [...] back. Patient states pain started after this pop. States did take Aleve approximately 12 hours [...] - LAPAROSCOPIC CHOLEYCYSTECTOMY Cholecystectomy, lap ALLERGIES Bactrim [Sulfamethoxazole-Trime thoprim] and Guiafen Ii Dm [Hujatbatalqoj-De-Ynlmp enesin] MEDICATIONS pregabalin (LYRICA ORAL) Take by mouth. [...] times daily as needed for Muscle Spasm. Chlorpheniramine-HYDROc odone (TUSSIONEX) 10-8 mg/5 mL suspension Take 5 [...] tenderness upon palpation. Patient is able to si (more content not included)... Normal [facility] XR TIBIA FIBULA RIGHT 2 VIEW Son 01-06-2019 XR TIBIA FIBULA RIGHT 2 VIEWS EXAMINATION: XR TIBIA FIBULA RIGHT 2 VIEWS HISTORY: ORDERING SYSTEM PROVIDED HISTORY: right tib/fib pain, TECHNOLOGIST PROVIDED HISTORY: Injury/Trauma Reason for exam: Pain of right lower extremity Cancer History: u Surgery, RadiationHistory: u Encounter Type: Initial Mechanism of injury: fall ORDERING SYSTEM PROVIDED DIAGNOSIS CODES: M79.604 Pain of right lower extremity COMPARISON: None. FINDINGS: Four views of the right tibia/fibula. No acute fractures, dislocations, or radiopaque foreign bodies. IMPRESSION: No acute bony abnormalities. [facility] Workstation ID: [id number] Dictated by: ARDEN TUCKER on SunJan 06, 2019 2:55:40 PM EDT Transcribed by: LUCIAN CHASE IN FUJI SPEECHQ on SunJan 06, 2019 3:21:11 PM EDT Finalized by: ARDEN TUCKER on SunJan 06, 2019 3:35:23 PM EDT Normal [facility] Comment on above: Order Comment: Injur y/Trauma or Illness?:Injury/Trauma How long have you had these symptoms (acute/chronic)?:Acute Reason for exam?:Pain of right lower extremity History of cancer?:u Surgeries, chemotherapy, or radiation?:u Type of Exam?:Initial Mechanism of injury?:fall XR Tibia Fibula Right 2 View son 01-06-2019 No acute bony abnormalities. [employer] Workstation ID: [id number] [facility] EXAMINATION: XR TIBI A FIBULA RIGHT 2 VIEWS HISTORY: ORDERING SYSTEM PROVIDED HISTORY: right tib/fib pain, TECHNOLOGIST PROVIDED HISTORY: Injury/Trauma Reason for exam: Pain of right lower extremity Cancer History: u Surgery, RadiationHistory: u Encounter Type: Initial Mechanism of injury: fall ORDERING SYSTEM PROVIDED DIAGNOSIS CODES: M79.604 Pain of right lower extremity COMPARISON: None. FINDINGS: Four views of the right tibia/fibula. No acute fractures, dislocations, or radiopaque foreign bodies. [facility] Lucian Chase In Fu ji Speechq - 01/06/2019 3:38 PM EDT EXAMINATION: XR TIBIA FIBULA RIGHT 2 VIEWS HISTORY: ORDERING SYSTEM PROVIDED HISTORY: right tib/fib pain, TECHNOLOGIST PROVIDED HISTORY: Injury/Trauma Reason for exam: Pain of right lower extremity Cancer History: u Surgery, RadiationHistory: u Encounter Type: Initial Mechanism of injury: fall ORDERING SYSTEM PROVIDED DIAGNOSIS CODES: M79.604 Pain of right lower extremity COMPARISON: None. FINDINGS: Four views of the right tibia/fibula. No acute fractures, dislocations, or radiopaque foreign bodies. IMPRESSION: No acute bony abnormalities. [facility] Workstation ID: [id number] [facility] Vital Signs Date Time Vital Sign Value Performing Clinician Faci lacho 01-02-2025 15:08-0400 Body height 187.[address] Nica Henry MD Work Phone: [facility] 01-02-2025 15:08-0400 Body mass index (BMI) [Ratio] 30.8 kg/m2 Dr. Nica Henry MD Work Phone: [facility] [facility] 15:08-0400 Body temperature 96.3 [degF] Dr. Nica Henry MD Work Phone: [facility] 01-02-2025 15:08-0400 Body weight 108.[address] Nica Henry MD Work Phone: [facility] 01-02-2025 15:08-0400 Diastolic blood pressure 68 mm[Hg] Dr. Nica Henry MD Work Phone: [facility] 01-02-2025 15:08-0400 Heart rate 68 /min Dr. Nica Henry MD Work Phone: [facility] 01-02-2025 15:08-0400 Respiratory rate 14 /min Dr. Nica Henry MD Work Phone: [facility] 01-02-2025 15:08-0400 SaO2% (BldA) [Mass fraction] 98 % Dr. Nica Henry MD Work Phone: [facility] 01-02-2025 15:08-0400 Systolic blood pressure 106 mm[Hg] Dr. Nica Henry MD Work Phone: [facility] 10-03-2024 15:05-0400 Body height 187.[address] Nica Henry MD Work Phone: [facility] 10-03-2024 15:05-0400 Body mass index (BMI) [Ratio] 33.9 kg/m2 Dr. Nica Henry MD Work Phone: [facility] 10-03-2024 15:05-0400 Body temperature 97.3 [degF] Dr. Nica Henry MD Work Phone: [facility] 10-03-2024 15:05-0400 Body weight 119.[address] Nica Henry MD Work Phone: [facility] 10-03-2024 15:05-0400 Diastolic blood pressure 62 mm[Hg] Dr. Nica Henry MD Work Phone: [facility] 10-03-2024 15:05-0400 Heart rate 74 /min Dr. Nica Henry MD Work Phone: [facility] 10-03-2024 15:05-0400 Respiratory rate 18 /min Dr. Nica Henry MD Work Phone: [facility] 10-03-2024 15:05-0400 SaO2% (BldA) [Mass fraction] 98 % Dr. Nica Henry MD Work Phone: [facility] 10-03-2024 15:05-0400 Systolic blood pressure 128 mm[Hg] Dr. Nica Henry MD Work Phone: [facility] 08-27-2024 13:23-0400 Body height 187.[address] Nica Henry MD Work Phone: [facility] 08-27-2024 13:23-0400 Body mass index (BMI) [Ratio] 34.7 kg/m2 Dr. Nica Henry MD Work Phone: [facility] 08-27-2024 13:23-0400 Body weight 122.[address] Nica Henry MD Work Phone: [facility] 08-27-2024 13:23-0400 Diastolic blood pressure 76 mm[Hg] Dr. Nica Henry MD Work Phone: [facility] 08-27-2024 13:23-0400 Systolic blood pressure 129 mm[Hg] Dr. Nica Henry MD Work Phone: [facility] 07-03-2024 18:09-0400 Body mass index (BMI) [Ratio] 37.3 kg/m2 Dr. Nica Henry MD Work Phone: [facility] 07-03-2024 18:09-0400 Body temperature 97.6 [degF] Dr. Nica Henry MD Work Phone: [facility] 07-03-2024 18:09-0400 Body weight 131.[address] Nica Henry MD Work Phone: [facility] 07-03-2024 18:09-0400 Diastolic blood pressure 82 mm[Hg] Dr. Nica Henry MD Work Phone: [facility] 07-03-2024 18:09-0400 Heart rate 89 /min Dr. Nica Henry MD Work Phone: [facility] 07-03-2024 18:09-0400 Respiratory rate 16 /min Dr. Nica Henry MD Work Phone: [facility] 07-03-2024 18:09-0400 SaO2% (BldA) [Mass fraction] 99 % Dr. Nica Henry MD Work Phone: [facility] 07-03-2024 18:09-0400 Systolic blood pressure 136 mm[Hg] Dr. Nica Henry MD Work Phone: [facility] 06-23-2024 09:54-0500 Body mass index (BMI) [Ratio] 37 kg/m2 Dr. Nica Henry MD Work Phone: [facility] 06-23-2024 09:54-0500 Body temperature 96.5 [degF] Dr. Nica Henry MD Work Phone: [facility] 06-23-2024 09:54-0500 Body weight 130.[address] Nica Henry MD Work Phone: [facility] 06-23-2024 09:54-0500 Diastolic blood pressure 82 mm[Hg] Dr. Nica Henry MD Work Phone: [facility] 06-23-2024 09:54-0500 Heart rate 64 /min Dr. Nica Henry MD Work Phone: [facility] 06-23-2024 09:54-0500 Respiratory rate 16 /min Dr. Nica Henry MD Work Phone: [facility] 06-23-2024 09:54-0500 SaO2% (BldA) [Mass fraction] 100 % Dr. Nica Henry MD Work Phone: [facility] 06-23-2024 09:54-0500 Systolic blood pressure 126 mm[Hg] Dr. Nica Henry MD Work Phone: [facility] 06-18-2023 11:31-0500 Body height 187.[address] Nica Henry Work Phone: [facility] 06-18-2023 11:31-0500 Body mass index (BMI) [Ratio] 37.8 kg/m2 Dr. Nica Henry Work Phone: [facility] 06-18-2023 11:31-0500 Body weight 133.[address] Nica Henry Work Phone: [facility] 06-18-2023 11:31-0500 Diastolic blood pressure 82 mm[Hg] Dr. Nica Henry Work Phone: [facility] 06-18-2023 11:31-0500 Heart rate 71 /min Dr. Nica Henry Work Phone: [facility] 06-18-2023 11:31-0500 Systolic blood pressure 123 mm[Hg] Dr. Nica Henry Work Phone: [facility] 03-01-2023 16:00-0500 Body height 187.[address] Nica Henry Work Phone: [facility] 03-01-2023 16:00-0500 Body mass index (BMI) [Ratio] 38.4 kg/m2 Dr. Nica Henry Work Phone: [facility] 03-01-2023 16:00-0500 Body temperature 97.1 [degF] Dr. Nica Henry Work Phone: [facility] 03-01-2023 16:00-0500 Body weight 135.[address] Nica Henry Work Phone: [facility] 03-01-2023 16:00-0500 Diastolic blood pressure 84 mm[Hg] Dr. Nica Henry Work Phone: [facility] 03-01-2023 16:00-0500 Heart rate 71 /min Dr. Nica Hnery Work Phone: [facility] 03-01-2023 16:00-0500 Respiratory rate 16 /min Dr. Nica Henry Work Phone: [facility] 03-01-2023 16:00-0500 SaO2% (BldA) [Mass fraction] 99 % Dr. Nica Henry Work Phone: [facility] 11-09-2023 16:00-0500 Systolic blood pressure 122 mm[Hg] Dr. Nica Henry Work Phone: [facility] 11-20-2022 08:20-0400 Body temperature 97.7 [degF] Dr. Nica Henry Work Phone: [facility] 11-20-2022 08:20-0400 Diastolic blood pressure 69 mm[Hg] Dr. Nica Henry Work Phone: [facility] 11-20-2022 08:20-0400 Heart rate 68 /min Dr. Nica Henry Work Phone: [facility] 11-20-2022 08:20-0400 Respiratory rate 18 /min Dr. Nica Henry Work Phone: [facility] 11-20-2022 08:20-0400 SaO2% (BldA) [Mass fraction] 93 % Dr. Nica Henry Work Phone: [facility] 11-20-2022 08:20-0400 Systolic blood pressure 112 mm[Hg] Dr. Nica Henry Work Phone: [facility] 11-20-2022 06:32-0400 Body height 187.[address] Nica Henry Work Phone: [facility] 11-20-2022 06:32-0400 Body mass index (BMI) [Ratio] 38.2 kg/m2 Dr. Nica Henry Work Phone: [facility] 11-20-2022 06:32-0400 Body weight [address] Nica Henry Work Phone: [facility] 10-10-2022 13:36-0400 Body mass index (BMI) [Ratio] 38.7 kg/m2 Dr. Nica Henry Work Phone: [facility] 10-10-2022 13:36-0400 Body temperature 97 [degF] Dr. Nica Henry Work Phone: [facility] 10-10-2022 13:36-0400 Body weight 136.[address] Nica Henry Work Phone: [facility] 10-10-2022 13:36-0400 Diastolic blood pressure 84 mm[Hg] Dr. Nica Henry Work Phone: [facility] 10-10-2022 13:36-0400 Heart rate 74 /min Dr. Nica Henry Work Phone: [facility] 10-10-2022 13:36-0400 Respiratory rate 14 /min Dr. Nica Henry Work Phone: [facility] 10-10-2022 13:36-0400 SaO2% (BldA) [Mass fraction] 97 % Dr. Nica Henry Work Phone: [facility] 10-10-2022 13:36-0400 Systolic blood pressure 120 mm[Hg] Dr. Nica Henry Work Phone: [facility] 10-06-2022 15:30-0400 Body height 187.[address] Nica Henry Work Phone: [facility] 10-06-2022 15:30-0400 Body mass index (BMI) [Ratio] 39.8 kg/m2 Dr. Nica Henry Work Phone: [facility] 10-06-2022 15:30-0400 Body temperature 97 [degF] Dr. Nica Henry Work Phone: [facility] 10-06-2022 15:30-0400 Body weight 140.[address] Nica Henry Work Phone: [facility] 10-06-2022 15:30-0400 Diastolic blood pressure 83 mm[Hg] Dr. Nica Henry Work Phone: [facility] 10-06-2022 15:30-0400 Heart rate 78 /min Dr. Nica Henry Work Phone: [facility] 10-06-2022 15:30-0400 Respiratory rate 19 /min Dr. Nica Henry Work Phone: [facility] 10-06-2022 15:30-0400 SaO2% (BldA) [Mass fraction] 99 % Dr. Nica Henry Work Phone: [facility] 10-06-2022 15:30-0400 Systolic blood pressure 151 mm[Hg] Dr. Nica Henry Work Phone: [facility] 09-20-2022 11:33-0400 Body height 187.[address] Nica Henry Work Phone: [facility] 09-20-2022 11:33-0400 Body mass index (BMI) [Ratio] 37.8 kg/m2 Dr. Nica Henry Work Phone: [facility] 09-20-2022 11:33-0400 Body weight 133.[address] Nica Henry Work Phone: [facility] 09-14-2022 14:00-0400 Body mass index (BMI) [Ratio] 37.8 kg/m2 Dr. Nica Henry Work Phone: [facility] 09-14-2022 14:00-0400 Body weight 133.[address] Nica Henry Work Phone: [facility] 08-21-2022 15:01-0400 Body mass index (BMI) [Ratio] 38.4 kg/m2 Dr. Nica Henry Work Phone: [facility] 08-21-2022 15:01-0400 Body temperature 97.4 [degF] Dr. Nica Henry Work Phone: [facility] 08-21-2022 15:01-0400 Body weight 135.[address] Nica Henry Work Phone: [facility] 08-21-2022 15:01-0400 Diastolic blood pressure 70 mm[Hg] Dr. Nica Henry Work Phone: [facility] 08-21-2022 15:01-0400 Heart rate 70 /min Dr. Nica Henry Work Phone: [facility] 08-21-2022 15:01-0400 Respiratory rate 16 /min Dr. Nica Henry Work Phone: [facility] 08-21-2022 15:01-0400 SaO2% (BldA) [Mass fraction] 97 % Dr. Nica Henry Work Phone: [facility] 08-21-2022 15:01-0400 Systolic blood pressure 110 mm[Hg] Dr. Nica Henry Work Phone: [facility] 07-25-2022 11:11-0400 Body mass index (BMI) [Ratio] 38.2 kg/m2 Dr. Nica Henry Work Phone: [facility] 07-25-2022 11:11-0400 Body weight 135.[address] Nica Henry Work Phone: [facility] 07-25-2022 11:11-0400 Diastolic blood pressure 83 mm[Hg] Dr. Nica Henry Work Phone: [facility] 07-25-2022 11:11-0400 Heart rate 72 /min Dr. Nica Henry Work Phone: [facility] 07-25-2022 11:11-0400 Respiratory rate 18 /min Dr. Nica Henry Work Phone: [facility] 07-25-2022 11:11-0400 Systolic blood pressure 125 mm[Hg] Dr. Nica Henry Work Phone: [facility] 06-15-2022 07:50-0500 Body height 187.[address] Hardeep Vázquez Work Phone: [facility] 06-15-2022 07:50-0500 Body weight 132.[address] Hardeep Vázquez Work Phone: [facility] 06-14-2022 09:41-0500 Body mass index (BMI) [Ratio] 37.6 kg/m2 Dr. Hardeep Vázquez Work Phone: [facility] 05-29-2022 15:00-0500 Body height 187.[address] Hardeep Vázquez Work Phone: [facility] 05-29-2022 15:00-0500 Body mass index (BMI) [Ratio] 37.5 kg/m2 Dr. Hardeep Vázquez Work Phone: [facility] 05-29-2022 15:00-0500 Body temperature 97.4 [degF] Dr. Hardeep Vázquez Work Phone: [facility] 05-29-2022 15:00-0500 Body weight 132.[address] Hardeep Vázquez Work Phone: [facility] 05-29-2022 15:00-0500 Diastolic blood pressure 88 mm[Hg] Dr. Hardeep Vázquez Work Phone: [facility] 05-29-2022 15:00-0500 Heart rate 76 /min Dr. Hardeep Vázquez Work Phone: [facility] 05-29-2022 15:00-0500 Respiratory rate 16 /min Dr. Hardeep Vázquez Work Phone: [facility] 05-29-2022 15:00-0500 SaO2% (BldA) [Mass fraction] 99 % Dr. Hardeep Vázquez Work Phone: [facility] 05-29-2022 15:00-0500 Systolic blood pressure 120 mm[Hg] Dr. Hardeep Vázquez Work Phone: [facility] 05-17-2022 14:25-0500 Body mass index (BMI) [Ratio] 37.6 kg/m2 Dr. Hardeep Vázquez Work Phone: [facility] 05-17-2022 14:25-0500 Body weight 132.[address] Hardeep Vázquez Work Phone: [facility] 05-17-2022 14:25-0500 Diastolic blood pressure 86 mm[Hg] Dr. Hardeep Vázquez Work Phone: [facility] 05-17-2022 14:25-0500 Heart rate 73 /min Dr. Hardeep Vázquez Work Phone: [facility] 05-17-2022 14:25-0500 Respiratory rate 16 /min Dr. Hardeep Vázquez Work Phone: [facility] 05-17-2022 14:25-0500 Systolic blood pressure 138 mm[Hg] Dr. Hardeep Vázquez Work Phone: [facility] 04-26-2022 15:56-0500 Body mass index (BMI) [Ratio] 38.2 kg/m2 Dr. Hardeep Vázquez Work Phone: [facility] 04-26-2022 15:56-0500 Body temperature 97.4 [degF] Dr. Hardeep Vázquez Work Phone: [facility] 04-26-2022 15:56-0500 Body weight 135.[address] Hardeep Vázquez Work Phone: [facility] 04-26-2022 15:56-0500 Diastolic blood pressure 88 mm[Hg] Dr. Hardeep Vázquez Work Phone: [facility] 04-26-2022 15:56-0500 Heart rate 74 /min Dr. Hardeep Vázquez Work Phone: [facility] 04-26-2022 15:56-0500 Respiratory rate 16 /min Dr. Hardeep Vázquez Work Phone: [facility] 04-26-2022 15:56-0500 SaO2% (BldA) [Mass fraction] 98 % Dr. Hardeep Vázquez Work Phone: [facility] 04-26-2022 15:56-0500 Systolic blood pressure 142 mm[Hg] Dr. Hardeep Vázquez Work Phone: [facility] 02-21-2022 19:11-0400 Diastolic blood pressure 78 mm[Hg] Dr. Hardeep Vázquez Work Phone: [facility] 02-21-2022 19:11-0400 Heart rate 76 /min Dr. Hardeep Vázquez Work Phone: [facility] 02-21-2022 19:11-0400 Respiratory rate 16 /min Dr. Hardeep Vázquez Work Phone: [facility] 02-21-2022 19:11-0400 SaO2% (BldA) [Mass fraction] 94 % Dr. Hardeep Vázquez Work Phone: [facility] 02-21-2022 19:11-0400 Systolic blood pressure 133 mm[Hg] Dr. Hardeep Vázquez Work Phone: [facility] 02-21-2022 16:19-0400 Body height 187.[address] Hardeep Vázquez Work Phone: [facility] Work Phone: 02-21-2022 16:19-0400 Body mass index (BMI) [Ratio] 38.4 kg/m2 Dr. Hardeep Vázquez Work Phone: [facility] 02-21-2022 16:19-0400 Body temperature 97.1 [degF] Dr. Hardeep Vázquez Work Phone: [facility] 02-21-2022 16:19-0400 Body weight 135.[address] Hardeep Vázquez Work Phone: [facility] 12-16-2021 08:11-0400 Body temperature 97.1 [degF] Dr. Hardeep Vázquez Work Phone: [facility] Work Phone: 12-16-2021 08:11-0400 Diastolic blood pressure 72 mm[Hg] Dr. Hardeep Vázquez Work Phone: [facility] Work Phone: 12-16-2021 08:11-0400 Heart rate 81 /min Dr. Hardeep Vázquez Work Phone: [facility] Work Phone: 12-16-2021 08:11-0400 Respiratory rate 16 /min Dr. Hardeep Vázquez Work Phone: [facility] Work Phone: 12-16-2021 08:11-0400 SaO2% (BldA) [Mass fraction] 98 % Dr. Hardeep Vázquez Work Phone: [facility] Work Phone: 12-16-2021 08:11-0400 Systolic blood pressure 110 mm[Hg] Dr. Hardeep Vázquez Work Phone: [facility] Work Phone: 09-13-2021 14:28-0400 Body temperature 98.4 [degF] Dr. Hardeep Vázquez Work Phone: [facility] Work Phone: 09-13-2021 14:28-0400 Diastolic blood pressure 86 mm[Hg] Dr. Hardeep Vázquez Work Phone: [facility] Work Phone: 09-13-2021 14:28-0400 Heart rate 96 /min Dr. Hardeep Vázquez Work Phone: [facility] Work Phone: 09-13-2021 14:28-0400 Respiratory rate 15 /min Dr. Hardeep Vázquez Work Phone: [facility] Work Phone: 09-13-2021 14:28-0400 SaO2% (BldA) [Mass fraction] 99 % Dr. Hardeep Vázquez Work Phone: [facility] Work Phone: 09-13-2021 14:28-0400 Systolic blood pressure 134 mm[Hg] Dr. Hardeep Vázquez Work Phone: [facility] Work Phone: 08-09-2021 07:43-0400 Body height 187.96 cm [facility] Work Phone: 08-09-2021 07:43-0400 Body mass index (BMI) [Ratio] 36.6 kg/m2 [facility] Work Phone: 08-09-2021 07:43-0400 Body temperature 98 [degF] [facility] Work Phone: 08-09-2021 07:43-0400 Body weight 129.6 kg [facility] Work Phone: 08-09-2021 07:43-0400 Diastolic blood pressure 73 mm[Hg] [facility] Work Phone: 08-09-2021 07:43-0400 Heart rate 69 /min [facility] Work Phone: 08-09-2021 07:43-0400 Respiratory rate 18 /min [facility] Work Phone: 08-09-2021 07:43-0400 SaO2% (BldA) [Mass fraction] 98 % [facility] Work Phone: 08-09-2021 07:43-0400 Systolic blood pressure 137 mm[Hg] [facility] Work Phone: Encounters Encounter Date Encounter Type Care Provider Facility Start: 01-02-2025 End: 01-02-[address] Niac Henry MD -[facility] Work Phone: Start: 01-02-2025 End: 01-02-[address] Nica Henry MD Work Phone: [facility] Start: 10-03-2024 End: 10-03-[address] Nica Henry MD -[facility] Work Phone: Start: 10-03-2024 End: 10-03-[address] Nica Henry MD Work Phone: [facility] Work Phone: Start: 09-03-2024 End: 09-03-[address] Nica Henry MD Work Phone: [facility] Work Phone: Start: 09-03-2024 End: 09-03-[address] Nica Henry MD -Laboratory Work Phone: Start: 09-03-2024 End: 09-03-2024 ambulatory [facility] Facility:[facility] Start: 08-27-2024 Encounter for gynecological examination (general) (routine) without abnormal findings Marisa Stuart [facility] Start: 08-27-2024 End: 08-27-20[facility] Start: 08-27-2024 End: 08-27-[address] Marisa Stuart MD -[facility] Work Phone: Start: 08-27-2024 End: 08-27-[address] Marisa Stuart MD [facility] Start: 07-03-2024 End: 07-03-[address] Nica Henry MD -[facility] Work Phone: Start: 07-03-2024 End: 07-03-2024 ambulatory [facility] Facility:[facility] Start: 06-23-2024 End: 06-23-[address] Nica Henry MD -[facility] Work Phone: Start: 06-23-2024 End: 06-23-2024 [facility] Start: 03-24-2024 End: 03-24-2024 [facility] Start: 02-07-2024 End: 02-07-2024 [facility] Start: 01-17-2024 End: 01-17-2024 [facility] Start: 01-11-2024 End: 01-11-2024 ambulatory [facility] Facility:[facility] Start: 08-30-[address] Macy Henry MD Work Phone: [facility] Start: 06-19-2023 End: 06-19-[address] Nica Henry Work Phone: [facility] Work Phone: Start: 06-19-2023 End: 06-19-[address] Nica Henry Work Phone: [facility]-Laboratory Work Phone: Start: 06-18-2023 End: 06-18-[address] Nica Henry Work Phone: [facility] Work Phone: Start: 06-14-2023 End: 06-14-[address] Nica Henry Work Phone: [facility] Work Phone: Start: 06-14-2023 End: 06-14-[address] Nica Henry Work Phone: [facility] Work Phone: Start: 05-31-2023 End: 05-31-2023 Non-patient / Non-visit Dr. Nica Henry Work Phone: [facility] Work Phone: Start: 05-31-2023 End: 05-31-[address] Nica Henry Work Phone: [facility] Work Phone: Start: 05-31-2023 End: 05-31-[address] Nica Henry Work Phone: [facility]-Pulmonary Services/Neurology Work Phone: Start: 05-18-2023 End: 05-18-[address] Ncia Henry Work Phone: [facility] Work Phone: Start: 05-18-2023 End: 05-18-[address] Nica Henry Work Phone: [facility] Work Phone: Start: 05-16-2023 End: 05-16-[address] Nica Henry Work Phone: [facility] Work Phone: Start: 05-16-2023 End: 05-16-[address] Nica Henry Work Phone: [facility] Work Phone: Start: 03-01-2023 End: 03-01-[address] Nica Henry Work Phone: [facility] Work Phone: Start: 11-20-2022 Non-patient / Non-visit Dr. Dina Henry Work Phone: [facility] Start: 11-20-2022 End: 11-20-2022 Admission to same day surgery center Dr. Nica Henry Work Phone: [facility]-Endoscopy Work Phone: Start: 11-20-2022 End: 11-20-[address] Nica Henyr Work Phone: [facility] Work Phone: Start: 11-16-2022 End: 11-16-[address] Nica Henry Work Phone: [facility] Work Phone: Start: 11-16-2022 End: 11-16-[address] Nica Henry Work Phone: [facility]-Laboratory Work Phone: Start: 10-10-2022 End: 10-10-[address] Nica Henry Work Phone: [facility] Work Phone: Start: 10-06-2022 Non-patient / Non-visit Dr. Dina Henry Work Phone: [facility] Start: 10-06-2022 End: 10-06-2022 Emergency department patient visit Dr. Nica Henry Work Phone: [facility]-Emergency Department Start: 09-29-2022 End: 09-29-[address] Nica Henry Work Phone: [facility] Start: 09-23-2022 End: 09-23-[address] Nica Henry Work Phone: [facility] Work Phone: Start: 09-23-2022 End: 09-23-[address] Nica Henry Work Phone: [facility] Start: 09-20-2022 Non-patient / Non-visit Dr. Dina Henry Work Phone: [facility] Start: 09-14-2022 End: 09-14-[address] Nica Henry Work Phone: [facility] Start: 08-31-2022 End: 08-31-[address] Nica Henry Work Phone: [facility]-Outpatient Breast Imaging Start: 08-23-[address] Aliya Henry Work Phone: [facility]-Cardiovascul ar Services Start: 08-23-2022 End: 08-23-2022 Non-patient / Non-visit Dr. Nica Henry Work Phone: [facility] Work Phone: Start: 08-21-[address] Macy Henry Work Phone: [facility] [facility] Start: 08-21-2022 End: 08-21-2022 Encounter for general adult medical examination without abnormal findings Dr. Nica Henry Work Phone: [facility] Start: 08-21-2022 End: 08-21-[address] Nica Henry Work Phone: [facility] Start: 07-25-2022 End: 07-25-[address] [facility] Start: 06-15-2022 End: 06-15-2022 Admission to same day surgery center Dr. Hardeep Vázquez Work Phone: [facility]-Data Architect Manager/Special Procedures Start: 06-15-2022 End: 06-15-[address] Hardeep Vázquez Work Phone: [facility] Work Phone: Start: 06-12-2022 Non-patient / Non-visit Dr. Darryn Vázquez Work Phone: [facility] Start: 06-05-2022 End: 06-05-[address] Hardeep Vázquez Work Phone: [facility] Work Phone: Start: 06-05-2022 End: 06-05-[address] Hardeep Vázquez Work Phone: [facility] Start: 05-29-2022 End: 05-29-[address] Hardeep Vázquez Work Phone: [facility] Start: 05-26-2022 End: 05-26-[address] Hardeep Vázquez Work Phone: [facility]-Sleep Lab Start: 05-25-2022 Non-patient / Non-visit Dr. Darryn Vázquez Work Phone: [facility] Start: 05-25-2022 End: 05-25-[address] Hardeep Vázquez Work Phone: [facility] Work Phone: Start: 05-25-2022 End: 05-25-[address] Hardeep Vázquez Work Phone: [facility]-Cardiovascul ar Services Start: 05-17-2022 End: 05-17-[address] Hardeep Vázquez Work Phone: [facility] Start: 04-30-2022 Non-patient / Non-visit Dr. Darryn Vázquez Work Phone: [facility] Start: 04-28-2022 End: 04-28-[address] Hardeep Vázquez Work Phone: [facility] Work Phone: Start: 04-28-2022 End: 04-28-[address] Hard[facility]ep [facility]ázquez [facility] Start: 04-26-2022 End: 04-26-[address] Hardeep Vázquez Work Phone: [facility] Start: 02-21-2022 End: 02-21-2022 Emergency department patient visit Dr. Hardeep Vázquez [facility] Start: 12-16-2021 End: 12-16-[address] Hardeep Vázquez Work Phone: [facility] Start: 10-03-2021 End: 10-03-[address] [facility] Start: 09-13-2021 End: 09-13-[address] Hardeep Vázquez Work Phone: [facility] Start: 08-09-2021 End: 08-09-2021 [facility] Start: 05-12-2021 End: 05-12-2021 [facility] Start: 01-06-2019 End: 01-06-2019 Patient encounter procedure PHYSICIAN GLENIS [facility] Start: 01-06-2019 End: 01-06-2019 Subsequent hospital visit by physician Gilbert Diaz Work Phone: [facility] Comment on above: Arrived Procedures Date Procedure Procedure Detail Performing Clinician Start: 09-03-2024 Methadone measurement, urine Dr. Molly Henry MD Work Phone: Start: 09-03-[address] Nica Henry MD Work Phone: Comment on above: Test Ordered: [id number] X23-Qdtbzk+S X2Bgjuclnubnfd Screen, Urine Note: ng/mL UI See Final Results Reference Range: Fckvpg=353Dtxivestfod test includes Amphetamine and Methamphetamine.Amphetamines Negative UI Reference Range: Piexyq=476Ymrioghapwb test includes Amphetamine and Methamphetamine.Barbiturates Negative ng/mL UI Reference Range: Licejt=555Wctyrqjzibebefa Negative ng/mL UI Reference Range: Pqlfox=022Uhsfypf (Metab.), Urine Negative ng/mL UI Reference Range: Rwmpvy=669Mgxbhdn Negative ng/mL UI Reference Range: Fnogvs=467Ervxah test includes Codeine, Morphine, Hydromorphone, Hydrocodone.6-Acetylmorphine, Urine Negative ng/mL UI Reference Range: Cutoff=10Oxycodone/Oxymorphone, Urine Negative ng/mL UI Reference Range: Qtdyvm=982Lngk includes Oxycodone and OxymorphonePCP, Urine Negative ng/mL UI Reference Range: Cutoff=25Methadone Screen, Urine Negative ng/mL UI Reference Range: Vyvxsv=628Gzshwdifmxtf, Urine Negative ng/mL UI Reference Range: Essbgb=506Tidtitgo, Urine Note: ng/mL UI See Final Results Reference Range: Cutoff=2.0Test includes Fentanyl and NorfentanylThis test was developed and its performance characteristicsdetermined by [employer]. It has not been cleared orapproved by the Food and Drug Administration.Fentanyl/Norfentanyl Negative UI Reference Range: Cutoff=2.0Test includes Fentanyl and NorfentanylTramadol Note: ng/mL UI See Final Results Reference Range: Lyxnyb=309Ezgxjcxq Positive [A ] UI Reference Range: Nrjehn=854Pkszkczv Conf, [place], [place] 7439 ng/mL UI Reference Range: Nhyktv=130Kvdxbvbbowtmi, Urine Negative ng/mL UI Reference Range: Cutoff=10Creatinine, Urine 216.6 mg/dL UI Reference Range: 20.0-300.0pH, Urine 6.0 UI Reference Range: 4.5-8.9Performed at: [id number] [place], [place] [id number] Director: Patrick Ferrari PhD, Phone: [phone] at: [address] [id number] Director: Dmitry Gill PhD, Phone: [phone] Start: 06-14-2023 MRI of joint of lower extremity Dr. Mague Henry Work Phone: Start: 05-18-[address] Nica Henry Work Phone: Start: 05-16-2023 Pelvis X-ray Dr. Nica Henry Work Phone: Start: 11-20-[address] Nica Henry Work Phone: Start: 09-23-2022 X-ray of lumbar spine, two or three views Dr. Nica Henry Work Phone: Start: 09-23-2022 MRI of lumbar spine Dr. Nica Henry Work Phone: Start: 08-31-[address] Nica Henry Work Phone: Start: 06-05-2022 MRI of brain with contrast Dr. Hardeep cai Work Phone: Start: 02-21-2022 Plain chest X-ray Dr. Hardeep Vázquez Work Phone: Start: 10-03-2021 X-ray of lumbosacral spine Dr. Hardeep cai Work Phone: Start: 08-09-2021 Diagnostic radiography of finger Start: 08-09-2021 CT of head without contrast Start: 05-12-2021 Radiologic examination of knee Start: 01-06-2019 Radiologic examination tibia & fibula 2 views Gilbert Diaz Work Phone: H/O: section Hx of sect ion Dr. Hardeep Vázquez Work Phone: Comment on above: 1999 H/O: hysterectomy H/O: hysterectomy Dr. Annmarie Vázquez Work Phone: Comment on above: 2013 History of cholecystectomy Hx of cholecys tectomy Dr. Hardeep Vázquez Work Phone: Comment on above: 1999 Plan of Treatment Date Care Activity Detail Author Start: 09-03-2024 Procedure [facility] Start: 06-19-2023 Vitamin D, 1,25-dihydroxy measurement [facility] Start: 03-01-2023 Patient referral [facility] Work Phone: Start: 11-20-2022 Patient discharge [facility] Start: 11-16-2022 Procedure [facility] Start: 08-21-2022 Patient referral [facility] Work Phone: Start: 02-21-2022 [facility] Start: 12-22-2018 Influenza vaccination given SEQUENTIAL INFLUENZA VACCINE (#1) [facility] Start: 1973 History and physical examination, annual for health maintenance Wellness Visit [facility] Start: 1970 Screening for malignant neoplasm of cervix PAP SMEAR [facility] Start: 1970 Screening mammography Mammogram [facility] Start: 1970 Tetanus vaccination TETANUS EVERY 10 YR [facility] Catheterization of l eft heart [facility] CBC W Auto Different ial panel - Blood [facility] Colonoscopy [facility] Comprehensive metabo lic 2000 panel - Serum or Plasma [facility] Patient Education [facility] Work Phone: Patient referral [facility] Work Phone: Immunizations Immunization Date Immunization Notes Care Provider Renee floyd 03-01-2023 influenza, injectabl e, quadrivalent, preservative free Dr. Nica Henry Work Phone: [facility] 07-08-[address] Nica Henry Work Phone: [facility] 04-20-2021 Covid (Moderna) Dr. Luis Angel Henry Work Phone: [facility] 08-16-2020 Gokulid (Moderna) Dr. Luis Angel Henry Work Phone: [facility] 07-12-2020 Gokulid (Moderna) Dr. Luis Angel Henry Work Phone: [facility] 10-13-2018 influenza, injectabl e, quadrivalent, preservative free Dr. Nica Henry Work Phone: [facility] 02-02-2018 influenza, seasonal, injectable [facility] Payers Date Payer Category Payer Self-pay [id number] 2023 Private Health Insurance [id number] 2017 Private Health Insurance [id number] 2017 Private Health Insurance AETNA A ETNA CHOICE POS/POSII/PREMIER CARE/PREMIER CARE PLUS xxxxxxxxxx 2017-Present xxxxxxxxxx [id number] 1970 Unknown [id number] 1970 Unknown [id number] Unknown [facility] PACKAGE PLAN [id number] Unknown [id number] Unknown [id number] Unknown [id number] Unknown [id number] Unknown [id number] .462 Unknown [id number] Unknown [id number] .462 Unknown [id number] Unknown [id number] .462 Unknown [id number] Social History Date Type Detail Facility Start: 01-06-2019 End: 01-02-2025 Tobacco smoking status NHIS Never smoker [facility] Start: 01-06-2019 Alcohol intake Current drinke r of alcohol (finding) [facility] Start: 01-06-2019 History SDOH Alcohol Frequency 4 [facility] Sex Assigned At Not on file [facility] Start: 08-09-2021 End: 06-18-2023 Tobacco smoking status WIIS Unknown if ever smoked [facility] Start: 02-01-2018 None [facility] Start: 02-01-2018 Spouse/ Signif icant Other [facility] Start: 08-24-2020 Non-smoker [facility] Start: 1970 Sex Assigned At Female [facility] Medical Equipment Procedure Code Equipment Code Equipment Origin al Text Equipment Identifier Dates Pen Needle, Diab etic (Comfort Ez Pen Harrell) 32 gauge x 3/16 needle Start: 07-03-2024 Pen Needle, Diab etic (Comfort Ez Pen Harrell) 32 gauge x 3/16 needle Start: 07-03-2024 Pen Needle, Diab etic (Comfort Ez Pen Harrell) 32 gauge x 3/16 needle Start: 07-03-2024 Goals Date Patient Goal Desired Activity /State Mental Status Date Assessment Result Facility 11-20-2022 Cognitive function Level Of Cons ciousness Awake;Follows Commands;Drowsy [facility] Work Phone: 02-21-2022 Cognitive function Level Of Cons ciousness Awake;Alert;Appropriate;Follow s Commands [facility] Work Phone: Clinical Notes 11-16-2020 to 10-03-2024 Note Date & Type Note Facility 10-03-2024 Evaluation note Diagnosis Onset Date Resolution Borderline type 2 diabetes mellitus chronic October 03 2:46pm Fibromyalgia chronic October 03, 025 2:46pm Hyperlipidemia chronic October 03, 2024 2:46pm Hypertension chronic October 03 025 2:46pm Obesity (BMI 30-39.9) chronic Sep 2:46pm [facility] Work Phone: [phone]) [phone] Evaluation note* Diagnosis Onset Date Resolution Status Admit Date Headache acute June 23 9:49am Headache acute July 03 5:55pm Borderline type 2 diabetes mellitus chronic July 03, 2024 5:55pm Hyperlipidemia chronic June 5:55pm Hypertension chronic July 03, 2024 5:55pm Obesity (BMI 30-39.9) chronic Mar 2024 5:55pm Climacteric inactive August 27, 2024 1:16pm Encounter for routine gynecological examination noneactive August 1:16pm [facility] Work Phone: 1(842) 423-818207-31-2023 History and physical note Author Nathaly Doss [facility] November 20, 2022 7:31am Note Date/Time November 20, 2022 6:36 am [facility] Medical Records Department [address] [place] [address] History & Physical Exam 11/20/22 0635 MR#: [id number] Acct: [id number] Name: EZRA PEDRO Rep #:[id number] : 1970 52 From: Nathaly Doss MD PCP: Dr. Nica Henry MD Status:R [facility] Location: [place] [address] HPI - General General Date of Service: 11/20/22 HPI Narrative EZRA PEDRO, is a 52 F who presents for screening colonoscopy. Patient never had previous colonoscopy. Patient denies any family history of colon cancer--but she is adopted. Patient denies any chronic abdominal pain/nausea/vomiting/reflux. Patient has bowel movements daily denies any blood. [facility] Medical History (Updated 11/14/22 @ 14:50 by Violeta Gómez) Abnormal EKG Abnormal stress test Acute frontal sinusitis, unspecified Acute pharyngitis Cardiology follow-up encounter Chest pain Colon cancer screening Congestion of nasal sinus Contact with or suspected exposure to other viral communicable disease Family history of cerebral aneurysm Fatigue Fibromyalgia Fibromyalgia Gastroenteritis Headache History of back pain History of echocardiogram History of stress test Hx of chronic arthritis Hx of degenerative disc disease Hx of emotional problems Hypersomnolence Kidney stone on right side Lab test negative for COVID-19 virus Loss of smell Loss of taste Migraine Non-smoker Preventative health care Wears contact lenses Wears glasses Wears glasses Home Medications aspirin 81 mg tablet,delayed release (Adult Aspirin Regimen) 81 mg PO DAILY #90 tabs 05/17/22 [Rx Last Taken 11/13/22] baclofen 5 mg tablet 5 mg PO TID 08/21/22 [History Last Taken Unknown] duloxetine 60 mg capsule,delayed release 60 mg PO QHS #90 caps 08/21/22 [Rx Last Taken Unknown] diclofenac sodium 50 mg tablet,delayed release 50 ea PO BID 09/29/22 [History Last Taken Unknown] tramadol 50 mg tablet 50 tablet PO TID 09/29/22 [History Last Taken Unknown] amlodipine 2.5 mg tablet 2.5 mg PO DAILY #90 tabs 10/09/22 [Rx Last Taken 11/20/22] carvedilol 3.125 mg tablet 3.125 mg PO BID #180 tabs 10/09/22 [Rx Last Taken 11/20/22] trazodone 100 mg tablet 200 mg (2 x 100 mg) PO QHS sleep 3 months #180 tabs 10/23/22 [Rx Last Taken Unknown] Allergy/AdvReac Type Severity Reaction Status Date / Time guaifenesin AdvReac Intermediate RASH Verified 11/14/22 14:40 sulfamethoxazole AdvReac Intermediate RASH Verified 11/14/22 14:40 [From Bactrim] trimethoprim [From Bactrim] AdvReac Intermediate RASH Verified 11/14/22 14:40 Family History Unknown Adopted Surgical History (Updated 11/14/22 @ 14:50 by Violeta Gómez) H/O: hysterectomy History of cardiac catheterization History of left heart catheterization (~06/15/22) Hx of section Hx of cholecystectomy Hx of wisdom tooth extraction Social History household members: spouse housing: house current occupational status: employed 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 [employer] sexually active: No Smoking Status: Never smoker alcohol intake: current alcohol intake frequency: holidays/special occasions only substance use type: does not use caffeine: Yes Type: coffee Number of servings: 1 what type of physical activity do you participate in: none seatbelt use: always do you feel safe at home: Yes Past Medical/Surgical History Planned Operation Planned Operative Procedure/s: CSCOPE S.O.S: No Previous Hospitalizations/Surgeries HX Hospitalizations: No HX of Surgeries: C-SEC GB Any Problems With Anesthesia: No You/Your Family Experience Fever (Hyperthermia) With Anes: No Cholinesterase deficiency: No Cardiovascular Hx Chest Pain within Last 2 months: No Hx of Irregular Heartbeat and/or Afib: No Hx Heart Attack: No Hx Congestive Heart Failure: No Hx Rheumatic Fever: No Hx Hypertension: No Hx Internal Defibrillator: No Hx Pacemaker: No Hx Cardiac Catheterization: No Hx Cardiac Surgery/Stents/Etc.: No Hx Stress Test: No Hx Pain in Legs when Walking/Leg Cramps: No Respiratory Chronic Cough: No HX of Shortness of Breath: No Hoarseness: No Hx Chronic Obstructive Pulmonary Disease (COPD): No Hx Asthma: No Hx Emphysema: No Hx Sleep Apnea: No CPAP: No BIPAP: No Hx Respiratory Tract Infection/Cold (presently): No Do You Snore Loudly (louder than talking or can be heard): No Do You Often Feel Tired/ Fatigued/ Sleepy Dring Daytime?: No Has Anyone Observed You Stop Breathing During Sleep?: No Result (for STOP score): Negative Hx Smoking: No Smoking Status: Never smoker Gastrointestinal Hx Gastroesophageal Reflux: Yes Controlled With Meds: Yes Hx Gastrointestinal Disorders: No Hx Gastrointestinal Bleed: No Hx Ulcer: No Hx Hiatal Hernia: No Difficulty Chewing/Swallowing: No Special diet followed at home: No Hx Unplanned Weight Loss of 20#: No HX Unplanned Weight Gain of 20#: No Neurological Hx Seizures: No HX Syncope/Blackout Spells/Unconsciousness: No Hx Transient Ischemic Attacks (TIA): No Hx Multiple Sclerosis: No Hx Parkinson's Disease: No Hx Head/Neck Injury: No Hx Headaches: No Hx Back Injury/Pain: No Recent Onset of Speech Difficulty: No Restless Legs: No Does patient have nerve stimulator: No Blood Disorder Hx Leukemia: No Bleeding Tendencies: No Hx Deep Vein Thrombosis: No Hx High Cholesterol: No Blood Transmitted Disease: No Hx Hepatitis: No Hx Cirrhosis: No Hx Anemia: Yes (prior to hysterectomy( 2013)) Hx Blood Disorders: No Reproduction Is Patient Lactating: No Hx Hysterectomy: No Hx Tubal Ligation: No Are You Post Menopause: No Genitourinary Hx Renal Disease: No Hx Dialysis: No Musculoskeletal Hx Arthritis: No Hx Rheumatoid Arthritis: No Hx Gout: No Recent Onset of an Orthopedic Problem: No Endocrine Hx Diabetes: No Thyroid Disease: No Hx Steroid Therapy: No Psycho/Social Hx Substance Use: No Hx Alcohol Use: No Hx Anxiety: Yes Hx Depression: No Mental Illness: No Hx Dementia: No Miscellaneous Hx Cancer: No Recent Exposure to Contagious Disease: No Hx of C-Diff: No Any Loose Teeth: No Allergies guaifenesin Adverse Reaction (Intermediate, Verified 11/14/22 14:40) RASH sulfamethoxazole [From Bactrim] Adverse Reaction (Intermediate, Verified 11/14/22 14:40) RASH trimethoprim [From Bactrim] Adverse Reaction (Intermediate, Verified 11/14/22 14:40) RASH Maternal: Family History Unknown Adopted - (Patient is adopted, has been told her mother of brain aneurysm.) Paternal: Family History Unknown Adopted - (Patient is adopted, unknown paternal medical history.) Discharge Is Pt Admitted From a Shelter, or a Assisted: No After D/C, Where Do you Plan to Go: Return Home Physical Exam Const alert, oriented x3 and no apparent distress HEENT normocephalic and head/scalp atraumatic Resp normal respiratory effort Cardio regular rate GI soft to palpation and non-tender; Negative for non-distended Palpation: Negative for guarding Extremity no clubbing, cyanosis or edema Neuro CN's II-XII intact bilaterally Psych mental status grossly normal Assessment & Plan Assessment/Plan (1) Colon cancer screening: Surgery Risks - Colonoscopy I discussed with the patient the risks of the procedure: Yes Risks Include but are not Limited To: Risks include but are not limited to: Bleeding, perforation requiring further surgery, inability to complete colonoscopy requiring barium enema. 11/20/22 5398 <Electronically signed by Nathaly Doss MD> Cosigner Signature (if applicable): CC: Dr. Nica Henry MD; Dr. Nathaly Doss MD~ Signed [facility] Work Phone: 1(386) 105-415707-31-2023 Procedure [facility] 11-20-2022 Procedure [facility]02-20-2023 History and physical note Author Dr. Suazo [facility] June 12, 2022 12:30pm Note Date/Time June 12, 2022 8:45am [facility] Medical Records Department [address] [place] [address] History & Physical Exam 06/12/22 0843 MR#: [id number] Acct: [id number] Name: EZRA PEDRO Rep #:[id number] : 1970 51 From: Manuel Ulloa NP REHABILITATION NURSE-C PCP: Dr. Nica Henry MD Status:P [place] [facility] [place]: [facility] History and Physical The patient has been having chest pain with moderate exertion since January of last year. According to her, she feels anterior chest tightness with climbing 2flights of stairs. This is relieved with rest and 10 to 15 minutes. No radiation to the arm neck or jaw. Together with the chest tightness, she also feels short of breath. No diaphoresis. No nausea or vomiting. Patient recently had an exercise stress test. According to her, she had her symptoms ofchest tightness while on the treadmill. He was noted to have positive stress test by EKG. No orthopnea. No PND. She completed echocardiogram on 05/25/2022 that showed mild concentric LVH and an ejection fraction of 60%. Intake Vital Signs: See EMR Intake Visit Reasons: [facility] Income Tax Auditor Required: No Accompanied by: Self Is patient in pain?: Yes (heaviness) Allergies guaifenesin Adverse Reaction (Intermediate, Verified 05/17/22 14:26) RASH sulfamethoxazole [From Bactrim] Adverse Reaction (Intermediate, Verified 05/17/22 14:26) RASH trimethoprim [From Bactrim] Adverse Reaction (Intermediate, Verified 05/17/22 14:26) RASH Medications See EMR Ejection fraction %: 60 [facility] Medical History (Updated 05/17/22 @ 15:[address] Guadalupe Suazo MD) Abnormal EKG Abnormal stress test Acute frontal sinusitis, unspecified Acute pharyngitis Chest pain Congestion of nasal sinus Contact with or suspected exposure to other viral communicable disease Family history of cerebral aneurysm Fatigue Fibromyalgia Fibromyalgia Gastroenteritis Headache History of back pain Hx of chronic arthritis Hx of degenerative disc disease Hx of emotional problems Hypersomnolence Kidney stone on right side Lab test negative for COVID-19 virus Loss of smell Loss of taste Migraine Wears glasses Surgical History H/O: hysterectomy Hx of section Hx of cholecystectomy Hx of wisdom tooth extraction Family History Unknown Adopted Social History household members: spouse housing: house current occupational status: employed 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 sexually active: No Smoking Status: Never smoker alcohol intake: current alcohol intake frequency: holidays/special occasions only substance use type: does not use caffeine: Yes Type: coffee Number of servings: 1 what type of physical activity do you participate in: none seatbelt use: always do you feel safe at home: Yes ROS Const Const: Positive for fatigue (when BP and HR increase then feels fatigued); Negative for weakness, headache(s), frequent falls, difficulty sleeping or excessive sweating Eyes Eyes: Negative for loss of peripheral vision, transient loss of vision, blurry vision, double vision or tunnel vision ENT ENT: Negative for headache(s), dizziness, Nosebleed/epistaxis or balance problems Cardio Chest Pain: Yes Frequency: daily Character: other (heaviness) Onset: other (activity-stairs) Location: mid sternal Duration: minutes (15 minutes- until BP comes back down) Exacerbation: exercise and activity Relieving: rest Palpitations: Yes (ER in Feb 2022) feels like its: fast Edema: Bilateral (slightly) Muscle aches with walking: None Additional Details: Had COVID in January 2022- Hasn't been same since Resp Respiratory: Positive for SOB with activity; Negative for SOB at rest, SOB orthopnea\SOB lying down, Cough or paroxysmal nocturnal dyspnea GI GI: Positive for nausea; Negative vomiting, heartburn or black,tarry stools : Negative for hematuria Musc Musc: Positive for joint pain; Negative for muscle aches/ myalgia, muscle weakness or balance problems Skin Skin: Negative non-healing lesions, rash or unusual bruising Neuro Neuro: Positive for lightheadedness; Negative for dizziness, near syncope, syncope, frequent falls, headache(s), weakness, blurry vision, double vision or lack of coordination Reynaldo Hematologic/Lymphatic: Negative for easy bleeding or easy bruising Endo Endo: Positive for fatigue (when BP and HR increase then feels fatigued); Negative for excessive sweating or increased thirst/drinking Psych Psych: Negative for anxiety or depression Allergy Allergy/Immunology: Negative for hives and Negative for rash Cardiology Exam Const Appearance: comfortable and no acute distress Nutritional Appearance: well nourished and obese Neck Neck: no JVD Carotids: Negative bruit Chest Auscultation: Bilateral: Clear to Auscultation Cardio Rate: regular rate Rhythm: regular rhythm Heart sounds: S1 normal and S2 normal GI GI: obese Neuro General: patient alert, patient awake and patient oriented x3 Extremities Lower Extremity Edema: None: Bilateral Supplemental Info Supplemental Information Labs: No Data to Display Diagnostics: Electrocardiogram Stress Test Chest X-Ray Pulmonary: No Data to Display Assessment and Plan Assessment and Plan (1) Chest pain: Status: Chronic Plan: Likely angina pectoris. Positive exercise stress test. For definitive diagnosis, coronary angiography with possible revascularization was also offered. Risks benefits and alternatives discussed. She understands these and wishes to proceed. (2) Abnormal stress test: Status: Acute Plan: See #1 above. (3) Hypertension: Status: Chronic Plan: Amlodipine and carvedilol. (4) Obesity: Status: Chronic Plan: Lose weight. 06/12/22 0845 <Electronically signed by Manuel LEOC> Cosigner Signature (if applicable): 06/12/22 1230 <Electronically signed by Guadalupe Suazo MD> CC: PRIETO Ulloa; Dr. Guadalupe Suazo MD; Dr. Nica Henry MD~ Signed [facility] Work Phone: [phone] 725-255807-27-2021 NoteHNO ID: [id number] Author: Maynor Mitchell APRN.[employer] Service: ? Author Type: Nurse Practitioner Type: [...] back. Patient states pain started after this pop. States did take Aleve approximately 12 hours [...] ALLERGIES Bactrim [Sulfamethoxazole-Trimethoprim] and Guiafen Ii Dm [[id number]] MEDICATIONS pregabalin (LYRICA ORAL) Take by mouth. [...] previous imaging results unassessable (more content not included)...[facility] noteNo assessment information availableWBrown [facility] Work Phone: evaluation note* Diagnosis Onset Date Resolution Status Acute pharyngitis acute Contact with or suspected ex posure to other viral communicable disease acute [facility] Work Phone: Evaluation note* Diagnosis Onset Date Resolution Status Gastroenteritis acute Migraine acute [facility] Work Phone: Evaluation note* Diagnosis Onset Date Resolution Status Abnormal EKG acute Family history of cerebral aneurysm acute Hypersomnolence acute Fibromyalgia chronic Abnormal stress test acute Chest pain chronic Hypertension chronic Obesity chronic Abnormal stress test acute Hypersomnolence acute Fibromyalgia chronic Hypertension [facility] Work Phone: evaluation note* Diagnosis Onset Date Resolution Status Abnormal stress test acute Fibromyalgia chronic Hypertension chronic Palpitations chronic Colon cancer screening acute Preventative health care acu te DDD (degenerative disc disease), lumbosacral acute [facility] Work Phone: Evaluation note* Diagnosis Onset Date Resolution Status Abnormal stress test acute Fibromyalgia chronic Hypertension chronic Palpitations chronic Colon cancer screening acute Preventative health care acu te DDD (degenerative disc disease), lumbosacral acute DDD (degenerative disc disease), lumbosacral acute [facility] Work Phone: Evaluation note* Diagnosis Onset Date Resolution Status Abnormal stress test acute Fibromyalgia chronic Hypertension chronic Palpitations chronic Colon cancer screening acute Preventative health care acu te DDD (degenerative disc disease), lumbosacral acute DDD (degenerative disc disease), lumbosacral acute Colon cancer screening acute [facility] Work Phone: Evaluation note* Diagnosis Onset Date Resolution Status Flu vaccine need acute Arthritis chronic Hypertension chronic Insomnia chronic Lumbar radiculopathy chronic Obesity [facility] Work Phone: Evaluation note* Diagnosis Onset Date Resolution Status Arthritis chronic Hypertension chronic Flu vaccine need resolved Insomnia resolved Lumbar radiculopathy resolve d Obesity resolved Abnormal EKG acute BMI 37.0-37.9, adult acute Other obesity acute Arthritis chronic Fibromyalgia chronic Hypertension [facility] Work Phone: Evaluation note* Diagnosis Onset Date Resolution Status Arthritis chronic Hypertension chronic Flu vaccine need resolved Insomnia resolved Lumbar radiculopathy resolve d Obesity resolved Abnormal EKG acute BMI 37.0-37.9, adult acute Fatty liver disease, nonalcoholic acute Other obesity acute Prediabetes acute Arthritis chronic Fibromyalgia chronic Hypertension chronic [facility] Work Phone: Hospital Discharge instructionsWBrown [facility] Hospital Work Phone: Hospital Discharge instructions Additional Instructions Please follow-up with PCP and return for any worsening of symptoms.[facility] Work Phone: Reason for referral (narrative)No reason for referral information availableWBrown Memorial Hospital Work Phone: Summary Purpose Family History No Family History Records Found Relationship Condition Age at Onset Recorded Date/T phil Unknown Family History?- Unknown January 2:50pm Family History?- Unknown January 2:50pm Relationship Condition Age at Onset Recorded Date/T phil Not Specified Adopted Unknown Relationship Condition Age at Onset Recorded Date/T phil unrelated friend Adopted Unknown Advance Directives No Advanced Directives Records FoundDocuments on File Type Date Recorded Patient Program Consultant Expl anation Advance Directives and Living Will Advance Directive Response Recorded Date/ Time Advance Directives No October 31 2:33pm Living Will No August 09, 2021 7:52am Power of Placement Manager No August 09 7:52am Advance Directive Response Recorded Date/ Time Advance Directives No October 31 2:33pm Living Will No February 21 4:23pm Power of Placement Manager No February 21, 2022 4:23pm Advance Directive Response Recorded Date/ Time Advance Directives No October 31 1:33pm Living Will No February 21 3:23pm Power of Placement Manager No February 21, 2022 3:23pm Advance Directive Response Recorded Date/ Time Advance Directives No May 7:50am Living Will No June 15 7:50am Power of Placement Manager No June 15, 2022 7:50am Advance Directive Response Recorded Date/ Time Advance Directives No May 8:50am Living Will No February 23rd, 2 023 8:50am Power of Placement Manager No June 15, 2022 8:50am Advance Directive Response Recorded Date/ Time Advance Directives No May 8:50am Living Will No October 06, 2022 4:06pm Power of Placement Manager No October 06 4:06pm Advance Directive Response Recorded Date/ Time Advance Directives No May 8:50am Living Will No November 14, 2022 2:43pm Power of Placement Manager No November 14 2:43pm Advance Directive Response Recorded Date/ Time Advance Directives No May 7:50am Living Will No November 14, 2022 1:43pm Power of Placement Manager No November 14 1:43pm Advance Directive Response Recorded Date/ Time Advance Directives No May 8:50am Chief Complaint and Reason for Visit Chief Complaint FALL WITH HEAD AND F BOYD INJURY Chief Complaint FALL WITH HEAD AND F BOYD INJURY SORE THROAT/COTA/SWO[place]EN [place]S LUMBAR SPINE XRAY Reason for Visit Acute pharyngitis Contact with or suspected exposure to other viral communicable disease Chief Complaint HEADACHE/NAUSEA/DIAR ELIDA chest pain Reason for Visit Gastroenteritis Migraine Chief Complaint chest pain 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 EST CARE - NPP SENT ABNORMAL EKG ABNORMAL EKG ABN STRESS & EKG (OLEGHE) DYSPNEA HYPERSOMNOLENCE 1 M FU HX OF CEREBRAL ANEURYSM ABN STRESS SOB ABN STRESS SOB Reason for Visit Abnormal EKG Family history of cerebral aneurysm Hypersomnolence Fibromyalgia Abnormal stress test Chest pain Hypertension Obesity Abnormal stress test Hypersomnolence Fibromyalgia Hypertension Chief Complaint HX OF CEREBRAL ANEUR YSM ABN STRESS SOB ABN STRESS SOB 3 M FU PREVENTATIVE PALPS SCREENING LUMBAR SPINE Amb Documentation DDD Reason for Visit Abnormal stress test Fibromyalgia Hypertension Palpitations Colon cancer screening Preventative health care DDD (degenerative disc disease), lumbosacral Chief Complaint ABN STRESS SOB ABN STRESS SOB 3 M FU PREVENTATIVE PALPS SCREENING LUMBAR SPINE Amb Documentation DDD LUMBER SPINE edema jimi lower Reason for Visit Abnormal stress test Fibromyalgia Hypertension Palpitations Colon cancer screening Preventative health care DDD (degenerative disc disease), lumbosacral DDD (degenerative disc disease), lumbosacral Chief Complaint 3 M FU PREVENTATIVE PALPS SCREENING LUMBAR SPINE Amb Documentation DDD LUMBER SPINE edema jimi lower ACUTE ONLY - SEVERE LEG/FEET SWELLING Opioid dependence, uncomplicated Reason for Visit Abnormal stress test Fibromyalgia Hypertension Palpitations Colon cancer screening Preventative health care DDD (degenerative disc disease), lumbosacral DDD (degenerative disc disease), lumbosacral Colon cancer screening Chief Complaint 3 M FU PREVENTATIVE 30 DAY MONITOR PALPS SCREENING LUMBAR SPINE Amb Documentation DDD LUMBER SPINE edema jimi lower ACUTE ONLY - SEVERE LEG/FEET SWELLING Opioid dependence, uncomplicated Reason for Visit Abnormal stress test Fibromyalgia Hypertension Palpitations Colon cancer screening Preventative health care DDD (degenerative disc disease), lumbosacral DDD (degenerative disc disease), lumbosacral Colon cancer screening Chief Complaint 3 M FU Inflammatory polyarthropathy Reason for Visit Flu vaccine need Arthritis Hypertension Insomnia Lumbar radiculopathy Obesity Chief Complaint 3 M FU Inflammatory polyarthropathy E66.9 OBESITY Reason for Visit Flu vaccine need Arthritis Hypertension Insomnia Lumbar radiculopathy Obesity Chief Complaint 3 M FU Inflammatory polyarthropathy E66.9 OBESITY ROUTINE PAIN IN RIGHT KNEE Weight Management Consult - intake form complete E-ORDER Reason for Visit Arthritis Hypertension Flu vaccine need Insomnia Lumbar radiculopathy Obesity Abnormal EKG BMI 37.0-37.9, adult Other obesity Arthritis Fibromyalgia Hypertension Chief Complaint 3 M FU Inflammatory polyarthropathy E66.9 OBESITY ROUTINE PAIN IN RIGHT KNEE Weight Management Consult - intake form complete E-ORDER Reason for Visit Arthritis Hypertension Flu vaccine need Insomnia Lumbar radiculopathy Obesity Abnormal EKG BMI 37.0-37.9, adult Fatty liver disease, nonalcoholic Other obesity Prediabetes Arthritis Fibromyalgia Hypertension Chief Complaint Admit Date severe headache x1 week June 23, 2024 9:49am FU July 03, 2024 5:5 5pm 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) August 27, 2024 1:16pm INT LABS September 03, 2024 9:21a m Reason for Visit Admit Date Headache June 23, 2024 9:49 am Headache July 03, 2024 5:5 5pm Borderline type 2 diabetes mellitus Chemo 2024 5:55pm Hyperlipidemia July 03, 2024 5:5 5pm Hypertension July 03, 2024 5:5 5pm Obesity (BMI 30-39.9) July 03, 2024 5 :55pm Climacteric August 27, 2024 1:16pm Encounter for routine gynecological exam ination August 27, 2024 1:16pm Chief Complaint Admit Date severe headache x1 week June 23, 2024 9:49am FU July 03, 2024 5:5 5pm 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) August 27, 2024 1:16pm INT LABS September 03, 2024 9:21a m FU October 03, 2024 2:46 pm Chief Complaint Admit Date FU October 03, 2024 2:46 pm 3 M FU January 02, 2025 2:09pm Reason for Visit Admit Date Borderline type 2 diabetes mellitus October 03, 2024 2:46pm Fibromyalgia October 03, 2024 2:46 pm Hyperlipidemia October 03, 2024 2:46 pm Hypertension October 03, 2024 2:46 pm Obesity (BMI 30-39.9) October 03, 2024 2: 46pm Additional Source Comments INFORMATION SOURCE (unrecogn ized section and content) DATE CREATED AUTHOR 01/06/2019 [facility] DATE CREATED AUTHOR AUTHOR'S ORGANIZ ATION 04/10/2021 [facility] DATE CREATED AUTHOR AUTHOR'S ORGANIZ ATION 01/04/2025 [facility] Goals (unrecognized section and content) Goals may be documented in a n alternate sectionGoals may be documented in an alternate sectionGoals may be documented in an alternate sectionGoals may be documented in an alternate sectionGoals may be documented in an alternate sectionGoals may be documented in an alternate sectionGoals may be documented in an alternate sectionGoals may be documented in an alternate sectionGoals may be documented in an alternate sectionGoals may be documented in an alternate sectionGoals may be documented in an alternate sectionGoals may be documented in an alternate sectionGoals may be documented in an alternate sectionGoals may be documented in an alternate sectionGoals may be documented in an alternate sectionGoals may be documented in an alternate sectionGoals may be documented in an alternate section Care Teams (unrecognized sec tion and content) Team Status: Active Member Role Status Dates Dr. Hardeep Vázquez MD Family Provider Active Dr. Nica Henry MD Primary Care Provider Active Team Status: Inactive Member Role Status Dates Dr. Hardeep Vázquez MD Primary Care Provider, Referring Provider Active Dr. Nica Henry MD Attending Provider Active Team Status: Inactive Member Role Status Dates Dr. Hardeep Vázquez MD Referring Provider Active Dr. Nica Henry MD Primary Care Provider, Atten ding Provider Active Team Status: Active Member Role Status Dates Dr. Nica Henry MD Primary Care Provider, Other Provider Active Dr. García Sotelo MD Attending Provider Activ e Team Status: Inactive Member Role Status Dates Dr. Nica Henry MD Primary Care Provider, Refer ring Provider Active Dr. Guadalupe Suazo MD Attending Provider Active Team Status: Active Member Role Status Dates Dr. Nica Henry MD Primary Care Provider Active Dr. Guadalupe Suazo MD Attending Provider Active Team Status: Inactive Member Role Status Dates Dr. Hardeep Vázquez MD Primary Care Provider Active Dr. Jaden Magana DO Attending Provider, Emergency Provider Active Team Status: Active Member Role Status Dates Dr. Nica Henry MD Primary Care P rovider, Attending Provider, Referring Provider Active Team Status: Active Member Role Status Dates Dr. Nica Henry MD Primary Care Provider, Atten ding Provider Active Team Status: Inactive Member Role Status Dates Dr. Nica Henry MD Primary Care Provider Active Dr. Guadalupe Suazo MD Attending Provider, Referring Pr ovider Active Team Status: Inactive Member Role Status Dates Dr. Nica Henry MD Primary Care P rovider, Attending Provider, Referring Provider Active Team Status: Inactive Member Role Status Dates Dr. Nica Henry MD Primary Care Provider, Atten ding Provider Active Team Status: Active Member Role Status Dates Dr. Nica Henry MD Primary Care Provider Active Dr. Guadalupe Suazo MD Other Provider Active Manuel Ulloa REHABILITATION NURSE, REHABILITATION NURSE-C Attending Provider Active Team Status: Inactive Member Role Status Dates Dr. Nica Henry MD Primary Care Provider, Refer ring Provider Active Dr. Daniele Lindquist DO Attending Provider Active Team Status: Active Member Role Status Dates Dr. Nica Henry MD Primary Care Provider Active Kasey Pfeiffer Attending Provider Active Team Status: Active Member Role Status Dates Dr. Nica Henry MD Primary Care Provider Active Dr. Guadalupe Suazo MD Attending Provider, Referring Pr ovider Active Team Status: Inactive Member Role Status Dates Dr. Nica Henry MD Primary Care Provider Active Dr. Daniele Lindquist DO Attending Provider, Referring P rovider Active Team Status: Inactive Member Role Status Dates Dr. Nica Henry MD Primary Care Provider Active Dr. Bautista Arce MD Emergency Provider Active Team Status: Inactive Member Role Status Dates Dr. Nica Henry MD Primary Care Provider, Refer ring Provider Active Dr. Radha Zapata MD Attending Provider Active Team Status: Active Member Role Status Dates Dr. Nica Henry MD Primary Care Provider Active Dr. Landon Phoenix MD Attending Provider Active Dr. Bautista Arce MD Referring Provider Active Team Status: Active Member Role Status Dates Dr. Nica Henry MD Primary Care Provider, Refer ring Provider Active Dr. Nathaly Doss MD Attending Provider, Other Pro vider Active Team Status: Inactive Member Role Status Dates Dr. Nica Henry MD Primary Care Provider, Refer ring Provider Active Dr. Nathaly Doss MD Attending Provider Active Team Status: Inactive Member Role Status Dates Dr. Nica Henry MD Primary Care Provider Active Dr. Bautista Arce MD Attending Provider, Emergency Provider Active Team Status: Active Member Role Status Dates Dr. Nica Henry MD Primary Care Provider Active Dr. Cruz Singh MD Attending Provider, Referring Pr ovider Active Team Status: Inactive Member Role Status Dates Dr. Nica Henry MD Primary Care Provider Active Dr. Cruz Singh MD Attending Provider, Referring Pr ovider Active Team Status: Inactive Member Role Status Dates Dr. Nica Henry MD Primary Care Provider Active Dr. Tricia Gonsalves MD Attending Provider, Referring Provider Active Team Status: Active Member Role Status Dates Dr. Nica Henry MD Primary Care Provider Active Dr. Tricia Gonsalves MD Attending Provider, Referring Provider Active Team Status: Inactive Member Role Status Dates Dr. Nica Henry MD Primary Care Provider Active Dr. Marisa Stuart MD Attending Provider, Referr ing Provider Active Team Status: Inactive Member Role Status Dates Dr. Nica Henry MD Primary Care Provider, Refer ring Provider Active Dr. Marisa Stuart MD Attending Provider Active Team Status: Active Member Role Status Dates Dr. Nica Henry MD Primary Care Provider Active Dr. Farhad Barraza MD Attending Provider Active Dr. Marisa Stuart MD Referring Provider Active Team Status: Inactive Member Role Status Dates Dr. Nica Henry MD Primary Care Provider Active Dr. Alpesh Mcneill DO Attending Provider, Referrin g Provider Active Team Status: Active Member Role Status Dates Dr. Nica Henry MD Primary Care Provider Active Dr. Marisa Stuart MD Attending Provider, Referr ing Provider Active Team Status: Inactive Member Role Status Dates Dr. Nica Henry MD Primary Care Provider Active Start: June 23, 2024 End: June 23, 2024 Dr. Nica Henry MD Attending Provider Active Start: June 23, 2024 End: June 23, 2024 Dr. Nica Henry MD Referring Provider Active Start: June 23, 2024 End: June 23, 2024 Team Status: Inactive Member Role Status Dates Dr. Nica Henry MD Primary Care Provider Active Start: July 03, 2024 End: July 03, 2024 Dr. Nica Henry MD Attending Provider Active Start: July 03, 2024 End: July 03, 2024 Dr. Nica Henry MD Referring Provider Active Start: July 03, 2024 End: July 03, 2024 Team Status: Inactive Member Role Status Dates Dr. Nica Henry MD Primary Care Provider Active Start: August 27, 2024 End: August 27, 2024 Dr. Nica Henry MD Referring Provider Active Start: August 27, 2024 End: August 27, 2024 Dr. Marisa Stuart MD Attending Provider Active Start: August 27, 2024 End: August 27, 2024 Team Status: Inactive Member Role Status Dates Dr. Nica Henry MD Primary Care Provider Active Start: September 03, 2024 End: September 03, 2024 Dr. Nica Henry MD Attending Provider Active Start: September 03, 2024 End: September 03, 2024 Dr. Nica Henry MD Referring Provider Active Start: September 03, 2024 End: September 03, 2024 Dr. Cruz Singh MD Other Provider Active Star t: September 03, 2024 End: September 03, 2024 Team Status: Inactive Member Role Status Dates Dr. Nica Henry MD Primary Care Provider Active Start: October 03, 2024 End: October 03, 2024 Dr. Nica Henry MD Attending Provider Active Start: October 03, 2024 End: October 03, 2024 Dr. Nica Henry MD Referring Provider Active Start: October 03, 2024 End: October 03, 2024 Team Status: Active Member Role/Relationship Status Dates Dr. Hardeep Vázquez MD Family Provider Active Dr. Nica Henry MD Primary Care Provider Active Team Status: Inactive Member Role/Relationship Status Dates Dr. Niac Henry MD Primary Care Provider Active Start: October 03, 2024 End: October 03, 2024 Dr. Nica Henry MD Attending Provider Active Start: October 03, 2024 End: October 03, 2024 Dr. Nica Henry MD Referring Provider Active Start: October 03, 2024 End: October 03, 2024 Team Status: Inactive Member Role/Relationship Status Dates Dr. Nica Henry MD Primary Care Provider Active Start: January 02, 2025 End: January 02, 2025 Dr. Nica Henry MD Attending Provider Active Start: January 02, 2025 End: January 02, 2025 Dr. Nica Henry MD Referring Provider Active Start: January 02, 2025 End: January 02, 2025 FOR RECORDS PERTAINING TO PATIENTS WHO ARE [...] BE BASED ON THE PRIMARY CLINICAL RECORDS. [facility] [employer] provides no warranty or guarantee of the accuracy or completeness of information in this document.
[2025-04-13 08:25] LABS: Hematocrit 40.9 % (37-47); Hemoglobin 13.5 g/dL (12.0-15.0); Immature Granulocytes Count 0.040 X10^3/uL (0.0-0.0); Mean Corp Hgb Conc 33.0 g/dL (32-36); Mean Corpuscular Volume 84.7 fL (81-99); Mean Platelet Vol. 10.4 fl (6.2-12.0); NRBC Flagged by Analyzer 0 % (0-5); Platelet Count 289 K/mm3 (150-450); RBC Distribution Width CV 13.4 % (11.6-14.6); RBC Distribution Width SD 41.5 fl (35.1-43.9); Red Blood Count 4.83 M/mm3 (4.2-5.4); White Blood Count 8.8 K/mm3 (4.4-11.0)
[2025-04-13 09:50] LABS: AST(SGOT) 17 U/L (<=31); Alanine Aminotransfer ALT/SGPT 23 U/L (<=34); Albumin, Serum 4.0 g/dL (3.5-5.0); Alkaline Phosphatase 81 U/L (35-104); Anion Gap 10 (5-15); BUN 14 mg/dL (4-19); BUN/Creat Ratio 12.5 RATIO (10-20); Calcium,Total 9.4 mg/dL (7.6-11.0); Carbon Dioxide 25.4 mmol/L (21.0-32.0); Chloride 107 mmol/L (98-108); Globulin 2.7 g/dL (2.2-4.2); Glucose 96 mg/dL (70-99); Potassium 3.9 mmol/L (3.3-5.1)
== END | disposition home or self-care (01) ==
LOC: LAB 07:25
PROVIDERS: PCP Internal Medicine; Referring Provider Internal Medicine; Visit Provider Internal Medicine
DX: R73.03 Prediabetes (principal); E78.5 Hyperlipidemia, unspecified
CPT/HCPCS: 36415; 80053; 83036; 85025